=== PATIENT | female | born 1970 | race Caucasian/White ===

== ENCOUNTER → 2017-07-05 09:29 | Outpatient (CLI) | payer OTHER, SELFPAY ==
[2017-07-05 10:29] LABS: Hematocrit 39.8 % (37-47); Hemoglobin 13.5 g/dl (12.0-15.0); Mean Corp Hgb Conc 33.9 g/gl (32-36); Mean Corpuscular Hgb 31.6 pg (27.0-32.0); Mean Corpuscular Volume 93.2 fL (81-99); Mean Platelet Vol. 9.6 fl (6.2-12.0); Platelet Count 253 K/mm3 (150-450); RBC Distribution Width CV 12.3 % (11.6-14.6); RBC Distribution Width SD 41.2 fl (35.1-43.9); Red Blood Count 4.27 M/mm3 (4.2-5.4); White Blood Count 5.6 K/mm3 (4.4-11.0)
[2017-07-05 10:34] LABS: Scan Indicated on CBC? Y/N NO
[2017-07-08 14:09] LABS: Aspirgillus flavus Negative (Neg:<1:1); Aspirgillus fumigatus Negative (Neg:<1:1); Aspirgillus niger Negative (Neg:<1:1)
[2017-07-08 14:44] LABS: Immunoglobulin G 1086 mg/dL (700-1600)
[2017-07-09 03:06] LABS: Alternaria alternata <0.10 kU/L (Class 0); Bermuda Grass 0.15 kU/L (Class 0/I); Bluegrass, Kentucky <0.10 kU/L (Class 0); Cat Hair/Dander, Standard <0.10 kU/L (Class 0); D farinae Mite 0.24 kU/L (Class 0/I); D pteronyssinus 0.33 kU/L (Class I); Dog Epithelia <0.10 kU/L (Class 0); Elm, American White <0.10 kU/L (Class 0); Oak, White <0.10 kU/L (Class 0); Plantain, English <0.10 kU/L (Class 0); Ragweed, Short/Common <0.10 kU/L (Class 0)
[2017-07-09 07:54] LABS: Mouse Urine <0.10 kU/L (Class 0)
== END ==
PROVIDERS: Family Provider Family Medicine; PCP Family Medicine; Visit Provider Nurse Practitioner Acute Care
DX: R05 Cough (principal)
CPT/HCPCS: 36415; 82784; 85027; 86003; 86606

== ENCOUNTER → 2017-11-28 08:17 | Outpatient (CLI) | payer OTHER, SELFPAY ==
[2017-11-28 12:05] LABS: Absolute Lymphocyte Count 1.25 X10^3/ul (0.83-4.51); Absolute Neutrophil Count 2.8 X10^3/uL (2.0-7.7); Basophil# 0.02 X10^3/uL; Basophil% 0.4 % (0-1); Eosinophil# 0.06 X10^3/uL; Eosinophils% 1.3 % (0-5); Hematocrit 39.9 % (37-47); Hemoglobin 13.3 g/dl (12.0-15.0); Lymphocyte # 1.25 X10^3/ul (4.0); Lymphocyte % 27.2 % (19-41); Mean Corp Hgb Conc 33.3 g/gl (32-36); Mean Platelet Vol. 10.2 fl (6.2-12.0); Monocyte# 0.45 X10^3/uL; Monocyte% 9.8 % (0-10); Neutrophil # 2.82 X10^3/uL (2.7-7.7); Neutrophil % 61.3 % (47-70); Platelet Count 257 K/mm3 (150-450); RBC Distribution Width CV 12.3 % (11.6-14.6); RBC Distribution Width SD 41.1 fl (35.1-43.9); Red Blood Count 4.29 M/mm3 (4.2-5.4); White Blood Count 4.6 K/mm3 (4.4-11.0)
[2017-11-28 12:08] LABS: POSITIVE COUNT NO; POSITIVE DIFFERENTIAL NO; POSITIVE MORPHOLOGY NO
[2017-11-28 12:29] LABS: Hemoglobin A1c 8.1 % (4.2-6.3)
[2017-11-28 12:37] LABS: AST(SGOT) 11 U/L (15-37); Alanine Aminotransfer ALT/SGPT 15 U/L (13-56); Albumin, Serum 3.7 g/dL (3.2-5.0); Alkaline Phosphatase 51 U/L (45-117); Anion Gap 5 (5-15); BUN 14 mg/dL (7-18); BUN/Creat Ratio 16.3 RATIO (10-20); Calcium,Total 8.6 mg/dL (8.5-10.1); Chloride 103 mmol/L (98-107); Cholesterol 182 mg/dL (200); Creatinine, Serum 0.86 mg/dL (0.55-1.02); EST Glomerular Filtration Rate 75 mL/min (>60); Est Glom Filt Rate - Afr Amer 91 mL/min (>60); Globulin 3.7 g/dL (2.2-4.2); Glucose 184 mg/dL (74-106); High Density Lipoprotein 86 mg/dL; Microalbumin,Random Urine 6.6 mg/L (NO RANGE EST.); Microalbumin:Creatinine Ratio 4.9 mg/g CRE (<30 mg/g CRE); Potassium 4.2 mmol/L (3.5-5.1); Protein, Total 7.4 g/dL (6.4-8.2); Sodium Level 137 mmol/L (136-145); T4 Free Direct 1.04 ng/dL (0.76-1.46); Thyroid Stim Hormone (TSH) 1.69 uIU/mL (0.358-3.74); Triglycerides 89 mg/dL; Very Low Density Lipoprotein 18 mg/dL (5-40)
[2017-11-29 13:09] LABS: Hep B Surface Antibodies Non Reactive (.); Hepatitis A AB, Total Negative (Negative)
== END ==
PROVIDERS: Family Provider Family Medicine; PCP Family Medicine; Visit Provider Family Medicine
DX: Z20.9 Contact with and (suspected) exposure to unspecified communicable disease (principal); E10.9 Type 1 diabetes mellitus without complications
CPT/HCPCS: 36415; 80053; 80061; 82043; 82570; 83036; 84439; 84443; 85025; 86706; 86708

== ENCOUNTER → 2018-03-28 07:20 | Outpatient (CLI) | payer OTHER, SELFPAY ==
--- NOTE | 2018-03-28 07:22 | MRI_ITS ---
STUDY: MRI RIGHT ELBOW REASON FOR EXAM: Right elbow pain for 2 years, no specific injury. TECHNIQUE: Standardized fat and water weighted pulse sequences were obtained in all 3 orthogonal planes. COMPARISON: Radiographs 10/20/2016. FINDINGS: Normal radio-capitellum articulation. Normal radial collateral ligamentous complex. There is peritendinitis and an undersurface partial tear of the common extensor tendon (inversion recovery coronal images 8, 9). Normal ulnotrochlear articulation. Normal ulnar collateral ligamentous complex. Normal common flexor tendon. The cubital tunnel is normal, with a normal ulnar nerve. Normal biceps tendon and distal insertion. Normal lacertus fibrosis. Normal brachialis musculotendinous insertion. Normal triceps tendon and teno-osseous insertion. Normal olecranon process. The visualized distal humerus, proximal radius, and ulna are normal. The visualized muscles of the distal arm and proximal forearm are normal. The soft tissue structures are unremarkable. MRI/Upper Ext Joint Only(Routine) IMPRESSION: Lateral epicondylitis with peritendinitis and undersurface partial tear of the common extensor tendon. Electronically Signed: Akhil Read MD at 9:33 EST Tel , Service support ,
== END ==
PROVIDERS: Family Provider Family Medicine; PCP Family Medicine; Referring Provider Orthopaedic Surgery; Visit Provider Orthopaedic Surgery
DX: M77.11 Lateral epicondylitis, right elbow (principal); S56.511A Strain of other extensor muscle, fascia and tendon at forearm level, right arm, initial encounter; X58.XXXA Exposure to other specified factors, initial encounter
CPT/HCPCS: 73221

== ENCOUNTER → 2018-04-11 14:37 | Outpatient (CLI) | payer OTHER, SELFPAY ==
[2018-03-12 09:49] VITALS: BMI 22.4
--- NOTE | 2018-04-11 | EMB_PTH ---
PATIENT: ZAKIYA TRUJILLO LOC: [facility] U#:[id number] AGE/SX: 54/F ROOM: RE04/11/[address]: Dr. Jama Donato MD : 1970 BED: DIS: SPEC #: [id number] RECD: 04/11/18 15:27 STATUS: DAMIÁN BENIGNO #: [id number] JASBIR: 04/11/18 00:[address]: Jama Donato DEPT: SURGICAL PATHOLOGY RECD BY: Victor M Lazaro Tissues: Endometrium, NOS Procedures: Surgery Specimen Level IV HEADER OPERATION: Endometrial biopsy PRE-OP DIAGNOSIS: Abnormal uterine bleeding TISSUE SUBMITTED: Endometrial biopsy MICROSCOPIC DIAGNOSIS Endometrial biopsy: Proliferative endometrium. KLAUDIA:manisha 04/13/18 MICROSCOPIC DESCRIPTION Slides are reviewed. GROSS DESCRIPTION Received in fixative is one container labeled with the patient's name and designated EM biopsy. The specimen consists of multiple fragments of hemorrhagic soft tissue mixed with mucoid tissue that in aggregate measure 3 x 2.5 x 0.2 cm. The specimen is totally submitted in one cassette. / KLAUDIA:manisha 04/12/18 TC:4 CPT: 47370
[2018-04-20 11:29] LABS: HPV APTIMA, High Risk Negative (Negative); HPV Reflexed? NOT INDICATED
== END ==
PROVIDERS: Visit Provider Obstetrics & Gynecology
DX: N93.9 Abnormal uterine and vaginal bleeding, unspecified (principal); Z12.4 Encounter for screening for malignant neoplasm of cervix
CPT/HCPCS: 87624; 88175; 88305; G0145

== ENCOUNTER 2018-04-27 07:56 | Day surgery (SDC) | payer OTHER, SELFPAY ==
[2018-03-12 09:49] VITALS: BMI 22.4
[2018-04-27 08:25] LABS: Internal QC Validated? YES +Cl - CLEAR BKGD
[2018-04-27 08:26] LABS: Pregnancy, Urine Negative Negative
[2018-04-27 08:31] VITALS: BP 136/86; PULSE 87; RESP 16; TEMP 37.2; O2SAT 99; BMI 22.6
[2018-04-27 08:35] LABS: Anion Gap 8 (5-15); BUN 14 mg/dL (7-18); BUN/Creat Ratio 17.3 RATIO (10-20); Calcium,Total 8.7 mg/dL (8.5-10.1); Chloride 101 mmol/L (98-107); Creatinine, Serum 0.81 mg/dL (0.55-1.02); EST Glomerular Filtration Rate 80 mL/min (>60); Est Glom Filt Rate - Afr Amer 97 mL/min (>60); Glucose 227 mg/dL (74-106); Potassium 3.8 mmol/L (3.5-5.1); Sodium Level 135 mmol/L (136-145)
[2018-04-27 08:41] LABS: Hemoglobin A1c 8.9 % (4.2-6.3)
[2018-04-27 08:57] LABS: Bedside Glucose 233 mg/dL (70-110)
--- NOTE | 2018-04-27 09:30 | MISC_PTH ---
PATIENT: ZAKIYA TRUJILLO LOC: [facility] [place] U[place][id number] AGE/SX: 47/F ROOM: RE04/27/[address]: Dr. Stephanie Bar DO : 1970 BED: DIS: 04/27/2018 SPEC #: [id number] RECD: 04/27/18 12:46 STATUS: DAMIÁN BENIGNO #: [id number] JASBIR: 04/27/18 09:[address]: Stephanie Bar DEPT: SURGICAL PATHOLOGY RECD BY: Khalif Servin ENTERED: 04/27/18 13:27 SP TYPE: [facility] DR: Dr. Erin Acuna DO Tissues: Elbow, NOS Procedures: Surgery Specimen Level III HEADER OPERATION: Elbow lateral epicondyle ECRB (muscle) debridement/repair PRE-OP DIAGNOSIS: Right lateral epicondylitis TISSUE SUBMITTED: Right elbow ECRB MICROSCOPIC DIAGNOSIS Right elbow: Pieces of dense fibroconnective tissue with reactive changes and focal calcification. KLAUDIA:manisha 04/30/18 MICROSCOPIC DESCRIPTION Slides are reviewed. GROSS DESCRIPTION Received in fixative is one container labeled with the patient's name and designated right elbow. The specimen consists of multiple pieces of gaytan, indurated tissue that in aggregate measure 2 x 1.5 x 0.3 cm. The entire specimen is submitted in one cassette. / KLAUDIA:manisha 04/27/18 TC:5 CPT: 63638
--- NOTE | 2018-04-27 09:57 | PCM.DC.ORTHO ---
Discharge Diet: No Restrictions - leave dressing intact, follow up in 2 weeks, call with concerns, do not get incision wet Discharge Activity: May Not Drive May shower in (days): 1 Ice area for (Minutes): 20 - Every hour while awake. Weight Bearing Status: Weight bearing as tolerated Keep extremity elevated above heart level: Operative Extremity Call your doctor if your incision/area has: Continuous Slow Oozing, Sudden Increased Bleeding, Increased Pain/ Swelling, Increased Redness, Foul Smelling Discharge Call your doctor if you observe: Fever of 101 or Higher, Coldness, Increased Pain, Numbness or Tingling, Change in Color, Calf discomfort Allergies/Adverse Reactions: Allergies lisinopril Adverse Reaction (Intermediate, Verified 04/27/18 08:29) HYPOTENSION, SYMPTOMATIC fluticasone furoate [From Breo Ellipta] Adverse Reaction (Mild, Verified 04/20/18 09:08) Other - cough & loses voice vilanterol [From Breo Ellipta] Adverse Reaction (Mild, Verified 04/20/18 09:08) Other - cough & loses voice lovastatin Adverse Reaction (Unknown, Verified 04/27/18 08:29) Pain in joints Medications to take at Discharge Montelukast [Singulair] 10 mg PO DAILY 07/23/14 insulin lispro (U- 100) 100 unit/mL subcutaneous solution See Rx Instructions SC .COMPLEX 04/20/17 ezetimibe 10 mg tablet 10 mg PO QDAY 04/25/17 albuterol sulfate HFA 90 mcg/actuation aerosol inhaler 2 puff INHALATION Q4H #1 inh 07/05/17 fluticasone furoate 200 mcg/actuation blister powder for inhalation 1 inh INHALATION QDAY #30 ea 09/01/17 Fluticasone 0.05% [Flonase Nasal Leonardo] 2 spray INTRANASAL PRN PRN 04/20/18 Hydrocodone Bitart/Apap 5-325 [[place] 5MG-325MG] 1 - 2 tablet PO Q6H PRN PRN 5 Days #40 tablet 04/27/18 Ondansetron [Zofran] 8 mg PO Q8H PRN PRN #20 tablet 04/27/18 The following prescriptions were given: Hydrocodone Bitart/Apap 5-325 [[place] 5MG-325MG] 1 - 2 tablet PO Q6H PRN PRN 5 Days #40 tablet PRN Reason: Pain Ondansetron [Zofran] 8 mg PO Q8H PRN PRN #20 tablet PRN Reason: Nausea Primary Care Physician: Erin Acuna DO [Primary Care Provider] - Test Results: Test results from this visit will be discussed in further detail at your follow-up appointment, if applicable. Please Follow Up With: Stephanie Bar DO - [phone]
--- NOTE | 2018-04-27 09:58 | PCM.OPRPT ---
Problem List (1) Lateral epicondylitis of elbow Status: Acute Qualifiers: Laterality: right Qualified Code(s): M77.11 - Lateral epicondylitis, right elbow Report of Operation Date of Procedure: 04/27/18 Pre-Operative Diagnosis: right lateral epicondylitis Post-Operative Diagnosis: same Surgery/Procedure Performed:: right lateral epicondylectomy and debridement/ecrb debridement lead fabricator: Elver Huertas Type of Anesthesia:: General Anesthesiologist: Haile Donato Drains: tt- 47 mins Estimated Blood Loss (mL): none Fluids Replaced: 1000ml lr Description of Procedure: Preoperative note Patient is a 47-year-old female with continued pain in her right elbow. Patient failed conservative treatment MRI confirms high-grade tearing of her extensor tendon. Patient elected proceed with right lateral epicondylitis with possible repair repair is indicated. Wrist benefits alternatives were discussed with patient. Risks include but not limited to blood loss, blood clot clot, infection, neurovascular injury, failure procedure, loss of life and loss of limb. Patient is aware like proceed with right lateral epicondylitis extensor tendon debridement versus repair extensor tendon lateral epicondylectomy versus debridement. Operative note Patient seen and examined preoperative holding area. Right arm was marked. Patient brought to the operating room placed supine on the operating table. Sign, anesthesia, antibiotics were administered. The right arm was prepped and draped usual sterile fashion with tourniquet around her upper arm. We marked out our incision for lateral epicondyle surgery. Timeout was performed. Then elevated exsanguinated and tourniquet was placed raised her pressure of 250 torr. All bony prominences well-padded SCDs placed on her bilateral lower extremity. We then used a 15 blade cut the skin dissected down to the border of the ECU ECRL we then in line with the fascia fibers and using a deep 15 blade cut through this and then underneath and found the ECRB ECRB was degenerative in nature and also had a high-grade full-thickness tear of the ECRB off of the lateral epicondyle. We then debrided back all the loose pieces of the ECRB on either side of our incision. We did send this to pathology for further evaluation. We then debrided back the lateral epicondyle insertion we placed a 1.8 drill bit and placed a 2.4 mini suture tack and a three-point 0 suture tack injury and then repaired the tendon down to bone. We debrided any loose pieces at that time then oversewed the repair to the tendon on either side. We then irrigated with copious muscle sterile saline. Please note we also visualize the left radial humeral joint and noted there is no loose bodies or anything in the joint. Again we irrigated the incision with copious muscle sterile saline. The fascia was closed with 3-0 Vicryl skin skin subcuticular was closed with 3-0 Vicryl in a running 4-0 Monocryl sterile dressings and a splint was applied in 90 degrees. Tourniquet was deflated for total working time of 47 minutes. Patient tolerated procedure well no comp occasions transferred to recovery room in stable condition. Postoperative note Nonweightbearing right arm Pharmacy has prescriptions Call with increased pain numbness tingling or further issues arise Splint for 2 weeks This note was generated with [employer] dictation software. It may contain incorrect words, spelling, and punctuation that were not noted in checking the note before signing.
[2018-04-27] MEDS: Cefazolin 2 GM in 0.9% Normal Saline 100 ML IV (10:05)
[2018-04-27] MEDS: Mupirocin Ointment 22gm Tube 1 APPLIC (10:38)
[2018-04-27] MEDS: Bupivacaine 0.5% PF 10 ML VIAL (11:14)
[2018-04-27 11:33] VITALS: BP 110/80; BP 136/86; PULSE 96; RESP 16; TEMP 36.1; O2SAT 97
[2018-04-27 11:41] LABS: Bedside Glucose 160 mg/dL (70-110)
[2018-04-27 11:45] VITALS: BP 120/72; BP 136/86; PULSE 85; RESP 16; O2SAT 98
[2018-04-27 11:58] VITALS: BP 130/74; BP 136/86; PULSE 82; RESP 16; TEMP 36.1; O2SAT 100
[2018-04-27] MEDS: HYDROcodone Bitartrate/Apap 5/325 Tablet PO (12:19)
[2018-04-27 13:43] VITALS: BP 107/62; BP 136/86; PULSE 83; RESP 14; TEMP 37.1; O2SAT 97
== END 2018-04-27 13:47 | disposition home or self-care (01) ==
LOC: SDC 07:57 → AC 07:59
PROVIDERS: Anesthesiology; Family Provider Family Medicine; PCP Family Medicine; Referring Provider Orthopaedic Surgery; Visit Provider Orthopaedic Surgery
PROC: (CPT 24357; principal; 2018-04-27 09:15)
DX: M77.11 Lateral epicondylitis, right elbow (principal); J45.40 Moderate persistent asthma, uncomplicated; E11.9 Type 2 diabetes mellitus without complications; Z79.4 Long term (current) use of insulin; Z96.41 Presence of insulin pump (external) (internal); Z79.899 Other long term (current) drug therapy
CPT/HCPCS: 01712; 24359; 36415; 80048; 81025; 82962; 83036; 88304; 88305; C1713; J7120

== ENCOUNTER → 2018-12-25 08:44 | Outpatient (CLI) | payer OTHER, SELFPAY ==
[2018-08-01 08:06] VITALS: BMI 22.6
--- NOTE | 2018-12-25 08:45 | RAD_ITS ---
STUDY: X-RAY - RIGHT SHOULDER REASON FOR EXAM: Pain, no trauma. TECHNIQUE: 4 view(s) of the shoulder. COMPARISON: None. FINDINGS: Normal glenohumeral articulation. Normal acromioclavicular joint. Normal acromion. Normal humeral head and visualized proximal humerus. The soft tissue structures are unremarkable. Normal visualized pulmonary apex. RAD/Shoulder min 2 Views IMPRESSION: Normal x-ray examination of the right shoulder. Electronically Signed: Akhil Read MD at 10:28 EDT Tel , Service support ,
== END ==
PROVIDERS: Family Provider Family Medicine; PCP Family Medicine; Referring Provider Orthopaedic Surgery; Visit Provider Orthopaedic Surgery
DX: M25.511 Pain in right shoulder (principal)
CPT/HCPCS: 73030

== ENCOUNTER → 2019-01-18 07:54 | Outpatient (CLI) | payer OTHER, SELFPAY ==
[2018-12-25 09:13] VITALS: BMI 22.6
--- NOTE | 2019-01-18 07:56 | US_ITS ---
STUDY: ULTRASOUND BREAST - RIGHT REASON FOR EXAM: Female, 48 years old. Six-month follow-up examination. TECHNIQUE: Axial and longitudinal images of the RIGHT breast were performed with a high resolution ultrasound transducer. COMPARISON: Comparison is made with prior outside ultrasound examination dated 07/22/2018. FINDINGS: RIGHT Breast: There is a persistent 1.1 cm x 1.3 cm x 0.7 cm well-defined heterogeneous solid nodule at the 7:00 position of the breast at 3 cm from the nipple. This is essentially unchanged. A biopsy is recommended. US/Breast Limited Unilateral IMPRESSION: Stable appearance of the solid nodule as described. A biopsy is recommended. ASSESSMENT CATEGORY: BIRADS Category 4: Suspicious - Biopsy Should Be Considered. A letter regarding these results will be sent to the patient by the facility within 30 days. Electronically Signed: Mario Almodovar, at 8:40 EDT , Service support ,
== END ==
PROVIDERS: Family Provider Family Medicine; PCP Family Medicine; Referring Provider Nurse Practitioner Women's Health; Visit Provider Nurse Practitioner Women's Health
DX: N63.13 Unspecified lump in the right breast, lower outer quadrant (principal)
CPT/HCPCS: 76642

== ENCOUNTER → 2019-01-21 08:44 | Outpatient (CLI) | payer OTHER, SELFPAY ==
[2018-12-25 09:13] VITALS: BMI 22.6
[2019-01-21 12:27] LABS: Erythrocyte Sedimentation Rate 16 mm/hr (0-20)
[2019-01-21 12:42] LABS: CRP < 2.90 mg/L (0.0-3.0); Rheumatoid Factor < 10.0 IU/mL (<15)
[2019-01-23 12:22] LABS: CCP IgG Antibodies 9 units (0-19)
[2019-01-23 12:56] LABS: ANTINUCLEAR ANTIBODIES DIRECT Negative (Negative)
== END ==
PROVIDERS: Family Provider Family Medicine; PCP Family Medicine; Visit Provider Family Medicine
DX: M25.50 Pain in unspecified joint (principal)
CPT/HCPCS: 36415; 85652; 86038; 86140; 86200; 86225; 86235; 86431

== ENCOUNTER → 2019-01-22 09:39 | Outpatient (CLI) | payer OTHER, SELFPAY ==
[2019-01-22 08:41] VITALS: BMI 22.6
--- NOTE | 2019-01-22 08:50 | BRBX_PTH ---
PATIENT: ZAKIYA TRUJILLO LOC: [facility] U#:[id number] AGE/SX: 54/F ROOM: RE01/22/[address]: Dr. Tirso Joseph MD : 1970 BED: DIS: SPEC #: [id number] RECD: 01/22/19 09:22 STATUS: DAMIÁN REChe #: [id number] JASBIR: 01/22/19 08:[address]: Tirso Joseph DEPT: SURGICAL PATHOLOGY RECD BY: Victor M Lazaro ENTERED: 01/22/19 11:39 SP TYPE: BREAST BX OT DR: DO Luz Maria Cox, FAMILY LIFE COUNSELOR-C Tissues: Right breast, NOS Procedures: Surgery Specimen Level IV HEADER OPERATION: Ultrasound-guided right breast biopsy PRE-OP DIAGNOSIS: Abnormal ultrasound right breast R92.8 TISSUE SUBMITTED: Right breast biopsy ISCHEMIC TIME: <1 minute FIXATION TIME: 10.5 hours MICROSCOPIC DIAGNOSIS Right breast, ultrasound-guided core biopsy: Consistent with fibroadenoma. AM:manisha 01/23/19 MICROSCOPIC DESCRIPTION Slides are reviewed. GROSS DESCRIPTION Received in fixative is one container labeled with the patient's name and designated breast biopsy. The specimen consists of two elongated fragments of light gaytan soft tissue. Each fragment has an average length of 1 cm and a maximal diameter of 0.1 cm. The specimen is totally submitted in one cassette. / AM:manisha 01/22/19 TC:5 CPT: 98046
== END ==
PROVIDERS: Family Provider Family Medicine; PCP Family Medicine; Referring Provider Surgery; Visit Provider Surgery
DX: R92.8 Other abnormal and inconclusive findings on diagnostic imaging of breast (principal)
CPT/HCPCS: 88305

== ENCOUNTER → 2019-03-15 08:39 | Outpatient (CLI) | payer OTHER, SELFPAY ==
[2019-03-15 08:26] VITALS: BMI 22.6
--- NOTE | 2019-03-15 08:40 | RAD_ITS ---
STUDY: X-RAY - CERVICAL SPINE REASON FOR EXAM: Female, 48 years old. Arm pain. TECHNIQUE: 5 view(s) of the cervical spine were obtained on 6 images. COMPARISON: None FINDINGS: Normal anterior atlantoaxial articulation. Normal odontoid process. Normal cervical lordosis. Normal vertebral bodies and endplates. Minimal intervertebral disc space narrowing and C6-7 and C7-T1 without significant osteophyte formation. No significant bony neural foraminal encroachment. Diffuse mild uncovertebral and facet sclerosis. The soft tissue structures are unremarkable. RAD/Cerv Spine 4 or 5 Views IMPRESSION: Mild cervical spondylosis. Electronically Signed: Liam Gonzalez MD at 10:28 EST , Service support ,
== END ==
PROVIDERS: Family Provider Family Medicine; PCP Family Medicine; Referring Provider Orthopaedic Surgery; Visit Provider Orthopaedic Surgery
DX: M47.812 Spondylosis without myelopathy or radiculopathy, cervical region (principal); M79.601 Pain in right arm
CPT/HCPCS: 72050

== ENCOUNTER → 2019-03-21 12:04 | Outpatient (CLI) | payer OTHER, SELFPAY ==
[2019-03-15 08:26] VITALS: BMI 22.6
--- NOTE | 2019-03-21 12:06 | US_ITS ---
STUDY: THYROID ULTRASOUND REASON FOR EXAM: Female, 48 years old. Calcification on x-ray of the cervical region. TECHNIQUE: Ultrasound evaluation of the thyroid was performed with real-time and static chahal-scale imaging. COMPARISON: None. FINDINGS: RIGHT LOBE: The right lobe of the thyroid gland measures 3.9 x 1.6 x 1.4 cm. There is a homogeneous echotexture. Within the right thyroid lobe there are several mixed cystic/solid hypoechoic, lesion with peripheral color flow and irregular margins, largest measuring 0.8 x 0.5 cm seen within the upper pole. LEFT LOBE: The left lobe of the thyroid gland measures 3.6 x 1.3 x 1.4 cm. There is a homogeneous echotexture. Within the left thyroid lobe there are several small nodules are mixed cystic solid nodules with predominantly hyperechoic pattern and irregular margins, largest measuring 0.3 x 0.3 x 0.2 cm. There is no internal color flow. ISTHMUS: The isthmus measures 1.0 mm. The regional lymph nodes are normal. US/Thyroid IMPRESSION: Bilateral thyroid lobe nodules with morphology favoring benign process. No distinct calcified mass or lymphadenopathy seen. Note to be made that benign versus malignant process cannot be adequately determined without microscopic evaluation for documentation of stability. If indicated, follow-up ultrasound in 12 months recommended. Electronically Signed: Alisha Leon MD at 1:01 EST , Service support ,
== END ==
PROVIDERS: Family Provider Family Medicine; PCP Family Medicine; Referring Provider Family Medicine; Visit Provider Family Medicine
DX: E04.2 Nontoxic multinodular goiter (principal)
CPT/HCPCS: 76536

== ENCOUNTER → 2019-04-25 13:13 | Outpatient (CLI) | payer OTHER, SELFPAY ==
[2019-04-25 09:09] VITALS: BMI 22.6
[2019-04-28 17:43] LABS: HPV APTIMA, High Risk Negative (Negative)
== END ==
PROVIDERS: Family Provider Family Medicine; PCP Family Medicine; Referring Provider Nurse Practitioner Women's Health; Visit Provider Nurse Practitioner Women's Health
DX: Z12.4 Encounter for screening for malignant neoplasm of cervix (principal)
CPT/HCPCS: 87624; 88175; G0145

== ENCOUNTER → 2019-05-02 08:29 | Outpatient (CLI) | payer OTHER, SELFPAY ==
[2019-04-25 09:09] VITALS: BMI 22.6
[2019-04-26 11:14] VITALS: BMI 22.6
--- NOTE | 2019-05-02 08:29 | US_ITS ---
STUDY: ULTRASOUND TRANSVAGINAL CLINICAL: Female, 48 years old. Irregular menses TECHNIQUE: Transvaginal COMPARISON: None. FINDINGS: Normal uterine size measuring 7.4 x 5.5 x 3.7 cm in maximal craniocaudal dimension. It is retroverted. There are no myometrial masses. Normal endometrial thickness measuring 14 mm and appears hyperechoic. There are no endometrial masses, and there is no fluid in the endometrial cavity. Normal uterine cervix. The right ovary measures 4.5 x 2.3 x 3.2 cm. There is a 3.4 x 2.1 cm complex cystic lesion with some fluid debris level. Normal left ovary, measuring 2.5 x 1.2 x 1.6 cm. There are multiple follicles without a dominant cyst. There is no free fluid in the pelvis. US/Transvaginal Non- IMPRESSION: Complex right adnexal cystic lesion containing fluid debris level. Retroverted uterus. Electronically Signed: Ryan Hastings DO at 22:37 EST Tel [phone], Service support ,
--- NOTE | 2019-05-02 08:29 | US_ITS ---
STUDY: ULTRASOUND TRANSVAGINAL CLINICAL: Female, 48 years old. Irregular menses TECHNIQUE: Transvaginal COMPARISON: None. FINDINGS: Normal uterine size measuring 7.4 x 5.5 x 3.7 cm in maximal craniocaudal dimension. It is retroverted. There are no myometrial masses. Normal endometrial thickness measuring 14 mm and appears hyperechoic. There are no endometrial masses, and there is no fluid in the endometrial cavity. Normal uterine cervix. The right ovary measures 4.5 x 2.3 x 3.2 cm. There is a 3.4 x 2.1 cm complex cystic lesion with some fluid debris level. Normal left ovary, measuring 2.5 x 1.2 x 1.6 cm. There are multiple follicles without a dominant cyst. There is no free fluid in the pelvis. US/Pelvic (Non ) IMPRESSION: Complex right adnexal cystic lesion containing fluid debris level. Retroverted uterus. Electronically Signed: Ryan Hastings DO at 22:37 EST Tel [phone], Service support ,
== END ==
PROVIDERS: Family Provider Family Medicine; PCP Family Medicine; Referring Provider Nurse Practitioner Women's Health; Visit Provider Nurse Practitioner Women's Health
DX: N92.1 Excessive and frequent menstruation with irregular cycle (principal)
CPT/HCPCS: 76830; 76856; 93976

== ENCOUNTER → 2019-06-10 15:25 | Outpatient (CLI) | payer OTHER, SELFPAY ==
[2019-05-30 08:23] VITALS: BMI 22.6
--- NOTE | 2019-06-10 15:27 | MRI_ITS ---
STUDY: MRI RIGHT SHOULDER REASON FOR EXAM: Right shoulder pain radiating down arm, adhesive capsulitis. TECHNIQUE: Standardized fat and water weighted pulse sequences were obtained in all 3 orthogonal planes. COMPARISON: Radiographs 12/25/2018. FINDINGS: There is mild supraspinatus tendinosis (T2 coronal images 11-13) without discrete tendon tear. Normal infraspinatus tendon. Normal subscapularis tendon. Normal teres minor tendon. Normal supraspinatus muscle. Normal infraspinatus muscle. Normal subscapularis muscle. Normal teres minor muscle. Normal glenohumeral articulation. Normal humeral head and visualized proximal humerus. Normal biceps labral complex. Normal intracapsular long biceps tendon. Normal labrum. Normal capsulo- ligamentous complex. Normal acromioclavicular articulation. There is a Type II morphology (curved), with a neutral orientation. There is no subacromial-subdeltoid bursal fluid. There is thickening of the coracohumeral ligament and indistinct fat in the rotator cuff interval (T2 sagittal image 14). There is a small low-grade strain of the posterior lateral deltoid muscle (T2 coronal image 2). Normal trapezius muscle. MRI/Upper Ext Joint Only(Routine) IMPRESSION: Thickening of the coracohumeral ligament and indistinct fat in the rotator cuff interval, suggestive of adhesive capsulitis. Mild supraspinatus tendinosis without demonstrated rotator cuff tear. Small low-grade strain of the posterior lateral deltoid muscle. Electronically Signed: Akhil Read MD at 8:34 EST Tel , Service support ,
== END ==
PROVIDERS: PCP Family Medicine; Referring Provider Orthopaedic Surgery; Visit Provider Orthopaedic Surgery
DX: M75.01 Adhesive capsulitis of right shoulder (principal)
CPT/HCPCS: 73221

== ENCOUNTER 2019-07-03 05:57 | Day surgery (SDC) | payer OTHER, SELFPAY ==
[2019-06-13 14:48] VITALS: BMI 22.6
--- NOTE | 2019-06-14 10:45 | HP_ITS ---
I have re-examined the patient. There are no clinical changes since date of exam. Intake Vital Signs 06/13/19 BMI 22.6 Intake Visit Reasons: Right shoulder Chief Complaint: right arm pain Allergies lisinopril Adverse Reaction (Intermediate, Verified 04/25/19 08:54) HYPOTENSION, SYMPTOMATIC fluticasone furoate [From Breo Ellipta] Adverse Reaction (Mild, Verified 04/25/19 08:54) Other - cough & loses voice vilanterol [From Breo Ellipta] Adverse Reaction (Mild, Verified 04/25/19 08:54) Other - cough & loses voice lovastatin Adverse Reaction (Unknown, Verified 04/25/19 08:54) Pain in joints [facility] Medical History (Updated 04/25/19 @ 09:21 by EUGENE Soto) Asthma (Acute) abnormal ultrasound right breast (Acute) Adhesive capsulitis of shoulder (Chronic) Chronic cough (Chronic) Elbow joint pain (Chronic) Frequent headaches (Chronic) IDDM (insulin dependent diabetes mellitus) (Chronic) Insulin pump in place (Chronic) Microcalcifications of the breast (Chronic) Moderate persistent asthma, uncomplicated (Chronic) Neck pain (Chronic) Recurrent urinary tract infection (Chronic) Right elbow pain (Chronic) Right tennis elbow (Chronic) Seasonal allergies (Chronic) Shoulder impingement syndrome (Chronic) Shoulder pain (Chronic) Synovitis (Chronic) Surgical History (Updated 05/27/19 @ 16:17 by Yecenia Casiano) h/o right elbow surgery (Acute) Encounter for Essure implantation (Resolved ~10/07/10) H/O breast biopsy (Resolved) H/O laparoscopy (Resolved ~1997) H/O shoulder surgery (Resolved) Social History (Updated 06/14/19 @ 10:[address] 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 history of recent travel: No sexually active: Yes Smoking Status: Never smoker alcohol intake: current alcohol intake frequency: a few times a month Alcohol type: hard liquor substance use type: does not use diet: diabetic well-balanced diet: daily or most days caffeine: Yes (1) Type: carbonated beverages what type of physical activity do you participate in: none seatbelt use: always do you feel safe at home: Yes additional social history: Spouse: rajat HPI Right shoulder: Surgical H&P: Yes Details: Parts of this documentation were recorded by a scribe, this documentation accurately reflects the service provided and the decisions made by me, Dr. Stephanie Bar, 06/13/19 4051. ZAKIYA TRUJILLO is a 48 year old F here today for F/U on right shoulder. She had a right subacromial injection in 12/2018 and she had a GH injection 04/2019 which was not efefctive and she has completed PT. She had an MRI on monday and is here to review this MRI. Denies any changes in her pain. patient has had multiple injections and feels like the pain may be better but her rom is not changing. ROS Musc Reports as per HPI, Reports joint pain, Reports limited joint movement Skin/Breast Reports system reviewed and no additional complaints, except as docu Neuro Yes system reviewed and no additional complaints, except as docu Ortho Exam Right Shoulder Testing: Negative AROM-Forward Elevation 0-180 (150) Internal Rotation: Buttock No rales rhonchi wheezing, no abdominal pain, no audible bruits Assessment & Plan Problems 1. Adhesive capsulitis of right shoulder M75.01 Plan Personally reviewed the MRI and explained that there is no RTC tear but evidence of adhesive capsulitis. She has pain relief with injections and has had multiple, but no increased rom. She has had great relief with increased rom of the left post arthroscopy. Reviewed the post op day one PT session and will use a block or pain pump. Reviewed the pre-operative plans with the patient. Risks and benefits of the procedure were fully explained, including but not limited to infection, neurovascular injury, continued pain, arthritis, stiffness, need for further surgery, re-injury, DVT, PE, general risks of anesthesia, and loss of limb or life. The patient understands all the risks and does wish to proceed with written consent. Follow up post op or sooner if pain, swelling, numbness or associated symptoms, or concerns develop. All questions answered. Patient in agreement of plan. Coding Level of Care Code Off vis,est,level 4 Diagnoses Adhesive capsulitis of right shoulder M75.01 06/14/19 1045 <Electronically signed by Stephanie guevara DO> Date _ Stephanie Bar DO
[2019-07-03 06:28] VITALS: BP 112/59; PULSE 92; RESP 15; TEMP 37.2; O2SAT 98; BMI 23.8
[2019-07-03] MEDS: Lactated Ringers 1,000 ML 100 ML IV ×2 (06:39→09:08)
[2019-07-03 06:45] LABS: Internal QC Validated? YES +Cl - CLEAR BKGD; Pregnancy, Urine Negative Negative
--- NOTE | 2019-07-03 07:15 | DCINST_ITS ---
Discharge Diet: No Restrictions - May remove sling and do pendulums may move shoulder as tolerated follow-up follow-up in 2 weeks call with increased pain numbness tingling or further issues arise, may remove dressings and apply Band- Aids to incision sites after 5 days and get incision wet in shower at that time Discharge Activity: May Not Drive May shower in (days): 1 Ice area for (Minutes): 20 - Every hour while awake. Weight Bearing Status: Weight bearing as tolerated Keep extremity elevated above heart level: Operative Extremity Call your doctor if your incision/area has: Continuous Slow Oozing, Sudden Increased Bleeding, Increased Pain/ Swelling, Increased Redness, Foul Smelling Discharge Call your doctor if you observe: Fever of 101 or Higher, Coldness, Increased Pain, Numbness or Tingling, Change in Color, Calf discomfort Allergies/Adverse Reactions: Allergies lisinopril Adverse Reaction (Intermediate, Verified 07/03/19 06:19) HYPOTENSION, SYMPTOMATIC fluticasone furoate [From Breo Ellipta] Adverse Reaction (Mild, Verified 07/03/19 06:19) Other - cough & loses voice vilanterol [From Breo Ellipta] Adverse Reaction (Mild, Verified 07/03/19 06:19) Other - cough & loses voice lovastatin Adverse Reaction (Unknown, Verified 07/03/19 06:19) Pain in joints Medications to take at Discharge ezetimibe 10 mg tablet 10 mg PO QDAY 04/25/17 montelukast 10 mg tablet 10 mg PO DAILY #60 tab 10/19/18 fluticasone furoate 200 mcg/actuation blister powder for inhalation 1 inh INHALATION QDAY #30 ea 02/12/19 fluticasone propionate 50 mcg/actuation nasal spray,suspension 2 spray INTRANASAL PRN PRN #15.8 ml 06/18/19 Albuterol Sulfate [Ventolin Hfa] 2 puff INHALATION Q4H PRN 06/26/19 Insulin Lispro [Humalog] 100 unit SQ DAILY 06/26/19 Omeprazole [Prilosec] 20 mg PO DAILY 06/26/19 Oxycodone HCl/Acetaminophen [Percocet 5/325] 1 - 2 tab PO Q6H PRN PRN 5 Days #28 tab 07/03/19 The following prescriptions were given: Oxycodone HCl/Acetaminophen [Percocet 5/325] 1 - 2 tab PO Q6H PRN PRN 5 Days #28 tab PRN Reason: Pain Transmission Status: Received by [facility] Primary Care Physician: Erin Acuna DO [Primary Care Provider] - Test Results: Test results from this visit will be discussed in further detail at your follow- up appointment, if applicable. Please Follow Up With: Stephanie Bar DO - [phone]
--- NOTE | 2019-07-03 07:15 | PCM.OPRPT ---
Report of Operation Date of Procedure: 07/03/19 Pre-Operative Diagnosis: right frozen shoulder Post-Operative Diagnosis: right frozen shoulder, partial articular rotator cuff tear Surgery/Procedure Performed:: Right shoulder arthroscopy, rotator cuff debridement and labral debridement intra-articular, arthroscopic capsular release, subacromial decompression acromioplasty, manipulation under anesthesia carbon rod inserter: Elver Huertas Type of Anesthesia:: General Anesthesiologist: Haile Donato Estimated Blood Loss (mL): min Fluids Replaced: 1400cc lr Description of Procedure: Preop note Patient is a 48-year-old female well-known to me in clinic. Patient has had frozen shoulder of the right upper extremity for quite some time almost a year and a half. She has failed conservative treatment including injections and therapy she has done home therapy MRI does not show any tearing except for some adhesive capsulitis consistent with her picture clinically. Risk benefits and alternatives were discussed with patient. Risks including but not limited to blood loss, blood clot, infection, neurovascular, failure procedure, loss of life and loss of limb. Patient is aware like to proceed with right shoulder arthroscopy synovectomy release arthroscopic capsular release manipulation under anesthesia subacromial decompression acromioplasty repair as indicated. Operative note Patient seen and examined preoperative holding area. Right shoulder was marked. Patient received a preoperative regional interscalene block block. Patient brought to the operating room placed supine on the operating table. Signed, anesthesia, antibiotics were administered. The right arm was prepped and draped in usual sterile type usual sterile fashion after beachchair positioning was initiated. Please note the long-term through beachchair positioning we did recheck her blood pressure which is stable throughout. All bony promises well-padded SCDs placed on her light bilateral lower extremity. Right arm was prepped and draped in usual sterile fashion we then marked out our incision for landmarks timeout was performed. We then insufflated the glenohumeral from the posterior aspect. We had good return we then created a posterior portal. Began our diagnostic arthroscopy. She had some anterior and superior labral fraying she also has some rotator cuff anterior partial tearing. Created an anterior portal under direct visualization we then gently debrided back the labral fraying as well as the undersurface of the rotator cuff anterior leading edge it was about 20% of the anterior leading edge that was torn it was not a full-thickness and there was no instability. The rest of the rotator cuff was intact the subscap was intact there were no loose bodies in the inferior recess. We then used a combination of a shaver shaver and ablator wand we will release the rotator interval and then released the capsule gently about the 4 o'clock position anteriorly. We then switch portals and then further created a posterior capsular release with a ablator in the posterior portal going down to about the 4 o'clock position posteriorly as well. We then moved our scope into the subacromial space. Created a lateral portal under direct visualization. There was extensive bursitis throughout she did have a hooked type II acromion as well. We then gently resected back the bursa with a shaver and then the anterior lateral edge of the acromion combination of a shaver and a bur nuclear [place]. Coagulating bleeders that we did see. She had a huge posterior veil please note that was resected with a shaver. That point we then moved we then irrigated the subacromial space with copious muscle sterile saline moved moved to our manipulation under anesthesia. We then in scapular plane forward flexed we did feel audible feel and heard audible release of some remaining adhesions. We then measured her to have full range of motion in flexion we then moved her arm to 90 degrees she had full she had external rotation internal rotation with and cross body abduction and then at her side we did noted that her external rotation was about 35degrees. Patient's portals were closed with interrupted 4-0 nylon stitches. Patient tolerated the procedure well no complication transferred to recovery room in stable condition. Operative note Use arm as tolerated Remove sling do pendulums and raise arm above head. Physical therapy appt tomorrow Pharmacy has prescription for pain Call with increased pain numbness tingling further issues arise Dragon disclaimer This note was generated with [employer] dictation software. It may contain incorrect words, spelling, and punctuation that were not noted in checking the note before signing.
[2019-07-03] MEDS: Cefazolin 2 GM in 0.9% Normal Saline 100 ML IV (07:40)
[2019-07-03] MEDS: Epinephrine (1 mg/ml) 1 MG/ML VIAL (08:10)
[2019-07-03] MEDS: Mupirocin Ointment 22gm Tube 1 APPLIC (08:43)
[2019-07-03 09:01] VITALS: BP 112/59; BP 127/74; PULSE 89; RESP 16; TEMP 37.3; O2SAT 95
[2019-07-03 09:15] VITALS: BP 112/59; BP 122/69; PULSE 83; RESP 16; O2SAT 95
[2019-07-03 09:24] VITALS: BP 112/59; BP 133/70; PULSE 80; RESP 16; TEMP 36.8; O2SAT 95
[2019-07-03 10:18] VITALS: BP 112/59; BP 129/77; PULSE 76; RESP 16; TEMP 37.2; O2SAT 99
== END 2019-07-03 10:35 | disposition home or self-care (01) ==
LOC: SDC 05:58 → AC 06:00
PROVIDERS: Anesthesiology; PCP Family Medicine; Referring Provider Orthopaedic Surgery; Visit Provider Orthopaedic Surgery
PROC: (CPT 29826; principal; 2019-07-03 07:10)
DX: M75.01 Adhesive capsulitis of right shoulder (principal); M75.111 Incomplete rotator cuff tear or rupture of right shoulder, not specified as traumatic; J45.40 Moderate persistent asthma, uncomplicated; K21.9 Gastro-esophageal reflux disease without esophagitis; E11.9 Type 2 diabetes mellitus without complications; Z79.4 Long term (current) use of insulin; Z96.41 Presence of insulin pump (external) (internal)
CPT/HCPCS: 01630; 29822; 29826; 64415; 81025; J7120; J2405

== ENCOUNTER → 2019-07-23 08:37 | Outpatient (CLI) | payer OTHER, SELFPAY ==
[2019-04-26 11:14] VITALS: BMI 22.6
[2019-07-18 09:00] VITALS: BMI 23.8
--- NOTE | 2019-07-23 08:37 | BI_ITS ---
MAMMOGRAPHY - BILATERAL SCREENING REASON FOR EXAM: Female, 48 years old. Routine annual screening examination. PERTINENT HISTORY: Non-contributory. History of prior right ultrasound-guided breast biopsy. TECHNIQUE: Digital bilateral breast sandra (3D mammographic acquisition) in the CC and MLO projections. 2-D mediolateral oblique (MLO) and craniocaudad (CC) views of both breasts were obtained. CAD: Full Field Digital Mammography with Computer Added Detection was performed. COMPARISON: Comparison is made with prior study dated March 30, 2016. FINDINGS: Breast Composition: The breasts are heterogeneously dense, which may obscure small masses. There are no dominant masses or suspicious calcifications. A tissue clip marker is seen in any well-defined nodule measuring 1 cm x 0.8 cm in the inferior slightly lateral aspect of the right breast. No other significant abnormalities are identified. There has been no significant change since the prior study. BI/SCREEN MAMM (CAD) W/SANDRA BILAT IMPRESSION: Stable bilateral screening mammogram. Yearly follow-up mammogram recommended. (A) ASSESSMENT CATEGORY: BIRADS Category 2: Benign. A letter regarding these results will be sent to the patient by the facility within 30 days. Approximately 10% of breast cancers are not detected by mammography. A normal mammogram should not delay biopsy of a clinically suspicious abnormality. [id number] Electronically Signed: Mario Almodovar, at 11:00 EDT , Service support ,
--- NOTE | 2019-07-23 08:37 | US_ITS ---
STUDY: ULTRASOUND OF THE FEMALE PELVIS - COMPLETE REASON FOR EXAM: Female, 48 years old. F/U OV CYST LMP: July 11, 2019. TECHNIQUE: Transabdominal and Transvaginal TECHNICAL QUALITY: Adequate. COMPARISON: Comparison is made with prior ultrasound dated May 02, 2019. FINDINGS: The uterus is retroverted and is in a midline position. The uterus measures 9.9 cm x 5.5 cm x 4.1 cm. There is a Nabothian cyst of the cervix. The endometrium measures 7.0 mm in thickness, and is hyperechoic. There is no demonstrated endometrial mass. There is no demonstrated myometrial mass. I.U.D. - The patient does not have an I.U.D. The right ovary is visualized. The right ovary measures 3.3 cm x 3 cm x 1.8 cm. There is a 1.8 cm x 1.7 cm x 1.3 cm dominant follicle in the right ovary. There is no visualized right adnexal mass or complex lesion. There is normal arterial and normal venous vascularity. The left ovary is visualized. The left ovary measures 3.8 cm x 3.5 cm x 1.8 cm. There is a 2.6 cm x 2.8 signed by 1.5 cm cyst. There is no visualized left adnexal mass or complex lesion. There is normal arterial and normal venous vascularity. There is no fluid in the cul-de-sac. US/Transvaginal Non- IMPRESSION: Interval decrease in size of the right ovarian cyst. There now is evidence of a 2.6 cm x 2.8 cm by 1.5 cm left ovarian cyst. Electronically Signed: Mario Almodovar, at 15:40 EDT , Service support ,
--- NOTE | 2019-07-23 08:37 | US_ITS ---
STUDY: ULTRASOUND OF THE FEMALE PELVIS - COMPLETE REASON FOR EXAM: Female, 48 years old. F/U OV CYST LMP: July 11, 2019. TECHNIQUE: Transabdominal and Transvaginal TECHNICAL QUALITY: Adequate. COMPARISON: Comparison is made with prior ultrasound dated May 02, 2019. FINDINGS: The uterus is retroverted and is in a midline position. The uterus measures 9.9 cm x 5.5 cm x 4.1 cm. There is a Nabothian cyst of the cervix. The endometrium measures 7.0 mm in thickness, and is hyperechoic. There is no demonstrated endometrial mass. There is no demonstrated myometrial mass. I.U.D. - The patient does not have an I.U.D. The right ovary is visualized. The right ovary measures 3.3 cm x 3 cm x 1.8 cm. There is a 1.8 cm x 1.7 cm x 1.3 cm dominant follicle in the right ovary. There is no visualized right adnexal mass or complex lesion. There is normal arterial and normal venous vascularity. The left ovary is visualized. The left ovary measures 3.8 cm x 3.5 cm x 1.8 cm. There is a 2.6 cm x 2.8 signed by 1.5 cm cyst. There is no visualized left adnexal mass or complex lesion. There is normal arterial and normal venous vascularity. There is no fluid in the cul-de-sac. US/Pelvic (Non ) IMPRESSION: Interval decrease in size of the right ovarian cyst. There now is evidence of a 2.6 cm x 2.8 cm by 1.5 cm left ovarian cyst. Electronically Signed: Mario Almodovar, at 15:40 EDT , Service support ,
== END ==
PROVIDERS: Family Provider Family Medicine; PCP Family Medicine; Referring Provider Nurse Practitioner Women's Health; Visit Provider Nurse Practitioner Women's Health
DX: N83.201 Unspecified ovarian cyst, right side (principal); N83.202 Unspecified ovarian cyst, left side; Z12.31 Encounter for screening mammogram for malignant neoplasm of breast
CPT/HCPCS: 76830; 76856; 77063; 77067

== ENCOUNTER 2019-09-29 11:27 | Observation (INO) | payer OTHER, SELFPAY ==
[2019-09-20 08:52] VITALS: BMI 23.8
[2019-09-29] VITALS (14 sets, daily range): BP systolic 113–144; BP diastolic 58–93; PULSE 82–97; RESP 14–20; TEMP 36.4–37.2; O2SAT 97–100; BMI 22.5; BMI 22.6
--- NOTE | 2019-09-29 11:30 | NURSING ---
STROKE ALERT CALLED.
--- NOTE | 2019-09-29 11:30 | NURSING ---
NO OLD EKGS
--- NOTE | 2019-09-29 11:35 | RAD_ITS ---
STUDY: X-RAY CHEST REASON FOR EXAM: Female, 48 years old. NUMBNESS/TINGLING TO LEFT SIDE OF BODY -- SLURRED SPEECH EARLIER TODAY TECHNIQUE: Frontal view COMPARISON: July 04, 2016. FINDINGS: The lungs are clear and expanded. There is no demonstrated pleural abnormality. Normal size heart. Normal mediastinum and stephanie. Normal visualized pulmonary arteries. Normal visualized aortic arch and descending thoracic aorta. Normal visualized thoracic spine. Normal visualized ribs, clavicles, and shoulders. There is no demonstrated abnormality of the visualized soft tissue structures of the upper abdomen. RAD/Chest 1 View IMPRESSION: Normal x-ray examination of the chest. Electronically Signed: Ryan Hastings DO at 12:32 EDT Tel [phone], Service support ,
--- NOTE | 2019-09-29 11:35 | EKG12_ITS ---
Test Reason : NEURO Blood Pressure : / mmHG Vent. Rate : 086 BPM Atrial Rate : 086 BPM P-R Int : 132 ms QRS Dur : 080 ms QT Int : 362 ms P-R-T Axes : 072 061 053 degrees QTc Int : 433 ms Normal sinus rhythm Normal ECG Confirmed by ANNMARIE COLLAZO MD ([id number]), video editor RISHI CABELLO ([id number]) on 10/01/2019 3:17:57 PM Referred By: NAIDA Confirmed By:ANNMARIE COLLAZO MD
--- NOTE | 2019-09-29 11:35 | CT_ITS ---
We are attempting to reach an attending provider to discuss findings. An addendum with communication details will be sent when the communication is complete. STUDY: CT BRAIN WITHOUT CONTRAST REASON FOR EXAM: Female, 48 years old. STROKE PROTOCAL -- RIGHT SIDE WEAKNESS RADIATION DOSAGE (If Supplied By Facility): CTDIvol = ( 44.99 ) mGy, DLP = ( 796.11 ) mGycm TECHNIQUE: Transaxial CT imaging of the brain was performed without administration of intravenous contrast material. Individualized dose optimization techniques were used for this CT. COMPARISON: No relevant priors. FINDINGS: Normal soft tissue structures. Normal calvarium. Normal size ventricles and extra-axial spaces for the patient''s age. Normal white matter tracts of the cerebral hemispheres. Normal basal ganglia and thalami. Normal brainstem. Normal cerebellum. There is no intracranial hemorrhage. There are no findings of an acute ischemic infarction. Normal visualized paranasal sinuses. CT/Brain/Head without Contrast IMPRESSION: Normal unenhanced CT scan of the brain. Electronically Signed: Ryan Hastings DO at 11:47 EDT Tel [phone], Service support ,
--- NOTE | 2019-09-29 11:40 | ED.VIS.STROK ---
History of Present Illness Chief Complaint: Neuro S/Sx Informant: Patient Onset: Today Context: Sudden Onset Quality and Location: Left Facial Droop, Left Face Parasthesia, Left Arm Parasthesia, Left Arm Weakness, Slurred Speech Narrative: Patient is a 48-year-old female with history of type 1 diabetes mellitus and hyperlipidemia presenting from home for strokelike symptoms. Patient was having breakfast and plan with her grandchildren around 0930 this morning, 2 hours prior to arrival, when her noticed that she suddenly could not use her left arm, listed to the left side and had a facial droop. Her speech also seemed slurred. EMS was called however her vital signs were normal and is been decided drive herself. Patient's glucose was in the 200s per her continuous glucose monitor. Patient symptoms have since resolved except she feels her right side. No other complaint such as chest pain, shortness of breath, difficulty breathing, lightheadedness, head injury, falls, GI or symptoms. Patient states she otherwise feels well and felt well this morning. Past Medical History - Allergies and Home Meds Allergies/Adverse Reactions: Allergies lisinopril Adverse Reaction (Intermediate, Verified 09/29/19 11:40) HYPOTENSION, SYMPTOMATIC fluticasone furoate [From Breo Ellipta] Adverse Reaction (Mild, Verified 09/29/19 11:40) Other - cough & loses voice vilanterol [From Breo Ellipta] Adverse Reaction (Mild, Verified 09/29/19 11:40) Other - cough & loses voice lovastatin Adverse Reaction (Unknown, Verified 09/29/19 11:40) Pain in joints Primary Care Physician: Erin Acuna DO [Primary Care Provider] - Past Medical History: - - Type 1 diabetes mellitus, hyperlipidemia Surgical History: noncontributory Smoking Status: Never smoker Review of Systems General: Denies: Chills, Fever, Sweats Eyes: Denies: Visual changes - bilaterally, Diplopia ENT: Denies: Rhinorrhea, Sore throat Cardiovascular: Denies: Chest pain, Palpitations Respiratory: Denies: Dyspnea, Cough, Dyspnea on exertion Gastrointestinal: Denies: Abdominal pain, Nausea, Vomiting, Diarrhea, Melena, Hematochezia Genitourinary: Denies: Dysuria, Hematuria, Frequency Musculoskeletal: Denies: Back pain, Extremity Pain Skin: Denies: Rash, Wounds Neurological: Reports: Weakness, Parasthesia, - - slurred speach. Denies: Headache, Numbness STROKE Vital Signs/Narrative: Vital Signs Temp Pulse Resp BP Pulse Ox 09/29/19 11:33 98.2 F 94 18 144/76 H 98 09/29/19 11:28 98.2 F 97 20 H 131/93 H 98 Inital Vital Signs reviewed: Yes - NIHSS Initial 1a Level of Consciousness: 0 1b LOC Questions (Score 2 if aphasic/stupor): 0 1c LOC Commands (Only score 1st attempt): 0 2 Best Gaze (If aphasic, use reflexive mvmts.): 0 3 Visual: 0 4 Facial Palsy: 0 5 Motor Arm Right (UN = amputation/fusion): 0 5 Motor Arm Left: 0 6 Motor Leg Right: 0 6 Motor Leg Left: 0 7 Limb ataxia (Only + if out of proportion): 0 8 Sensory (Aphasia/stupor=0 or 1, coma=2): 0 9 Best Language: 0 10 Dysarthria (mute, coma=2, intubated=UN): 0 11 Extinction and Inattention (only scored if +): 0 Total Score: 0 General: Well nourished, Well developed Head: Normocephalic, Atraumatic Eyes: Perrl, EOMI ENT: Moist mucous membranes, No rhinorrhea Neck: Supple, Nontender Cardiovascular: Regular rate, Regular rhythm, No murmurs Respiratory: No distress, CTA bilaterally, Chest nontender Abdomen: Soft, Nontender, Nondistended, Normal bowel sounds Back: Nontender, Normal Inspection Extremities: Nontender, No edema Skin: Normal color, No rash Neurological: Alert, Oriented x3, Cranial nerves II-XII grossly intact, Normal Strength, Normal Sensation Psychological: Normal affect Diagnostic/Tx/Re-eval Clinical Impression(s) from Imaging Studies Brain CT 09/29/19 11:35 IMPRESSION: Normal unenhanced CT scan of the brain. Electronically Signed: Ryan Hastings DO at 11:47 EDT Tel [phone], Service support , ADDENDUM: 09/29/19 1225 IMPRESSION: Normal unenhanced CT scan of the brain. N.B. : Dr Huebr, AA, confirmed on 09/29/2019 12:18:12 (ET) that the referring physician received the results and does not require a verbal communication. Electronically Signed: Ryan Hastings DO at 11:47 EDT Tel [phone], Service support , Laboratory Data 09/29/19 09/29/19 09/29/19 11:25 11:25 11:25 WBC 7.3 RBC 4.32 Hgb 13.3 Hct 40.6 MCV 94.0 MCH 30.8 MCHC 32.8 RDW Std Deviation 41.2 RDW Coeff of Juancarlos 11.9 Plt Count 288 MPV 9.4 Immature Gran % (Auto) 0.300 Neut % (Auto) 65.6 Lymph % (Auto) 22.5 [place] % (Auto) 10.7 H Eos % (Auto) 0.5 Baso % (Auto) 0.4 Absolute Neuts (auto) 4.8 Absolute Lymphs (auto) 1.64 Nucleated RBC % 0 PT 12.0 INR 0.9 APTT 28.6 Sodium 139 Potassium 3.7 Chloride 104 Carbon Dioxide 30.0 Anion Gap 5 BUN 13 Creatinine 0.83 Estim Creat Clear Calc 71.58 Est GFR (MDRD) Af Amer 94 Est GFR (MDRD) Non-Af 78 BUN/Creatinine Ratio 15.7 Glucose 177 H Calcium 9.4 Troponin I < 0.015 Chest X-Ray - ED: 1 View, Read by ED Physician, Read by Radiologist, No Acute Disease - Rhythm Strip Rhythm Strip: Sinus Rhythm Rate: 86 Ectopy: None - EKG Initial EKG Interpretation: Sinus Rhythm, - - Sinus rhythm at a rate of 86 Normal intervals Normal axis Normal ST segments - Medical Decision Making Stroke Team Activated: Yes Reviewed Inclusion/Exclusion criteria: Yes Was Patient considered for Endovascular Intervention?: No IV Alteplase (t-PA) Administered: No Patient is evaluated for an episode of left-sided arm weakness, face weakness and slurred speech. Her symptoms had mostly resolved when she arrived. Now she is only complaining of some paresthesias in her left arm. Stroke team was activated. Patient's NIH is actually 0. CT of the brain does not show any acute intracranial process. Case is discussed briefly with tele-neurology from [facility] but as patient's symptoms have improved and her NIH is 0, she is not a TPA candidate. Patient will be admitted for further stroke evaluation she does have risk factors including type 1 diabetes mellitus and hyperlipidemia. She is given aspirin after swallow eval in the emergency room. Case is discussed with admitting physician, Dr. Harvey, except the patient. She does request that we order CTA head and neck when she still in the ER. Patient has been agreeable with this plan. Patient is stable while in the emergency room and stable for the general medical floor. ED Disposition - Plan for ED Patient: Disposition: Acute Care [facility] Diagnosis: TIA (transient ischemic attack), Diabetes mellitus Referrals: Erin Acuna DO [Primary Care Provider] -
[2019-09-29 11:44] LABS: Absolute Lymphocyte Count 1.64 X10^3/uL (0.83-4.51); Absolute Neutrophil Count 4.8 X10^3/uL (2.0-7.7); Basophil# 0.03 X10^3/uL; Basophil% 0.4 % (0-1); Eosinophil# 0.04 X10^3/uL; Eosinophils% 0.5 % (0-5); Hematocrit 40.6 % (37-47); Hemoglobin 13.3 g/dL (12.0-15.0); Lymphocyte # 1.64 X10^3/ul (4.0); Lymphocyte % 22.5 % (19-41); Mean Corp Hgb Conc 32.8 g/dL (32-36); Mean Corpuscular Hgb 30.8 pg (27.0-32.0); Mean Platelet Vol. 9.4 fl (6.2-12.0); Monocyte# 0.78 X10^3/uL; Monocyte% 10.7 % (0-10); NRBC Flagged by Analyzer 0 % (0-5); Neutrophil # 4.79 X10^3/uL (2.7-7.7); Neutrophil % 65.6 % (47-70); Platelet Count 288 K/mm3 (150-450); RBC Distribution Width CV 11.9 % (11.6-14.6); RBC Distribution Width SD 41.2 fl (35.1-43.9); Red Blood Count 4.32 M/mm3 (4.2-5.4); White Blood Count 7.3 K/mm3 (4.4-11.0)
[2019-09-29 11:52] LABS: International Normalized Ratio 0.9
[2019-09-29 11:53] LABS: Partial Thromboplast Time 28.6 Seconds (24.1-36.2)
[2019-09-29 12:02] LABS: Anion Gap 5 (5-15); BUN 13 mg/dL (7-18); BUN/Creat Ratio 15.7 RATIO (10-20); Calcium,Total 9.4 mg/dL (8.5-10.1); Chloride 104 mmol/L (98-107); Creatinine, Serum 0.83 mg/dL (0.55-1.02); EST Glomerular Filtration Rate 78 mL/min (>60); Est Glom Filt Rate - Afr Amer 94 mL/min (>60); Estimated Creatinine Clearance 71.58 ml/min; Glucose 177 mg/dL (74-106); Potassium 3.7 mmol/L (3.5-5.1); Sodium Level 139 mmol/L (136-145)
--- NOTE | 2019-09-29 12:20 | HP.PCM_ITS ---
History of Present Illness Date of Admission: 09/29/19 Chief Complaint: left upper arm weakness and numbness The patient is a 48 year old F with a past medical history as outlined which includes type 1 diabetes mellitus since she was 6 years old and hyperlipidemia. She was admitted through the ED on 09/29/2019 with a complaint of left upper extremity weakness and numbness and left-sided facial numbness. Symptoms started at around 9:30 AM on the day of admission. She states it lasted for just about a minute and quickly resolved. Her witnessed the numbness in the left-sided weakness and he states that it looked like she had had just went numb and floppy. She had never had such symptoms before so she decided to come into the ED. Symptoms have not recurred since morning. Review of symptoms otherwise negative and she denied any headache, chest pain, nausea vomiting, palpitations or dizziness. On admission in the ED, vitals were temperature of 98.9 Fahrenheit with blood pressure of 136/65 and pulse rate of 86 with respiratory to 14. She was saturating at 98% on room air. CBC was unremarkable and CMP was also unremarkable. Initial troponin was negative. Brain CT done showed a normal unenhanced CT of the brain and CTA of the head and neck was pending. Chest x-ray showed no acute cardiopulmonary process. She has been admitted to be managed for TIA. [] Past Medical History Past Medical History (Chronic Problems): Chronic Problems (Last Reviewed 04/25/19 @ 08:56 by Kiki Jeffers) Asthma (Chronic) Medical History: Medical History (Last Reviewed 04/25/19 @ 08:56 by Kiki Jeffers) Asthma J45.909 abnormal ultrasound right breast Adhesive capsulitis of shoulder M75.00 Chronic cough R05 Elbow joint pain M25.529 Frequent headaches R51 IDDM (insulin dependent diabetes mellitus) E11.9, Z79.[address] Z96.41 Microcalcifications of the breast R92.0 Moderate persistent asthma, uncomplicated J45.40 Neck pain M54.2 Recurrent urinary tract infection N39.0 Right elbow pain M25.521 Right tennis elbow M77.11 Seasonal allergies J30.2 Shoulder impingement syndrome M75.40 Shoulder pain M25.519 Synovitis M65.9 Allergies lisinopril Adverse Reaction (Intermediate, Verified 09/29/19 11:40) HYPOTENSION, SYMPTOMATIC fluticasone furoate [From Breo Ellipta] Adverse Reaction (Mild, Verified 09/29/19 11:40) Other - cough & loses voice vilanterol [From Breo Ellipta] Adverse Reaction (Mild, Verified 09/29/19 11:40) Other - cough & loses voice lovastatin Adverse Reaction (Unknown, Verified 09/29/19 11:40) Pain in joints Home Medications: Ambulatory Orders Medication Instructions Recorded ezetimibe 10 mg tablet 10 mg PO QDAY 04/25/17 montelukast 10 mg tablet 10 mg PO DAILY #60 tab 10/19/18 fluticasone furoate 200 1 inh INHALATION QDAY #30 ea 02/12/19 mcg/actuation blister powder for inhalation Albuterol Sulfate [Ventolin Hfa] 2 puff INHALATION Q4H PRN 06/26/19 Insulin Lispro [Humalog] 100 unit SQ DAILY 06/26/19 Omeprazole [Prilosec] 20 mg PO DAILY PRN 06/26/19 fluticasone propionate 50 2 spray INTRANASAL PRN PRN #15.8 ml 07/24/19 mcg/actuation nasal spray,suspension tramadol 50 mg tablet 50 mg PO Q8H PRN #60 tab 08/16/19 Surgical History: Surgical History (Last Updated 05/27/19 @ 16:17 by Yecenia Casiano) h/o right elbow surgery 04/27/18 Encounter for Essure implantation Onset Date: ~10/07/[address] Donato H/O breast biopsy Z98.890 04/2016 H/O laparoscopy Onset Date: ~1997 Z98.890 H/O shoulder surgery Z98.890 - 2014 Surgical History: noncontributory Psychiatric History: No pertinent psych hx [employer] History: No pertinent [employer] history Lives: With Family Smoking Status: Never smoker Alcohol: Occasional Drugs: None - *Family History Maternal Family History: Family History (Last Reviewed 04/25/19 @ 08:56 by Kiki Jeffers) Mother Asthma Colon cancer Osteoporosis Skin cancer Father Parkinsons Review of Systems Constitutional: Denies: Chills, Fever, Malaise, Weakness, Weight Change Eyes: Denies: Blurred vision HEENT: Denies: Head Aches, Sinus Congestion, Sinus Drainage Cardiovascular: Denies: Chest Pain, Palpitations Respiratory: Denies: Cough, Shortness of Breath, Shortness of breath at rest, Shortness of breath upon exertion, Sputum production Gastrointestinal: Denies: Abdominal Pain, Nausea, Vomiting Genitourinary: Denies: Dysuria Musculoskeletal: Denies: Joint Pain, Joint Tenderness Skin: Denies: Rash, Wounds Neurological: Denies: Focal weakness, Numbness, Tingling Psychiatric: Denies: Anxiety, Depression, Homicidal Ideations, Suicidal Ideations Hematologic/ Lymphatic: Denies: Easy Bruising, Easy Bleeding VTE Information - Inpt Only VTE Present on Admission: No VTE Pharm Prophylaxis ordered?: Yes Patient Problems: Active and Suspected Problems (Last Reviewed 04/25/19 @ 08:56 by Kiki Jeffers) TIA (transient ischemic attack) (Acute) Diabetes mellitus (Acute) - Physical Exam Vitals/I&O's: Vital Signs Temp Pulse Resp BP Pulse Ox 98.9 F 83 16 116/64 100 09/29/19 11:42 09/29/19 12:06 09/29/19 12:06 09/29/19 12:06 09/29/19 12:06 Oxygen Delivery Method Room Air Weight: 131 lb 2.801 oz Body Mass Index (BMI) 22.5 Finger Stick Blood Glucose 230 General: Alert, Oriented x3, Cooperative, No apparent distress HEENT: Atraumatic, PERRLA, EOMI, Normocephalic Oral: Ulcerations Present Neck: Supple, No JVD, Negative Carotid Bruits Lungs: Clear to auscultation, Normal air movement Cardiovascular: Regular rate, Regular Rhythm, Normal S1, Normal S2, No murmurs Abdomen: Bowel Sounds Present, Soft, Non Tender Extremities: No clubbing, No cyanosis, No edema, Capillary Refill Less than 3 Seconds Skin: No rashes, No breakdown Musculoskeletal: No Tenderness to Palpation of Joints or Extremities Lymphatic: No Cervical, Supraclavicular, or Inguinal Adenopathy Neurological: Cranial nerves II-XII grossly intact, Neuro grossly intact, Motor Exam 5/5 strength throughout Psych/Mental Status: Normal Affect, Appropriate, Alert and oriented to time, place, person, mood and affect Laboratory Results 09/29/19 11:25: WBC 7.3, RBC 4.32, Hgb 13.3, Hct 40.6, MCV 94.0, MCH 30.8, MCHC 32.8, RDW Std Deviation 41.2, RDW Coeff of Juancarlos 11.9, Plt Count 288, MPV 9.4, Immature Gran % (Auto) 0.300, Neut % (Auto) 65.6, Lymph % (Auto) 22.5, [place] % (Auto) 10.7 H, Eos % (Auto) 0.5, Baso % (Auto) 0.4, Absolute Neuts (auto) 4.8, Absolute Lymphs (auto) 1.64, Nucleated RBC % 0 09/29/19 11:25: PT 12.0, INR 0.9, APTT 28.6 09/29/19 11:25: Sodium 139, Potassium 3.7, Chloride 104, Carbon Dioxide 30.0, Anion Gap 5, BUN 13, Creatinine 0.83, Estim Creat Clear Calc 71.58, Est GFR (MDRD) Af Amer 94, Est GFR (MDRD) Non-Af 78, BUN/Creatinine Ratio 15.7, Glucose 177 H, Calcium 9.4, Troponin I < 0.[address] 09/29/19 11:35 IMPRESSION: Normal unenhanced CT scan of the brain. Electronically Signed: Ryan Hastings DO at 11:47 EDT Tel [phone], Service support , ADDENDUM: 09/29/19 1225 IMPRESSION: Normal unenhanced CT scan of the brain. N.B. : Dr Huber, AA, confirmed on 09/29/2019 12:18:12 (ET) that the referring physician received the results and does not require a verbal communication. Electronically Signed: Ryan Hastings DO at 11:47 EDT Tel [phone], Service support , Chest X-Ray 09/29/19 11:35 IMPRESSION: Normal x-ray examination of the chest. Electronically Signed: Ryan Hastings DO at 12:32 EDT Tel [phone], Service support , Assessment/Plan All Active Problems (Last Reviewed 04/25/19 @ 08:56 by Kiki Jeffers) TIA (transient ischemic attack) (Acute) Diabetes mellitus (Acute) Diabetes mellitus (Acute) HX: benign breast biopsy (Acute) Lateral epicondylitis of elbow (Acute) 48 y/o admitted with a complaint of LUE numbness and weakness as well as left facial weakness and numbness 1. TIA * symptoms resolved after just about one minute * CT of the brain was negative for any intracranial pathology * CTA of the head and neck * admit to PCU with telemetry * NIHSS * for MRI for the brain * 2D echo * check lipid panel and A1C * consult neurology * 2. Type 1 diabetes mellitus: on insulin pump. Insulin ispor 100units sq daily 3. Hyperlipidemia: on ezetimibe DVT prophylaxis: lovenox Code status: full code * Patient counseled extensively about different types of CODE STATUS including full code, DNR CCA and DNR CCA. Patient elects to be full code. Total efwm-nc-ipvs time 16 minutes. OBSV E&M: 61559 Initial observation care L2 Procedures: 86984 Advncd Care Plan 30 Min
--- NOTE | 2019-09-29 12:20 | CT_ITS ---
STUDY: CTA HEAD AND NECK WITH CONTRAST REASON FOR EXAM: Female, 48 years old. STROKE PROTOCAL -- RIGHT SIDE WEAKNESS RADIATION DOSAGE (If Supplied By Facility): CTDIvol = ( 19.04 ) mGy, DLP = ( 670.94 ) mGycm TECHNIQUE: CT angiography was performed with a multi-detector CT scanner. Data acquisition was obtained from the skull base through the vertex following intravenous administration of 100CC ISOVUE 370. MIP images were reconstructed from the axial data set. Post-processing of the angiographic images was performed, with multiplanar reformation and 3D reconstruction. Individualized dose optimization techniques were used for this CT. COMPARISON: No relevant priors. FINDINGS: Normal bilateral petrous carotid arteries. Mildly calcified right cavernous carotid artery with a normal supraclinoid bifurcation. Mildly calcified left cavernous carotid artery with a normal supraclinoid bifurcation. Normal right A1 segments of the anterior cerebral artery. Normal left A1 segments of the anterior cerebral artery. Normal intact anterior communicating artery (ACOM). Normal bilateral A2 segments of the anterior cerebral arteries. Normal right M1 and M2 segments of the middle cerebral arteries, with a normal M1 bifurcation. Normal left M1 and M2 segments of the middle cerebral arteries, with a normal M1 bifurcation. Hypoplastic right posterior communicating artery (PCOM). Nonvisualization of the left posterior communicating artery (PCOM). Normal bilateral vertebral arteries. Normal basilar artery with a normal basilar bifurcation. The visualized bilateral superior cerebellar (SCA) arteries are normal. Normal bilateral P1, P2 and visualized P3 segments of the posterior cerebral arteries. There is no demonstrated aneurysm of the [place]. There is no demonstrated abnormality of the visualized brain. AORTIC ARCH: Normal visualized aortic arch. Normal origins of the brachiocephalic, left common carotid, and left subclavian arteries. RIGHT CAROTID ARTERIES: Normal right common carotid artery (CCA). Normal right common carotid bulb. Normal origin of the right internal carotid (ICA) artery without a hemodynamically significant stenosis. Normal visualized cervical portion of the right internal carotid artery. Normal origin of the right external carotid artery (ECA). LEFT CAROTID ARTERIES: Normal left common carotid artery (CCA). Normal left common carotid bulb. Normal origin of the left internal carotid (ICA) artery without a hemodynamically significant stenosis. Normal visualized cervical portion of the left internal carotid artery. Normal origin of the left external carotid artery (ECA). VERTEBRAL ARTERIES: Normal bilateral vertebral arteries. CT/CTA Head AND Neck W/ Contrast IMPRESSION: Normal CTA Head and neck with contrast with no acute pathology. Electronically Signed: Ryan Hastings DO at 14:28 EDT Tel [phone], Service support ,
[2019-09-29] MEDS: Aspirin 325 MG Tablet PO (12:21)
[2019-09-29 15:38] LABS: Cholesterol 220 mg/dL (200); High Density Lipoprotein 104 mg/dL; Triglycerides 86 mg/dL; Very Low Density Lipoprotein 17 mg/dL (5-40)
[2019-09-29] MEDS: Montelukast 10 MG Tablet PO (21:35)
[2019-09-29] MEDS: Ezetimibe 10 MG Tablet PO (21:35)
[2019-09-30] VITALS (9 sets, daily range): BP systolic 113–124; BP diastolic 63–69; PULSE 79–98; RESP 16–18; TEMP 36.6–37.1; O2SAT 98–99; BMI 22.6
--- NOTE | 2019-09-30 05:55 | MRI_ITS ---
STUDY: MRI BRAIN WITHOUT CONTRAST REASON FOR EXAM: Female, 48 years old. tia -- sudden left sided weakness , slurred speech yesterday x 1 minute TECHNIQUE: Standardized multiplanar fat and water weighted pulse sequences were obtained. COMPARISON: 09/30/2019 CT of the head FINDINGS: Normal size of the ventricles and extra-axial spaces for the patient''s age. Normal white matter tracts of the supratentorial brain. There are multiple small foci of restricted diffusion involving the right frontal and parietal region (diffusion image #25 series 4) with drop of signal on ADC map, consistent with acute infarctions Normal bilateral basal ganglia. Normal thalami. There is no extra-axial fluid accumulation. Normal flow voids within the major intracranial circulation suggesting patency by spin echo criteria. Normal sella turcica, pituitary gland, infundibular stalk, optic chiasm and hypothalamus. Normal tectal plate and pineal gland. Normal midbrain, gunjan and medulla. Normal cerebellum. Normal basal cisterns. MRI/Brain without Contrast IMPRESSION: Acute small right frontoparietal infarcts. N.B. : The above information has been verbally conveyed by Maximus Lopez MD to Peng Verdin RN, on 09/30/2019 10:28:17 (ET). Electronically Signed: Maximus Lopez MD at 10:29 EDT Tel , Service support ,
[2019-09-30 06:05] LABS: Absolute Lymphocyte Count 1.85 X10^3/uL (0.83-4.51); Absolute Neutrophil Count 3.7 X10^3/uL (2.0-7.7); Basophil# 0.02 X10^3/uL; Basophil% 0.3 % (0-1); Eosinophil# 0.03 X10^3/uL; Eosinophils% 0.5 % (0-5); Hematocrit 38.9 % (37-47); Hemoglobin 12.7 g/dL (12.0-15.0); Lymphocyte # 1.85 X10^3/ul (4.0); Lymphocyte % 29.4 % (19-41); Mean Corp Hgb Conc 32.6 g/dL (32-36); Mean Corpuscular Hgb 30.3 pg (27.0-32.0); Mean Corpuscular Volume 92.8 fL (81-99); Mean Platelet Vol. 9.3 fl (6.2-12.0); Monocyte# 0.69 X10^3/uL; NRBC Flagged by Analyzer 0 % (0-5); Neutrophil % 58.6 % (47-70); Platelet Count 260 K/mm3 (150-450); RBC Distribution Width CV 12.2 % (11.6-14.6); RBC Distribution Width SD 41.4 fl (35.1-43.9); Red Blood Count 4.19 M/mm3 (4.2-5.4); White Blood Count 6.3 K/mm3 (4.4-11.0)
[2019-09-30 06:32] LABS: Anion Gap 6 (5-15); BUN 14 mg/dL (7-18); BUN/Creat Ratio 20.2 RATIO (10-20); Calcium,Total 8.7 mg/dL (8.5-10.1); Chloride 102 mmol/L (98-107); Creatinine, Serum 0.69 mg/dL (0.55-1.02); EST Glomerular Filtration Rate 96 mL/min (>60); Est Glom Filt Rate - Afr Amer 116 mL/min (>60); Glucose 167 mg/dL (74-106); Potassium 3.9 mmol/L (3.5-5.1); Sodium Level 136 mmol/L (136-145)
--- NOTE | 2019-09-30 08:00 | ECHOD_ITS ---
Reason For Study: TIA/CVA Procedure This was a 2D Doppler, Color Flow transthoracic echocardiogram. Exam performed portable in patient room. Left Ventricle Normal LV size. Left ventricular systolic function is normal. The estimated ejection fraction is 65 %. Normal diastology for age. No regional wall motion abnormalities noted. Right Ventricle Normal RV size. Normal systolic function. Atria Normal left atrium. Normal right atrium. Patent foramen ovale. Mitral Valve Normal mitral valve. Mild (1+) eccentric mitral valve insufficiency. Tricuspid Valve Normal tricuspid valve. Mild tricuspid valve insufficiency. Pulmonary artery systolic pressure is 17 mmHg. Aortic Valve Normal aortic valve. Trisinus/trileaflet aortic valve. Pulmonic Valve Normal pulmonic valve. Great Vessels Normal aortic root. The pulmonary artery is normal size. Normal inferior vena cava. Pericardium/Pleural No pericardial effusion. Medication Performed a rapid injection of agitated mix of 9 cc saline and 1cc air to assess for atrial septal defect. MMode/2D Measurements & Calculations LVIDd: 4.3 cm IVSd: 0.70 cm Ao root diam: 3.0 cm LVIDs: 3.0 cm LVPWd: 0.69 cm RVDd: 3.3 cm FS: 30.2 % LAV(MOD-bp): 27.8 ml LVAd ap4: 23.7 cm2 SV(MOD-sp4): 33.3 ml LAV(MOD-bp) Indexed: 17.0 ml/m2 EDV(MOD-sp4): 59.3 ml LAV(MOD-sp2): 20.6 ml EDV(sp4-el): 61.4 ml LAV(MOD-sp4): 29.0 ml LVAs ap4: 13.5 cm2 ESV(MOD-sp4): 26.0 ml ESV(sp4-el): 26.2 ml EF(MOD-sp4): 56.1 % EF(sp4-el): 57.4 % SV(sp4-el): 35.2 ml LA A4 area: 14.1 cm2 LA dimension(2D): 2.8 cm RA A4 area: 12.4 cm2 Time Measurements MV dec time: 0.24 sec Doppler Measurements & Calculations MV E max valentino: 92.3 cm/sec Lat Peak E' Valentino: 16.3 cm/sec Med Peak E' Valentino: 10.3 cm/sec MV A max valentino: 78.8 cm/sec E/E' lat: 5.7 E/E' med: 9.0 MV E/A: 1.2 Ao V2 max: 145.8 cm/sec LV V1 max: 101.6 cm/sec TR max valentino: 183.8 cm/sec Ao max P.5 mmHg LV V1 max P.1 mmHg TR max P.6 mmHg Interpretation Summary Normal LV size. Left ventricular systolic function is normal. The estimated ejection fraction is 65 %. Mild (1+) eccentric mitral valve insufficiency. Normal diastology for age. Pulmonary artery systolic pressure is 17 mmHg. Ordering Physician: Dejah Harvey Referring Physician: LALITHA MENJIVAR Performed By: Meri Estrada, [place], RVT
[2019-09-30] MEDS: Aspirin 81 MG TAB.CHEW PO (08:10)
[2019-09-30] MEDS: Enoxaparin 40 MG/0.4 ML Syringe SC (09:56)
--- NOTE | 2019-09-30 14:29 | DS.PCM_ITS ---
Discharge Date and Diagnosis - Problem List Patient Problems: Active and Suspected Problems (Last Reviewed 04/25/19 @ 08:56 by Kiki Jeffers) TIA (transient ischemic attack) (Acute) Diabetes mellitus (Acute) Date of Admission: 09/29/19 Date of Discharge: 09/30/19 - Primary Discharge Diagnosis Acute Problems: Active Problems (Last Reviewed 04/25/19 @ 08:56 by Kiki Jeffers) TIA (transient ischemic attack) (Acute) Diabetes mellitus (Acute) acute CVA - Secondary Discharge Diagnosis Chronic Problems: Chronic Problems (Last Reviewed 04/25/19 @ 08:56 by Kiki Jeffers) Asthma (Chronic) Hospital Course and Treatment Imaging Results: 09/30/19 05:55 MRI Brain [Brain without Contrast] [MRI] AM (NON MEDS) 09/30/19 08:00 Echo Complete [ECHO] Routine neurology- SOC teleneurology Operations: None Procedures: 2-D Echocardiogram Summary of Care Provided: The patient is a 48 year old F with a past medical history as outlined which includes type 1 diabetes mellitus since she was 6 years old and hyperlipidemia. She was admitted through the ED on 09/29/2019 with a complaint of left upper extremity weakness and numbness and left-sided facial numbness. Symptoms started at around 9:30 AM on the day of admission. She states it lasted for just about a minute and quickly resolved. Her witnessed the numbness in the left-sided weakness and he states that it looked like she had had just went numb and floppy. She had never had such symptoms before so she decided to come into the ED. Symptoms have not recurred since morning. Review of symptoms otherwise negative and she denied any headache, chest pain, nausea vomiting, palpitations or dizziness. On admission in the ED, vitals were temperature of 98.9 Fahrenheit with blood pressure of 136/65 and pulse rate of 86 with respiratory to 14. She was saturating at 98% on room air. CBC was unremarkable and CMP was also unremarkable. Initial troponin was negative. Brain CT done showed a normal unenhanced CT of the brain and CTA of the head and neck showed no acute pathology . Chest x-ray showed no acute cardiopulmonary process. She was admitted to be managed for TIA. She had MRI of the head which showed acute small right frontoparietal infarcts. Patient was evaluated by physical therapy and did well with them. She was on aspirin 81 mg daily. Neurology was consulted and per neurology recommendation, she was given a loading dose of Plavix 300mg as well. 2D echo done showed a patent foramen ovale and normal left ventricular size and function with EF of 65% and normal diastole for age. Neurology recommended patient be put on dual antiplatelet with aspirin and Plavix for 3 weeks and then to continue with a single agent. Neurology also recommended a 30-day Holter monitor and based on her young age, they also recommended a hypercoagulable panel. Per neurology, she was not in favor of the PFO been closed surgically and did not recommend that. Patient is to follow-up with her primary care doctor and to be referred to neurology on outpatient basis as appropriate. I did speak to patient's PCP Dr. Erin Acuna on phone prior to patient being discharged about the need for hypercoagulable panel and she will order this on outpatient basis. Patient seen and examined prior to discharge. She had no complaints. Review of symptoms otherwise negative. Labs and vitals reviewed. Home medication reviewed and reconciled. o/e: Vital Signs Temp Pulse Resp BP Pulse Ox 98.7 F 82 18 124/63 H 99 09/30/19 09:50 09/30/19 11:00 09/30/19 09:50 09/30/19 09:50 09/30/19 09:50 General: Alert, Oriented x3, Cooperative, No apparent distress HEENT: Atraumatic, PERRLA, EOMI, Normocephalic Oral: Ulcerations Present Neck: Supple, No JVD, Negative Carotid Bruits Lungs: Clear to auscultation, Normal air movement Cardiovascular: Regular rate, Regular Rhythm, Normal S1, Normal S2, No murmurs Abdomen: Bowel Sounds Present, Soft, Non Tender Extremities: No clubbing, No cyanosis, No edema, Capillary Refill Less than 3 Seconds Skin: No rashes, No breakdown Musculoskeletal: No Tenderness to Palpation of Joints or Extremities Lymphatic: No Cervical, Supraclavicular, or Inguinal Adenopathy Neurological: Cranial nerves II-XII grossly intact, Neuro grossly intact, Motor Exam 5/5 strength throughout Psych/Mental Status: Normal Affect, Appropriate, Alert and oriented to time, place, person, mood and affect Plan as above. Note, patient had lovastatin listed as an allergy. On further questioning she said he gave her some pain in her legs. Patient was counseled about the importance of taking statins especially with the stroke was counseled to take a statin sleep at night to try to preempt the pain in his lower extremities. She was therefore discharged on p.o. atorvastatin 40 mg nightly. Patient was put on a 48-hour Holter monitor for now and is to come back in 1 to 2 days time for 30-day event monitor to be placed and this is to be sent to Dr. Hernadez to be read. Patient Problems: Active and Suspected Problems (Last Reviewed 04/25/19 @ 08:56 by Kiki Jeffers) TIA (transient ischemic attack) (Acute) Diabetes mellitus (Acute) - Physical Exam Vitals/I&O's: Vital Signs Temp Pulse Resp BP Pulse Ox 98.7 F 82 18 124/63 H 99 09/30/19 09:50 09/30/19 11:00 09/30/19 09:50 09/30/19 09:50 09/30/19 09:50 Oxygen Delivery Method Room Air Weight: 131 lb 13.383 oz Body Mass Index (BMI) 22.6 Finger Stick Blood Glucose 230 Intake and Output for Last 24 Hours 09/28/19 09/29/19 09/30/19 23:59 23:59 23:59 Intake Total 960 / 960 720 / 720 Balance 960 / 960 720 / 720 Laboratory Results 09/29/19 11:25: Triglycerides 86, Cholesterol 220 H, LDL Cholesterol 99, VLDL Cholesterol 17, HDL Cholesterol 104 09/30/19 05:32: WBC 6.3, RBC 4.19 L, Hgb 12.7, Hct 38.9, MCV 92.8, MCH 30.3, MCHC 32.6, RDW Std Deviation 41.4, RDW Coeff of Juancarlos 12.2, Plt Count 260, MPV 9.3 , Immature Gran % (Auto) 0.200, Neut % (Auto) 58.6, Lymph % (Auto) 29.4, [place] % (Auto) 11.0 H, Eos % (Auto) 0.5, Baso % (Auto) 0.3, Absolute Neuts (auto) 3.7, Absolute Lymphs (auto) 1.85, Nucleated RBC % 0 09/30/19 05:32: Sodium 136, Potassium 3.9, Chloride 102, Carbon Dioxide 28.0, Anion Gap 6, BUN 14, Creatinine 0.69, Estim Creat Clear Calc 86.10, Est GFR (MDRD) Af Amer 116, Est GFR (MDRD) Non-Af 96, BUN/Creatinine Ratio 20.2 H, Glucose 167 H, Calcium 8.7 Current Medications Albuterol Sulfate (Ventolin Aerosols) 2.5 mg INHALATION Q4H PRN PRN PRN Reason: SOB &/OR WHEEZING Aspirin (Aspirin, Baby) 81 mg PO DAILY@0800 COUNTS INCLUDE 234 BEDS AT THE [facility] Last Admin: 09/30/19 08:10 Dose: 81 mg Documented by: Budesonide (Pulmicort Aerosol) 0.5 mg INHALATION Q12H.RT COUNTS INCLUDE 234 BEDS AT THE [facility] Last Admin: 09/30/19 07:05 Dose: Not Given Documented by: Dextrose (D50w Syringe) 0 gm IV X1 PRN; Protocol PRN Reason: Hypoglycemia Ezetimibe (Zetia) 10 mg PO DAILY@2100 COUNTS INCLUDE 234 BEDS AT THE [facility] Last Admin: 09/29/19 21:35 Dose: 10 mg Documented by: Enoxaparin Sodium (Lovenox) 40 mg SC DAILY COUNTS INCLUDE 234 BEDS AT THE [facility] Last Admin: 09/30/19 09:56 Dose: 40 mg Documented by: Fluticasone Propionate (Flonase Nasal Wyocena) 2 spray NASAL DAILY PRN PRN PRN Reason: Nasal Congestion Glucagon () 1 mg IM .X1 PRN PRN Reason: Hypoglycemia Hydralazine HCl (Apresoline Iv) 5 mg IV Q30M PRN PRN Reason: to maintain BP goals Insulin Aspart (Pump, Basal) 1 unit SC Q24 COUNTS INCLUDE 234 BEDS AT THE [facility] Last Admin: 09/30/19 09:57 Dose: Not Given Documented by: Insulin Human Lispro (Humalog Kwikpen (Bkc)) 0 unit SC ACHS COUNTS INCLUDE 234 BEDS AT THE [facility]; Protocol Last Admin: 09/30/19 12:06 Dose: Not Given Documented by: Labetalol HCl (Trandate) 10 - 20 mg IV Q10M PRN PRN PRN Reason: to maintain BP goals Montelukast Sodium (Singulair) 10 mg PO DAILY@2100 COUNTS INCLUDE 234 BEDS AT THE [facility] Last Admin: 09/29/19 21:35 Dose: 10 mg Documented by: Pantoprazole Sodium (Protonix) 20 mg PO DAILY PRN PRN PRN Reason: heartburn Sodium Chloride () 10 - 40 ml IV UD PRN PRN Reason: SALINE FLUSH Tramadol HCl (Ultram) 50 mg PO Q8H PRN PRN PRN Reason: pain 1-10 Discharge Diet: Low fat/ Low Cholesterol Discharge Activity: Return to Normal Activity Weight Bearing Status: Weight bearing as tolerated Call your doctor if you observe: Numbness or Tingling, - - focal weakness, mouth droop Home Medications: Medications to take at Discharge ezetimibe 10 mg tablet 10 mg PO QDAY 04/25/17 montelukast 10 mg tablet 10 mg PO DAILY #60 tab 10/19/18 fluticasone furoate 200 mcg/actuation blister powder for inhalation 1 inh INHALATION QDAY #30 ea 02/12/19 Albuterol Sulfate [Ventolin Hfa] 2 puff INHALATION Q4H PRN 06/26/19 Insulin Lispro [Humalog] 100 unit SQ DAILY 06/26/19 Omeprazole [Prilosec] 20 mg PO DAILY PRN 06/26/19 fluticasone propionate 50 mcg/actuation nasal spray,suspension 2 spray INTRANASAL PRN PRN #15.8 ml 07/24/19 tramadol 50 mg tablet 50 mg PO Q8H PRN #60 tab 08/16/19 Aspirin [Aspirin, Baby] 81 mg PO DAILY@0800 #30 tab.chew 09/30/19 Atorvastatin Calcium 40 mg PO QHS #30 tab 09/30/19 Clopidogrel Bisulfate [Plavix] 75 mg PO DAILY #21 tab 09/30/19 Following Prescrptions Were Given to Patient: Aspirin [Aspirin, Baby] 81 mg PO DAILY@0800 #30 tab.chew Transmission Status: Received by [facility] Atorvastatin Calcium 40 mg PO QHS #30 tab Transmission Status: Received by [facility] Clopidogrel Bisulfate [Plavix] 75 mg PO DAILY #21 tab Transmission Status: Received by [facility] Other Amb Orders: 30-Day Event Recorder [[facility]] Time Frame: 2 Days, Location: None Selected Cardiac Holter Monitor, Set-Up [[facility]] Location: None Selected Primary Care Physician: Erin Acuna DO [Primary Care Provider] - Patient Instructions: Thrombolytic Therapy (Stroke), Symptoms of Stroke, What Is Ischemic Stroke? Disposition: Home Minutes spent on discharge:: 45 Patient Condition:: Stable Medical Necessity - Tobacco Use Smoking Status: Never smoker Tobacco Use: Non-smoker Meaningful Use Info Meaningful Use Diagnoses (Choose all that apply): Ischemic CVA - CVA Therapy Assessed for PT,OT and/or ST?: Yes - Ischemic Stroke Antithrombotic order at d/c?: Yes Dx of Atrial fib/flutter?: No Anticoagulant at discharge?: No Reason anticoagulant not ordered: Procedure not Indicated Statins at discharge?: Yes Primary Dx Acute Ischemic CVA?: Yes IV tPA ordered during stay?: No Reason IV t-PA not ordered: Procedure not Indicated OBSV E&M: 16606 Observation care discharge
[2019-09-30] MEDS: Clopidogrel Bisulfate 300 MG Tablet PO (15:26)
--- NOTE | 2019-09-30 15:32 | DCINST_ITS ---
- Discharge Diagnoses Current Active Problems: Current Active and Chronic Problems (Last Reviewed 04/25/19 @ 08:56 by Kiki Jeffers) TIA (transient ischemic attack) (Acute) Diabetes mellitus (Acute) You will use the following diet at home:: Calorie/Carbohydrate Controlled (specify 1200, 1400, etc) Your food should be the consistency of: Regular Your liquids should be the consistency of: Regular/Thin Discharge Activity: Return to Normal Activity Weight Bearing Status: Weight bearing as tolerated Call your doctor if you observe: Numbness or Tingling, Dizziness, Increased palpitations (irregular heartbeat), - - focal weakness Instructions: What Is Ischemic Stroke?, Symptoms of Stroke, Thrombolytic Therapy (Stroke) Additional Instructions: to have 48 hour holter for now. To have 30 day event monitor fitted tomorrow or Monday; to take aspirin 81mg daily and plavix 75mg daily for 21 days; then to continue with only aspirin 81mg daily afterwards. To have hypercoagulable panel on outpatient basis- Dr Acuna will order on outpatient basis- to have factor V Leiden, Prothrombin mutation and antiphospholipid antibodies as well as antithrombin 2 antibodies checked. To be referred to neurologist on outpatient basis by Dr Acuna Allergies/Adverse Reactions: Allergies lisinopril Adverse Reaction (Intermediate, Verified 09/29/19 11:40) HYPOTENSION, SYMPTOMATIC fluticasone furoate [From Breo Ellipta] Adverse Reaction (Mild, Verified 09/29/19 11:40) Other - cough & loses voice vilanterol [From Breo Ellipta] Adverse Reaction (Mild, Verified 09/29/19 11:40) Other - cough & loses voice lovastatin Adverse Reaction (Unknown, Verified 09/29/19 11:40) Pain in joints Medications to take at Discharge ezetimibe 10 mg tablet 10 mg PO QDAY 04/25/17 montelukast 10 mg tablet 10 mg PO DAILY #60 tab 10/19/18 fluticasone furoate 200 mcg/actuation blister powder for inhalation 1 inh INHALATION QDAY #30 ea 02/12/19 Albuterol Sulfate [Ventolin Hfa] 2 puff INHALATION Q4H PRN 06/26/19 Insulin Lispro [Humalog] 100 unit SQ DAILY 06/26/19 Omeprazole [Prilosec] 20 mg PO DAILY PRN 06/26/19 fluticasone propionate 50 mcg/actuation nasal spray,suspension 2 spray INTRANASAL PRN PRN #15.8 ml 07/24/19 tramadol 50 mg tablet 50 mg PO Q8H PRN #60 tab 08/16/19 Aspirin [Aspirin, Baby] 81 mg PO DAILY@0800 #30 tab.chew 09/30/19 Atorvastatin Calcium 40 mg PO QHS #30 tab 09/30/19 Clopidogrel Bisulfate [Plavix] 75 mg PO DAILY #21 tab 09/30/19 The following prescriptions were given: Aspirin [Aspirin, Baby] 81 mg PO DAILY@0800 #30 tab.chew Transmission Status: Received by [facility] Atorvastatin Calcium 40 mg PO QHS #30 tab Transmission Status: Received by [facility] Clopidogrel Bisulfate [Plavix] 75 mg PO DAILY #21 tab Transmission Status: Received by [facility] Orders to be completed after discharge: Cardiac Holter Monitor, Set-Up [[facility]] Location: None Selected Primary Care Physician: Erin Acuna DO [Primary Care Provider] - Please follow up with your Primary Care Physician in: 1 week Test Results: Test results from this visit will be discussed in further detail at your follow- up appointment, if applicable. Proposed Discharge Date: 09/30/19
== END 2019-09-30 15:35 | disposition home or self-care (01) ==
LOC: ED 11:42 → PCU 12:31
PROVIDERS: Admitting Provider Student in an Organized Health Care Education/Training Program; Emergency Provider Emergency Medicine; PCP Family Medicine; Visit Provider Student in an Organized Health Care Education/Training Program
DX: G45.9 Transient cerebral ischemic attack, unspecified (principal); R47.81 Slurred speech; R29.810 Facial weakness; R20.2 Paresthesia of skin; R53.1 Weakness; E10.9 Type 1 diabetes mellitus without complications; E78.5 Hyperlipidemia, unspecified; Z79.899 Other long term (current) drug therapy; Z79.4 Long term (current) use of insulin; Z79.51 Long term (current) use of inhaled steroids; R29.700 NIHSS score 0; R20.0 Anesthesia of skin; J45.40 Moderate persistent asthma, uncomplicated; Z96.41 Presence of insulin pump (external) (internal)
CPT/HCPCS: 36415; 70450; 70496; 70498; 70551; 71045; 80048; 80061; 84484; 85025; 85610; 85730; 93005; 93306; 94762; 96372; 99218; 99285; Q9967; A4216; G0378

== ENCOUNTER → 2019-09-30 15:48 | Outpatient (CLI) | payer OTHER, SELFPAY ==
[2019-09-30 01:50] VITALS: BMI 22.6
== END ==
PROVIDERS: PCP Family Medicine; Visit Provider Student in an Organized Health Care Education/Training Program
DX: I63.9 Cerebral infarction, unspecified (principal)
CPT/HCPCS: 93225; 93226

== ENCOUNTER → 2019-10-01 15:16 | Outpatient (CLI) | payer OTHER, SELFPAY ==
[2019-09-30 01:50] VITALS: BMI 22.6
[2019-10-14 09:36] LABS: Protein C Antigen 111 % (60-150); Protein C, Functional 122 % (73-180)
[2019-10-14 13:13] LABS: Protein S, Free 52 % (57-157); Protein S, Funtional 64 % (63-140); Protein S, Total 77 % (60-150)
== END ==
PROVIDERS: PCP Family Medicine; Visit Provider Family Medicine
DX: Q21.1 Atrial septal defect (principal); Z86.73 Personal history of transient ischemic attack (TIA), and cerebral infarction without residual deficits
CPT/HCPCS: 36415; 81240; 81241; 81291; 85302; 85303; 85305; 85306

== ENCOUNTER → 2019-10-11 16:22 | Outpatient (CLI) | payer OTHER, SELFPAY ==
[2019-09-30 01:50] VITALS: BMI 22.6
[2019-10-13 21:13] LABS: SAR-COV-2 IGG ANTIBODY Negative (Negative); SAR-COV-2 IGM ANTIBODY Negative (Negative)
== END ==
PROVIDERS: PCP Family Medicine; Referring Provider Family Medicine; Visit Provider Family Medicine
DX: Z20.828 Contact with and (suspected) exposure to other viral communicable diseases (principal)
CPT/HCPCS: 36415; 86769; 87635; G2023; U0003

== ENCOUNTER 2019-10-28 06:58 | Day surgery (SDC) | payer OTHER, SELFPAY ==
[2019-10-16 15:00] VITALS: BMI 22.8
[2019-10-25 10:08] VITALS: BMI 22.8
[2019-10-28 07:21] LABS: Internal QC Validated? YES +Cl - CLEAR BKGD; Pregnancy, Urine Negative Negative
--- NOTE | 2019-10-28 08:45 | CL.IE_ITS ---
Patient: ZAKIYA TRUJILLO Study Date: 10/28/2019 Performing: Carter Hernadez MD : 1970 Age: 49 Gender: female PROCEDURES PERFORMED [id number] OF LOOP RECORDER INDICATIONS CVA PROCEDURE DETAILS The patient was brought to the Catheterization Lab in the postabsorptive nonsedated state. Infor med consent was obtained prior to the procedure. Local anesthetic was given subcutaneously to the le ft subclavian region with Lidocaine 2%. Incision was made to the left upper chest. ICM Loop Recorder was inserted. Steri-strips applied to Lt chest area. The patient tolerated the procedure well. Estimated Blood Loss: < 10 mls IMPLANTED / EX-PLANTED DEVICES IMPLANTED DEVICE(S): ICM Loop Recorder - Administrative Processor: [employer], Model # LNQ11 , Serial # [id number] DEVICE PARAMETERS CONCLUSIONS / RECOMMENDATIONS Device Conclusions: Successful implantation of a patient activated loop recorder. Device Recommendations: Follow up with Primary Care Physician PROCEDURE MEDICATIONS Versed 1 mg IV Oxygen: 2 L/min via nasal cannula Antibiotic given in appropriate timeframe. Ancef 1 Gm IV @ 10/28/2019 08:31:22 Signed By Carter Hernadez MD On 10/28/2019 08:44:42 Carter Hernadez MD
== END 2019-10-28 09:55 | disposition home or self-care (01) ==
LOC: CLSP 07:00
PROVIDERS: PCP Family Medicine; Referring Provider Internal Medicine Cardiovascular Disease; Visit Provider Internal Medicine Cardiovascular Disease
DX: I63.9 Cerebral infarction, unspecified (principal); Z79.899 Other long term (current) drug therapy; E11.9 Type 2 diabetes mellitus without complications; Z79.4 Long term (current) use of insulin; J45.30 Mild persistent asthma, uncomplicated
CPT/HCPCS: 33285; 81025; 99152; J7040

== ENCOUNTER → 2019-11-07 09:15 | Outpatient (CLI) | payer OTHER, SELFPAY ==
[2019-11-07 08:37] VITALS: BMI 22.8
[2019-11-07 09:59] LABS: Erythrocyte Sedimentation Rate 12 mm/hr (0-20)
[2019-11-07 10:44] LABS: CRP < 2.90 mg/L (0.0-3.0)
[2019-11-09 14:41] LABS: ANTINUCLEAR ANTIBODIES DIRECT Negative (Negative)
[2019-11-11 16:07] LABS: Complement C3 117 mg/dL (82-167); Dilute Prothrombin Time (dPT) 31.7 sec (0.0-55.0); Dilute Russell Viper Venom 32.5 sec (0.0-47.0); PTT-LA 36.5 sec (0.0-51.9); Thrombin Time 17.8 sec (0.0-23.0); dPT Confirm Ratio 0.84 Ratio (0.00-1.40)
[2019-11-12 01:54] LABS: Anti-Cardiolipin Ab, IgA, Qn < 9 APL U/mL (0-11); Anti-Cardiolipin Ab, IgG, Qn < 9 GPL U/mL (0-14); Anti-Cardiolipin Ab, IgM, Qn 12 MPL U/mL (0-12); Complement CH50 56 U/mL (>41); Interpretation Comment: (.)
== END ==
PROVIDERS: PCP Family Medicine; Referring Provider Psychiatry & Neurology Neurology; Visit Provider Psychiatry & Neurology Neurology
DX: Z86.73 Personal history of transient ischemic attack (TIA), and cerebral infarction without residual deficits (principal)
CPT/HCPCS: 36415; 85652; 86038; 86140; 86147; 86160; 86162; 86225; 86235

== ENCOUNTER → 2019-12-19 22:56 | Outpatient (CLI) | payer OTHER, SELFPAY ==
[2019-11-28 15:53] VITALS: BMI 22.8
== END ==
PROVIDERS: PCP Family Medicine; Referring Provider Psychiatry & Neurology Neurology; Visit Provider Psychiatry & Neurology Neurology
DX: R06.83 Snoring (principal)
CPT/HCPCS: 95810

== ENCOUNTER → 2020-04-07 10:52 | Outpatient (CLI) | payer OTHER, SELFPAY ==
[2020-02-26 08:18] VITALS: BMI 23.5
[2020-04-07 11:42] LABS: AST(SGOT) 32 U/L (15-37); Alanine Aminotransfer ALT/SGPT 34 U/L (13-56); Albumin, Serum 4.1 g/dL (3.2-5.0); Alkaline Phosphatase 68 U/L (45-117); Bilirubin, Direct 0.18 mg/dL (0.00-0.30); Cholesterol 254 mg/dL (200); Globulin 4.1 g/dL (2.2-4.2); High Density Lipoprotein 112 mg/dL; Protein, Total 8.2 g/dL (6.4-8.2); Triglycerides 63 mg/dL; Very Low Density Lipoprotein 13 mg/dL (5-40)
== END ==
PROVIDERS: PCP Family Medicine; Referring Provider Psychiatry & Neurology Neurology; Visit Provider Psychiatry & Neurology Neurology
DX: E78.00 Pure hypercholesterolemia, unspecified (principal); Z86.73 Personal history of transient ischemic attack (TIA), and cerebral infarction without residual deficits
CPT/HCPCS: 36415; 80061; 80076

== ENCOUNTER → 2020-04-27 09:55 | Outpatient (CLI) | payer OTHER, SELFPAY ==
[2020-04-27 09:29] VITALS: BMI 24.2
[2020-04-27 10:50] LABS: Follicle Stimulating Hormone 104.9 mIU/mL
== END ==
PROVIDERS: PCP Family Medicine; Referring Provider Nurse Practitioner Women's Health; Visit Provider Nurse Practitioner Women's Health
DX: N92.6 Irregular menstruation, unspecified (principal)
CPT/HCPCS: 36415; 83001

== ENCOUNTER → 2020-07-02 11:49 | Outpatient (CLI) | payer OTHER, SELFPAY ==
[2020-04-27 09:29] VITALS: BMI 24.2
--- NOTE | 2020-07-02 12:00 | MRI_ITS ---
STUDY: MRI BRAIN WITHOUT CONTRAST REASON FOR EXAM: Female, 49 years old. ,Dizziness, tinnitus, AMNESIA, H/O OF CEREBRAL INFARCTION TECHNIQUE: Standardized multiplanar fat and water weighted pulse sequences were obtained. COMPARISON: MRI brain without contrast 09/30/2019. FINDINGS: No diffusion restriction throughout the brain parenchyma. No focal signal abnormalities throughout the brain parenchyma in all of the pulse sequences. Normal size of the ventricles and extra-axial spaces for the patient''s age. Normal white matter tracts of the supratentorial brain. Normal bilateral basal ganglia. Normal thalami. There is no extra-axial fluid accumulation. Normal flow voids within the major intracranial circulation suggesting patency by spin echo criteria. Normal sella turcica, pituitary gland, infundibular stalk, optic chiasm and hypothalamus. Normal tectal plate and pineal gland. Normal midbrain, gunjan and medulla. Normal cerebellum. Normal basal cisterns. Normal bilateral temporal bones. Normal bilateral internal auditory canals. No demonstrated orbital abnormality, within the constraints of a routine brain study. Normal visualized paranasal sinuses. Normal calvarium and skull base. Normal visualized soft tissue structures. Normal visualized upper cervical spine. MRI/Brain without Contrast IMPRESSION: Normal unenhanced MRI of the brain and unchanged since 09/30/2019. Electronically Signed: Peng Barnhart MD at 15:36 EST , Service support ,
== END ==
PROVIDERS: PCP Family Medicine; Referring Provider Family Medicine; Visit Provider Family Medicine
DX: H93.13 Tinnitus, bilateral (principal); R41.3 Other amnesia; Z86.73 Personal history of transient ischemic attack (TIA), and cerebral infarction without residual deficits
CPT/HCPCS: 70551

== ENCOUNTER → 2020-07-14 08:33 | Outpatient (CLI) | payer OTHER, SELFPAY ==
[2020-04-27 09:29] VITALS: BMI 24.2
--- NOTE | 2020-07-14 08:39 | BI_ITS ---
MAMMOGRAPHY - BILATERAL SCREENING REASON FOR EXAM: Female, 49 years old. Routine annual screening examination. PERTINENT HISTORY: Non-contributory. History of prior right ultrasound-guided breast biopsy. TECHNIQUE: Digital bilateral breast sandra (3D mammographic acquisition) in the CC and MLO projections. 2-D mediolateral oblique (MLO) and craniocaudad (CC) views of both breasts were obtained. CAD: Full Field Digital Mammography with Computer Added Detection was performed. COMPARISON: Comparison is made with prior study dated 07/23/2019 and 03/30/2016. FINDINGS: Breast Composition: The breasts are heterogeneously dense, which may obscure small masses. There are no dominant masses or suspicious calcifications. A tissue clip marker is seen within a faint 1 cm nodular density in the inferior central portion of the right breast at approximately 6 o''clock position. A loop recording device is seen overlying the superior medial aspect of the left breast. No other significant abnormalities are identified. There has been no significant change since the prior study. BI/SCRN MAMM (CAD)W/SANDRA BILAT IMPRESSION: Stable bilateral screening mammogram. Yearly follow-up mammogram recommended. (A) ASSESSMENT CATEGORY: BIRADS Category 2: Benign. A letter regarding these results will be sent to the patient by the facility within 30 days. Approximately 10% of breast cancers are not detected by mammography. A normal mammogram should not delay biopsy of a clinically suspicious abnormality. [id number] Electronically Signed: Mario Almodovar MD at 8:59 EDT , Service support ,
--- NOTE | 2020-07-14 09:02 | US_ITS ---
HISTORY: Nodule. 70 images. Comparison study is a thyroid ultrasound from March 21, 2019. Findings: The thyroid isthmus is normal and homogeneous 2 cm. Color Doppler imaging of the thyroid isthmus the right lobe of the thyroid gland demonstrates similar flow. The right lobe of the thyroid gland measures 1.8 x 4.5 x 1.2 cm. Within the lateral aspect of the right lobe of the thyroid gland there is a lesion. It is cystic or almost completely cystic. Is hypoechoic. It is taller than wide. It has smooth margins. There are no associated comet tail artifacts. It measures 13 x 6 x 8 mm. Color Doppler imaging demonstrates flow within this lesion. This is moderately suspicious. Ti-Rads 4. Within the right lobe of the thyroid gland more medially there is a second lesion. It is almost completely cystic. There is very hypoechoic. There has smooth margins. It is taller than wide. It has no associated comet tail artifacts. It measures 2 x 5 x 3 mm. It does not have flow on color Doppler imaging. Ti-Rads score of 4. The left lobe of the thyroid gland is more homogeneous. The left lobe of the thyroid gland measures 38 x 11 x 15 mm. Within the left lobe of the thyroid gland there is a lesion within the inferior pole. It is cystic or almost completely cystic. It is very hypoechoic. It is wider than tall. It has smooth margins. There are no associated comet tail artifacts. It measures 3 x 2 x 3 mm. Ti-Rads score of 2. A 2 mm cyst is present anteriorly within the midportion left lobe of the thyroid gland. Comparison to the previous study from March 21, 2019 demonstrates the same 2 lesions within the right lobe of the thyroid gland. There is similar. It demonstrates a single lesion within the inferior pole of the left lobe of the thyroid gland. It is unchanged. This cyst is unchanged within the left lobe of the thyroid gland. US/Thyroid IMPRESSION: Bilateral thyroid lesions. The tumor within the right are moderately suspicious. However, as they are unchanged since March 21, 2019, there likely benign. This is not yet in 2 years of follow-up. Another year follow-up may be warranted. at 0628 Reported and signed by: Nigel Hernandez MD Electronically Signed: Nigel Hernandez MD at 6:27 EST Tel , Service support ,
== END ==
PROVIDERS: PCP Family Medicine; Referring Provider Nurse Practitioner Women's Health
DX: E04.1 Nontoxic single thyroid nodule (principal); Z12.31 Encounter for screening mammogram for malignant neoplasm of breast
CPT/HCPCS: 76536; 77063; 77067

== ENCOUNTER → 2020-10-09 08:08 | Outpatient (CLI) | payer OTHER, SELFPAY ==
[2020-08-26 08:40] VITALS: BMI 23.0
[2020-10-09 09:00] LABS: AST(SGOT) 12 U/L (15-37); Alanine Aminotransfer ALT/SGPT 17 U/L (13-56); Albumin, Serum 3.9 g/dL (3.2-5.0); Alkaline Phosphatase 74 U/L (45-117); Cholesterol 305 mg/dL (200); High Density Lipoprotein 94 mg/dL; Protein, Total 7.9 g/dL (6.4-8.2); Triglycerides 76 mg/dL; Very Low Density Lipoprotein 15 mg/dL (5-40)
== END ==
PROVIDERS: PCP Family Medicine; Referring Provider Psychiatry & Neurology Neurology; Visit Provider Psychiatry & Neurology Neurology
DX: E78.00 Pure hypercholesterolemia, unspecified (principal)
CPT/HCPCS: 36415; 80061; 80076

== ENCOUNTER → 2021-01-22 07:43 | Outpatient (CLI) | payer OTHER, SELFPAY ==
[2021-01-22 10:33] LABS: Cholesterol 228 mg/dL (200); High Density Lipoprotein 103 mg/dL; Triglycerides 76 mg/dL; Very Low Density Lipoprotein 15 mg/dL (5-40)
[2021-01-22 15:46] LABS: ALB/GLOB Ratio 0.9 RATIO (0.9-2.4); AST(SGOT) 15 U/L (15-37); Alanine Aminotransfer ALT/SGPT 22 U/L (13-56); Albumin, Serum 3.7 g/dL (3.2-5.0); Alkaline Phosphatase 65 U/L (45-117); Anion Gap 7 (5-15); BUN 15 mg/dL (7-18); BUN/Creat Ratio 18.1 RATIO (10-20); Calcium,Total 9.2 mg/dL (8.5-10.1); Chloride 103 mmol/L (98-107); Creatinine, Serum 0.83 mg/dL (0.55-1.02); EST Glomerular Filtration Rate 78 mL/min (>60); Est Glom Filt Rate - Afr Amer 94 mL/min (>60); Globulin 4.2 g/dL (2.2-4.2); Glucose 253 mg/dL (74-106); Potassium 3.8 mmol/L (3.5-5.1); Protein, Total 7.9 g/dL (6.4-8.2); Sodium Level 139 mmol/L (136-145)
== END ==
PROVIDERS: Nurse Practitioner Family; PCP Family Medicine; Referring Provider Family Medicine; Visit Provider Family Medicine
DX: Z01.84 Encounter for antibody response examination (principal); D84.9 Immunodeficiency, unspecified; E10.65 Type 1 diabetes mellitus with hyperglycemia; E78.00 Pure hypercholesterolemia, unspecified
CPT/HCPCS: 36415; 80053; 80061; 86769

== ENCOUNTER 2021-03-30 06:01 | Day surgery (SDC) | payer OTHER, SELFPAY ==
[2021-03-30 06:36] VITALS: BP 130/64; PULSE 88; RESP 16; TEMP 36.8; O2SAT 100; BMI 23.4
[2021-03-30] MEDS: Lactated Ringers 1,000 ML 15 ML IV (06:40)
--- NOTE | 2021-03-30 06:47 | PCM.HP.BLA ---
History and Physical Date of Admission: 03/30/21 Date of Service: 03/15/21 MR#:[id number]:[id number]: ZAKIYA TRUJILLORep #:[id number]: 1970 Provider: KRIS Fam/Sex: 50/F [facility] [place] Intake Intake Visit Reasons: Right thumb Chief Complaint: F/U CVA Allergies lisinopril Adverse Reaction (Intermediate, Verified 10/12/20 08:02) HYPOTENSION, SYMPTOMATIC fluticasone furoate [From Breo Ellipta] Adverse Reaction (Mild, Verified 10/12/20 08:02) Other - cough & loses voice vilanterol [From Breo Ellipta] Adverse Reaction (Mild, Verified 10/12/20 08:02) Other - cough & loses voice lovastatin Adverse Reaction (Unknown, Verified 10/12/20 08:02) Pain in joints [facility] Medical History Abnormal ultrasound of breast Adhesive capsulitis of shoulder Asthma Breast lump Cerebrovascular disease Chronic cough CVA (cerebral vascular accident) (09/29/19) Diabetes Diabetes Frequent headaches High cholesterol History of stroke HX: benign breast biopsy Hyperlipidemia IDDM (insulin dependent diabetes mellitus) Insomnia Insulin pump in place Insulin pump titration Lateral epicondylitis of elbow left shoulder Microcalcifications of the breast Moderate persistent asthma, uncomplicated Neck pain Presence of insulin pump Recurrent urinary tract infection right elbow Right elbow pain right shoulder Right tennis elbow Seasonal allergies Seasonal allergies Shoulder impingement syndrome Shoulder pain Synovitis UTI (urinary tract infection) Surgical History Encounter for Essure implantation (10/07/10) H/O breast biopsy H/O laparoscopy (1997) H/O shoulder surgery History of elbow surgery History of loop recorder (10/28/19) Family History Mother Asthma Colon cancer Osteoporosis Skin cancer Hypertension Father Parkinson disease Other Depression Diabetes Melanoma Social History household members: spouse housing: house number of children: 2 current occupational status: employed 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 [employer] history of recent travel: No sexually active: Yes Smoking Status: Never smoker alcohol intake: current alcohol intake frequency: a few times a month Alcohol type: hard liquor substance use type: does not use diet: diabetic well-balanced diet: daily or most days caffeine: Yes (1) Type: carbonated beverages frequency: 1-2 times per week seatbelt use: always do you feel safe at home: Yes additional social history: Spouse: rajat LANE Right thumb Details: Parts of this documentation were recorded by a scribe, this documentation accurately reflects the service provided and the decisions made by me, KRIS Cooper 03/15/21 0758. ZAKIYA TRUJILLO is a 50 year old F here today for F/U of R thumb pain. Injection given at last visit. States that she was completely pain free after injection until just a couple weeks ago. Pain has returned in this last 2 weeks, thumb is getting sore during the night and then in the morning once she gets up and moving around the pain subsides until bedtime again. States that popping and clicking have both returned. Denies any numbness and tingling. Pain does not radiate past the thumb into the arm at all. Hoping to discuss further treatment options today. Ortho Exam Right Wrist/Hand Skin/Wound: No Swelling, No Ecchymosis, Yes nail intact and Yes capillary refill normal A1 william trigger: Yes (thumb) Right Wrist: Yes ROM-Extension 0-60 and ROM-Flexion 0-80; No Snuffbox tenderness, CMC Grind or tender to palpate carpometacarpal joint Sensation: Radial: I, Ulnar: I and Median: I WRIST: No acute abnormalities on inspection of the right hand. No localized or generalized swelling. No ecchymosis/bruising, erythema, or other skin changes. Patient does have normal sensation throughout the extremity. She has normal distal radial pulse and capillary refill. Patient does have tenderness on palpation at the base of the thumb and the A1 william region. She has evident tender palpable nodule here as well. She does have an evident painful triggering with flexion of the DIP joint. Left Wrist/Hand Skin/Wound: No Swelling and No Ecchymosis Coding Level of Care Code Off vis,est,level 3 Diagnoses Trigger thumb, right thumb M65.311 Assessment and Plan Assessment and Plan (1) Trigger thumb, right thumb: Status: Acute Plan - KRIS Stearns: Patient presents the office today for right trigger thumb. Patient has had trigger thumb for a long time now. She did have an injection back in October which she states was very effective up until the past week or 2. She states that since her triggering has come back that it appears to be more painful and more difficult to unlock having to manually extend the thumb. As a result she states she is hesitant to use it because of the pain and tenderness. At this point we discussed treatment options which include another injection versus surgical intervention. Patient states that at this time she feels it is an okay time to proceed with surgical intervention. Risks and benefits of the procedure were discussed with patient including blood loss, blood clot, infection, neurovascular injury, failure of procedure/return of trigger, loss of limb or loss of life from anesthesia. Patient is aware of these risks and consent was signed in office today. Patient given antimicrobial prescription to be used nightly for 3 nights prior to her surgery and then the morning of the surgery. We discussed postop sensitivity of the incision site as well as again stressed the possibility of some numbness on the lateral aspect of the thumb postoperatively. Patient will be contacted by surgery department for preanesthesia testing. She does have insulin-dependent diabetes as well as AN implantable loop recorder. She can notify us in the meantime with any other questions or concerns. This note was generated with [employer] dictation software. It may contain incorrect words, spelling, and punctuation that were not noted in checking the note before signing. 03/15/21 0941<Electronically signed by Elver PONCE>Date Elver PONCE Cosigner Signature:Date (if applicable) CC: ~ I have re-examined the patient. There are no clinical changes since date of exam
[2021-03-30] MEDS: Cefazolin 2 GM in 0.9% Normal Saline 100 ML IV (07:22)
[2021-03-30] MEDS: Lidocaine 1% /Epi 1:100 (20ml) 20 ML Vial (07:48)
[2021-03-30 07:56] VITALS: BP 117/57; BP 130/64; PULSE 92; RESP 16; TEMP 36.1; O2SAT 98
--- NOTE | 2021-03-30 07:57 | PCM.OPRPT ---
Report of Operation Date of Procedure: 03/30/21 Description of Surgical Findings:: Preoperative diagnosis; right thumb digit trigger finger Postoperative diagnosis; same Procedure: Right first digit A1 william release Anesthesia: General Tourniquet time; 10 minutes 250 mm Hg Complications: None Indication for procedure; This is a 50-year-old female with symptoms consistent with trigger thumb. Risks benefits and alternatives were reviewed including risks of bleeding infection nerve tendon tissue damage need for further surgery and continued pain and symptoms, hypersensitivity to scar/incision and recurrence. Procedure; The patient was met in the preoperative holding area the operative extremity was identified by both patient and physician and was marked the patient was met by anesthesia and brought back to the operating room and transferred to the operating table in the supine position. Aanesthesia was started. A well-padded tourniquet was placed on the operative upper extremity. The patient was prepped and draped in the usual sterile fashion. A timeout was called to ensure the proper patient procedure and extremity were being contemplated. Esmarch was used tourniquet was inflated. 15 blade scalpel was used to make a horizontal incision directly over the flexion crease distal to A1 william was carried down through the skin dissection scissors were used to ensure no injury to any crossing branches of the radial digital nerve there was a branch identified and rationale retractors were used to protect the digital nerves and visualize the A1 william under direct visualization a deep blade scalpel was used to release the A1 william. The wound was thoroughly irrigated and closed with 4-0 nylon vertical mattress edges. 0.25 percent Marcaine plain was injected into the incisional area dressing was applied in the form of Xeroform 4 x 4 web roll and an Jamil wrap. Patient tolerated the procedure well was brought back to the PACU in stable condition.
--- NOTE | 2021-03-30 07:59 | EX.PCM.DISCH ---
Discharge Instructions Dressing / Incision Additional Dressing/Incision Instructions:: Ice and elevate operative extremity next 72 hours. Keep dressing on clean and dry for 48 hours then may remove and allow warm soapy water to rinse over incision but do not submerge until sutures are out. Then apply bandaid over incision and change daily. encourage finger range of motion. Not lift more than 1/2 pound. Minimize narcotic use only as needed and directed, may use OTC NSAID and Tylenol to supplement/substitute for pain control. Follow Up Care Please Follow Up With: Mio Krishnan DO When: 2 weeks Test Results: Test results from this visit will be discussed in further detail at your follow-up appointment, if applicable. Discharge Plan Admission Primary Reason for Your Visit: Right trigger thumb Attending Provider: Mio Krishnan Primary Care Provider: Erin Acuna Discharge Orders/Prescriptions Prescriptions: New oxycodone 5 mg tablet 5 mg PO Q4H PRN (Reason: pain) 2 Days Qty: 7 RF: 0 No Action (DME) Omnipod Dash 5 Pack Pod Cartridge See Rx Instructions .ROUTE .MEDSUPPLY Qty: 30 RF: 3 omeprazole 20 MG capsule 20 mg PO DAILY PRN (Reason: stomach) RF: 0 albuterol sulfate 18 GM HFA aerosol inhaler 2 puff inhalation Q4H PRN (Reason: Sob &/Or Wheezing) RF: 0 aspirin 81 MG tablet,chewable 81 mg PO DAILY@0800 Qty: 30 RF: 1 Humalog U-100 Insulin 100 unit/mL Cartridge 0 unit SUBCUT TID RF: 0 montelukast 10 mg tablet 10 mg PO DAILY Qty: 60 RF: 6 fluticasone propionate 50 mcg/actuation spray,suspension 2 spray intranasal PRN PRN (Reason: Nasal Congestion) Qty: 15.8 RF: 3 trazodone 50 mg tablet 50 mg PO QHS PRN (Reason: insomnia) Qty: 90 RF: 1 Arnuity Ellipta 200 mcg/actuation blister with device 1 inh INHALATION QDAY Qty: 3 RF: 3 atorvastatin 40 mg tablet 40 mg PO QHS Qty: 90 RF: 0 Referrals / Follow Up: Erin Acuna DO [Primary Care Provider] - Disposition Disposition (needs filled in before D/C Order can be placed): Home, Self Care
[2021-03-30 08:00] VITALS: BP 115/59; BP 130/64; PULSE 95; RESP 16; O2SAT 98
[2021-03-30 08:06] LABS: Bedside Glucose 152 mg/dL (70-110)
[2021-03-30 08:06] LABS: Bedside Glucose 179 mg/dL (70-110)
[2021-03-30 08:15] VITALS: BP 119/59; BP 130/64; PULSE 87; RESP 16; O2SAT 100
[2021-03-30 08:19] VITALS: BP 121/63; BP 130/64; PULSE 86; RESP 16; TEMP 36.3; O2SAT 100
[2021-03-30 09:01] VITALS: BP 121/63; BP 130/64; PULSE 89; RESP 16; TEMP 36.3; O2SAT 100
== END 2021-03-30 09:04 | disposition home or self-care (01) ==
LOC: SDC 06:03 → AC 06:19
PROVIDERS: PCP Family Medicine; Visit Provider Orthopaedic Surgery
PROC: (CPT 26055; principal; 2021-03-30 07:20)
DX: M65.311 Trigger thumb, right thumb (principal); E78.5 Hyperlipidemia, unspecified; E78.00 Pure hypercholesterolemia, unspecified; E11.9 Type 2 diabetes mellitus without complications; J45.40 Moderate persistent asthma, uncomplicated; Z79.4 Long term (current) use of insulin; Z46.81 Encounter for fitting and adjustment of insulin pump; Z79.82 Long term (current) use of aspirin; Z79.02 Long term (current) use of antithrombotics/antiplatelets; Z79.899 Other long term (current) drug therapy; Z86.73 Personal history of transient ischemic attack (TIA), and cerebral infarction without residual deficits
CPT/HCPCS: 01810; 26055; 82962; J7120; J2405

== ENCOUNTER → 2021-04-28 12:10 | Outpatient (CLI) | payer OTHER, SELFPAY ==
[2021-04-28 15:14] LABS: Cholesterol 201 mg/dL (200); High Density Lipoprotein 93 mg/dL; Triglycerides 55 mg/dL; Very Low Density Lipoprotein 11 mg/dL (5-40)
[2021-04-28 17:36] LABS: Microalbumin,Random Urine 8.9 mg/L (NO RANGE EST.); Microalbumin:Creatinine Ratio 15.2 mg/g CRE (<30 mg/g CRE)
== END ==
PROVIDERS: Nurse Practitioner Family; PCP Family Medicine; Referring Provider Nurse Practitioner Family; Visit Provider Nurse Practitioner Family
DX: E78.00 Pure hypercholesterolemia, unspecified (principal); E10.65 Type 1 diabetes mellitus with hyperglycemia; Z86.73 Personal history of transient ischemic attack (TIA), and cerebral infarction without residual deficits
CPT/HCPCS: 36415; 80061; 82043; 82570

== ENCOUNTER 2021-07-28 08:11 | Outpatient (CLI) | payer OTHER, SELFPAY ==
--- NOTE | 2021-07-28 08:12 | BI_ITS ---
MAMMOGRAPHY - BILATERAL SCREENING REASON FOR EXAM: Female, 50 years old. Routine annual screening examination. PERTINENT HISTORY: Non-contributory. TECHNIQUE: Digital bilateral breast sandra (3D mammographic acquisition) in the CC and MLO projections. 2-D mediolateral oblique (MLO) and craniocaudad (CC) views of both breasts were obtained. CAD: Full Field Digital Mammography with Computer Added Detection was performed. COMPARISON: Comparison is made with prior study dated 07/14/2020 and 07/23/2019. FINDINGS: Breast Composition: The breasts are heterogeneously dense, which may obscure small masses. There are no dominant masses or suspicious calcifications. A tissue clip marker is once again seen within a faint 8.8 mm nodular density in the inferior slightly lateral aspect of the right breast. The nodule has decreased slightly in size as compared to prior study. A loop recorder device is once again seen along the deep central medial portion of the left breast. No other significant abnormalities are identified. There has been no significant change since the prior study. BI/SCRN MAMM (CAD)W/SANDRA BILAT IMPRESSION: Stable bilateral screening mammogram. Yearly follow-up mammogram recommended. (A) ASSESSMENT CATEGORY: BIRADS Category 2: Benign. A letter regarding these results will be sent to the patient by the facility within 30 days. Approximately 10% of breast cancers are not detected by mammography. A normal mammogram should not delay biopsy of a clinically suspicious abnormality. [id number] Electronically Signed: Mario Almodovar MD at 9:00 EDT ,
== END 2021-07-28 23:59 | disposition home or self-care (01) ==
PROVIDERS: PCP Family Medicine; Visit Provider Nurse Practitioner Women's Health
DX: Z12.31 Encounter for screening mammogram for malignant neoplasm of breast (principal)
CPT/HCPCS: 77063; 77067

== ENCOUNTER → 2021-12-30 | Outpatient (CLI) | payer OTHER, SELFPAY ==
[2021-12-30 11:06] LABS: Microalbumin,Random Urine 17.9 mg/L (NO RANGE EST.); Microalbumin:Creatinine Ratio 66.5 mg/g CRE (<30 mg/g CRE)
[2021-12-30 11:13] LABS: Vitamin D,25 Hydroxy 24.4 ng/mL
[2021-12-30 11:21] LABS: AST(SGOT) 17 U/L (15-37); Alanine Aminotransfer ALT/SGPT 22 U/L (13-56); Albumin, Serum 3.6 g/dL (3.2-5.0); Alkaline Phosphatase 59 U/L (45-117); Anion Gap 6 (5-15); BUN 13 mg/dL (7-18); Chloride 105 mmol/L (98-107); Cholesterol 189 mg/dL (200); Creatinine, Serum 0.76 mg/dL (0.55-1.02); EST Glomerular Filtration Rate 85 mL/min (>60); Est Glom Filt Rate - Afr Amer 103 mL/min (>60); Globulin 3.6 g/dL (2.2-4.2); Glucose 128 mg/dL (74-106); High Density Lipoprotein 90 mg/dL; Potassium 4.1 mmol/L (3.5-5.1); Protein, Total 7.2 g/dL (6.4-8.2); Sodium Level 143 mmol/L (136-145); Thyroid Stim Hormone (TSH) 0.95 uIU/mL (0.358-3.74); Triglycerides 72 mg/dL; Very Low Density Lipoprotein 14 mg/dL (5-40)
== END | disposition home or self-care (01) ==
LOC: LAB 09:45
PROVIDERS: PCP Family Medicine; Referring Provider Internal Medicine Endocrinology, Diabetes & Metabolism; Visit Provider Internal Medicine Endocrinology, Diabetes & Metabolism
DX: E11.9 Type 2 diabetes mellitus without complications (principal); E78.5 Hyperlipidemia, unspecified; E55.9 Vitamin D deficiency, unspecified
CPT/HCPCS: 36415; 80053; 80061; 82043; 82306; 82570; 84443

== ENCOUNTER → 2022-01-04 | Outpatient (CLI) | payer OTHER, SELFPAY ==
--- NOTE | 2022-01-04 13:47 | RAD_ITS ---
EXAM: XR RIGHT FOOT COMPLETE, 3 OR MORE VIEWS CLINICAL INDICATION: PAIN TECHNIQUE: Frontal, lateral and oblique views of the right foot. This report was created using [employer] report generation technology. COMPARISON: None. FINDINGS: BONES/JOINTS: Unremarkable. No acute fracture. No subluxation. Normal alignment. Preservation of the joint space. No sclerotic or destructive changes observed. SOFT TISSUES: Unremarkable. No soft tissue swelling or gas. No radiopaque foreign body. RAD/Foot min 3 Views IMPRESSION: Negative right foot x-rays. Electronically Signed: Yoel Calabrese MD at 16:50 EDT ,
== END | disposition home or self-care (01) ==
LOC: MTRAD 13:46
PROVIDERS: PCP Family Medicine; Referring Provider Family Medicine; Visit Provider Family Medicine
DX: M79.673 Pain in unspecified foot (principal)
CPT/HCPCS: 73630

== ENCOUNTER → 2022-03-10 | Outpatient (CLI) | payer OTHER, SELFPAY ==
--- NOTE | 2022-03-11 10:26 | PFT ---
INTRODUCTION: The patient is a 51-year-old female that presents for pulmonary function studies secondary to a diagnosis of asthma. Respiratory therapy reported good patient effort. Bronchodilators were used during testing. INTERPRETATION: Forced expiration spirometry demonstrates no evidence of a large airways obstructive ventilatory defect. There was no significant response to aerosolized bronchodilators. Spirograms are of good quality and plateau normally. Body plethysmography was performed and demonstrated a decreased TLC to 3.81 L, 77% of predicted, indicative of a mild restrictive ventilatory impairment. Diffusing capacity by single breath CO was within normal limits. IMPRESSION: Isolated mild restrictive ventilatory impairment with preserved diffusing capacity.
== END | disposition home or self-care (01) ==
LOC: PSN 08:09
PROVIDERS: PCP Family Medicine; Referring Provider Nurse Practitioner Acute Care; Visit Provider Nurse Practitioner Acute Care
DX: J45.40 Moderate persistent asthma, uncomplicated (principal)
CPT/HCPCS: 94060; 94726; 94729

== ENCOUNTER → 2022-04-13 | Outpatient (CLI) | payer OTHER, SELFPAY ==
[2022-04-16 05:07] LABS: Alternaria alternata <0.10 kU/L (Class 0); Aspergillus fumigatus <0.10 kU/L (Class 0); Bahia Grass <0.10 kU/L (Class 0); Bermuda Grass <0.10 kU/L (Class 0); Bluegrass, Kentucky <0.10 kU/L (Class 0); Cat Hair/Dander, Standard <0.10 kU/L (Class 0); Cedar, Mountain <0.10 kU/L (Class 0); Cladosporium herbarum <0.10 kU/L (Class 0); Cockroach, American 0.14 kU/L (Class 0/I); D farinae Mite 0.29 kU/L (Class 0/I); Dog Epithelia <0.10 kU/L (Class 0); Elm, American White <0.10 kU/L (Class 0); Hazelnut Tree <0.10 kU/L (Class 0); Hickory, White <0.10 kU/L (Class 0); Johnson Grass <0.10 kU/L (Class 0); Maple/Box Elder <0.10 kU/L (Class 0); Mucor racemosus <0.10 kU/L (Class 0); Mugwort <0.10 kU/L (Class 0); Mulberry, White <0.10 kU/L (Class 0); Oak, White <0.10 kU/L (Class 0); Penicillium chrysogen <0.10 kU/L (Class 0); Pigweed, Rough <0.10 kU/L (Class 0); Plantain, English <0.10 kU/L (Class 0); Ragweed, Short/Common <0.10 kU/L (Class 0); Sheep Sorrel(Dock) <0.10 kU/L (Class 0); Stemphylium herbarum <0.10 kU/L (Class 0); Sweet Gum <0.10 kU/L (Class 0); Sycamore, American <0.10 kU/L (Class 0)
[2022-04-16 08:09] LABS: Nettle <0.10 kU/L (Class 0)
== END | disposition home or self-care (01) ==
LOC: PAVLAB 11:10
PROVIDERS: PCP Family Medicine; Referring Provider Internal Medicine Critical Care Medicine; Visit Provider Internal Medicine Critical Care Medicine
DX: J45.40 Moderate persistent asthma, uncomplicated (principal)
CPT/HCPCS: 36415; 86003

== ENCOUNTER → 2022-05-03 | Outpatient (CLI) | payer OTHER, SELFPAY ==
[2022-05-11 19:27] LABS: HPV APTIMA, High Risk Negative (Negative)
== END | disposition home or self-care (01) ==
LOC: LABSPEC 12:54
PROVIDERS: PCP Family Medicine; Visit Provider Nurse Practitioner Women's Health
DX: Z01.419 Encounter for gynecological examination (general) (routine) without abnormal findings (principal)
CPT/HCPCS: 87624; 88175; G0145

== ENCOUNTER → 2022-05-05 | Outpatient (CLI) | payer OTHER, SELFPAY ==
[2022-05-05 11:11] LABS: Vitamin D,25 Hydroxy 37.5 ng/mL
[2022-05-05 11:16] LABS: Follicle Stimulating Hormone 127.3 mIU/mL; Luteinizing Hormone 67.4 mIU/mL
== END | disposition home or self-care (01) ==
LOC: LAB 09:09
PROVIDERS: PCP Family Medicine; Visit Provider Internal Medicine Endocrinology, Diabetes & Metabolism
DX: N91.2 Amenorrhea, unspecified (principal); E55.9 Vitamin D deficiency, unspecified
CPT/HCPCS: 36415; 82306; 83001; 83002

== ENCOUNTER → 2022-05-19 | Outpatient (CLI) | payer OTHER, SELFPAY ==
--- NOTE | 2022-05-19 08:36 | BD_ITS ---
STUDY: DUAL ENERGY X-RAY ABSORPTIOMETRY / DXA REASON FOR EXAM: Female, 51 years old. Menopausal, fractured foot. TECHNIQUE: Bone Mineral Density (BMD) measurements of lumbar spine and bilateral hips were obtained. COMPARISON: None. FINDINGS: Lumbar Spine (L1-L4): g/cm2 (0.738) / T-score (-2.8) / Z-score (-2.0) Findings are suggestive of osteoporosis with a high fracture risk. Left Femur Total: g/cm2 (0.760) / T-score (-1.5) / Z-score (-1.0) Left Femoral Neck: g/cm2 (0.600) / T-score (-2.2) / Z-score (-1.4) Right Femur Total: g/cm2 (0.793) / T-score (-1.2) / Z-score (-0.7) Right Femoral Neck: g/cm2 (0.608) / T-score (-2.2) / Z-score (-1.3) BD/Dexa Bone Density Study IMPRESSION: The patient is considered osteoporotic as outlined below according to World Rogelio Organization (WHO) criteria with a high fracture risk. Reference Information: The T-score is the number of standard deviations above or below the standard which is normal for young adults at their peak bone mineral density. The World Health Organization (WHO) interprets the T-scores as follows: Above -1 Normal bone density Between -1 and -2.5 Osteopenia Equal to / or below -2.5 Osteoporosis As a practical clinical guideline, osteopenia may be graded as follows: Mild -1 through -1.5 Moderate -1.6 through -2.0 Severe -2.1 through -2.4 The Z-score is the number of standard deviations above or below age-matched controls. A Z-score of less than -1.5 would be considered abnormal. References: 1. NIH Osteoporosis and Related Bone Diseases www osteo.org 2. International Society for Clinical Densitometry www iscd.org 3. National Osteoporosis Foundation www nof.org Electronically Signed: Mario Almodovar MD at 14:22 EST ,
== END | disposition home or self-care (01) ==
PROVIDERS: PCP Family Medicine; Visit Provider Internal Medicine Endocrinology, Diabetes & Metabolism
DX: Z13.820 Encounter for screening for osteoporosis (principal); Z78.0 Asymptomatic menopausal state
CPT/HCPCS: 77080

== ENCOUNTER 2022-05-24 15:30 | Emergency (ER) | payer OTHER, SELFPAY ==
[2022-05-24 15:31] VITALS: BP 125/71; PULSE 98; RESP 15; TEMP 37; O2SAT 100; BMI 24.7
--- NOTE | 2022-05-24 15:40 | RAD_ITS ---
EXAM: XR STERNUM, 2 OR MORE VIEWS CLINICAL INDICATION: Blunt trauma, pain over the manubrium/xiphoid proc TECHNIQUE: Lateral and oblique views of the sternum. This report was created using [employer] report generation technology. COMPARISON: 09/29/2019 FINDINGS: BONES/JOINTS: No acute fracture. No subluxation. No sclerotic or destructive changes observed. SOFT TISSUES: Unremarkable. No soft tissue swelling or gas. No radiopaque foreign body. TUBES, LINES AND DEVICES: Loop recorder noted. RAD/Sternum min 2 Views IMPRESSION: No acute findings in the sternum. Electronically Signed: Yoel Calabrese MD at 16:21 EST ,
--- NOTE | 2022-05-24 15:45 | EX.ED.GENINJ ---
HPI History of Present Illness Chief Complaint: Chest Other Detail of Chief Complaint: Blunt chest trauma Informant: patient Onset/Context/Timing Onset: Hours Mechanism/Context: Blunt Injury (Freezer chest fell off ramp striking patient in the chest) Quality of Pain: Dull and Aching Location: Sternum inferior left breast Current Severity: Mild Maximum Severity: Moderate Worsened by: Breathing, movement Relieved by: Remaining still Associated Symptoms Associated Symptoms: Negative for Parasthesias, Weakness, Loss of function, Inability to ambulate, Loss of consciousness or Amnesia Length of loss of consciousness: Not applicable Narrative Narrative: Patient is a 51-year-old woman with history of type 1 diabetes with insulin pump, CVA, hyperlipidemia, diabetic retinopathy and osteoporosis. Patient had recent bone density study which revealed abnormality. She is scheduled for treatment. Patient presents because of pain after blunt trauma. She denies shortness of breath. She denies head trauma. She denies visual, ocular auditory symptoms. She denies neck pain. She denies paresthesia, anesthesia medics. She denies abdominal pain. She is unaware of any bruising. She denies back pain. Tetanus Immunization: 5-10 years Prior similar symptoms: No Recent Illness/Hospitalization: No [facility] Medical History (Updated 05/24/22 @ 16:[address] Hari Sandoval MD) Abnormal ultrasound of breast Adhesive capsulitis of shoulder Alcohol use Amenorrhea Asthma Asthma Breast lump Cardiology follow-up encounter Cerebrovascular disease Chronic cough CVA (cerebral vascular accident) (09/29/19) Diabetes Diabetes mellitus type 1 Diabetic retinopathy associated with type 1 diabetes mellitus Dietary restriction Frequent headaches Gastric reflux High cholesterol High cholesterol History of echocardiogram History of Holter monitoring History of stroke HX: benign breast biopsy Hyperlipidemia Insomnia Insulin dependent diabetes mellitus Insulin pump in place Insulin pump titration Lateral epicondylitis of elbow left shoulder Microcalcifications of the breast Migraine headache Moderate persistent asthma, uncomplicated Neck pain Non-smoker Post-menopausal Presence of insulin pump Recurrent urinary tract infection right elbow Right elbow pain right shoulder Right tennis elbow Seasonal allergies Seasonal allergies Shoulder impingement syndrome Shoulder pain Stroke/cerebrovascular accident Synovitis UTI (urinary tract infection) Vitamin D deficiency Wears contact lenses Home Medications montelukast 10 mg tablet 10 mg PO DAILY #60 tabs 10/19/18 [Rx Last Taken 09/28/19 21:00] omeprazole 20 mg capsule,delayed release 20 mg PO DAILY PRN stomach 06/26/19 [History Last Taken Unknown] fluticasone propionate 50 mcg/actuation nasal spray,suspension 2 spray intranasal PRN PRN Nasal Congestion #15.8 mL 07/24/19 [Rx Last Taken Unknown] aspirin 81 mg chewable tablet 81 mg PO DAILY@0800 ##30 09/30/19 [Rx Last Taken Unknown] trazodone 50 mg tablet 50 mg PO QHS PRN insomnia #90 tabs 12/01/20 [Rx Last Taken Unknown] albuterol sulfate 90 mcg/actuation aerosol inhaler 2 puff inhalation Q4H PRN Sob &/Or Wheezing #8.5 grams 09/20/21 [Rx Last Taken Unknown] cetirizine 10 mg capsule 10 mg PO HS #30 caps 09/20/21 [Rx Last Taken Unknown] insulin pump cartridge,automated dose,BT with controller subcutaneous (Omnipod 5 G6 Intro Kit (Gen 5) subcutaneous cartridge with controller) #1 ea 09/29/21 [Rx Last Taken Unknown] fluticasone furoate 200 mcg/actuation blister powder for inhalation (Arnuity Ellipta) 1 inh inhalation QDAY #3 ea 04/13/22 [Rx Last Taken Unknown] Humalog U-100 Insulin 100 unit/mL subcutaneous solution (insulin lispro) 60 unit (0.6 mL) subcut DAILY #60 mL 05/05/22 [Rx Last Taken Unknown] atorvastatin 40 mg tablet 40 mg PO QHS #90 tabs 05/05/22 [Rx Last Taken Unknown] dapagliflozin 10 mg tablet (Farxiga) 10 mg PO DAILY #90 tabs 05/05/22 [Rx Last Taken Unknown] insulin pump cart,automated,BT (Omnipod 5 G6 Pods (Gen 5) subcutaneous cartridge) #30 ea 05/11/22 [Rx Last Taken Unknown] zoledronic acid 5 mg/100 mL in mannitol 5 %-water intravenous piggybck 1 ea .Route ONCE #100 mL 05/22/22 [Rx Last Taken Unknown] Allergy/AdvReac Type Severity Reaction Status Date / Time lisinopril AdvReac Intermediate HYPOTENSION, Verified 05/24/22 15:35 SYMPTOMATIC fluticasone furoate AdvReac Mild Other - Verified 05/24/22 15:35 [From Breo Ellipta] cough & loses voice vilanterol AdvReac Mild Other - Verified 05/24/22 15:35 [From Enrique Flowers] cough & loses voice lovastatin AdvReac Unknown Pain in Verified 05/24/22 15:35 joints Family History Mother Asthma Colon cancer Osteoporosis Skin cancer Hypertension History of colectomy Father Parkinson disease Other Depression Diabetes Melanoma Surgical History Encounter for Essure implantation (10/07/10) H/O breast biopsy H/O laparoscopy (1997) H/O shoulder surgery History of elbow surgery History of hand surgery History of loop recorder (10/28/19) S/P trigger finger release Social History household members: spouse housing: house number of children: 2 current occupational status: employed 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 history of recent travel: No sexually active: Yes Smoking Status: Never smoker alcohol intake: current alcohol intake frequency: a few times a month Alcohol type: hard liquor substance use type: does not use diet: diabetic well-balanced diet: daily or most days caffeine: Yes (1) Type: carbonated beverages frequency: 1-2 times per week seatbelt use: always do you feel safe at home: Yes additional social history: Spouse: rajat MAS ED Constitutional Constitutional ED: Denies chills, fever(s), subjective, sweats or weight loss Eyes Eyes: Denies blurry vision or change in vision ENT ENT ED: Denies ear pain, rhinorrhea or sore throat Cardiovascular Cardiovascular: Reports chest pain; Denies palpitations, paroxysmal nocturnal dyspnea or racing heartbeat Respiratory/Chest Respiratory/Chest: Denies cough, dyspnea, dyspnea on exertion, paroxysmal nocturnal dyspnea or sputum Gastrointestinal Gastrointestinal: Denies abdominal pain, constipation, nausea or vomiting Musculoskeletal Musculoskeletal: Denies arthralgias, back pain, myalgias or neck pain Integumentary Denies Abrasions or rash Neurologic Neurologic: Denies paresthesias or weakness Psychiatric Psychiatric: Denies anxiety or depression Hematologic/Lymphatic Hematologic/Lymphatic: Denies easy bleeding or easy bruising EXAM Physical Exam Const Vital Signs: 05/24/22 15:31 05/24/22 15:52 Temperature 98.6 F Temperature Source Temporal Pulse Rate 98 Respiratory Rate 15 Respiratory Effort Normal Non-Labored Respiratory Depth Normal Respiratory Pattern Normal Blood Pressure 125/71 H Blood Pressure Mean 89 Pulse Ox 100 Oxygen Delivery Method Room Air Room Air Positive well nourished and well developed General Appearance ED: well developed and NAD HEENT HEENT Narrative: Head is normocephalic. There is no septal deviation with Leydi. Ears normal. No evidence of dental trauma. No evidence of trauma to the jaw. atraumatic Eyes PERRL and EOMs intact bilaterally General Eye ED: Yes other Other Details: There was no subconjunctival hemorrhage noted. Neck full ROM Neck Narrative: There is full active range of motion with no pain the patient anteriorly or posteriorly. Trachea is midline. There is no crepitus. There is no inspiratory expiratory stridor. Resp normal respiratory effort and clear to auscultation bilaterally Resp Narrative: There is pain no patient in the area of the xiphoid. There is no crepitus noted. There is no subcutaneous air appreciated. Effort and Inspection: pain with movement Cardio regular rhythm, S1 normal heart sound, S2 normal heart sound and no murmurs Cardio Narrative: There is no Deja's crunch. GI normal to inspection, nondistended, normoactive bowel sounds, non-tender, non-distended and no masses GI Narrative: There is no hepatosplenomegaly. There is no pain to palpation over the left or right costal margin. There is no bruising noted. Auscultation: normoactive bowel sounds Palpation: soft Back/Spine normal to inspection and no thoracic nor lumbar tenderness General Back: Negative for CVA tenderness Extremity normal to inspection and full ROM Neuro oriented x3, CN's II-XII intact bilaterally and moves all extremities Sensorium / Orientation: alert Psych mental status grossly normal and thought process normal Skin no rashes or lesions noted, no wounds, skin turgor normal and no jaundice MDM MDM MDM Narrative Medical decision making narrative: With history of osteoporosis and confirmed using outside data. Will obtain x-ray of the sternum to evaluate for fracture. Differential diagnosis is contusion versus fracture. Since there is no pain the patient over the ribs, left costal margin or right costal margin and there are symmetric breath sounds with no hyperresonance to percussion doubt pneumothorax, fractured ribs or traumatic injury to the liver or spleen. For this reason CT of the abdomen was not obtained. Radiography Diagnostic Testin views of the sternum were obtained and independently reviewed interpreted by me at 05/13/2003 as negative for fracture. There is a loop recorder noted. The mediastinum is not widened. There is no evidence of effusion. There is no evidence of pneumothorax. Cardiac silhouette and size are unremarkable. There are no acute abnormalities noted. Discharge Plan Triage Chief Complaint: Chest Other ED Provider: Hari Sandoval Dx/Rx/DC Orders Clinical Impression: Contusion of sternum, Type 1 diabetes mellitus, Osteoporosis, History of CVA in adulthood Instructions: ED Chest Wall Contusion Prescriptions: No Action cetirizine 10 mg capsule 10 mg PO HS Qty: 30 3RF albuterol sulfate 90 mcg/actuation HFA aerosol inhaler 2 puff inhalation Q4H PRN (Reason: Sob &/Or Wheezing) Qty: 8.5 6RF Rx Instructions: administer with spacer atorvastatin 40 mg tablet 40 mg PO QHS Qty: 90 3RF Farxiga 10 mg tablet 10 mg PO DAILY Qty: 90 1RF insulin lispro [Humalog U-100 Insulin] 100 unit/mL solution 60 unit subcut DAILY Qty: 60 3RF Arnuity Ellipta 200 mcg/actuation blister with device 1 inh INHALATION QDAY Qty: 3 3RF Rx Instructions: administer at approximately the same time(s) each day omeprazole 20 MG capsule 20 mg PO DAILY PRN (Reason: stomach) aspirin 81 MG tablet,chewable 81 mg PO DAILY@0800 Qty: 30 1RF montelukast 10 mg tablet 10 mg PO DAILY Qty: 60 6RF fluticasone propionate 50 mcg/actuation spray,suspension 2 spray intranasal PRN PRN (Reason: Nasal Congestion) Qty: 15.8 3RF Rx Instructions: administer into each nostril trazodone 50 mg tablet 50 mg PO QHS PRN (Reason: insomnia) Qty: 90 1RF (DME) Omnipod 5 G6 Intro Kit (Gen 5) Cartridge See Rx Instructions .ROUTE .MEDSUPPLY Qty: 1 0RF Rx Instructions: As directed (DME) Omnipod 5 G6 Pods (Gen 5) Cartridge See Rx Instructions .ROUTE .MEDSUPPLY Qty: 30 3RF Rx Instructions: 1 pod q 3 days zoledronic [id number] 5 mg/100 mL piggyback 1 ea .Route ONCE Qty: 100 0RF Rx Instructions: infuse over 20 minutes Primary Care Provider: Erin Acuna Referrals: Erin Aucna DO [Primary Care Provider] - As Needed Activity Restrictions/Additional Instructions: 1 to apply ice 6-10 times a day 2. Take Tylenol for pain. Would not recommend ibuprofen or Aleve. Disposition Disposition: Home, Self Care
== END 2022-05-24 16:16 | disposition home or self-care (01) ==
LOC: ED 16:14
PROVIDERS: Emergency Provider Emergency Medicine; PCP Family Medicine; Visit Provider Emergency Medicine
DX: S20.219A Contusion of unspecified front wall of thorax, initial encounter (principal); E10.319 Type 1 diabetes mellitus with unspecified diabetic retinopathy without macular edema; Z79.4 Long term (current) use of insulin; W20.8XXA Other cause of strike by thrown, projected or falling object, initial encounter; Z96.41 Presence of insulin pump (external) (internal); E78.00 Pure hypercholesterolemia, unspecified; M81.0 Age-related osteoporosis without current pathological fracture; Z79.82 Long term (current) use of aspirin; Z79.899 Other long term (current) drug therapy; Z86.73 Personal history of transient ischemic attack (TIA), and cerebral infarction without residual deficits
CPT/HCPCS: 71120; 99282

== ENCOUNTER → 2022-06-09 | Outpatient (CLI) | payer OTHER, SELFPAY ==
[2022-06-09 08:54] VITALS: BP 127/71; PULSE 84; RESP 16; TEMP 36.1
[2022-06-09] MEDS: 0.9% NaCl Peripheral Flush Adult/Peds IV (09:02)
[2022-06-09] MEDS: Zoledronic Acid 5 MG 100 ML 300 MG IV (09:09)
[2022-06-09 09:31] VITALS: BP 122/66; PULSE 83; RESP 16
== END | disposition home or self-care (01) ==
LOC: MEDOUTP 08:49
PROVIDERS: PCP Family Medicine; Referring Provider Internal Medicine Endocrinology, Diabetes & Metabolism; Visit Provider Internal Medicine Endocrinology, Diabetes & Metabolism
DX: M81.0 Age-related osteoporosis without current pathological fracture (principal)
CPT/HCPCS: 96365; A4216; J3489

== ENCOUNTER → 2022-07-29 | Outpatient (CLI) | payer OTHER, SELFPAY ==
--- NOTE | 2022-07-29 08:17 | BI_ITS ---
MAMMOGRAPHY - BILATERAL SCREENING REASON FOR EXAM: Female, 51 years old. Routine annual screening examination. PERTINENT HISTORY: Non-contributory. Prior right ultrasound-guided breast biopsy. TECHNIQUE: Digital bilateral breast sandra (3D mammographic acquisition) in the CC and MLO projections. 2-D mediolateral oblique (MLO) and craniocaudad (CC) views of both breasts were obtained. CAD: Full Field Digital Mammography with Computer Added Detection was performed. COMPARISON: Comparison is made with prior study July 28, 2021 and July 14, 2020. FINDINGS: Breast Composition: The breasts are heterogeneously dense, which may obscure small masses. There are no dominant masses or suspicious calcifications. A tissue clip marker is once again seen within a 7 mm nodular density in the inferior slightly lateral aspect of the right breast. A loop recorder device is once again seen in the deep central medial aspect of the left breast. No other significant abnormalities are identified. There has been no significant change since the prior study. BI/SCRN MAMM (CAD)W/SANDRA BILAT IMPRESSION: Stable bilateral screening mammogram. Yearly follow-up mammogram recommended. (A) ASSESSMENT CATEGORY: BIRADS Category 2: Benign. A letter regarding these results will be sent to the patient by the facility within 30 days. Approximately 10% of breast cancers are not detected by mammography. A normal mammogram should not delay biopsy of a clinically suspicious abnormality. [id number] Electronically Signed: Mario Almodovar MD at 9:41 EDT ,
== END | disposition home or self-care (01) ==
LOC: OPBI 08:16
PROVIDERS: PCP Family Medicine; Referring Provider Obstetrics & Gynecology; Visit Provider Obstetrics & Gynecology
DX: Z12.31 Encounter for screening mammogram for malignant neoplasm of breast (principal)
CPT/HCPCS: 77063; 77067

== ENCOUNTER → 2022-11-01 | Outpatient (CLI) | payer OTHER, SELFPAY ==
[2022-11-01 13:42] LABS: Vitamin D,25 Hydroxy 36.9 ng/mL
[2022-11-01 14:13] LABS: AST(SGOT) 19 U/L (15-37); Alanine Aminotransfer ALT/SGPT 20 U/L (13-56); Albumin, Serum 3.7 g/dL (3.2-5.0); Alkaline Phosphatase 54 U/L (45-117); Anion Gap 5 (5-15); BUN 18 mg/dL (7-18); BUN/Creat Ratio 20.9 RATIO (10-20); Calcium,Total 9.2 mg/dL (8.5-10.1); Chloride 108 mmol/L (98-107); Cholesterol 194 mg/dL (200); Creatinine, Serum 0.86 mg/dL (0.55-1.02); EST Glomerular Filtration Rate 73 mL/min (>60); Est Glom Filt Rate - Afr Amer 89 mL/min (>60); Globulin 3.8 g/dL (2.2-4.2); Glucose 103 mg/dL (74-106); High Density Lipoprotein 86 mg/dL; Potassium 4.5 mmol/L (3.5-5.1); Protein, Total 7.5 g/dL (6.4-8.2); Sodium Level 141 mmol/L (136-145); Triglycerides 73 mg/dL; Very Low Density Lipoprotein 15 mg/dL (5-40)
[2022-11-01 15:11] LABS: Microalbumin,Random Urine 8.1 mg/L (NO RANGE EST.); Microalbumin:Creatinine Ratio 9.7 mg/g CRE (<30 mg/g CRE)
[2022-11-03 04:07] LABS: Thyroid Peroxidase AB 10 IU/mL (0-34)
== END | disposition home or self-care (01) ==
LOC: BIMLAB 09:08
PROVIDERS: PCP Family Medicine; Referring Provider Internal Medicine Endocrinology, Diabetes & Metabolism; Visit Provider Internal Medicine Endocrinology, Diabetes & Metabolism
DX: E10.319 Type 1 diabetes mellitus with unspecified diabetic retinopathy without macular edema (principal); E78.5 Hyperlipidemia, unspecified; M81.0 Age-related osteoporosis without current pathological fracture; E55.9 Vitamin D deficiency, unspecified
CPT/HCPCS: 36415; 80053; 80061; 82043; 82306; 82570; 84443; 86376

== ENCOUNTER 2022-12-20 05:40 | Day surgery (SDC) | payer OTHER, SELFPAY ==
[2022-12-20] MEDS: Lactated Ringers 1,000 ML 15 ML IV (06:33)
[2022-12-20 06:38] VITALS: BP 122/59; PULSE 83; RESP 12; TEMP 36.8; O2SAT 99; BMI 25.0
[2022-12-20 07:07] LABS: Bedside Glucose 168 mg/dL (74-106)
--- NOTE | 2022-12-20 07:26 | HP.PCM_ITS ---
History and Physical Date of Admission: 12/20/22 [facility] [address] [place] [address] OFFICE VISIT Date of Service: 11/16/22 MR#: [id number] Acct: [id number] Name: ZAKIYA TRUJILLO Rep #: [id number] : 1970 Provider: Dr. Mio Krishnan DO Age/Sex: 52/F Location: [email or web address] Status: Signed Intake Vital Signs 11/02/2307:13 Height 5 ft 4 in Weight: 147 lb 8 oz BMI 25.3 BP 148/78 H Blood Pressure Location Rt brachial Position Sitting Respiration 16 Pulse 84 Pulse Source Monitor Temp 98.2 F Temp Source Temporal Pulse Oximetry (%) 98 Oxygen Delivery Method room air Intake Visit Reasons: RIGHT HAND Chief Complaint: right hand Accompanied by: Self Is patient in pain?: No Allergies lisinopril Adverse Reaction (Intermediate, Verified 11/01/22 08:20) HYPOTENSION, SYMPTOMATICfluticasone furoate [From Breo Ellipta] Adverse Reaction (Mild, Verified 11/01/22 08:20) Other - cough & loses voicevilanterol [From Breo Ellipta] Adverse Reaction (Mild, Verified 11/01/22 08:20) Other - cough & loses voicelovastatin Adverse Reaction (Unknown, Verified 11/01/22 08:20) Pain in jointsdust mites Allergy (Intermediate, Uncoded 11/01/22 08:20) Hives Medications omeprazole 20 mg capsule,delayed release 20 mg PO DAILY PRN stomach 06/26/19 [History Confirmed 11/16/22] fluticasone propionate 50 mcg/actuation nasal spray,suspension 2 spray intranasal PRN PRN Nasal Congestion #15.8 mL 07/24/19 [Rx Confirmed 11/16/22] aspirin 81 mg chewable tablet 81 mg PO DAILY@0800 ##30 09/30/19 [Rx Confirmed 11/16/22] trazodone 50 mg tablet 50 mg PO QHS PRN insomnia #90 tabs 12/01/20 [Rx Confirmed 11/16/22] albuterol sulfate 90 mcg/actuation aerosol inhaler 2 puff inhalation Q4H PRN Sob &/Or Wheezing #8.5 grams 09/20/21 [Rx Confirmed 11/16/22] cetirizine 10 mg capsule 10 mg PO HS #30 caps 09/20/21 [Rx Confirmed 11/16/22] Humalog U-100 Insulin 100 unit/mL subcutaneous solution (insulin lispro) 60 unit (0.6 mL) subcut DAILY #60 mL 05/05/22 [Rx Confirmed 11/16/22] atorvastatin 40 mg tablet 40 mg PO QHS #90 tabs 05/05/22 [Rx Confirmed 11/16/22] insulin pump cart,automated,BT (Omnipod 5 G6 Pods (Gen 5) subcutaneous cartridge) #30 ea 05/11/22 [Rx Confirmed 11/16/22] zoledronic acid 5 mg/100 mL in mannitol 5 %-water intravenous piggybck 1 ea .Route ONCE #100 mL 05/22/22 [Rx Confirmed 11/16/22] montelukast 10 mg tablet 10 mg PO DAILY #60 tabs 10/31/22 [Rx Confirmed 11/16/22] dapagliflozin propanediol 10 mg tablet (Farxiga) 10 mg PO DAILY #90 tabs 11/01/22 [Rx Confirmed 11/16/22] PFSH Medical History Abnormal ultrasound of breast Adhesive capsulitis of shoulder Alcohol use Amenorrhea Asthma Asthma Breast lump Cardiology follow-up encounter Cerebrovascular disease Chronic cough CVA (cerebral vascular accident) (09/29/19) Diabetes Diabetes mellitus type 1 Diabetic retinopathy associated with type 1 diabetes mellitus Dietary restriction Frequent headaches Gastric reflux High cholesterol High cholesterol History of echocardiogram History of Holter monitoring History of stroke HX: benign breast biopsy Hyperlipidemia Insomnia Insulin dependent diabetes mellitus Insulin pump in place Insulin pump titration Lateral epicondylitis of elbow left shoulder Microcalcifications of the breast Migraine headache Moderate persistent asthma, uncomplicated Neck pain Non-smoker Post-menopausal Presence of insulin pump Recurrent urinary tract infection right elbow Right elbow pain right shoulder Right tennis elbow Seasonal allergies Seasonal allergies Shoulder impingement syndrome Shoulder pain Stroke/cerebrovascular accident Synovitis UTI (urinary tract infection) Vitamin D deficiency Wears contact lenses Surgical History Encounter for Essure implantation (10/07/10) H/O breast biopsy H/O laparoscopy (1997) H/O shoulder surgery History of elbow surgery History of hand surgery History of loop recorder (10/28/19) S/P trigger finger release Family History Mother Asthma Colon cancer Osteoporosis Skin cancer Hypertension History of colectomyFather Parkinson diseaseOther Depression Diabetes Melanoma Social History household members: spouse housing: house number of children: 2 current occupational status: employed 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 history of recent travel: No sexually active: Yes Smoking Status: Never smoker alcohol intake: current alcohol intake frequency: a few times a month Alcohol type: hard liquor substance use type: does not use diet: diabetic well-balanced diet: daily or most days caffeine: Yes (1) Type: carbonated beverages frequency: 1-2 times per week seatbelt use: always do you feel safe at home: Yes additional social history: Spouse: rajat LANE RIGHT HAND Details: Parts of this documentation were recorded by a scribe, this documentation accurately reflects the service provided and the decisions made by me, Dr. Mio Krishnan, DO 11/16/22 0803. ZAKIYA TRUJILLO is a 52 year old F here today for BL hand numbness and tingling. She is here to f/u after having EMG. SHe states that she continues to have numbness and tingling into the 1st through 4th digits. Denies any numbness in the 5th digit. Symptoms similar but to a lesser degree in the left hand Ortho Exam General General: Yes no acute distress Neurologic: Yes alert and Yes oriented x3 Psychologic: Yes reasonable and appropriate Right Wrist/Hand Skin/Wound: Yes CDI, No Swelling, No Ecchymosis, Yes nail intact and Yes capillary refill normal Right Wrist: Yes ROM-Extension 0-60, ROM-Flexion 0-80, ROM-Pronation 0-80, ROM- Supination 0-90, Durken's Test and Phalen's; No Tinel's (elbow and wrist), Thenar Atrophy or Hypothenar Atrophy WRIST: 5/5 abduction decreased cervical extension, no pain with cervical ROM. negative spurlings. Left Wrist/Hand Skin/Wound: No Swelling, No Ecchymosis, Yes nail intact and Yes capillary refill normal Left Wrist: Yes ROM-Extension 0-60, Yes ROM-Flexion 0-80, Yes Durken's Test and Yes Phalen's; No Tinel's, No Thenar Atrophy and No Hypothenar Atrophy WRIST: scar dorsum of thumb, no sign of infection, 5/5 abduction Supplemental Info 11/14/2022 EMG bilateral upper extremity: Right median mononeuropathy consistent with moderate carpal tunnel. Left median mononeuropathy consistent with mild carpal tunnel Coding Level of Care Code Off vis,est,level 3 Diagnoses Bilateral carpal tunnel syndrome G56.03 Assessment and Plan Assessment and Plan (1) Bilateral carpal tunnel syndrome: Status: Acute Plan Educated that the EMG shows Moderate carpal tunnel syndrome of the right and mild carpal tunnel of the left side. Treatment options are do nothing or continue with night bracing or carpal tunnel injection or carpal tunnel release of the right side. Reviewed the pre-operative plans with the patient. Risks and benefits of the procedure were fully explained, including but not limited to incisional hypersensitivity, pillar pain, infection, neurovascular injury, continued pain, arthritis, stiffness, need for further surgery, re-injury, DVT, PE, general risks of anesthesia, and loss of limb or life. The patient unders tands all the risks and does wish to proceed with written consent for right carpal tunnel release and left carpal tunnel injection during surgery. She was dispensed a left wrist brace that she will wear at night. Educated that the goal of surgery is to prevent any worsening and may not take away the numbness and tingling. Discussed restrictions post op. Follow up 2 weeks post op or sooner if pain, swelling, numbness or associated symptoms, or concerns develop. All questions answered. Patient in agreement of plan. 11/16/22 1125 <Electronically signed by Mio Krishnan DO> Date Mio Khanignclementine Signature: Date (if applicable) CC: ~ I have examined the patient the following changes are noted: Patient began h aving left thumb triggering similar to her right thumb in the past also tenderness and hypertrophy to the A1 william she has not had any injections previously in this left thumb and wishes for me to add this to the procedure today while she is under anesthesia, I modified the consent and we will go ahead and proceed with this as well.
[2022-12-20] MEDS: Cefazolin 2 GM in 0.9% Normal Saline 100 ML IV (07:35)
[2022-12-20] MEDS: MethylPREDNISolone Acetate 40 MG/ML Vial IM (08:02)
[2022-12-20] MEDS: Lidocaine 1% /Epi 1:100 (20ml) 20 ML Vial (08:02)
--- NOTE | 2022-12-20 08:05 | OP.PCM_ITS ---
Operative Report Date of Procedure: 12/20/22 Preoperative diagnosis; right carpal tunnel syndrome, left carpal tunnel syndrome, left thumb trigger finger Postoperative diagnosis; same Procedure: Right open carpal tunnel release 2. Left carpal tunnel injection, 3 left thumb A1 william injection Injection: (0.5 cc bupivacaine quarter percent plain and 0.5 cc 40 mg/cc Depo- Medrol) x2 Anesthesia: Local with MAC Tourniquet time; 13 minutes 250 mm Hg Complications: None Indication for procedure; This is a 52-year-old female with long-standing symptoms consistent with carpal tunnel syndrome the patient did have electrodiagnostic evidence of this and has failed conservative treatment. Risks benefits and alternatives were reviewed including risks of bleeding infection nerve artery tissue damage need for further surgery and continued pain and symptoms, hypersensitivity to scar and Pillar pain. Procedure; The patient was met in the preoperative holding area the operative extremity was identified by both patient and physician and was marked the patient was met by anesthesia and brought back to the operating room and transf erred to the operating table in the supine position. Anesthesia was started. A well-padded tourniquet was placed on the operative upper extremity. The patient was prepped and draped in the usual sterile fashion. A timeout was called to ensure the proper patient procedure and extremity were being contemplated. 0.5 percent lidocaine with epinephrine was injected into the incisional area. An Esmarch was used to exsanguinate the extremity. The tourniquet was inflated to 250 mmHg. A midline incision was made with a 15 blade scalpel between the thenar and hypothenar eminence. This was carried down through the skin and subcutaneous tissue. Micheal retractors were then used, a deep blade scalpel was used to make a deep incision in the palmar aponeurosis. The micheal retractors were then placed deep to this and the transverse carpal ligament was identified a perforation was made with a scalpel and a Littler scissors were used to complete the release of the transverse carpal ligament distally under direct visualization with the tips facing ulnarly until the perivascular fat was reached. Then turning our attention proximally using a tension slide technique the proximal extent of the transverse carpal ligament was released . There was noted to be significant hypertrophy of the transverse carpal ligament without other findings. The wound was thoroughly irrigated and was closed with 4-0 nylon vertical mattress stitches. Dressing was applied in the form of xeroform 4 x 4, web roll and an kristen wrap. Tourniquet was let down there is no intraoperative complications patient tolerated the procedure well and was transferred to the PACU. All counts were correct. Left carpal tunnel was injected under sterile technique with alcohol and left thumb A1 william was also injected.
--- NOTE | 2022-12-20 08:10 | DCINST_ITS ---
Discharge Instructions Diet Discharge Diet: No restrictions Dressing / Incision Call your doctor if you observe: Shortness of breath and Chest pain Additional Dressing/Incision Instructions:: Ice and elevate operative extremity next 72 hours. Keep dressing on clean and dry for 48 hours then may remove and allow warm soapy water to rinse over incision but do not submerge until sutures are out. Then apply bandaid over incision and change daily. encourage finger range of motion. Not lift more than 1/2 pound. Minimize narcotic use only as needed and directed, may use OTC NSAID and Tylenol to supplement/substitute for pain control. Follow Up Care Please Follow Up With: Mio Krishnan DO When: 2 weeks Test Results: Test results from this visit will be discussed in further detail at your follow- up appointment, if applicable. Discharge Plan Admission Primary Reason for Your Visit: Right open carpal tunnel release Attending Provider: Mio Krishnan Primary Care Provider: Erin Acuna Discharge Orders/Prescriptions Prescriptions: New oxycodone 5 mg tablet 5 mg PO Q4H PRN (Reason: pain) 3 Days Qty: 10 0RF No Action albuterol sulfate 90 mcg/actuation HFA aerosol inhaler 2 puff inhalation Q4H PRN (Reason: Sob &/Or Wheezing) Qty: 8.5 6RF Rx Instructions: administer with spacer atorvastatin 40 mg tablet 40 mg PO QHS Qty: 90 3RF insulin lispro [Humalog U-100 Insulin] 100 unit/mL solution 60 unit subcut DAILY Qty: 60 3RF Farxiga 10 mg tablet 10 mg PO DAILY Qty: 90 1RF omeprazole 20 MG capsule 20 mg PO DAILY PRN (Reason: stomach) aspirin 81 MG tablet,chewable 81 mg PO DAILY@0800 Qty: 30 1RF fluticasone propionate 50 mcg/actuation spray,suspension 2 spray intranasal PRN PRN (Reason: Nasal Congestion) Qty: 15.8 3RF Rx Instructions: administer into each nostril trazodone 50 mg tablet 50 mg PO QHS PRN (Reason: insomnia) Qty: 90 1RF (DME) Omnipod 5 G6 Pods (Gen 5) Cartridge See Rx Instructions .ROUTE .MEDSUPPLY Qty: 30 3RF Rx Instructions: 1 pod q 3 days zoledronic fred-rwikpyyk-ehlcv 5 mg/100 mL piggyback 1 ea .Route ONCE Qty: 100 0RF Rx Instructions: infuse over 20 minutes montelukast 10 mg tablet 10 mg PO DAILY Qty: 60 11RF Referrals / Follow Up: Erin Acuna DO [Primary Care Provider] - Disposition Disposition (needs filled in before D/C Order can be placed): Home, Self Care
[2022-12-20 08:12] VITALS: BP 122/59; BP 123/60; PULSE 98; RESP 16; TEMP 37; O2SAT 97
[2022-12-20 08:15] VITALS: BP 117/62; BP 122/59; PULSE 97; RESP 16; O2SAT 97
[2022-12-20 08:20] VITALS: BP 122/59; BP 123/67; PULSE 98; RESP 16; O2SAT 97
[2022-12-20 08:25] VITALS: BP 122/59; BP 142/65; PULSE 95; RESP 16; O2SAT 96
[2022-12-20 08:28] VITALS: BP 117/69; BP 122/59; PULSE 95; RESP 16; TEMP 37.3; O2SAT 100
== END 2022-12-20 09:34 | disposition home or self-care (01) ==
LOC: SDC 05:41 → AC 05:42
PROVIDERS: PCP Family Medicine; Referring Provider Orthopaedic Surgery; Visit Provider Orthopaedic Surgery
PROC: (CPT 64721; principal; 2022-12-20 07:15)
DX: G56.03 Carpal tunnel syndrome, bilateral upper limbs (principal); E10.319 Type 1 diabetes mellitus with unspecified diabetic retinopathy without macular edema; Z79.4 Long term (current) use of insulin; M65.312 Trigger thumb, left thumb; E78.00 Pure hypercholesterolemia, unspecified; Z79.82 Long term (current) use of aspirin; Z96.41 Presence of insulin pump (external) (internal); Z79.899 Other long term (current) drug therapy; Z86.73 Personal history of transient ischemic attack (TIA), and cerebral infarction without residual deficits
CPT/HCPCS: 64721; 20526; 20553; 01810; 82962; J7120; J2405

== ENCOUNTER 2023-02-14 06:55 | Day surgery (SDC) | payer OTHER, SELFPAY ==
--- NOTE | 2023-01-25 21:41 | PCM.HP.BLA ---
History and Physical Date of Admission: 02/02/23 Pleasant 52-year-old lady with no previous cardiac history who was admitted to the hospital in September 2019 with a left facial droop left facial paresthesias and left arm weakness and slurred speech.? An MRI and a CT scan were noted to be normal and an MRI demonstrated a small right acute frontoparietal infarct.? She had an echocardiogram done which demonstrated preserved ejection fraction of 65% normal atrial sizes and a small PFO.? She evidently has had a work-up for hypercoagulable state as an outpatient but nothing has yielded.? A 24-hour Holter monitor demonstrated average heart rate of 93 bpm with no evidence of atrial fibrillation and her 30-day monitor thus far does not demonstrate any significant abnormalities.? She was noted to be COVID negative. She proceeded with loop recorder placement. She denies chest, arm, jaw, or neck discomfort. She denies palpitations. She denies bilateral lower extremity edema. She denies claudication. She denies shortness of breath with activity, shortness of breath at rest, orthopnea, or PND. She denies chronic cough. She denies significant, sudden weight gain. She denies lightheadedness, dizziness, near-syncope, or syncope. She denies blood in urine, blood in stool, or epistaxis. He denies fever with chills. She denies myalgia. She denies fatigue. Her exercise level has remained stable. 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 Accompanied by: Self Is patient in pain?: No Allergies lisinopril Adverse Reaction (Intermediate, Verified 09/26/22 15:49) HYPOTENSION, SYMPTOMATIC fluticasone furoate [From Breo Ellipta] Adverse Reaction (Mild, Verified 09/26/22 15:49) Other - cough & loses voice vilanterol [From Breo Ellipta] Adverse Reaction (Mild, Verified 09/26/22 15:49) Other - cough & loses voice lovastatin Adverse Reaction (Unknown, Verified 09/26/22 15:49) Pain in joints Medications See EMR Ejection fraction %: 65 to 70 PFSH Medical History Abnormal ultrasound of breast Adhesive capsulitis of shoulder Alcohol use Amenorrhea Asthma Asthma Breast lump Cardiology follow-up encounter Cerebrovascular disease Chronic cough CVA (cerebral vascular accident) (09/29/19) Diabetes Diabetes mellitus type 1 Diabetic retinopathy associated with type 1 diabetes mellitus Dietary restriction Frequent headaches Gastric reflux High cholesterol High cholesterol History of echocardiogram History of Holter monitoring History of stroke HX: benign breast biopsy Hyperlipidemia Insomnia Insulin dependent diabetes mellitus Insulin pump in place Insulin pump titration Lateral epicondylitis of elbow left shoulder Microcalcifications of the breast Migraine headache Moderate persistent asthma, uncomplicated Neck pain Non-smoker Post-menopausal Presence of insulin pump Recurrent urinary tract infection right elbow Right elbow pain right shoulder Right tennis elbow Seasonal allergies Seasonal allergies Shoulder impingement syndrome Shoulder pain Stroke/cerebrovascular accident Synovitis UTI (urinary tract infection) Vitamin D deficiency Wears contact lenses Surgical History Encounter for Essure implantation (10/07/10) H/O breast biopsy H/O laparoscopy (1997) H/O shoulder surgery History of elbow surgery History of hand surgery History of loop recorder (10/28/19) S/P trigger finger release Family History Mother Asthma Colon cancer Osteoporosis Skin cancer Hypertension History of colectomyFather Parkinson diseaseOther Depression Diabetes Melanoma Social History household members: spouse housing: house number of children: 2 current occupational status: employed 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 [employer] history of recent travel: No sexually active: Yes Smoking Status: Never smoker alcohol intake: current alcohol intake frequency: a few times a month Alcohol type: hard liquor substance use type: does not use diet: diabetic well-balanced diet: daily or most days caffeine: Yes (1) Type: carbonated beverages frequency: 1-2 times per week seatbelt use: always do you feel safe at home: Yes additional social history: Spouse: rajat Delaney Const: Negative for fatigue, weakness, headache(s), frequent falls, difficulty sleeping or excessive sweating Eyes Eyes: Negative for loss of peripheral vision, transient loss of vision, blurry vision, double vision or tunnel vision ENT ENT: Negative for headache(s), dizziness, Nosebleed/epistaxis or balance problems Cardio Chest Pain: No Palpitations: No Edema: None Muscle aches with walking: None Resp Respiratory: Positive for SOB with activity; Negative for SOB at rest, SOB orthopnea\SOB lying down, Cough or paroxysmal nocturnal dyspnea GI GI: Negative nausea, vomiting, heartburn or black,tarry stools : Negative for hematuria Musc Musc: Negative for muscle aches/ myalgia, muscle weakness, joint pain or balance problems Skin Skin: Negative non-healing lesions, rash or unusual bruising Neuro Neuro: Positive for lightheadedness (low BP); Negative for dizziness, near syncope, syncope, frequent falls, headache(s), weakness, blurry vision, double vision or lack of coordination Willie Hematologic/Lymphatic: Negative for easy bleeding or easy bruising Endo Endo: Negative for fatigue, excessive sweating or increased thirst/drinking Psych Psych: Negative for anxiety or depression Allergy Allergy/Immunology: Negative for hives and Negative for rash Cardiology Exam Const Appearance: cooperative, healthy appearing, comfortable and no acute distress Nutritional Appearance: well nourished and overweight Orientation: alert, awake and oriented x3 Head Head: normal to inspection Ears: hearing grossly normal bilaterally Nose: external nose normal Face and Sinus: face symmetric Mouth: moist mucous membranes Eyes General: appearance normal, both eyes and all related structures Eyelids: eyelids normal EOM: EOM intact bilaterally Neck Neck: normal visual inspection and no JVD Carotids: normal carotid upstroke Chest Chest inspection: normal inspection of the chest, symmetric chest movement and normal respiratory effort; Negative cough Auscultation: Bilateral: Clear to Auscultation Cardio Rate: regular rate Rhythm: regular rhythm Heart sounds: S1 normal and S2 normal; Negative rub, gallop or murmur GI GI: normal to inspection Neuro General: patient alert, patient awake, patient oriented x3 and CN's II-XI intact bilaterally Skin Skin: no rashes or lesions noted Extremities Pulses: Normal: Right Posterior Tibial Pulse, Left Posterior Tibial Pulse, Right Radial Pulse and Left Radial Pulse Lower Extremity Edema: None: Bilateral Psych Psychological: normal affect Supplemental Info Supplemental Information Echocardiogram from 09/30/2019: Interpretation Summary Normal LV size. Left ventricular systolic function is normal. The estimated ejection fraction is 65 %. Mild (1+) eccentric mitral valve insufficiency. Normal diastology for age. Pulmonary artery systolic pressure is 17 mmHg. Assessment and Plan Assessment and Plan (1) History of loop recorder: Status: Chronic Plan: Her most recent loop recorder report from 05/11/2022 shows no AT/AF episodes and battery life as ok. He device has reached NELLA and will be removed. (2) CVA (cerebral vascular accident): Status: Chronic Qualifiers: CVA mechanism: unspecified Qualified Code(s): I63.9 - Cerebral infarction, unspecified Comment: Scattered punctuate stroke of right parietal region 09/29/2019 Plan: The etiology of her CVA remains unclear. She underwent an echocardiogram in September 2019 that showed ejection fraction of 65% and patent marquez ovale. She was encouraged to continue with current medication such as aspirin and atorvastatin. She encouraged to continued to follow with Compressed Air Pile Driver Operator regarding diabetes control. Overall, her loop recorder has not shown atrial fibrillation. Plan Details Additional Comments: Thank you for allowing us to participate in the patients plan of care, if you have any questions please do not hesitate to call. This note was generated using a voice recognition system and there may be incorrect words, spelling or punctuation that were not noted when reviewing the office note prior to saving. Portions of this documentation were copied and pasted from previous office visit notes to provide a cohesive continuity of the history. The note has been reviewed, edited, and updated, as necessary.
[2023-02-14 07:09] VITALS: BMI 24.7
--- NOTE | 2023-02-14 08:12 | CL.IE_ITS ---
Patient: ZAKIYA TRUJILLO Study Date: 02/14/2023 Performing: Carter Hernadez MD : 1970 Age: 52 Gender: female PROCEDURES PERFORMED [id number])REMOVAL OF LOOP RECORDER INDICATIONS Stroke PROCEDURE DETAILS The patient was brought to the Catheterization Lab in the postabsorptive nonsedated state. Informed consent was obtained prior to the procedure. Local anesthetic was given subcutaneously to the left upper chest area with Lidocaine 2%. Incision was made to the left upper chest. ICM Loop Recorder was removed. Steri-strips applied to Left chest area. The patient tolerated the procedure well. Estimated Blood Loss: 5 ml's IMPLANTED / EX-PLANTED DEVICES DEVICE PARAMETERS CONCLUSIONS / RECOMMENDATIONS Device Conclusions: Successful removal of a patient activated loop recorder. Device Recommendations: Follow up with Primary Care Physician PROCEDURE MEDICATIONS Versed 1 mg IV Fentanyl 50 mcg IV Oxygen: 2 L/min via nasal cannula Antibiotic given in appropriate timeframe. Ancef 2 Gm IV @ 02/14/2023 07:50:53 Signed By Carter Hernadez MD On 02/14/2023 08:11:46 Carter Hernadez MD
== END 2023-02-14 09:10 | disposition home or self-care (01) ==
LOC: CLSP 06:56
PROVIDERS: PCP Family Medicine; Referring Provider Internal Medicine Cardiovascular Disease; Visit Provider Internal Medicine Cardiovascular Disease
DX: Z86.73 Personal history of transient ischemic attack (TIA), and cerebral infarction without residual deficits (principal); E10.9 Type 1 diabetes mellitus without complications; Z79.4 Long term (current) use of insulin; E78.00 Pure hypercholesterolemia, unspecified; Z96.41 Presence of insulin pump (external) (internal); K21.9 Gastro-esophageal reflux disease without esophagitis; J45.909 Unspecified asthma, uncomplicated; Z79.82 Long term (current) use of aspirin; Z79.899 Other long term (current) drug therapy
CPT/HCPCS: 33286; 99152; J7040

== ENCOUNTER → 2023-05-04 | Outpatient (CLI) | payer OTHER, SELFPAY ==
--- OUTSIDE RECORDS SUMMARY | 2023-05-04 09:18 | XMS RPT_ITS | CCD ---
Author Name Unknown Address [address] [place] [address] Organization [facility] Care Team Providers Care Project Asst Name Role Phone Maury Yue Litzy Unavailable Unavailable MISSAEL CONTRERAS Unavailable Unavailable Erin Acuna Unavailable Malou Antoine Primary Care Provider Erin Acuna Primary Care Provider Erin Acuna Primary Care Provider ANNABELLA OLIVEROS Attending Unavailable ERIN ACUNA Primary Care Unavailable Allergies Allergy Classification Reported Allergen(s) Allergy Type Date of Onset Reaction(s) Facility (2 sources) lisinopril Drug Allergy 2 Cough [facility] Work Phone: (11 sources) lovastatin; Translations: [LOVASTATIN] Drug Allergy 0 Muscle pain [facility] Work Phone: (1 source) Cat; Translations: [CATS] Propensity to adverse reactions (disorder) [address] [facility] Repository (1 source) Dog; Translations: [DOGS] Propensity to adverse reactions (disorder) [address] [facility] Repository (9 sources) pravastatin; Translations: [PRAVASTATIN SODIUM] Drug Allergy 9 Other (See Comments) [facility] Repository (1 source) OTHER; Translations: [OTHER] Propensity to adverse reactions (disorder) [address] [facility] Repository (8 sources) cats claw preparation; Translations: [CAT'S CLAW (UNCARIA TOMENTOSA)] Drug Allergy 6 [facility] (8 sources) DOG DANDER; Translations: [DOG DANDER] Propensity to adverse reactions to drug 6 [facility] (1 source) NO KNOWN DRUG ALLERGIES Propensity to adverse reactions to drug 5 [facility] Medications Current Medications Medication Drug Class(es) Dates Sig (Normalized) Sig (Original) aspirin 81 mg delayed release oral tablet (3 sources) Platelet Aggregation Inhibitor, Nonsteroidal Anti-inflammatory Drug take 1 tablet by mouth once daily aspirin 81 MG EC tablet Take 81 mg by mouth daily . 0 Active atorvastatin 40 mg oral tablet (3 sources) HMG-CoA Reductase Inhibitor Start: 10-01-2019 take 1 tablet by mouth once daily atorvastatin (LIPITOR) 40 MG tablet Take 40 mg by mouth daily . 0 10/01/2019 Active Blood Sugar Diagnostic Strips (2 sources) Start: 08-10-2012 blood sugar diagnostic (CONTOUR) strips use as directed 8 times per day 08/10/2012 Active Completed/Discontinued Medications Medication Drug Class(es) Dates Sig (Normalized) Sig (Original) acetaminophen 500 mg / diphenhydrAMINE hydrochloride 25 mg oral tablet (2 sources) Histamine-1 Receptor Antagonist Start: 07-27-2015 End: 07-18-2016 TYLENOL PM EXTRA STRENGTH 500-25 MG TABS 1 tablet once at night DIPHENHYDRAMINE-APA P (SLEEP) [id number] Yue Mendiola BECLOMETHASONE DIPROPIONATE (3 sources) Corticosteroid Start: 04-04-2017 QVAR 80 MCG/ACT AERS 2 puffs twice daily BECLOMETHASONE DIPROPIONATE [id number] Isela Fang DISTRICT SUPERVISOR Problems Active Problems Problem Classification Problem Date Documented Date Episodic/Chronic Asthma (1 source) Moderate persistent asthma; Translations: [Moderate persistent asthma, uncomplicated] Onset: 10-24-2016 10-24-2016 Chronic Diabetes mellitus with complications (1 source) Hyperglycemia due to type 1 diabetes mellitus; Translations: [Type 1 diabetes mellitus with hyperglycemia (HCC)] Chronic Diabetes mellitus without complication (18 sources) Type 1 diabetes mellitus without complication; Translations: [Type 1 diabetes mellitus] Onset: 09-05-2010 04-09-2015 Chronic Disorders of lipid metabolism (11 sources) Hypercholesterolemia ; Translations: [Hypercholesterolemi a] Onset: 09-05-2015 09-05-2015 Chronic Unclassified (1 source) Unknown / UNK(Unknown) Onset: 04-18-2017 Unclassified (9 sources) Patient encounter status; Translations: [Insulin pump fitting or adjustment] Onset: 05-05-2017 05-05-2017 Past or Other Problems Problem Classification Problem Date Documented Da te Episodic/Chronic Other connective tissue disease (4 sources) Lateral epicondylitis; Translations: [Synovitis] Onset: 02-23-2012 10-20-2016 Episodic Other lower respiratory disease (1 source) Chronic cough; Translations: [Cough] Onset: 07-19-2016 07-19-2016 Episodic Other non-traumatic joint disorders (3 sources) Pain in elbow; Translations: [Elbow joint pain] Onset: 02-23-2012 10-20-2016 Episodic Spondylosis; intervertebral disc disorders; other back problems (1 source) Neck pain; Translations: [Cervicalgia] Onset: 02-23-2012 02-23-2012 Episodic Urinary tract infections (1 source) Recurrent urinary tract infection; Translations: [Urinary tract infection, site not specified] Onset: 07-27-2015 08-13-2015 Episodic Results Test Name Value Interpretation Reference Range Facil ity Vital Signs Date Time Vital Sign Value Performing Clinician Facility 12-09-2019 08:05-0400 BMI (Body Mass Index) 23.24 kg/m2 [facility] 12-09-2019 08:05-0400 Body weight 60.42 kg [facility] 12-09-2019 08:05-0400 BP Diastolic 75 mm[Hg] [facility] 12-09-2019 08:05-0400 BP Systolic 122 mm[Hg] [facility] 12-09-2019 08:05-0400 Pulse (Heart Rate) 87 /min [facility] 10-09-2019 13:57-0400 BMI (Body Mass Index) 23.01 kg/m2 [facility] 13:57-0400 Body weight 59.83 kg [facility] 10-09-2019 13:57-0400 BP Diastolic 70 mm[Hg] [facility] 10-09-2019 13:57-0400 BP Systolic 111 mm[Hg] [facility] 10-09-2019 13:57-0400 Height 161.2 cm [facility] 10-09-2019 13:57-0400 Pulse (Heart Rate) 90 /min [facility] 06-03-2019 08:49-0500 BMI (Body Mass Index) 23.2 kg/m2 [facility] 06-03-2019 08:49-0500 Body weight 60.33 kg Caden [facility] 06-03-2019 08:49-0500 BP Diastolic 79 mm[Hg] [facility] 06-03-2019 08:49-0500 BP Systolic 143 mm[Hg] [facility] 06-03-2019 08:49-0500 Pulse (Heart Rate) 85 /min [facility] 12-04-2018 08:10-0400 BMI (Body Mass Index) 22.28 kg/m2 [facility] 12-04-2018 08:10-0400 Body weight 57.92 kg [facility] 12-04-2018 08:10-0400 BP Diastolic 79 mm[Hg] [facility] 12-04-2018 08:10-0400 BP Systolic 132 mm[Hg] [facility] 12-04-2018 08:10-0400 Height 161.2 cm [facility] 12-04-2018 08:10-0400 Pulse (Heart Rate) 79 /min [facility] 06-06-2018 08:55-0500 BMI (Body Mass Index) 23.12 kg/m2 Annabella Oliveros [facility] 06-06-2018 08:55-0500 Body weight 60.15 kg Annabella Oliveros [facility] 06-06-2018 08:55-0500 BP Diastolic 80 mm[Hg] Annabella Oliveros [facility] 06-06-2018 08:55-0500 BP Systolic 124 mm[Hg] Annabella Oliveros [facility] 06-06-2018 08:55-0500 Height 161.3 cm Annabella Oliveros [facility] 06-06-2018 08:55-0500 Pulse (Heart Rate) 79 /min Annabella Oliveros [facility] 12-04-2017 14:39-0400 BMI (Body Mass Index) 23.54 kg/m2 Annabella Oliveros [facility] 12-04-2017 14:39-0400 BP Diastolic 62 mm[Hg] Annabella Oliveros [facility] 12-04-2017 14:39-0400 BP Systolic 110 mm[Hg] Annabella Oliveros [facility] 12-04-2017 14:39-0400 Height 161.3 cm Annabella Oliveros [facility] 12-04-2017 14:39-0400 Pulse (Heart Rate) 68 /min Annabella Oliveros [facility] 12-04-2017 14:39-0400 Weight 61.24 kg Annabella Oliveros [facility] 10-24-2016 08:12-0400 BMI (Body Mass Index) 22.83 kg/m2 [employer] [facility] Work Phone: 10-24-2016 08:12-0400 Body Temperature 98.2 [degF] Yuecesia Mendiola [facility] Work Phone: 10-24-2016 08:12-0400 BP Diastolic 72 mm[Hg] [employer] Mendiola [facility] Work Phone: 10-24-2016 08:12-0400 BP Systolic 121 mm[Hg] Yue Maury [facility] Work Phone: 10-24-2016 08:12-0400 Height 162.56 cm [employer] [facility] Work Phone: 10-24-2016 08:12-0400 Pulse (Heart Rate) 84 /min [facility]ue [employer] [facility] Work Phone: 10-24-2016 08:12-0400 Respiratory Rate 18 /min Yue [employer] [facility] Work Phone: 10-24-2016 08:12-0400 Weight 60.33 kg [employer] [facility] Work Phone: 07-27-2015 12:48-0400 BSA (Body Surface Area) 1.63 m2 [employer] [facility] Work Phone: Encounters Encounter Date Encounter Type Care Provider Facility Start: 06-18-2021 ambulatory ANNABELLA OLIVEROS [facility] Ambulatory Start: 07-14-2020 End: 07-14-2020 Orders Only Bre Joshua Janes Work Phone: [facility] Start: 12-09-2019 End: 12-09-2019 Office outpatient visit 25 minutes Caden Edmond Work Phone: [facility] Endocrinology Procedures Date Procedure Procedure Detail Performing Clinician Start: 12-09-2019 3 comp foot exam completed Bre Marrero Start: 10-09-2019 3 comp foot exam completed Caden Edmond Start: 06-03-2019 3 comp foot exam completed Mio Rowley Start: 12-04-2018 3 comp foot exam completed Mio Rowley Start: 12-04-2017 3 comp foot exam completed Annabella Oliveros Start: 04-18-2017 Mammography Bre cuevas Start: 07-19-2016 End: 10-25-2016 Follow Up Appt 3 months Dong Antunez Work Phone: Start: 07-19-2016 End: 10-25-2016 Pulmonary Function Test - complete Dong Antunez Work Phone: Start: 07-08-2014 End: 07-09-2014 Documentation of current medications Stephanie Bar Work Phone: Start: 07-08-2014 End: 07-11-2014 Smoking cessation education Stephanie smith Work Phone: Plan of Treatment Date Care Activity Detail Author Start: 12-08-2020 Diabetic foot examination Foot Exam [facility] Start: 10-08-2020 Diabetic foot examination Foot Exam [facility] Start: 10-08-2020 HbA1c (Bld) [Mass fraction] A1C [facility] Start: 06-07-2020 HbA1c (Bld) [Mass fraction] A1C [facility] Start: 06-03-2020 Diabetic foot examination Foot Exam [facility] Start: 04-13-2020 End: 04-13-2020 Office Visit 04/13/2020 Office Visit Endocrinology Caden Edmond, DISTRICT SUPERVISOR [address] [address] [phone] [facility] Start: 04-07-2020 End: 12-09-2020 Comprehensive metabolic 2000 panel Comprehensive Metabolic Panel Lab Routine Type 1 diabetes mellitus without complication (HCC) Expected: 04/07/2020, Expires: 12/09/2020 [facility] Payers Date Payer Category Payer Unknown [id number] [address] [employer] [facility] [employer] xxxxxxxxxxxx 2016-Present xxxxxxxxxxxx [id number] [employer] [employer] O [facility] [employer] [id number] 2016-Present [id number] 1970 Unknown [id number] 1970 Unknown [id number] 1970 Unknown [id number] 1970 Unknown [id number] 1970 Unknown [id number] Social History Date Type Detail Facility Start: 12-04-2017 End: 06-06-2018 Tobacco smoking status [facility] Never smoker [facility] Sex Assigned At Not on file [facility] Start: 06-03-2019 End: 04-13-2020 Alcohol intake Current drinker of alcohol (finding) [facility] Exposure to SARS-CoV -2 (event) Not sure [facility] Start: 04-13-2020 Tobacco use and exposure Never used [facility] Medical Equipment Procedure Code Equipment Code Equipment Origin al Text Equipment Identifier Dates by Miscellaneous route. 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 Advance Directives and Living Will Assessments Diagnosis Type 1 diabetes mellitus wit hout complication (HCC) - Primary Type I (juvenile type) diabetes mellitus without mention of complication, not stated as uncontrolled Hypercholesterolemia Pure hypercholesterolemia Insulin pump fitting or adju stment Fitting and adjustment of insulin pump Diagnosis Type 1 diabetes mellitus without complication (HCC)- Primary Type I (juvenile type) diabetes mellitus without mention of complication, not stated as uncontrolled Diagnosis Type 1 diabetes mellitus without complication (HCC) Type I (juvenile type) diabetes mellitus without mention of complication, not stated as uncontrolled Hypercholesterolemia Pure hypercholesterolemia Diagnosis Type 1 diabetes mellitus with hyperglycemia (HCC) Diagnosis Type 1 diabetes mellitus without complication (HCC)- Primary Type I (juvenile type) diabetes mellitus without mention of complication, not stated as uncontrolled Hypercholesterolemia Pure hypercholesterolemia Insulin pump fitting or adjustment Fitting and adjustment of insulin pump History of Present Illness * Mio Rowley PA-C - 12/04/2018 8:16 AM EDT Patient ID: Ivy Castellon is a 48 y.o. female Subjective: Ivy Castellon presents for follow-up of Type 1 diabetes. Diagnosed age 6 years; in 1976. Patient is currently taking: Humalog insulin via OmniPod insulin pump. Has used a pump for 10 years Patient returns in follow-up, last seen in 05/2018 at which time her hemoglobin A1c was 8.4% and several changes to her basal rates were made. Since that appointment patient states her blood sugar control has slightly improved. She denies any changes in her overall health and brings no concerns or complaints to her visit today. Current Hemoglobin A1C= 8.0% on 11/28/2018, improved from 8.4% on 06/04/18 Weight trend: Decreased 5 pounds since last appointment, has been more active Current diet: diabetic ,carb counting Current exercise: active Current monitoring regimen: home blood tests - 4-6 times daily Home blood sugar records: Reviewed with Dex com sensor in detail Any episodes of hypoglycemia? yes - BG dropping after correction boluses Is patient on DENISSE inhibitor or angiotensin II receptor eugene? no unable tolerate denisse due to low BP Review of Systems: Review of Systems Constitutional: Negative for appetite change, chills, fatigue and fever. HENT: Negative for trouble swallowing. Eyes: Negative for visual disturbance. Respiratory: Negative for cough, chest tightness, shortness of breath and wheezing. Cardiovascular: Negative for chest pain, palpitations and leg swelling. Gastrointestinal: Negative for abdominal pain, constipation, diarrhea, nausea and vomiting. Endocrine: Negative for cold intolerance, heat intolerance, polydipsia, polyphagia and polyuria. Genitourinary: Negative for dysuria and frequency. Musculoskeletal: Negative for arthralgias, gait problem and myalgias. Skin: Negative. Neurological: Negative for tremors, weakness, numbness and headaches. Psychiatric/Behavioral: Negative for dysphoric mood and sleep disturbance. The following portions of the patient's history were reviewed and updated as appropriate: allergies, current medications, past family history, past medical history, past social history, past surgicalhistory and problem list. Objective: Physical Exam: BP 132/79 Pulse 79 Ht 5' 3.48 Wt 57.9 kg (127 lb 11 oz) BMI 22.28 kg/m Wt Readings from Last 3 Encounters: 12/04/18 57.9 kg (127 lb 11 oz) 06/06/18 60.1 kg (132 lb 9.6 oz) 12/04/17 61.2 kg (135 lb) Physical Exam General: alert, appears stated age and cooperative Eyes: conjunctivae/corneas clear. PERRL, EOM's intact. Neck: no adenopathy, supple, symmetrical, trachea midline and thyroid not enlarged, symmetric, no tenderness/mass/nodules Thyroid: no palpable nodule Lung: clear to auscultation bilaterally Heart: regular rate and rhythm, S1, S2 normal, no murmur, click, rub or gallop Extremities: extremities normal, atraumatic, no cyanosis or edema; right elbow in brace Skin: warm and dry, no hyperpigmentation, vitiligo, or suspicious lesions Right Foot: normal DP and PT pulses Left Foot: normal DP and PT pulses. Monofilament exam Normal , bilateral lower extremities. Pulses: Dorsalis pulses 2+ and symmetric Neuro: normal without focal findings, mental status, speech normal, alert and oriented x3 and ALMAZ Lab Review Date: 11/28/2018 Hemoglobin A1c 8.0% Creatinine 0.8, estimated GFR >60, K4.0 AST 9, ALT 13 T cholesterol 182, TG 62, HDL 67, LDL 103 TSH 1.69, free T4--1.06 CBC: H/H 13.1/38.8, WBC 3.5, platelets 256,000 Microalbumin/creatinine ratio 7 06/04/18 HgbA1c 8.4% Creat 0.8, Na 138, K 3.8, eGFR > 60 AST 14, ALT 9 11/28/17 Hgb 8.1% Creat 0.86, K 4.2, eGFR 75 AST 11, ALT 15 TChol 182, TG 89, HDL 86, LDL 78 TSH 1.69, FT4--1.04 WBC 4.6, Hgb 13.3, Hct 39.9, Plt 257k Microalb/creat ratio 4.9 05/02/17 Hemoglobin A1c 7.9% 12/29/16 Hgb A1c: 7.4% Creat: 0.8 AST: 9; ALT: 15 K: 4.2 Tchol: 190; Tri ; HDL: 89 ; LDL: 93 08/30/16 Hgb A1C 8.8% Cr 0.7, eGFR >60, K 4.0 AST 14, ALT 10 TSH 1.19, FT4 0.75 Urine MicrAlb/Cr ratio 29 WBC 4.9, Hgb 13.2, Hct 39.8, plat 231 04/13/16 Hgb A1c: 8.3% 12/14/15 Hgb A1c: 7.8% Creat: 0.80 AST: 15; ALT: 10 Tchol: 187; Tri ; HDL: 84 ; LDL: 91 Assessment: Dx: SNOMED CT(R) 1. Type 1 diabetes mellitus without complication (HCC) TYPE 1 DIABETES MELLITUS WITHOUT COMPLICATION Comprehensive Metabolic Panel Hemoglobin A1c Lipid Panel Type 1 diabetes, under good control Ivy Castellon presents for follow-up of Type 1 diabetes mellitus. Patient is currently managedwith: OmniPod insulin pump. Pump download and Dex com sensor download were reviewed. She still is having issues with hyperglycemia through the night. She is also complaining of dropping low when administering a correction bolus. She feels her insulin/carb ratios are appropriate. Retinopathy: Negative Exam within last 12 months: no Date: 03/24. 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 Currently taking: zetia; had muscle aches with statin. LFT's WNL . PLAN:Continue Zetia 10 mg daily. 11/28/17 AST 11, ALT 15; TChol 182, TG 89, HDL 86, LDL 78 11/28/2018: T cholesterol 182, TG 62, HDL 67, LDL 103 Hypertension: Negative . Currently taking: no medication BP: 132/79 Cardiac: Negative Denies Chest pain. No cardiac issues in the past. Seeing play writer for asthma Vascular: Negative edema Feet: Negative sores or lesions at this time. Last foot exam: 06/06/18 Thyroid: Negative 11/28/2018: TSH 1.69, free T4--1.06, stable, no medications Other: Takes nonsteroidal inhaler daily for asthma Right elbow surgery repair: Right elbow surgery 04/27/18; currently in splint with limited ROM. Able to continue pump without interruption. Current pump settings: BASAL RATES 0.350 Units/hour at 0000 0.800 units/hour at 0700 0.650 Units/hour at 1200 0.350 Units/hour at 2100 Insulin to Carb Ratio: 30 at 0000 30 at 1700 30 at 2000 Sensitivity: 130 at 0000 Plan: 1. 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 Her sensitivity was also increased (less insulin with correction bolus) to address hypoglycemia with corrections. Check blood sugar 4-6 times daily. Patient has been checking blood glucoses 4-6 times daily for the past 90 days. Patient needs to continue checking blood glucoses 4-6 times daily. Blood glucose readings are used to adjust insulin doses for meals, monitor dietary compliance and carb content of meals, and adjust for high or low blood glucoses by patient on a daily basis. Blood glucose readings are reviewed at office visits for adjustment in medication regimen and assistance with dietary management, and other self- management issues including exercise, etc. Prognosis: Good. Duration of need for diabetes testing equipment: Permanent #150 strips/month prescribed. 2. Education: Reviewed ABCs of diabetes management (respective goals in parentheses): A1C (7.0-8.0), blood pressure (<130/80), and cholesterol (LDL <100). 3. Compliance at present is estimated to be good. Efforts to improve compliance will be directed atregular blood sugar monitorin-6 times daily. Increase exercise. Send blood glucose readings to office from pump and Dex com sensor for review every 2-4 weeks if needed. 4. Follow up: 6 months Orders Placed This Encounter Procedures Comprehensive Metabolic Panel Hemoglobin A1c Lipid Panel Electronically signed by: Mio Rowley PA-C, [facility] 12/04/18 8:42 AM documented in this encounter* Caden Edmond, [facility] - 06/03/2019 8:44 AM EST Patient ID: Ivy Castellon is a 48 y.o. female Subjective: Ivy Castellon presents for follow-up of Type 1 diabetes. Diagnosed age 6 years; in 1976. Patient is currently taking: Humalog insulin via OmniPod insulin pump. Has used a pump for 10 years Patient returns in follow-up, since last appointment patient states her blood sugar control has slightly improved. She denies any changes in her overall health and brings no concerns or complaints toher visit today. Current Hemoglobin A1C= 7.3% 05/31/19, improved from 8.0% on 11/28/2018, improved from 8.4% on 06/04/18 Weight trend: Decreased 5 pounds since last appointment, has been more active Current diet: diabetic ,carb counting Current exercise: active Current monitoring regimen: home blood tests - 4-6 times daily Home blood sugar records: Reviewed with Dex com sensor in detail Any episodes of hypoglycemia? yes - BG dropping after correction boluses Is patient on DENISSE inhibitor or angiotensin II receptor eugene? no unable tolerate denisse due to low BP Review of Systems: Review of Systems Constitutional: Negative for appetite change, chills, fatigue and fever. HENT: Negative for trouble swallowing. Eyes: Negative for visual disturbance. Respiratory: Negative for cough, chest tightness, shortness of breath and wheezing. Cardiovascular: Negative for chest pain, palpitations and leg swelling. Gastrointestinal: Negative for abdominal pain, constipation, diarrhea, nausea and vomiting. Endocrine: Negative for cold intolerance, heat intolerance, polydipsia, polyphagia and polyuria. Genitourinary: Negative for dysuria and frequency. Musculoskeletal: Negative for arthralgias, gait problem and myalgias. Skin: Negative. Neurological: Negative for tremors, weakness, numbness and headaches. Psychiatric/Behavioral: Negative for dysphoric mood and sleep disturbance. The following portions of the patient's history were reviewed and updated as appropriate: allergies, current medications, past family history, past medical history, past social history, past surgicalhistory and problem list. Objective: Physical Exam: There were no vitals taken for this visit. Wt Readings from Last 3 Encounters: 12/04/18 57.9 kg (127 lb 11 oz) 06/06/18 60.1 kg (132 lb 9.6 oz) 12/04/17 61.2 kg (135 lb) Physical Exam General: alert, appears stated age and cooperative Eyes: conjunctivae/corneas clear. PERRL, EOM's intact. Neck: no adenopathy, supple, symmetrical, trachea midline and thyroid not enlarged, symmetric, no tenderness/mass/nodules Thyroid: no palpable nodule Lung: clear to auscultation bilaterally Heart: regular rate and rhythm, S1, S2 normal, no murmur, click, rub or gallop Extremities: extremities normal, atraumatic, no cyanosis or edema; right elbow in brace Skin: warm and dry, no hyperpigmentation, vitiligo, or suspicious lesions Right Foot: normal DP and PT pulses Left Foot: normal DP and PT pulses. Monofilament exam Normal , bilateral lower extremities. Pulses: Dorsalis pulses 2+ and symmetric Neuro: normal without focal findings, mental status, speech normal, alert and oriented x3 and ALMAZ Lab Review Date: 05/31/19 *labs reviewed 06/03/19 Hgb A1c: 7.3% Creat: 0.76; eGFR: >60 AST: 12; ALT: 8 K: 4.0 Tchol: 226; Tri ; HDL: 99 ; LDL: 116 11/28/2018 Hemoglobin A1c 8.0% Creatinine 0.8, estimated GFR >60, K4.0 AST 9, ALT 13 T cholesterol 182, TG 62, HDL 67, LDL 103 TSH 1.69, free T4--1.06 CBC: H/H 13.1/38.8, WBC 3.5, platelets 256,000 Microalbumin/creatinine ratio 7 06/04/18 HgbA1c 8.4% Creat 0.8, Na 138, K 3.8, eGFR > 60 AST 14, ALT 9 11/28/17 Hgb 8.1% Creat 0.86, K 4.2, eGFR 75 AST 11, ALT 15 TChol 182, TG 89, HDL 86, LDL 78 TSH 1.69, FT4--1.04 WBC 4.6, Hgb 13.3, Hct 39.9, Plt 257k Microalb/creat ratio 4.9 05/02/17 Hemoglobin A1c 7.9% 12/29/16 Hgb A1c: 7.4% Creat: 0.8 AST: 9; ALT: 15 K: 4.2 Tchol: 190; Tri ; HDL: 89 ; LDL: 93 08/30/16 Hgb A1C 8.8% Cr 0.7, eGFR >60, K 4.0 AST 14, ALT 10 TSH 1.19, FT4 0.75 Urine MicrAlb/Cr ratio 29 WBC 4.9, Hgb 13.2, Hct 39.8, plat 231 04/13/16 Hgb A1c: 8.3% 12/14/15 Hgb A1c: 7.8% Creat: 0.80 AST: 15; ALT: 10 Tchol: 187; Tri ; HDL: 84 ; LDL: 91 Assessment: Dx: 1. Type 1 diabetes mellitus without complication (HCC) 2. Hypercholesterolemia Type 1 diabetes, under good control Ivy A Cande presents for follow-up of Type 1 diabetes mellitus. Patient is currently managedwith: OmniPod insulin pump. Pump download and Dex com sensor download were reviewed. She still is having issues with hyperglycemia through the night. Hgb A1c improved to 7.3%. Retinopathy: Negative Exam within last 12 months: no Date: 03/24. 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 Currently taking: zetia; had muscle aches with statin. LFT's WNL . PLAN:Continue Zetia 10 mg daily. 05/27/19: Tchol: 226; Tri ; HDL: 99 ; LDL: 116 11/28/17 AST 11, ALT 15; TChol 182, TG 89, HDL 86, LDL 78 11/28/2018: T cholesterol 182, TG 62, HDL 67, LDL 103 Hypertension: Negative . Currently taking: no medication BP: (!) 143/79 Cardiac: Negative Denies Chest pain. No cardiac issues in the past. Seeing play writer for asthma Vascular: Negative edema Feet: Negative sores or lesions at this time. Last foot exam: 06/06/18 Thyroid: Negative 11/28/2018: TSH 1.69, free T4--1.06, stable, no medications Other: Takes nonsteroidal inhaler daily for asthma Right elbow surgery repair: Right elbow surgery 04/27/18; currently in splint with limited ROM. Able to continue pump without interruption. Current pump settings: BASAL RATES 0.450 Units/hour at 0000 0.800 units/hour at 0700 0.850 Units/hour at 1200 0.500 Units/hour at 2100 Insulin to Carb Ratio: 30 at 0000 30 at 1700 30 at 2000 Sensitivity: 130 at 0000 Plan: 1. Adjust pump settings as follows: Current pump settings: Adjustments in Bold BASAL RATES 0.500 Units/hour at 0000 0.800 units/hour at 0700 0.650 Units/hour at 1200 0.550 Units/hour at 2100 Insulin to Carb Ratio: 30 at 0000 30 at 1700 30 at 2000 Sensitivity: 130 at 0000 Check blood sugar 4-6 times daily. Patient has been checking blood glucoses 4-6 times daily for the past 90 days. Patient needs to continue checking blood glucoses 4-6 times daily. Blood glucose readings are used to adjust insulin doses for meals, monitor dietary compliance and carb content of meals, and adjust for high or low blood glucoses by patient on a daily basis. Blood glucose readings are reviewed at office visits for adjustment in medication regimen and assistance with dietary management, and other self- management issues including exercise, etc. Prognosis: Good. Duration of need for diabetes testing equipment: Permanent #150 strips/month prescribed. 2. Education: Reviewed ABCs of diabetes management (respective goals in parentheses): A1C (7.0-8.0), blood pressure (<130/80), and cholesterol (LDL <100). 3. Compliance at present is estimated to be good. Efforts to improve compliance will be directed atregular blood sugar monitorin-6 times daily. Increase exercise. Send blood glucose readings to office from pump and Dex com sensor for review every 2-4 weeks if needed. 4. Follow up: 6 months Orders Placed This Encounter Procedures Comprehensive Metabolic Panel Hemoglobin A1c Lipid Panel TSH T4, Free Microalbumin/Creatinine Ratio, UR Random CBC and Differential Electronically Signed by: Caden Edmond CNP 06/03/19 8:52 AM documented in this encounter* Mio Rowley PA-C - 10/11/2019 2:13 PM EDT Patient ID: Ivy Castellon is a 49 y.o. female Subjective: Ivy Castellon presents for follow-up of Type 1 diabetes. Diagnosed age 6 years; in 1976. Patient presents today for add-on follow-up appointment regarding abnormal hyperglycemia. Patient was diagnosed with a stroke on 09/29/2019 after she experienced symptoms of left arm and left facial numbness and weakness. She was admitted to [facility]. Patient states her CT scan was negative for acute process, but MRI following showed micro-ischemia to her right frontal and parietal lobe. On this admission she was found to have an atrial septal defect. It was determined at that time the risk of closing the ASD outweighed the benefit. She was started on Plavix and Lipitor was added to her lipid-lowering regimen. She has not shown any residual sensorineural effects of her stroke. She does states since discharge from the hospital she has been having uncharacteristically high blood sugars at all times of the day. Review of Systems: Review of Systems Constitutional: Negative for appetite change, chills, fatigue and fever. HENT: Negative for trouble swallowing. Eyes: Negative for visual disturbance. Respiratory: Negative for cough, chest tightness, shortness of breath and wheezing. Cardiovascular: Negative for chest pain, palpitations and leg swelling. Gastrointestinal: Negative for abdominal pain, constipation, diarrhea, nausea and vomiting. Endocrine: Negative for cold intolerance, heat intolerance, polydipsia, polyphagia and polyuria. Genitourinary: Negative for dysuria and frequency. Musculoskeletal: Negative for arthralgias, gait problem and myalgias. Skin: Negative. Neurological: Negative for tremors, weakness, numbness and headaches. Hematological: Bruises/bleeds easily (On plavix). Psychiatric/Behavioral: Negative for dysphoric mood and sleep disturbance. The following portions of the patient's history were reviewed and updated as appropriate: allergies, current medications, past family history, past medical history, past social history, past surgicalhistory and problem list. Objective: Physical Exam: BP 111/70 Pulse 90 Ht 5' 3.48 Wt 59.8 kg (131 lb 14.4 oz) BMI 23.01 kg/m Wt Readings from Last 3 Encounters: 10/09/19 59.8 kg (131 lb 14.4 oz) 06/03/19 60.3 kg (133 lb) 12/04/18 57.9 kg (127 lb 11 oz) Physical Exam General: alert, appears stated age and cooperative Eyes: conjunctivae/corneas clear. PERRL, EOM's intact. Neck: no adenopathy, supple, symmetrical, trachea midline and thyroid not enlarged, symmetric, no tenderness/mass/nodules Thyroid: no palpable nodule Lung: clear to auscultation bilaterally Heart: regular rate and rhythm, S1, S2 normal, no murmur, click, rub or gallop Extremities: extremities normal, atraumatic, no cyanosis or edema; right elbow in brace Skin: warm and dry, no hyperpigmentation, vitiligo, or suspicious lesions Right Foot: normal DP and PT pulses Left Foot: normal DP and PT pulses. Monofilament exam Normal , bilateral lower extremities. Pulses: Dorsalis pulses 2+ and symmetric Neuro: normal without focal findings, mental status, speech normal, alert and oriented x3 and ALMAZ Lab Review No new labs to review Date: 05/31/19 *labs reviewed 10/11/19 Hgb A1c: 7.3% Creat: 0.76; eGFR: >60 AST: 12; ALT: 8 K: 4.0 Tchol: 226; Tri ; HDL: 99 ; LDL: 116 11/28/2018 Hemoglobin A1c 8.0% Creatinine 0.8, estimated GFR >60, K4.0 AST 9, ALT 13 T cholesterol 182, TG 62, HDL 67, LDL 103 TSH 1.69, free T4--1.06 CBC: H/H 13.1/38.8, WBC 3.5, platelets 256,000 Microalbumin/creatinine ratio 7 06/04/18 HgbA1c 8.4% Creat 0.8, Na 138, K 3.8, eGFR > 60 AST 14, ALT 9 11/28/17 Hgb 8.1% Creat 0.86, K 4.2, eGFR 75 AST 11, ALT 15 TChol 182, TG 89, HDL 86, LDL 78 TSH 1.69, FT4--1.04 WBC 4.6, Hgb 13.3, Hct 39.9, Plt 257k Microalb/creat ratio 4.9 05/02/17 Hemoglobin A1c 7.9% 12/29/16 Hgb A1c: 7.4% Creat: 0.8 AST: 9; ALT: 15 K: 4.2 Tchol: 190; Tri ; HDL: 89 ; LDL: 93 08/30/16 Hgb A1C 8.8% Cr 0.7, eGFR >60, K 4.0 AST 14, ALT 10 TSH 1.19, FT4 0.75 Urine MicrAlb/Cr ratio 29 WBC 4.9, Hgb 13.2, Hct 39.8, plat 231 04/13/16 Hgb A1c: 8.3% 12/14/15 Hgb A1c: 7.8% Creat: 0.80 AST: 15; ALT: 10 Tchol: 187; Tri ; HDL: 84 ; LDL: 91 Assessment: Dx: No diagnosis found. Type 1 diabetes, under good control Ivy Castellon presents for follow-up of Type 1 diabetes mellitus. Patient is currently managedwith: OmniPod insulin pump. Pump download and Dex com sensor download were reviewed. She has been having consistent hyperglycemia since discharge from the hospital status post CVA. Retinopathy: Negative Exam within last 12 months: no Date: 03/24. 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 Currently taking: zetia; had muscle aches with statin but Lipitor was added after her admission for CVA. LFT's WNL . PLAN: Continue Zetia 10 mg daily and Lipitor. 05/27/19: Tchol: 226; Tri ; HDL: 99 ; LDL: 116 11/28/17 AST 11, ALT 15; TChol 182, TG 89, HDL 86, LDL 78 11/28/2018: T cholesterol 182, TG 62, HDL 67, LDL 103 Hypertension: Negative . Currently taking: no medication BP: 111/70 Cardiac: Negative Denies Chest pain. No cardiac issues in the past. Seeing play writer for asthma Vascular: Positive CVA on 09/29/2019. Microischemia noted in R frontal and parietal lobes. Patient found to have ASD, not surgically closed. On plavix. Feet: Negative sores or lesions at this time. Last foot exam: 06/06/18 Thyroid: Negative 11/28/2018: TSH 1.69, free T4--1.06, stable, no medications Other: Takes nonsteroidal inhaler daily for asthma Right elbow surgery repair: Right elbow surgery 04/27/18; currently in splint with limited ROM. Able to continue pump without interruption. Current pump settings: BASAL RATES 0.500 Units/hour at 0000 0.800 units/hour at 0700 0.500 Units/hour at 2100 Insulin to Carb Ratio: 30 at 0000 30 at 1700 30 at 2000 Sensitivity: 130 at 0000 Plan: 1. Adjust pump settings as follows: Current pump settings: Adjustments in Bold BASAL RATES 0000 0.500 0200 0.600 0700 0.850 1900 0.550 Insulin to Carb Ratio: 30 at 0000 30 at 1700 30 at 2000 Sensitivity: 130 at 0000 Basal rates were increased as above as it is apparent on her pump download that her fasting blood sugars are notably elevated. Her current insulin/carb ratio appears to be appropriate at this time. She does have a follow-up in 2 months, and we will be downloading her Dexcom sensor intermittently toreview effects of these pump changes. Check blood sugar 4-6 times daily. Patient has been checking blood glucoses 4-6 times daily for the past 90 days. Patient needs to continue checking blood glucoses 4-6 times daily. Blood glucose readings are used to adjust insulin doses for meals, monitor dietary compliance and carb content of meals, and adjust for high or low blood glucoses by patient on a daily basis. Blood glucose readings are reviewed at office visits for adjustment in medication regimen and assistance with dietary management, and other self- management issues including exercise, etc. Prognosis: Good. Duration of need for diabetes testing equipment: Permanent #150 strips/month prescribed. 2. Education: Reviewed ABCs of diabetes management (respective goals in parentheses): A1C (7.0-8.0), blood pressure (<130/80), and cholesterol (LDL <100). 3. Compliance at present is estimated to be good. Efforts to improve compliance will be directed atregular blood sugar monitorin-6 times daily. Increase exercise. Send blood glucose readings to office from pump and Dex com sensor for review every 2-4 weeks if needed. 4. Follow up: 2 months No orders of the defined types were placed in this encounter. Electronically signed by: Mio Rowley PA-C, [facility] 10/11/19 2:21 PM documented in this encounter* Caden Edmond, [facility] - 12/09/2019 8:11 AM EDT Patient ID: Ivy Castellon is a 49 y.o. female Subjective: Ivy Castellon presents for follow-up of Type 1 diabetes. Diagnosed age 6 years; in 1976. Patient presents today for add-on follow-up appointment regarding abnormal hyperglycemia. Patient was diagnosed with a stroke on 09/29/2019 after she experienced symptoms of left arm and left facial numbness and weakness. She was admitted to [facility]. Patient states her CT scan was negative for acute process, but MRI following showed micro-ischemia to her right frontal and parietal lobe. On this admission she was found to have an atrial septal defect. It was determined at that time the risk of closing the ASD outweighed the benefit. She was started on Plavix and Lipitor was added to her lipid-lowering regimen. Stopped plavix recently. She has not shown any residual sensorineural effects of her stroke. She does states since discharge from the hospital she has been having uncharacteristically high blood sugars at all times of the day. Review of Systems: Review of Systems Constitutional: Negative for appetite change, chills, fatigue and fever. HENT: Negative for trouble swallowing. Eyes: Negative for visual disturbance. Respiratory: Negative for cough, chest tightness, shortness of breath and wheezing. Cardiovascular: Negative for chest pain, palpitations and leg swelling. Gastrointestinal: Negative for abdominal pain, constipation, diarrhea, nausea and vomiting. Endocrine: Negative for cold intolerance, heat intolerance, polydipsia, polyphagia and polyuria. Genitourinary: Negative for dysuria and frequency. Musculoskeletal: Negative for arthralgias, gait problem and myalgias. Skin: Negative. Neurological: Negative for tremors, weakness, numbness and headaches. Hematological: Does not bruise/bleed easily (improved when stopped plavix ). Psychiatric/Behavioral: Negative for dysphoric mood and sleep disturbance. The following portions of the patient's history were reviewed and updated as appropriate: allergies, current medications, past family history, past medical history, past social history, past surgicalhistory and problem list. Objective: Physical Exam: BP 122/75 Pulse 87 Wt 60.4 kg (133 lb 3.2 oz) BMI 23.24 kg/m Wt Readings from Last 3 Encounters: 12/09/19 60.4 kg (133 lb 3.2 oz) 10/09/19 59.8 kg (131 lb 14.4 oz) 06/03/19 60.3 kg (133 lb) Physical Exam General: alert, appears stated age and cooperative Eyes: conjunctivae/corneas clear. PERRL, EOM's intact. Neck: no adenopathy, supple, symmetrical, trachea midline and thyroid not enlarged, symmetric, no tenderness/mass/nodules Thyroid: no palpable nodule Lung: clear to auscultation bilaterally Heart: regular rate and rhythm, S1, S2 normal, no murmur, click, rub or gallop Extremities: extremities normal, atraumatic, no cyanosis or edema; right elbow in brace Skin: warm and dry, no hyperpigmentation, vitiligo, or suspicious lesions Right Foot: normal DP and PT pulses Left Foot: normal DP and PT pulses. Monofilament exam Normal , bilateral lower extremities. Pulses: Dorsalis pulses 2+ and symmetric Neuro: normal without focal findings, mental status, speech normal, alert and oriented x3 and ALMAZ Lab Review Date: 12/06/19 *labs reviewed 12/09/19 Hgb A1c: 7.7% Creat: 0.73; eGFR: >60 AST: 14; ALT: 11 K: 4.2 CBC: WBC:4.00; Hgb: 13.3; Hct: 40.1; Plt: 235 Tchol: 195; Tri ; HDL: 83 ; LDL: 103 TSH: 1.56 ; FreeT4: 0.92 Microalbumin/creatinine Ratio: 5.3 05/31/19 Hgb A1c: 7.3% Creat: 0.76; eGFR: >60 AST: 12; ALT: 8 K: 4.0 Tchol: 226; Tri ; HDL: 99 ; LDL: 116 11/28/2018 Hemoglobin A1c 8.0% Creatinine 0.8, estimated GFR >60, K4.0 AST 9, ALT 13 T cholesterol 182, TG 62, HDL 67, LDL 103 TSH 1.69, free T4--1.06 CBC: H/H 13.1/38.8, WBC 3.5, platelets 256,000 Microalbumin/creatinine ratio 7 06/04/18 HgbA1c 8.4% Creat 0.8, Na 138, K 3.8, eGFR > 60 AST 14, ALT 9 11/28/17 Hgb 8.1% Creat 0.86, K 4.2, eGFR 75 AST 11, ALT 15 TChol 182, TG 89, HDL 86, LDL 78 TSH 1.69, FT4--1.04 WBC 4.6, Hgb 13.3, Hct 39.9, Plt 257k Microalb/creat ratio 4.9 05/02/17 Hemoglobin A1c 7.9% 12/29/16 Hgb A1c: 7.4% Creat: 0.8 AST: 9; ALT: 15 K: 4.2 Tchol: 190; Tri ; HDL: 89 ; LDL: 93 08/30/16 Hgb A1C 8.8% Cr 0.7, eGFR >60, K 4.0 AST 14, ALT 10 TSH 1.19, FT4 0.75 Urine MicrAlb/Cr ratio 29 WBC 4.9, Hgb 13.2, Hct 39.8, plat 231 04/13/16 Hgb A1c: 8.3% 12/14/15 Hgb A1c: 7.8% Creat: 0.80 AST: 15; ALT: 10 Tchol: 187; Tri ; HDL: 84 ; LDL: 91 Assessment: Dx: 1. Type 1 diabetes mellitus without complication (HCC) 2. Hypercholesterolemia Type 1 diabetes, under good control Ivy Castellon presents for follow-up of Type 1 diabetes mellitus. Patient is currently managedwith: OmniPod insulin pump. Pump download and Dex com sensor download were reviewed. Retinopathy: Negative Exam within last 12 months: no Date: 03/24. 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 Currently taking: zetia; had muscle aches with statin but Lipitor was added after her admission for CVA. LFT's WNL . PLAN: Continue Zetia 10 mg daily and Lipitor. 11/26/19: Tchol: 195; Tri ; HDL: 83 ; LDL: 103 05/27/19: Tchol: 226; Tri ; HDL: 99 ; LDL: 116 11/28/17 AST 11, ALT 15; TChol 182, TG 89, HDL 86, LDL 78 11/28/2018: T cholesterol 182, TG 62, HDL 67, LDL 103 Hypertension: Negative . Currently taking: no medication BP: 122/75 Cardiac: Positive Denies Chest pain. Diagnosed with ASD. Following with cardiology in [place] Dr. Hernadez. Has had 3 day and 30 day playground monitor. Was on plavix, currently off. Has a loop monitor in place for next 3 years. Seeing play writer for asthma Vascular: Positive CVA on 09/29/2019. Microischemia noted in R frontal and parietal lobes. Patient found to have ASD, not surgically closed. On plavix. Has been seeing a neurologist in [place], Dr. Gaines. Feet: Negative sores or lesions at this time. Last foot exam: 06/06/18 Thyroid: Negative 11/28/2018: TSH 1.69, free T4--1.06, stable, no medications Other: Takes nonsteroidal inhaler daily for asthma Right elbow surgery repair: Right elbow surgery 04/27/18. Current pump settings: BASAL RATES 0.500 Units/hour at 0000 0.600 Units/hour at 0200 0.850 units/hour at 0700 0.750 units/hour at 1900 0.500 Units/hour at 2100 Insulin to Carb Ratio: 30 at 0000 30 at 1700 30 at 2000 Sensitivity: 130 at 0000 Plan: 1. Adjust pump settings as follows: Current pump settings: Adjustments in Bold BASAL RATES 0.500 Units/hour at 0000 0.550 Units/hour at 0200 0.850 units/hour at 0700 0.800 units/hour at 1400 0.750 units/hour at 1900 0.500 Units/hour at 2100 Insulin to Carb Ratio: 30 at 0000 30 at 1700 30 at 2000 Sensitivity: 130 at 0000 Basal rates were decreased as above as it is apparent on her pump download that her fasting blood sugars are notably low. Her current insulin/carb ratio appears to be appropriate at this time. Check blood sugar 4-6 times daily. Patient has been checking blood glucoses 4-6 times daily for the past 90 days. Patient needs to continue checking blood glucoses 4-6 times daily. Blood glucose readings are used to adjust insulin doses for meals, monitor dietary compliance and carb content of meals, and adjust for high or low blood glucoses by patient on a daily basis. Blood glucose readings are reviewed at office visits for adjustment in medication regimen and assistance with dietary management, and other self- management issues including exercise, etc. Prognosis: Good. Duration of need for diabetes testing equipment: Permanent #150 strips/month prescribed. 2. Education: Reviewed ABCs of diabetes management (respective goals in parentheses): A1C (7.0-8.0), blood pressure (<130/80), and cholesterol (LDL <100). 3. Compliance at present is estimated to be good. Efforts to improve compliance will be directed atregular blood sugar monitorin-6 times daily. Increase exercise. Send blood glucose readings to office from pump and Dex com sensor for review every 2-4 weeks if needed. 4. Follow up: 2 months Orders Placed This Encounter Procedures Comprehensive Metabolic Panel Lipid Panel Hemoglobin A1c T4, Free TSH Electronically Signed by: Caden Edmond CNP 12/09/19 8:15 AM documented in this encounter* Annabella Oliveros MD - 06/06/2018 9:34 AM EST Patient ID: Ivy Castellon is a 47 y.o. female Subjective: Ivy Castellon presents for follow-up of Type 1 diabetes. Diagnosed age 6 years; in 1976. Patient is currently taking: Humalog insulin via OmniPod insulin pump. Has used a pump for 9-10 years Current Hemoglobin A1C= 8.4% on 06/04/18 Weight trend: stable Current diet: diabetic ,carb counting Current exercise: active, however recent right elbow surgery, so limited activity currently Current monitoring regimen: home blood tests - 4-6 times daily Home blood sugar records: Reviewed with Dex com sensor in detail Any episodes of hypoglycemia? yes - BG dropping during afternoon Is patient on DENISSE inhibitor or angiotensin II receptor eugene? no unable tolerate denisse due to low BP Review of Systems: Review of Systems Constitutional: Negative for appetite change, chills, fatigue and fever. HENT: Negative for trouble swallowing. Eyes: Negative for visual disturbance. Respiratory: Negative for cough, chest tightness, shortness of breath and wheezing. Cardiovascular: Negative for chest pain, palpitations and leg swelling. Gastrointestinal: Negative for abdominal pain, constipation, diarrhea, nausea and vomiting. Endocrine: Negative for cold intolerance, heat intolerance, polydipsia, polyphagia and polyuria. Genitourinary: Negative for dysuria and frequency. Musculoskeletal: Negative for arthralgias, gait problem and myalgias. Neurological: Negative for tremors, weakness, numbness and headaches. The following portions of the patient's history were reviewed and updated as appropriate: allergies, current medications, past family history, past medical history, past social history, past surgicalhistory and problem list. Objective: Physical Exam: BP 124/80 Pulse 79 Ht 5' 3.5 Wt 60.1 kg (132 lb 9.6 oz) BMI 23.12 kg/m Wt Readings from Last 3 Encounters: 06/06/18 60.1 kg (132 lb 9.6 oz) 12/04/17 61.2 kg (135 lb) 05/05/17 61.7 kg (136 lb) Physical Exam General: alert, appears stated age and cooperative Eyes: conjunctivae/corneas clear. PERRL, EOM's intact. Neck: no adenopathy, supple, symmetrical, trachea midline and thyroid not enlarged, symmetric, no tenderness/mass/nodules Thyroid: no palpable nodule Lung: clear to auscultation bilaterally Heart: regular rate and rhythm, S1, S2 normal, no murmur, click, rub or gallop Extremities: extremities normal, atraumatic, no cyanosis or edema; right elbow in brace Skin: warm and dry, no hyperpigmentation, vitiligo, or suspicious lesions Right Foot: normal DP and PT pulses Left Foot: normal DP and PT pulses. Monofilament exam Normal , bilateral lower extremities. Pulses: Dorsalis pulses 2+ and symmetric Neuro: normal without focal findings, mental status, speech normal, alert and oriented x3 and ALMAZ Lab Review Date:06/04/18 HgbA1c 8.4% Creat 0.8, Na 138, K 3.8, eGFR > 60 AST 14, ALT 9 11/28/17 Hgb 8.1% Creat 0.86, K 4.2, eGFR 75 AST 11, ALT 15 TChol 182, TG 89, HDL 86, LDL 78 TSH 1.69, FT4--1.04 WBC 4.6, Hgb 13.3, Hct 39.9, Plt 257k Microalb/creat ratio 4.9 05/02/17 Hemoglobin A1c 7.9% 12/29/16 Hgb A1c: 7.4% Creat: 0.8 AST: 9; ALT: 15 K: 4.2 Tchol: 190; Tri ; HDL: 89 ; LDL: 93 08/30/16 Hgb A1C 8.8% Cr 0.7, eGFR >60, K 4.0 AST 14, ALT 10 TSH 1.19, FT4 0.75 Urine MicrAlb/Cr ratio 29 WBC 4.9, Hgb 13.2, Hct 39.8, plat 231 04/13/16 Hgb A1c: 8.3% 12/14/15 Hgb A1c: 7.8% Creat: 0.80 AST: 15; ALT: 10 Tchol: 187; Tri ; HDL: 84 ; LDL: 91 Assessment: Dx: SNOMED CT(R) 1. Type 1 diabetes mellitus without complication (HCC) TYPE 1 DIABETES MELLITUS WITHOUT COMPLICATION CBC and Differential Comprehensive Metabolic Panel T4, Free TSH Hemoglobin A1c External Lab Microalbumin/Creatinine 2. Hypercholesterolemia HYPERCHOLESTEROLEMIA Lipid Panel 3. Insulin pump fitting or adjustment PATIENT ENCOUNTER STATUS Type 1 diabetes, under good control Ivy Castellon presents for follow-up of Type 1 diabetes mellitus. Patient is currently managedwith: OmniPod insulin pump. Pump download and Dex com sensor download were reviewed. She appears idania having hypoglycemia which may be related to basal rates being a bit too high, especially during the afternoon. Also is having some high BG at night. Basal rates will be adjusted as noted below. She will be following up in 6 months. Retinopathy: Negative Exam within last 12 months: no Date: 03/24. 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 Currently taking: zetia; had muscle aches with statin. LFT's WNL . PLAN:Continue Zetia 10 mg daily. 11/28/17 AST 11, ALT 15; TChol 182, TG 89, HDL 86, LDL 78 Hypertension: Negative . Currently taking: no medication BP: 124/80 Cardiac: Negative Denies Chest pain. No cardiac issues in the past. Seeing play writer for asthma Vascular: Negative edema Feet: Negative sores or lesions at this time. Last foot exam: 06/06/18 Thyroid: Negative 11/28/17 TSH 1.69, FT4--1.04 , stable, no medications Other: Being worked up for asthma currently with Dr Antunez in [place]. Right elbow surgery repair: Right elbow surgery 04/27/18; currently in splint with limited ROM. Able to continue pump without interruption. Current pump settings: BASAL RATES 0.300 Units/hour at 0000 0.750 units/hour at 0700 0.600 Units/hour at 1200 0.700 Units/hour at 1700 0.350 Units/hour at 2100 Insulin to Carb Ratio: 30 at 0000 30 at 1700 30 at 2000 Sensitivity: 130 at 0000 Plan: 1. Adjust pump settings as follows: Current pump settings: Adjustments in Bold BASAL RATES 0.350 Units/hour at 0000 0.800 units/hour at 0700 0.500 Units/hour at 1200 0.650 Units/hour at 1700 0.350 Units/hour at 2100 Insulin to Carb Ratio: 30 at 0000 30 at 1700 30 at 2000 Sensitivity: 130 at 0000 Check blood sugar 4-6 times daily. Patient has been checking blood glucoses 4-6 times daily for the past 90 days. Patient needs to continue checking blood glucoses 4-6 times daily. Blood glucose readings are used to adjust insulin doses for meals, monitor dietary compliance and carb content of meals, and adjust for high or low blood glucoses by patient on a daily basis. Blood glucose readings are reviewed at office visits for adjustment in medication regimen and assistance with dietary management, and other self- management issues including exercise, etc. Prognosis: Good. Duration of need for diabetes testing equipment: Permanent #150 strips/month prescribed. 2. Education: Reviewed ABCs of diabetes management (respective goals in parentheses): A1C (7.0-8.0), blood pressure (<130/80), and cholesterol (LDL <100). 3. Compliance at present is estimated to be good. Efforts to improve compliance will be directed atregular blood sugar monitorin-6 times daily. Increase exercise. Send blood glucose readings to office from pump and Dex com sensor for review every 2-4 weeks if needed. 4. Follow up: 6 months Orders Placed This Encounter Procedures CBC and Differential Comprehensive Metabolic Panel Lipid Panel T4, Free TSH Hemoglobin A1c External Lab Microalbumin/Creatinine C Domo QUINONES in this encounter Additional Source Comments INFORMATION SOURCE (unrecogn ized section and content) DATE CREATED AUTHOR AUTHOR'S ORGANIZ ATION 07/15/2018 [facility] DATE CREATED AUTHOR AUTHOR'S ORGANIZ ATION 11/28/2018 [facility] DATE CREATED AUTHOR AUTHOR'S ORGANIZ ATION 04/11/2020 [facility] DATE CREATED AUTHOR AUTHOR'S ORGANIZ ATION 07/19/2021 [facility] Reason for Visit (unrecogniz ed section and content) FOR RECORDS PERTAINING TO PATIENTS WHO ARE OR HAVE BEEN ENROLLED IN A CHEMICAL DEPENDENCY/SUBSTANCEABUSE PROGRAM, SOME INFORMATION MAY BE OMITTED. This clinical summary was aggregated from multiple sources. Caution should be exercised in using it in the provision of clinical care. This summary normalizes information from multiple sources, and as a consequence, information in this document may materially change the coding, format and clinical context of patient data. In addition, data may be omitted in some cases. CLINICAL DECISIONS SHOULD BE BASED ON THE PRIMARY CLINICAL RECORDS. [facility] [email or web address] [facility]. provides no warranty or guarantee of the accuracy or completeness of information in this document.
[2023-05-04 09:47] LABS: AST(SGOT) 12 U/L (15-37); Alanine Aminotransfer ALT/SGPT 18 U/L (13-56); Albumin, Serum 3.9 g/dL (3.2-5.0); Alkaline Phosphatase 61 U/L (45-117); Anion Gap 5 (5-15); BUN 18 mg/dL (7-18); BUN/Creat Ratio 21.1 RATIO (10-20); Calcium,Total 9.2 mg/dL (8.5-10.1); Chloride 105 mmol/L (98-107); Cholesterol 204 mg/dL (200); Creatinine, Serum 0.85 mg/dL (0.55-1.02); EST Glomerular Filtration Rate 74 mL/min (>60); Est Glom Filt Rate - Afr Amer 90 mL/min (>60); Globulin 3.8 g/dL (2.2-4.2); Glucose 133 mg/dL (74-106); High Density Lipoprotein 94 mg/dL; Potassium 4.1 mmol/L (3.5-5.1); Protein, Total 7.7 g/dL (6.4-8.2); Sodium Level 140 mmol/L (136-145); Thyroid Stim Hormone (TSH) 1.78 uIU/mL (0.358-3.74); Triglycerides 68 mg/dL; Very Low Density Lipoprotein 14 mg/dL (5-40)
== END | disposition home or self-care (01) ==
LOC: PAVLAB 09:11
PROVIDERS: PCP Family Medicine; Referring Provider Internal Medicine Endocrinology, Diabetes & Metabolism; Visit Provider Internal Medicine Endocrinology, Diabetes & Metabolism
DX: E55.9 Vitamin D deficiency, unspecified (principal); E10.9 Type 1 diabetes mellitus without complications; M81.0 Age-related osteoporosis without current pathological fracture; E78.5 Hyperlipidemia, unspecified
CPT/HCPCS: 36415; 80053; 80061; 82306; 84443

== ENCOUNTER 2023-06-09 09:25 | Outpatient (CLI) | payer OTHER, SELFPAY ==
[2023-06-09] MEDS: Zoledronic Acid 5 MG 100 ML 300 MG IV (09:39)
[2023-06-09] MEDS: 0.9% NaCl Peripheral Flush Adult/Peds IV (09:43)
[2023-06-09 09:44] VITALS: BP 132/72; PULSE 96; RESP 16; TEMP 36.4; O2SAT 100; BMI 25.4
[2023-06-09 10:06] VITALS: BP 126/69; PULSE 85; RESP 16; TEMP 36.4; O2SAT 100
--- OUTSIDE RECORDS SUMMARY | 2023-06-09 12:14 | XMS RPT_ITS | CCD ---
Author Name Unknown Address [email or web address] [place] [address] Organization [facility] Care Team Providers Care Marble Coper Name Role Phone Maury Yue Litzy Unavailable Unavailable MISSAEL CONTRERAS Unavailable Unavailable Erin Aucna Unavailable Malou Antoine Primary Care Provider [phone] Erin Acuna Primary Care Provider [phone] Erin Acuna Primary Care Provider ANNABELLA OLIVEROS Attending Unavailable ERIN ACUNA Primary Care Unavailable Allergies Allergy Classification Reported Allergen(s) Allergy Type Date of Onset Reaction(s) Facility (2 sources) lisinopril Drug Allergy 2 Cough [facility] Work Phone: (11 sources) lovastatin; Translations: [LOVASTATIN] Drug Allergy 0 Muscle pain [facility] Work Phone: (1 source) Cat; Translations: [CATS] Propensity to adverse reactions (disorder) 8 [facility] Rep[facility] (1 source) Dog; Translations: [DOGS] Propensity to adverse reactions (disorder) 8 [facility] (9 sources) pravastatin; Translations: [PRAVASTATIN SODIUM] Drug Allergy 9 Other (See Comments) [facility] (1 source) OTHER; Translations: [OTHER] Propensity to adverse reactions (disorder) 8 [facility] (8 sources) cats claw preparation; Translations: [CAT'S CLAW (UNCARIA TOMENTOSA)] Drug Allergy 6 [facility] (8 sources) DOG DANDER; Translations: [DOG DANDER] Propensity to adverse reactions to drug 6 [facility] (1 source) NO KNOWN DRUG ALLERGIES Propensity to adverse reactions to drug 5 [facility] Medications Current Medications Medication Drug Class(es) Dates [...] tablet once at night DIPHENHYDRAMINE-APA P (SLEEP) [id number] Yue Mendiola BECLOMETHASONE DIPROPIONATE (3 sources) Corticosteroid Start: 04-04-2017 QVAR 80 MCG/ACT AERS 2 puffs twice daily BECLOMETHASONE DIPROPIONATE [id number] Isela Fang [employer] Problems Active Problems Problem Classification Problem Date [...] 08:05-0400 BMI (Body Mass Index) 23.24 kg/m2 [facility] 12-09-2019 08:05-0400 Body weight 60.42 kg [facility] 12-09-2019 08:05-0400 BP Diastolic 75 mm[Hg] [facility] 12-09-2019 08:05-0400 BP Systolic 122 mm[Hg] [facility] 12-09-2019 08:05-0400 Pulse (Heart Rate) 87 /min [facility] 10-09-2019 13:57-0400 BMI (Body Mass Index) 23.01 kg/m2 [facility] 13:57-0400 Body weight 59.83 kg [facility] 10-09-2019 13:57-0400 BP Diastolic 70 mm[Hg] [facility] 10-09-2019 13:57-0400 BP Systolic 111 mm[Hg] [facility] 10-09-2019 13:57-0400 Height 161.2 cm [facility] 10-09-2019 13:57-0400 Pulse (Heart Rate) 90 /min [facility] 06-03-2019 08:49-0500 BMI (Body Mass Index) 23.2 kg/m2 Caden [facility] 06-03-2019 08:49-0500 Body weight 60.33 kg Caden [facility] 06-03-2019 08:49-0500 BP Diastolic 79 mm[Hg] Caden [facility] 06-03-2019 08:49-0500 BP Systolic 143 mm[Hg] [facility] 06-03-2019 08:49-0500 Pulse (Heart Rate) 85 /min [facility] 12-04-2018 08:10-0400 BMI (Body Mass Index) 22.28 kg/m2 [facility] 12-04-2018 08:10-0400 Body weight 57.92 kg [facility] 12-04-2018 08:10-0400 BP Diastolic 79 mm[Hg] [facility] 12-04-2018 08:10-0400 BP Systolic 132 mm[Hg] [facility] 12-04-2018 08:10-0400 Height 161.2 cm [facility] 12-04-2018 08:10-0400 Pulse (Heart Rate) 79 /min [facility] 06-06-2018 08:55-0500 BMI (Body Mass Index) 23.12 kg/m2 Annabella Oliveros [facility] 06-06-2018 08:55-0500 Body weight 60.15 kg Annabella Oliveros [facility] 06-06-2018 08:55-0500 BP Diastolic 80 mm[Hg] Annabella Oliveros [facility] 06-06-2018 08:55-0500 BP Systolic 124 mm[Hg] Annabella Oliveros [facility] 06-06-2018 08:55-0500 Height 161.3 cm Annabella Oliveros [facility] 06-06-2018 08:55-0500 Pulse (Heart Rate) 79 /min Annabella Oliveros [facility] 12-04-2017 14:39-0400 BMI (Body Mass Index) 23.54 kg/m2 Annabella Oliveros [facility] 12-04-2017 14:39-0400 BP Diastolic 62 mm[Hg] Annabella Oliveros [facility] 12-04-2017 14:39-0400 BP Systolic 110 mm[Hg] Annabella Oliveros [facility] 12-04-2017 14:39-0400 Height 161.3 cm Annabella Oliveros [facility] 12-04-2017 14:39-0400 Pulse (Heart Rate) 68 /min Annabella Oliveros [facility] 12-04-2017 14:39-0400 Weight 61.24 kg Annabella Oliveros [facility] 10-24-2016 08:12-0400 BMI (Body Mass Index) 22.83 kg/m2 [employer] [facility] Work Phone: 10-24-2016 08:12-0400 Body Temperature 98.2 [degF] Yuecesia Mendiola [facility] Work Phone: 10-24-2016 08:12-0400 BP Diastolic 72 mm[Hg] Yuecesia Mendiola [facility] [place] Work Phone: 10-24-2016 08:12-0400 BP Systolic 121 mm[Hg] Yue Maury [facility] Work Phone: 10-24-2016 08:12-0400 Height 162.56 cm [employer] [facility] Work Phone: 10-24-2016 08:12-0400 Pulse (Heart Rate) 84 /min Yue ApnaPaisa [facility] [place] Work Phone: 10-24-2016 08:12-0400 Respiratory Rate 18 /min Yue ApnaPaisa [facility] [place] Work Phone: 10-24-2016 08:12-0400 Weight 60.33 kg [employer] [facility] Work Phone: 07-27-2015 12:48-0400 BSA (Body Surface Area) 1.63 m2 [employer] [facility] Work Phone: Encounters Encounter Date Encounter Type Care Provider Facility Start: 06-18-2021 ambulatory ANNABELLA OLIVEROS [facility] Start: 07-14-2020 End: 07-14-2020 Orders Only Bre Joshua Janes Work Phone: [facility] Start: 12-09-2019 End: 12-09-2019 Office outpatient visit 25 minutes Caden Edmond Work Phone: [facility] Endocrinology Procedures Date Procedure Procedure Detail [...] Start: 12-08-2020 Diabetic foot examination Foot Exam [facility] Start: 10-08-2020 Diabetic foot examination Foot Exam [facility] Start: 10-08-2020 HbA1c (Bld) [Mass fraction] A1C [facility] Start: 06-07-2020 HbA1c (Bld) [Mass fraction] A1C [facility] Start: 06-03-2020 Diabetic foot examination Foot Exam [facility] Start: 04-13-2020 End: 04-13-2020 Office Visit 04/13/2020 Office Visit Endocrinology Caden Edmond, TAR HEATER [address] [address] [phone] [facility] Start: 04-07-2020 End: 12-09-2020 Comprehensive metabolic 2000 panel Comprehensive Metabolic Panel Lab Routine Type 1 diabetes mellitus without complication (HCC) Expected: 04/07/2020, Expires: 12/09/2020 [facility] Payers Date Payer Category Payer Unknown [id number] [address] [employer] [facility] [employer] xxxxxxxxxxxx 2016-Present xxxxxxxxxxxx [id number] [employer] H[employer] O [facility] [employer] [id number] 2016-Present [id number] 1970 Unknown [id number] 1970 Unknown [id number] 1970 Unknown [id number] 1970 Unknown [id number] 1970 Unknown [id number] Social History Date Type Detail Facility Start: 12-04-2017 End: 06-06-2018 Tobacco smoking status [facility] Never smoker [facility] Sex Assigned At Not on file [facility] Start: 06-03-2019 End: 04-13-2020 Alcohol intake Current drinker of alcohol (finding) [facility] Exposure to SARS-CoV -2 (event) Not sure [facility] Start: 04-13-2020 Tobacco use and exposure Never used [facility] Medical Equipment Procedure Code Equipment Code Equipment Origin al Text Equipment Identifier Dates by Miscellaneous route. 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 Her sensitivity was also increased (less [...] Panel Electronically signed by: Mio Rowley PA-C, [facility] 12/04/18 8:42 AM documented in this encounter* Caden Edmond, [facility] - 06/03/2019 8:44 AM EST Patient [...] last 12 months: no Date: 03/24. 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 She was admitted to [facility]. Patient states her CT scan was negative [...] last 12 months: no Date: 03/24. 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 [...] encounter. Electronically signed by: Mio Rowley PA-C, [facility] 10/11/19 2:21 PM documented in this encounter* Caden Edmond, [facility] - 12/09/2019 8:11 AM EDT Patient [...] numbness and weakness. She was admitted to [facility]. Patient states her CT scan was negative [...] last 12 months: no Date: 03/24. 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 Following with cardiology in [place] Dr. Hernadez. Has had 3 day and 30 day personnel monitor. Was on plavix, currently off. Has a loop monitor in place for next 3 years. 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 Microischemia noted in R frontal and parietal lobes. Patient found to have ASD, not surgically closed. On plavix. Has been seeing a neurologist in [place], Dr. Gaines. Feet: Negative sores or lesions [...] last 12 months: no Date: 03/24. 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 Last foot exam: 06/06/18 Thyroid: Negative 11/28/17 TSH 1.69, FT4--1.04 , stable, no medications Other: Being worked up for asthma currently with Dr Antunez in [place]. Right elbow surgery repair: Right elbow surgery [...] DATE CREATED AUTHOR AUTHOR'S ORGANIZ ATION 07/15/2018 [facility] DATE CREATED AUTHOR AUTHOR'S ORGANIZ ATION 11/28/2018 [facility] DATE CREATED AUTHOR AUTHOR'S ORGANIZ ATION 04/11/2020 [facility] DATE CREATED AUTHOR AUTHOR'S ORGANIZ ATION 07/19/2021 [facility] Reason for Visit (unrecogniz ed section and [...] BE BASED ON THE PRIMARY CLINICAL RECORDS. [facility] [employer] [facility]. provides no warranty or guarantee of the accuracy or completeness of information in this document.
== END 2023-06-09 09:26 | disposition home or self-care (01) ==
PROVIDERS: PCP Family Medicine; Referring Provider Internal Medicine Endocrinology, Diabetes & Metabolism; Visit Provider Internal Medicine Endocrinology, Diabetes & Metabolism
DX: M81.0 Age-related osteoporosis without current pathological fracture (principal)
CPT/HCPCS: 96365; A4216; J3489

== ENCOUNTER → 2023-08-02 | Outpatient (CLI) | payer OTHER, SELFPAY ==
--- NOTE | 2023-08-02 07:52 | BI_ITS ---
MAMMOGRAPHY - BILATERAL SCREENING REASON FOR EXAM: Female, 52 years old. Routine annual screening examination. PERTINENT HISTORY: Non-contributory. TECHNIQUE: Digital bilateral breast sandra (3D mammographic acquisition) in the CC and MLO projections. 2-D mediolateral oblique (MLO) and craniocaudad (CC) views of both breasts were obtained. CAD: Full Field Digital Mammography with Computer Added Detection was performed. COMPARISON: Comparison is made with prior study dated July 29, 2022 and July 28, 2021. FINDINGS: Breast Composition: The breasts are heterogeneously dense, which may obscure small masses. There are no dominant masses or suspicious calcifications. A tissue clip marker is once again seen within a 7 mm nodular density in the inferior slightly lateral aspect of the right breast. The previously seen loop recording device overlying the left breast is not visualized at this time. No other significant abnormalities are identified. There has been no significant change since the prior study. BI/SCRN MAMM (CAD)W/SANDRA BILAT IMPRESSION: Stable bilateral screening mammogram. Yearly follow-up mammogram recommended. (A) ASSESSMENT CATEGORY: BIRADS Category 2: Benign. A letter regarding these results will be sent to the patient by the facility within 30 days. Approximately 10% of breast cancers are not detected by mammography. A normal mammogram should not delay biopsy of a clinically suspicious abnormality. [id number] Electronically Signed: Mario Almodovar MD at 9:34 EDT ,
== END | disposition home or self-care (01) ==
LOC: OPBI 07:52
PROVIDERS: PCP Family Medicine; Referring Provider Nurse Practitioner Women's Health; Visit Provider Nurse Practitioner Women's Health
DX: Z12.31 Encounter for screening mammogram for malignant neoplasm of breast (principal)
CPT/HCPCS: 77063; 77067

== ENCOUNTER → 2023-09-18 | Outpatient (CLI) | payer OTHER, SELFPAY ==
[2023-09-18 18:41] LABS: Free T3 2.4 pg/mL (2.18-3.98); T4 Free Direct 1.11 ng/dL (0.76-1.46); Thyroid Stim Hormone (TSH) 1.55 uIU/mL (0.358-3.74)
[2023-09-20 17:07] LABS: Thyroglobulin Antibody < 1.0 IU/mL (0.0-0.9); Thyroid Peroxidase AB 12 IU/mL (0-34)
== END | disposition home or self-care (01) ==
LOC: BFHLAB 16:35
PROVIDERS: PCP Family Medicine; Referring Provider Family Medicine; Visit Provider Family Medicine
DX: E03.9 Hypothyroidism, unspecified (principal)
CPT/HCPCS: 36415; 84439; 84443; 84481; 86376; 86800

== ENCOUNTER 2023-12-12 12:47 | Day surgery (SDC) | payer OTHER, SELFPAY ==
[2023-12-12] VITALS (8 sets, daily range): BP systolic 121–130; BP diastolic 50–67; PULSE 80–99; RESP 14–16; TEMP 36.1–36.7; O2SAT 95–99; BMI 23.3
[2023-12-12] MEDS: Lactated Ringers 1,000 ML 15 ML IV (13:32)
--- NOTE | 2023-12-12 14:00 | PCM.PRE.AN2 ---
ASA Classification* ASA Classification ASA Classification: 2 Assessment & Plan Anesthesia* Anesthesia Assessment Anesthesia Assessment: Discussed sedation and/or anesthesia options, risks, benefits, and alternatives with patient/parents/legal guardian/POA. Questions invited. The patient/parents/legal guardian/POA seems to understand and agrees to proceed with anesthesia plan. Reviewed the physical assessment, medical history, allergy history and patient home medications list prior to surgery/procedure/anesthetic and documented any changes. Performed airway and anesthesia risk assessments. Anesthesia Type Anesthesia Type: MAC History Source History Obtained from:: Patient and Chart Anesthesia Focused Assessment* Temperature: 98.0 F Pulse Rate: 85 Blood Pressure: 121/50 Respiratory Rate: 16 Pulse Ox: 99 Oxygen Delivery Method: Room Air Airway Assessment Mouth opens: >3 cm Mallampati Score: III Teeth Condition: Upper (Left upper bridge is intact and tight.) Neck Range of motion (ROM): Limited ROM (Patient has decreased extension of the neck. Patient states her neck is very stiff.) Pertinent Findings EKG Pertinent Findings:: September 29, 2019. normal sinus rhythm ECHO Pertinent Findings:: September 29, 2021. ejection fraction 65%. Pulmonary artery pressure is 17 mmHg. Consults Pertinent Findings:: September 26, 2022. Cardiac checkup. history of stroke. Recommended a loop recorder that showed no atrial fibrillation. Focused Labs Anesthesia Preop lab: CBC WBC 6.3 K/mm3 (4.4-11.0) 09/30/19 05:32 RBC 4.19 M/mm3 (4.2-5.4) L 09/30/19 05:32 Hgb 12.7 g/dL (12.0-15.0) 09/30/19 05:32 Hct 38.9 % (37-47) 09/30/19 05:32 Plt Count 260 K/mm3 (150-450) 09/30/19 05:32 CHEMISTRY Potassium 4.1 mmol/L (3.5-5.1) 05/04/23 09:15 Sodium 140 mmol/L (136-145) 05/04/23 09:15 BUN 18 mg/dL (7-18) 05/04/23 09:15 Creatinine 0.85 mg/dL (0.55-1.02) 05/04/23 09:15 Glucose 133 mg/dL (74-106) H 05/04/23 09:15 POC Glucose 168 mg/dL (74-106) H 12/20/22 06:36 TSH 1.55 uIU/mL (0.358-3.74) 09/18/23 16:36 COAG PT 12.0 SECONDS (11.7-14.9) 09/29/19 11:25 Urine Test Negative Negative 10/28/19 07:05 Pre-Assessment Diagnosis/Proposed Procedure Planned Operative Procedure(s): (L) Left Open Carpal Tunnel Release, left A1 william trigger thumb injection Anesthesia History Anesthesia History - medical claims specialist: Anesthesia History - medical claims specialist Hx Hospitalization No 11/29/23 12:29 Any Problems With Anesthesia No 11/29/23 12:29 Cholinesterase deficiency No 11/29/23 12:29 You/Your Family Experience No 11/29/23 12:29 fever (hyperthermia) with Relationship Recent Exposure to Contagious No 12/12/23 13:28 Disease Does patient have nerve No 11/29/23 12:29 stimulator Patient instructed to have device shut off --Does patient have Pacemaker No 12/12/23 13:28 or ICD? When Was Last Pacemaker Check QUESTION #4 FULL TEXT: You/Your Family Experience fever (hyperthermia) with Anesthesia Last Oral Intake Last Oral intake: Last Oral Intake NPO since 21:30 12/12/23 13:28 Meds taken in AM with sips of No 12/12/23 13:28 water? Meds patient instructed to take am of surgery PONV PONV - medical claims specialist: PONV - medical claims specialist Female Yes 11/29/23 12:29 HX of Motion Sickness Yes 11/29/23 12:29 HX of N/V After Surgery No 11/29/23 12:29 Non-Smoker Yes 11/29/23 12:29 Duration of Surgery greater No 11/29/23 12:29 than 60 minutes Number of Risk Factors 3 11/29/23 12:29 PONV Score Moderate Risk 11/29/23 12:29 Height & Weight Height & Weight: Anesthesia: Height & Weight Height 5 ft 4 in 12/12/23 13:28 Weight: 61.6 kg 12/12/23 13:28 Body Mass Index (BMI) 23.3 12/12/23 13:28 Respiratory Assessment Respiratory Assessment - medical claims specialist: Respiratory Tract Infection Hx - medical claims specialist Hx Respiratory Tract Infection No 11/29/23 12:29 STOP Sleep Apnea STOP Sleep Apnea - medical claims specialist: STOP Sleep Apnea - medical claims specialist Hx Hypertension No 11/29/23 12:29 Hx Sleep Apnea No 11/29/23 12:29 CPAP No 11/29/23 12:29 BIPAP No 11/29/23 12:29 Do you snore loudly (louder No 11/29/23 12:29 than talking or can be heard Do you often feel tired/ No 11/29/23 12:29 fatigued/ sleepy during daytime? Has anyone observed you stop No 11/29/23 12:29 breathing during sleep? STOP Results Negative 11/29/23 12:29 QUESTION #5 FULL TEXT : Do you snore loudly (louder than talking or can be heard through closed doors)? Tobacco Use History Tobacco Use History - medical claims specialist: Tobacco Use History - medical claims specialist Tobacco Use Smoking Status Never smoker 11/29/23 12:29 Hx Tobacco Use No 11/29/23 12:29 Years Smoking Packs Smoked per Day Smoking Cessation Date was within the last 15 years Hx Smoking Cessation Date Hx Smoking Cessation Counseling Hematologic Medial History Hematologic Hx - medical claims specialist: Hematologic Medical Hx - parachute folder Hx of Blood Transfusion No 11/29/23 12:29 Hx of Transfusion in last 3 No 11/29/23 12:29 Months Date of Last Transfusion (if within last 3 months) Ever experience any problems No 11/29/23 12:29 with transfusion(s)? Specify any problems Hx of Preganancy in last 3 N/A 11/29/23 12:29 Months Nurse Filling Out Transfusion NBUCHER 11/29/23 12:29 & Questions: Date: 11/29/23 11/29/23 12:29 Time: 12:30 11/29/23 12:29 Patient unable to answer at this time (ie. confused, unrespo /Reproduction History /Reproductive History - medical claims specialist: /Reproductive Hx- medical claims specialist Hx Now Gestational Age (in weeks): EDC: Hx Hx Para Hx Section SAB No 11/29/23 12:29 Active Medications Active Medications: Current Medications Generic Name Dose Route Start Last Admin Trade Name Freq PRN Reason Stop Dose Admin Lactated Ringer's 1,000 mls @ 15 mls/hr 12/12/23 13:15 12/12/23 13:32 IV 15 mls/hr .Q48H CE Administration PFSH Medical History Heartburn Shortness of breath on exertion Vitamin D deficiency Diabetes mellitus type 1 Diabetic retinopathy associated with type 1 diabetes mellitus Post-menopausal Wears contact lenses Alcohol use Insulin dependent diabetes mellitus High cholesterol Migraine headache Stroke/cerebrovascular accident Dietary restriction Gastric reflux Non-smoker Asthma History of Holter monitoring History of echocardiogram Cardiology follow-up encounter Insomnia Cerebrovascular disease Insulin pump titration Presence of insulin pump History of stroke right shoulder right elbow left shoulder High cholesterol Diabetes Breast lump UTI (urinary tract infection) Asthma Seasonal allergies Hyperlipidemia CVA (cerebral vascular accident) (09/29/19) Abnormal ultrasound of breast HX: benign breast biopsy Lateral epicondylitis of elbow Insulin pump in place Microcalcifications of the breast Frequent headaches Seasonal allergies Shoulder impingement syndrome Shoulder pain Neck pain Adhesive capsulitis of shoulder Recurrent urinary tract infection Chronic cough Right elbow pain Right tennis elbow Synovitis Moderate persistent asthma, uncomplicated Home Medications ?Medication ?Instructions ?Recorded ?Last Taken ?Type omeprazole 20 mg capsule,delayed 20 mg PO DAILY PRN stomach 06/26/19 Unknown History release aspirin 81 mg chewable tablet 81 mg PO DAILY@0800 ##30 09/30/19 Unknown Rx montelukast 10 mg tablet 10 mg PO DAILY #60 tabs 10/31/22 Unknown Rx insulin pump cart,automated,BT #30 ea 05/04/23 Unknown Rx (Omnipod 5 G6 Pods (Gen 5) subcutaneous cartridge) rosuvastatin 20 mg tablet 20 mg PO DAILY #90 tabs 11/02/23 Unknown Rx insulin lispro 100 unit/mL 60 unit continuous subcutaneous 11/29/23 Unknown History subcutaneous solution (Humalog infusion DAILY U-100 Insulin) zoledronic acid 5 mg/100 mL in 1 ea .Route .QYEAR 11/29/23 Unknown History mannitol 5 %-water intravenous piggybck Allergy/AdvReac Type Severity Reaction Status Date / Time Environmental Allergies: Allergy Intermediate Hives Verified 12/12/23 13:27 Uncoded lisinopril AdvReac Intermediate HYPOTENSION, Verified 12/12/23 13:27 SYMPTOMATIC fluticasone furoate (From AdvReac Mild Other - Verified 12/12/23 13:27 Breo Ellipta) cough & loses voice vilanterol (From Breo AdvReac Mild Other - Verified 12/12/23 13:27 Ellipta) cough & loses voice lovastatin AdvReac Unknown Pain in Verified 12/12/23 13:27 joints Family History Mother Asthma Colon cancer Osteoporosis Skin cancer Hypertension History of colectomy Father Parkinson disease Other Depression Diabetes Melanoma Surgical History History of carpal tunnel release History of hand surgery S/P trigger finger release History of loop recorder (10/28/19) History of elbow surgery Encounter for Essure implantation (10/07/10) H/O laparoscopy (1997) H/O breast biopsy H/O shoulder surgery Social History household members: spouse housing: house number of children: 2 current occupational status: employed 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
[2023-12-12] MEDS: Cefazolin 2 GM in 0.9% Normal Saline (100mL Bag) 100 ML IV (14:52)
--- NOTE | 2023-12-12 14:52 | PCM.HP.BLA ---
History and Physical Date of Admission: 12/12/23 [facility] [address] [place] [address] OFFICE VISIT Date of Service: 11/01/23 MR#: [id number] Acct: [id number] Name: ZAKIYA TRUJILLO Rep #: [id number] : 1970 Provider: Dr. Mio Krishnan, DO Age/Sex: 53/F Location: [facility] [place] Status: Signed Intake Vital Signs 06/09/2408:44 10/11/2412:13 Height 5 ft 4 in 5 ft 4 in Intake Visit Reasons: LEFT WRIST Accompanied by: Self Is patient in pain?: Yes Allergies Environmental Allergies: Uncoded Allergy (Intermediate, Verified 11/01/23 08:22) Hiveslisinopril Adverse Reaction (Intermediate, Verified 11/01/23 08:22) HYPOTENSION, SYMPTOMATICfluticasone furoate (From Breo Ellipta) Adverse Reaction (Mild, Verified 11/01/23 08:22) Other - cough & loses voicevilanterol (From Breo Ellipta) Adverse Reaction (Mild, Verified 11/01/23 08:22) Other - cough & loses voicelovastatin Adverse Reaction (Unknown, Verified 11/01/23 08:22) Pain in joints Medications ?Medication ?Instructions ?Recorded ?Confirmed ?Type omeprazole 20 mg capsule,delayed 20 mg PO DAILY PRN stomach 06/26/19 11/01/23 History release fluticasone propionate 50 2 spray intranasal PRN PRN Nasal 07/24/19 11/01/23 Rx mcg/actuation nasal Congestion #15.8 mL spray,suspension aspirin 81 mg chewable tablet 81 mg PO DAILY@0800 ##30 09/30/19 11/01/23 Rx albuterol sulfate 90 mcg/actuation 2 puff inhalation Q4H PRN Sob &/Or 09/20/21 11/01/23 Rx aerosol inhaler Wheezing #8.5 grams Humalog U-100 Insulin 100 unit/mL 60 unit (0.6 mL) subcut DAILY #60 05/05/22 11/01/23 Rx subcutaneous solution (insulin mL lispro) montelukast 10 mg tablet 10 mg PO DAILY #60 tabs 10/31/22 11/01/23 Rx atorvastatin 40 mg tablet 40 mg PO QHS #90 tabs 05/04/23 11/01/23 Rx insulin pump cart,automated,BT #30 ea 05/04/23 11/01/23 Rx (Omnipod 5 G6 Pods (Gen 5) subcutaneous cartridge) zoledronic acid 5 mg/100 mL in 1 ea .Route ONCE #100 mL 05/04/23 11/01/23 Rx mannitol 5 %-water intravenous piggybck [facility] Medical History Abnormal ultrasound of breast Adhesive capsulitis of shoulder Alcohol use Asthma Asthma Breast lump Cardiology follow-up encounter Cerebrovascular disease Chronic cough CVA (cerebral vascular accident) (09/29/19) Diabetes Diabetes mellitus type 1 Diabetic retinopathy associated with type 1 diabetes mellitus Dietary restriction Frequent headaches Gastric reflux Heartburn High cholesterol High cholesterol History of echocardiogram History of Holter monitoring History of stroke HX: benign breast biopsy Hyperlipidemia Insomnia Insulin dependent diabetes mellitus Insulin pump in place Insulin pump titration Lateral epicondylitis of elbow left shoulder Microcalcifications of the breast Migraine headache Moderate persistent asthma, uncomplicated Neck pain Non-smoker Post-menopausal Presence of insulin pump Recurrent urinary tract infection right elbow Right elbow pain right shoulder Right tennis elbow Seasonal allergies Seasonal allergies Shortness of breath on exertion Shoulder impingement syndrome Shoulder pain Stroke/cerebrovascular accident Synovitis UTI (urinary tract infection) Vitamin D deficiency Wears contact lenses Surgical History Encounter for Essure implantation (10/07/10) H/O breast biopsy H/O laparoscopy (1997) H/O shoulder surgery History of carpal tunnel release History of elbow surgery History of hand surgery History of loop recorder (10/28/19) S/P trigger finger release Family History Mother Asthma Colon cancer Osteoporosis Skin cancer Hypertension History of colectomyFather Parkinson diseaseOther Depression Diabetes Melanoma Social History household members: spouse housing: house number of children: 2 current occupational status: employed 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 Mio Krishnan, DO 11/01/23 0743. Part of today?s visit was documented by Dianna Mitchell, acting as scribe. ZAKIYA TRUJILLO is a 53 year old F here today for left wrist. Patient notes that she has had symptoms for many years but her symptoms are worsening. She has numbness into her middle and ring finger, sometimes her other fingers. She notes that if she moves wrong she has a shocking feeling into her hand. Patient notes that she had an injection on 12/20/22 while having surgery on her right carpal tunnel release, she thinks the injection was slightly helpful. Patient states that she has wrist braces which is helpful. Her numbness is worse in the morning. She had an EMG on 11/14/22. She states that she has tenderness into her thumb a1 william area similiar to when she had a trigger thumb on the other side although she denies any locking. She states that she always has neck pain and sees a massage therapist, but she has no radiating pain upper arm radiating symptoms upper arm is only from the wrist to the fingers. Ortho Exam General General: Yes no acute distress Neurologic: Yes alert and Yes oriented x3 Psychologic: Yes reasonable and appropriate Right Wrist/Hand Skin/Wound: No Swelling and No Ecchymosis Left Wrist/Hand Skin/Wound: Yes CDI, No Swelling, No Ecchymosis, Yes nail intact, Yes capillary refill normal and No erythema Left Wrist: Yes Durken's Test and Yes Phalen's; No Tinel's (at wrist and elbow) WRIST: ttp A1 william, no triggering. negative direct compression and hyperflexion of the elbow negative Tinel's of the elbow stiffness with cervical extension with no symptoms. negative spurlings. Head: Normocephalic Atraumatic Chest: symmetrical rise, non-labored breathing, no audible wheeze Abdomen: no guarding, non-rigid Supplemental Info 12/20/2022 right carpal tunnel release, left carpal tunnel injection, left thumb A1 william injection: Dr. Krishnan 11/14/2022 EMG bilateral upper extremity: Right median mononeuropathy consistent with moderate carpal tunnel. Left median mononeuropathy consistent with mild carpal tunnel 03/30/2021 right thumb A1 william release: Dr. Krishnan Coding Level of Care Code Off vis,est,level 4 Diagnoses Carpal tunnel syndrome, left G56.02 Trigger thumb, left thumb M65.312 Assessment and Plan Assessment and Plan (1) Carpal tunnel syndrome, left: Status: Acute (2) Trigger thumb, left thumb: Status: Acute Plan Spoke with the patient about being tender over her A1 william with hypertrophy in the area I suspect a early trigger finger although she has not yet triggering. Due to no triggering, recommended an injection. Spoke with the patient about proceeding a carpal tunnel release on her left wrist. Reviewed the pre-operative plans with the patient. Risks and benefits of the procedure were fully explained, including but not limited to incisional hypersensitivity and pillar pain infection, neurovascular injury, continued pain, stiffness, need for further surgery, recurrence, general risks of anesthesia,. The patient understands all the risks and does wish to proceed with written consent. She will need to stop her baby aspirin 7 days prior to surgery. At the same time we will inject the thumb A1 william. Follow up in 2 week post op or sooner if pain, swelling, numbness or associated symptoms, or concerns develop. All questions answered. Patient in agreement of plan. Upon further discussion with the patient she does wish to proceed with release of the A1 william of the thumb at the same time of her carpal tunnel surgery we did add this to her consent form. 11/01/23 1034 <Electronically signed by Mio Krishnan DO> Date Mio Krishnan DO
[2023-12-12] MEDS: Bupiv/Epi 0.25% 30 ML Vial (15:25)
--- NOTE | 2023-12-12 15:26 | OP.PCM_ITS ---
Operative Report Date of Procedure: 12/12/23 Preoperative diagnosis; 1 [left] carpal tunnel syndrome 2. left trigger thumb Postoperative diagnosis; same Procedure: 1.[left] open carpal tunnel release 2. Left thumb A1 william release Anesthesia: Local with MAC Tourniquet time; [19] minutes 250 mm Hg Complications: None Indication for procedure; This is a 53-year-old [female] with long-standing symptoms consistent with carpal tunnel syndrome the patient did have electrodiagnostic evidence of this and has failed conservative treatment. Risks benefits and alternatives were reviewed including risks of bleeding infection nerve artery tissue damage need for further surgery and continued pain and symptoms, hypersensitivity to scar and Pillar pain. procedure 1: Procedure; The patient was met in the preoperative holding area the operative extremity was identified by both patient and physician and was marked the patient was met by anesthesia and brought back to the operating room and transferred to the operating table in the supine position. Aanesthesia was started. A well-padded tourniquet was placed on the operative upper extremity. The patient was prepped and draped in the usual sterile fashion. A timeout was called to ensure the proper patient procedure and extremity were being contemplated. 0.5 percent [ Lidocaine] with epinephrine was injected into the carpal tunnel incisional area only Esmarch was used tourniquet was inflated. 15 blade scalpel was used to make a horizontal incision directly over the flexion crease distal to A1 william was carried down through the skin dissection scissors were used to ensure no injury to any crossing branches of the radial digital nerve there was a branch identified and rationale retractors were used to protect the digital nerves and visualize the A1 william under direct visualization a deep blade scalpel was used to release the A1 william. The wound was thoroughly irrigated and closed with 4-0 nylon vertical mattress edges. 0.25 percent Marcaine plain was injected into the incisional area Procedure2 ; A midline incision was made with a 15 blade scalpel between the thenar and hypothenar eminence. This was carried down through the skin and subcutaneous tissue. Micheal retractors were then used, a deep blade scalpel was used to make a deep incision in the palmar aponeurosis. The micheal retractors were then placed deep to this and the transverse carpal ligament was identified a perforation was made with a scalpel and a Littler scissors were used to co mplete the release of the transverse carpal ligament distally under direct visualization with the tips facing ulnarly until the perivascular fat was reached. Then turning our attention proximally using a tension slide technique the proximal extent of the transverse carpal ligament was released . There was noted to be [hourglass configuration to the median nerve and hypertrophy of the transverse carpal ligament without other findings]. The wound was thoroughly irrigated and was closed with 4-0 nylon vertical mattress stitches. Dressing was applied in the form of xeroform 4 x 4, web roll and an kristen wrap. Tourniquet was let down there is no intraoperative complications patient tolerated the procedure well and was transferred to the PACU. All counts were correct.
[2023-12-12 15:59] LABS: Bedside Glucose 93 mg/dL (74-106)
--- NOTE | 2023-12-12 15:59 | DCINST_ITS ---
Discharge Instructions Diet Discharge Diet: No restrictions Dressing / Incision Call your doctor if you observe: Shortness of breath and Chest pain Additional Dressing/Incision Instructions:: Ice and elevate operative extremity next 72 hours. Keep dressing on clean and dry for 48 hours then may remove and allow warm soapy water to rinse over incision but do not submerge until sutures are out. Then apply bandaid over incision and change daily. encourage finger range of motion. Not lift more than 1/2 pound. Minimize narcotic use only as needed and directed, may use OTC NSAID and Tylenol to supplement/substitute for pain control. Follow Up Care When: 2 weeks Test Results: Test results from this visit will be discussed in further detail at your follow- up appointment, if applicable. Discharge Plan Admission Primary Reason for Your Visit: Right carpal tunnel release right trigger thumb release Attending Provider: Mio Krishnan Primary Care Provider: Erin Acuna Instructions Print Language: Frisian Discharge Orders/Prescriptions Prescriptions: New oxycodone 5 mg tablet 5 - 10 mg PO Q6H PRN (Reason: pain) 7 Days Qty: 10 0RF No Action (DME) Omnipod 5 G6 Pods (Gen 5) Cartridge See Rx Instructions .ROUTE .MEDSUPPLY Qty: 30 3RF Rx Instructions: 1 pod q 3 days rosuvastatin 20 mg tablet 20 mg PO DAILY Qty: 90 3RF omeprazole 20 MG capsule 20 mg PO DAILY PRN (Reason: stomach) aspirin 81 MG tablet,chewable 81 mg PO DAILY@0800 Qty: 30 1RF insulin lispro [Humalog U-100 Insulin] 100 unit/mL solution 60 unit continuous subcutaneous infusion DAILY zoledronic uicj-[id number]-jqnms 5 mg/100 mL piggyback 1 ea .Route .QYEAR Rx Instructions: 1 ea QYEAR; infuse over 20 minutes montelukast 10 mg tablet 10 mg PO DAILY Qty: 60 11RF Referrals / Follow Up: Erin Acuna DO [Primary Care Provider] - Disposition Disposition (needs filled in before D/C Order can be placed): Home, Self Care
--- NOTE | 2023-12-12 16:28 | PCM.POST.ANE ---
Anesthesia: Postop Eval I Current Vital Signs Temperature: 97 F Pulse Rate: 80 Blood Pressure: 130/60 Respiratory Rate: 14 Pulse Ox: 95 Oxygen Delivery Method: Room Air Assessment Airway patent: Yes Spontaneous unlabored respirations: Yes Mental status: Awake and Calm nausea: No Vomiting: No Anesthesia Complication: No Fluid Hydration Crystalloid volume administer (ml): 500 Total IV fluid infused: 500 Progress Note Anesthesia document: Postop Eval 1 completed: Yes
--- NOTE | 2023-12-12 17:04 | POSTOPAN2_ITS ---
Anesthesia Postop Eval I Sum Postop Eval Completion status Anesthesia document: Postop Eval 1 completed: Yes Anesthesia Postop Eval I Summary Anesthesia Postop Eval I Summary: Anesthesia Postop Eval I: Assessment Summary Airway patent Yes 12/12/23 16:29 UNEMPLOYMENT INSURANCE DIRECTOR.[email or web address] Spontaneous unlabored Yes 12/12/23 16:29 UNEMPLOYMENT INSURANCE DIRECTOR.[email or web address] respirations Mental status Awake,Calm 12/12/23 16:29 UNEMPLOYMENT INSURANCE DIRECTOR.[email or web address] nausea No 12/12/23 16:29 UNEMPLOYMENT INSURANCE DIRECTOR.[email or web address] Vomiting No 12/12/23 16:29 UNEMPLOYMENT INSURANCE DIRECTOR.[email or web address] Anesthesia Postop Eval I: Fluid Summary Crystalloid volume administer 500 12/12/23 16:29 UNEMPLOYMENT INSURANCE DIRECTOR.[email or web address] (ml) Colloids volume administered ( ml) Blood Product volume administered (ml) Total IV fluid infused 500 12/12/23 16:29 UNEMPLOYMENT INSURANCE DIRECTOR.[email or web address] Anesthesia Postop Eval I: Summary Notes Anesthesia Complication No 12/12/23 16:29 UNEMPLOYMENT INSURANCE DIRECTOR.[email or web address] Anesthesia Complication Comment: Post-operative progress note Anesthesia: Postop Eval II Evaluation Mental status: Awake and Calm Pain Level: 1 nausea: No Vomiting: No Complications Anesthesia Complication: No
--- NOTE | 2023-12-12 17:04 | PCM.POSTANE2 ---
Anesthesia Postop Eval I Sum Postop Eval Completion status Anesthesia document: Postop Eval 1 completed: Yes Anesthesia Postop Eval I Summary Anesthesia Postop Eval I Summary: Anesthesia Postop Eval I: Assessment Summary Airway patent Yes 12/12/23 16:29 NUCLEAR EQUIPMENT SALES ENGINEER.[email or web address] Spontaneous unlabored Yes 12/12/23 16:29 NUCLEAR EQUIPMENT SALES ENGINEER.[email or web address] respirations Mental status Awake,Calm 12/12/23 16:29 NUCLEAR EQUIPMENT SALES ENGINEER.[email or web address] nausea No 12/12/23 16:29 NUCLEAR EQUIPMENT SALES ENGINEER.[email or web address] Vomiting No 12/12/23 16:29 NUCLEAR EQUIPMENT SALES ENGINEER.[email or web address] Anesthesia Postop Eval I: Fluid Summary Crystalloid volume administer 500 12/12/23 16:29 NUCLEAR EQUIPMENT SALES ENGINEER.[email or web address] (ml) Colloids volume administered ( ml) Blood Product volume administered (ml) Total IV fluid infused 500 12/12/23 16:29 NUCLEAR EQUIPMENT SALES ENGINEER.[email or web address] Anesthesia Postop Eval I: Summary Notes Anesthesia Complication No 12/12/23 16:29 NUCLEAR EQUIPMENT SALES ENGINEER.[email or web address] Anesthesia Complication Comment: Post-operative progress note Anesthesia: Postop Eval II Evaluation Mental status: Awake and Calm Pain Level: 1 nausea: No Vomiting: No Complications Anesthesia Complication: No
== END 2023-12-12 16:30 | disposition home or self-care (01) ==
LOC: SDC 12:48 → AC 12:50
PROVIDERS: PCP Family Medicine; Referring Provider Orthopaedic Surgery; Visit Provider Orthopaedic Surgery
PROC: (CPT 64721; principal; 2023-12-12 14:30)
DX: G56.02 Carpal tunnel syndrome, left upper limb (principal); E10.9 Type 1 diabetes mellitus without complications; Z79.4 Long term (current) use of insulin; Z96.41 Presence of insulin pump (external) (internal); M65.312 Trigger thumb, left thumb; J45.909 Unspecified asthma, uncomplicated; Z79.82 Long term (current) use of aspirin; Z79.899 Other long term (current) drug therapy; Z86.73 Personal history of transient ischemic attack (TIA), and cerebral infarction without residual deficits
CPT/HCPCS: 64721; 26055; 01810; 82962; J7120; J2405

== ENCOUNTER 2024-04-10 08:00 | Outpatient (RCR) | payer OTHER, SELFPAY | END 2024-04-10 17:29 | disposition home or self-care (01) | LOC: PT 08:00 | PROVIDERS: PCP Family Medicine; Referring Provider Orthopaedic Surgery; Visit Provider Orthopaedic Surgery | DX: M94.261 Chondromalacia, right knee (principal) | CPT/HCPCS: 97110; 97140; 97161; 97530 ==

== ENCOUNTER → 2024-04-22 | Outpatient (CLI) | payer OTHER, SELFPAY ==
[2024-04-22 10:25] LABS: ALB/GLOB Ratio 0.9 RATIO (0.9-2.4); AST(SGOT) 17 U/L (15-37); Alanine Aminotransfer ALT/SGPT 13 U/L (13-56); Albumin, Serum 3.6 g/dL (3.2-5.0); Alkaline Phosphatase 68 U/L (45-117); Anion Gap 4 (5-15); BUN 20 mg/dL (7-18); BUN/Creat Ratio 24.8 RATIO (10-20); Calcium,Total 9.4 mg/dL (8.5-10.1); Chloride 106 mmol/L (98-107); Cholesterol 244 mg/dL (200); Creatinine, Serum 0.81 mg/dL (0.55-1.02); EST Glomerular Filtration Rate 79 mL/min (>60); Est Glom Filt Rate - Afr Amer 95 mL/min (>60); Globulin 4.1 g/dL (2.2-4.2); Glucose 163 mg/dL (74-106); High Density Lipoprotein 98 mg/dL; Potassium 4.5 mmol/L (3.5-5.1); Protein, Total 7.7 g/dL (6.4-8.2); Sodium Level 139 mmol/L (136-145); Triglycerides 64 mg/dL; Very Low Density Lipoprotein 13 mg/dL (5-40)
[2024-04-22 15:46] LABS: Vitamin D,25 Hydroxy 20.7 ng/mL
== END | disposition home or self-care (01) ==
LOC: LAB 08:24
PROVIDERS: PCP Family Medicine; Referring Provider Internal Medicine Endocrinology, Diabetes & Metabolism; Visit Provider Internal Medicine Endocrinology, Diabetes & Metabolism
DX: E10.29 Type 1 diabetes mellitus with other diabetic kidney complication (principal); E10.3293 Type 1 diabetes mellitus with mild nonproliferative diabetic retinopathy without macular edema, bilateral; R80.9 Proteinuria, unspecified; E78.00 Pure hypercholesterolemia, unspecified; E55.9 Vitamin D deficiency, unspecified; Z96.41 Presence of insulin pump (external) (internal); Z86.73 Personal history of transient ischemic attack (TIA), and cerebral infarction without residual deficits
CPT/HCPCS: 36415; 80053; 80061; 82306; 84443

== ENCOUNTER 2024-06-14 08:54 | Outpatient (CLI) | payer OTHER, SELFPAY ==
[2024-06-14 09:02] VITALS: BP 128/53; PULSE 81; RESP 16; TEMP 35.6; O2SAT 98
[2024-06-14] MEDS: 0.9% NaCl Peripheral Flush Adult/Peds IV ×2 (09:04→09:24)
[2024-06-14] MEDS: Zoledronic Acid 5 MG 100 ML 300 MG IV (09:24)
[2024-06-14] MEDS: 0.9% Normal Saline (100mL Bag) 100 ML 15 ML IV (09:30)
[2024-06-14 10:00] VITALS: BP 120/62; PULSE 82; RESP 16
== END 2024-06-14 23:59 | disposition home or self-care (01) ==
LOC: MEDOUTP 08:55
PROVIDERS: PCP Family Medicine; Referring Provider Internal Medicine Endocrinology, Diabetes & Metabolism; Visit Provider Internal Medicine Endocrinology, Diabetes & Metabolism
DX: M81.0 Age-related osteoporosis without current pathological fracture (principal)
CPT/HCPCS: 96365; A4216; J3489

== ENCOUNTER → 2024-07-15 | Outpatient (CLI) | payer OTHER, SELFPAY ==
--- NOTE | 2024-07-15 13:15 | MRI_ITS ---
PROCEDURE: MRI right knee without IV contrast REASON FOR EXAM: CHRONIC KNEE PAIN TECHNIQUE: Multisequence multiplanar MR images of the right knee were obtained without the administration of intravenous contrast. COMPARISON: None. FINDINGS Medial and lateral menisci are intact. Anterior and posterior cruciate ligaments are intact. Medial collateral ligament is intact. Mild insertional semimembranosus tendinopathy. Pes tendons are intact. Lateral collateral ligamentous complex is intact. Extensor mechanism is intact. No focal chondral defects in the lateral or patellofemoral compartments. Near full-thickness chondral defect along the mid aspect of the medial tibial plateau measuring 4 x 6 mm. No sizable joint effusion. No significant synovitis. Trace fluid in the semimembranosus bursa. Small ganglia along the popliteus myotendinous junction and adjacent to the popliteal artery. MRI/Lower Ext Joint Only (Routine) IMPRESSION: 1. Intact menisci and cruciates. 2. Focal chondral defect along the medial tibial plateau. Cartilage is otherwi se intact. 3. Mild insertional semimembranosus tendinopathy. Minimal fluid in the semimem branosus bursa. Reading Location: [facility]
== END | disposition home or self-care (01) ==
PROVIDERS: PCP Family Medicine; Referring Provider Orthopaedic Surgery; Visit Provider Orthopaedic Surgery
DX: M22.41 Chondromalacia patellae, right knee (principal); M25.561 Pain in right knee
CPT/HCPCS: 73721

== ENCOUNTER → 2024-08-14 | Outpatient (CLI) | payer OTHER, SELFPAY ==
--- NOTE | 2024-08-14 08:30 | BI_ITS ---
EXAM: SCRN MAMM (CAD)W/SANDRA BILAT 08/14/2024 CLINICAL HISTORY: F, Age 53 y/o , SCREENING FOR BREAST CANCER TECHNIQUE: Bilateral screening digital breast tomosynthesis with 2D and 3D images. Computer aided detection. COMPARISON: Prior exam(s) dated 08/02/2023, 07/29/2022. FINDINGS: TISSUE DENSITY: The breast tissue is heterogenously dense, which may obscure small masses. The mammogram demonstrates that the patient has dense breasts. Supplemental screening with whole breast ultrasound or MRI may be considered for further evaluation. Bilateral Breast Mammographic Findings: No significant masses, calcifications or other abnormalities are identified. BI/SCRN MAMM (CAD)W/SANDRA BILAT IMPRESSION: Right Breast: BIRADS 1 NEGATIVE. Left Breast: BIRADS 1 NEGATIVE. OVERALL FINAL ASSESSMENT: BIRADS 1 NEGATIVE. RECOMMENDATION: Routine annual follow-up in 1 Year A letter with findings and recommendations will be mailed to the patient. Reading Location: [id number]
== END | disposition home or self-care (01) ==
PROVIDERS: PCP Family Medicine; Referring Provider Nurse Practitioner Women's Health; Visit Provider Nurse Practitioner Women's Health
DX: Z12.31 Encounter for screening mammogram for malignant neoplasm of breast (principal)
CPT/HCPCS: 77063; 77067

== ENCOUNTER 2025-03-06 10:47 | Day surgery (SDC) | payer OTHER, SELFPAY ==
--- NOTE | 2025-02-21 08:03 | EKG12_ITS ---
Test Reason : PREOP
[2025-02-21 09:02] LABS: Hematocrit 39.1 % (37-47); Hemoglobin 12.9 g/dL (12.0-15.0); Immature Granulocytes Count 0.010 X10^3/uL (0.0-0.0); Mean Corp Hgb Conc 33.0 g/dL (32-36); Mean Corpuscular Volume 92.4 fL (81-99); Mean Platelet Vol. 9.6 fl (6.2-12.0); NRBC Flagged by Analyzer 0 % (0-5); Platelet Count 246 K/mm3 (150-450); RBC Distribution Width CV 12.6 % (11.6-14.6); RBC Distribution Width SD 42.5 fl (35.1-43.9); Red Blood Count 4.23 M/mm3 (4.2-5.4); White Blood Count 3.8 K/mm3 (4.4-11.0)
[2025-02-21 09:47] LABS: Anion Gap 8 (5-15); BUN 22 mg/dL (4-19); BUN/Creat Ratio 27.8 RATIO (10-20); Calcium,Total 9.5 mg/dL (7.6-11.0); Carbon Dioxide 27.5 mmol/L (21.0-32.0); Chloride 104 mmol/L (98-108); Glucose 142 mg/dL (70-99); Potassium 4.7 mmol/L (3.3-5.1)
--- NOTE | 2025-02-25 16:24 | PAT.ANESEVAL ---
Pre-Assessment Diagnosis/Proposed Procedure Planned Operative Procedure(s): (R) RIGHT KNEE ARTHROSCOPIC CHONDROPLASTY, POSSIBLE MEDIAL MENISCAL ROOT REPAIR Anesthesia History Anesthesia History - admitting clerk: Anesthesia History - admitting clerk Hx Hospitalization No 02/25/25 13:18 Any Problems With Anesthesia No 02/25/25 13:18 Cholinesterase deficiency No 02/25/25 13:18 You/Your Family Experience No 02/25/25 13:18 fever (hyperthermia) with Relationship Recent Exposure to Contagious No 12/12/23 13:28 Disease Does patient have nerve No 02/25/25 13:18 stimulator Patient instructed to have device shut off --Does patient have Pacemaker or ICD? When Was Last Pacemaker Check QUESTION #4 FULL TEXT: You/Your Family Experience fever (hyperthermia) with Anesthesia Last Oral Intake Last Oral intake: Last Oral Intake NPO since Meds taken in AM with sips of water? Meds patient instructed to take am of surgery PONV PONV - admitting clerk: PONV - admitting clerk Female Yes 02/25/25 13:18 HX of Motion Sickness Yes 02/25/25 13:18 HX of N/V After Surgery Yes 02/25/25 13:18 Non-Smoker Yes 02/25/25 13:18 Duration of Surgery greater Yes 02/25/25 13:18 than 60 minutes Number of Risk Factors 5 02/25/25 13:18 PONV Score Severe Risk 02/25/25 13:18 Height & Weight Height & Weight: Anesthesia: Height & Weight Height 5 ft 4 in 10/25/24 07:55 Respiratory Assessment Respiratory Assessment - admitting clerk: Respiratory Tract Infection Hx - admitting clerk Hx Respiratory Tract Infection No 02/25/25 13:18 STOP Sleep Apnea STOP Sleep Apnea - admitting clerk: STOP Sleep Apnea - admitting clerk Hx Hypertension No 02/25/25 13:18 Hx Sleep Apnea No: SLEEP STUDY 03/202502/25/25 13:18 CPAP No 12/12/23 15:35 BIPAP No 11/29/23 12:29 Do you snore loudly (louder Yes 02/25/25 13:18 than talking or can be heard Do you often feel tired/ No 02/25/25 13:18 fatigued/ sleepy during daytime? Has anyone observed you stop No 02/25/25 13:18 breathing during sleep? STOP Results Negative 02/25/25 13:18 QUESTION #5 FULL TEXT : Do you snore loudly (louder than talking or can be heard through closed doors)? Tobacco Use History Tobacco Use History - admitting clerk: Tobacco Use History - admitting clerk Tobacco Use Smoking Status Never smoker 02/25/25 13:18 Hx Tobacco Use No 02/25/25 13:18 Years Smoking Packs Smoked per Day Smoking Cessation Date was within the last 15 years Hx Smoking Cessation Date Hx Smoking Cessation Counseling Hematologic Medial History Hematologic Hx - admitting clerk: Hematologic Medical Hx - cell feed department supervisor Hx of Blood Transfusion No 02/25/25 13:18 Hx of Transfusion in last 3 No 02/25/25 13:18 Months Date of Last Transfusion (if within last 3 months) Ever experience any problems No 02/25/25 13:18 with transfusion(s)? Specify any problems Hx of Preganancy in last 3 N/A 02/25/25 13:18 Months Nurse Filling Out Transfusion NBUCHER 02/25/25 13:18 & Questions: Date: 02/25/25 02/25/25 13:18 Time: 13:19 02/25/25 13:18 Patient unable to answer at this time (ie. confused, unrespo /Reproduction History /Reproductive History - admitting clerk: /Reproductive Hx- admitting clerk Hx Now No 02/25/25 13:18 Gestational Age (in weeks): EDC: Hx Hx Para Hx Section SAB No 02/25/25 13:18 PFSH Medical History Heartburn Shortness of breath on exertion Vitamin D deficiency Diabetes mellitus type 1 Diabetic retinopathy associated with type 1 diabetes mellitus Post-menopausal Wears contact lenses Alcohol use Insulin dependent diabetes mellitus High cholesterol Migraine headache Stroke/cerebrovascular accident Dietary restriction Gastric reflux Non-smoker Asthma History of Holter monitoring History of echocardiogram Cardiology follow-up encounter Insomnia Cerebrovascular disease Insulin pump titration Presence of insulin pump History of stroke right shoulder right elbow left shoulder High cholesterol Diabetes Breast lump UTI (urinary tract infection) Asthma Seasonal allergies Hyperlipidemia CVA (cerebral vascular accident) (09/29/19) Abnormal ultrasound of breast HX: benign breast biopsy Lateral epicondylitis of elbow Insulin pump in place Microcalcifications of the breast Frequent headaches Seasonal allergies Shoulder impingement syndrome Shoulder pain Neck pain Adhesive capsulitis of shoulder Recurrent urinary tract infection Chronic cough Right elbow pain Right tennis elbow Synovitis Moderate persistent asthma, uncomplicated Home Medications ?Medication ?Instructions ?Recorded ?Last Taken ?Type omeprazole 20 mg capsule,delayed 20 mg PO DAILY PRN stomach 06/26/19 Unknown History release aspirin 81 mg chewable tablet 81 mg PO DAILY@0800 ##30 09/30/19 Unknown Rx montelukast 10 mg tablet 10 mg PO DAILY #60 tabs 10/31/22 Unknown Rx insulin pump cart,automated,BT #30 ea 04/26/24 Unknown Rx zoledronic acid 5 mg/100 mL in 1 ea .Route .QYEAR #100 mL 04/26/24 Unknown Rx mannitol 5 %-water intravenous piggybck rosuvastatin 40 mg tablet 40 mg PO QDAY #90 tabs 10/18/24 Unknown Rx insulin lispro 100 unit/mL 1 sliding scale dose subcut DAILY 02/25/25 Unknown History subcutaneous solution (Humalog U-100 Insulin) Allergy/AdvReac Type Severity Reaction Status Date / Time Environmental Allergies: Allergy Intermediate Hives Verified 02/25/25 13:15 Uncoded lisinopril AdvReac Intermediate HYPOTENSION, Verified 02/25/25 13:15 SYMPTOMATIC fluticasone furoate (From AdvReac Mild Other - Verified 02/25/25 13:15 Breo Ellipta) cough & loses voice vilanterol (From Breo AdvReac Mild Other - Verified 02/25/25 13:15 Ellipta) cough & loses voice lovastatin AdvReac Unknown Pain in Verified 02/25/25 13:15 joints Family History Mother Asthma Colon cancer Osteoporosis Skin cancer Hypertension History of colectomy Father Parkinson disease Other Depression Diabetes Melanoma Surgical History History of carpal tunnel release History of hand surgery S/P trigger finger release History of loop recorder (10/28/19) History of elbow surgery Encounter for Essure implantation (10/07/10) H/O laparoscopy (1997) H/O breast biopsy H/O shoulder surgery Social History household members: spouse housing: house number of children: 2 current occupational status: employed 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 Normal sinus rhythm. Right bundle branch block. Echo (EF%) pertinent findings: 09/30/2019. EF of 65%. PASP is 17 mmHg. No aortic stenosis noted. Patent foramen ovale. Consult pertinent findings: 09/26/2022. Vignesh KNIGHT. 1. History of loop recorder-last report from May 11, 2022 shows no AT/AF episodes. 2. CVA-scattered punctate stroke of the right parietal region 09/29/2019. Etiology of stroke remains unclear. Echo from 2019 shows EF of 65% and a patent foramen ovale. Patient is to continue aspirin and atorvastatin. Continue following with instrument panel assembler for diabetic control. Recommendation Anesthesia Recommendation Anesthesia recommendation: OPTIMIZED for anesthesia (Patient has a patent foramen ovale. Eliminate all bubbles from IV tubing.)
[2025-03-06] VITALS (9 sets, daily range): BP systolic 112–137; BP diastolic 57–67; PULSE 92–98; RESP 16–17; TEMP 36.2–37; O2SAT 96–99; BMI 25.7
[2025-03-06] MEDS: Lactated Ringers 1,000 ML 15 ML IV (11:00)
[2025-03-06] MEDS: Epinephrine (1 mg/ml) 1 MG/ML VIAL (11:31)
--- NOTE | 2025-03-06 12:11 | PCM.PRE.AN2 ---
ASA Classification* ASA Classification ASA Classification: 3 Assessment & Plan Anesthesia* Anesthesia Assessment Anesthesia Assessment: Discussed sedation and/or anesthesia options, risks, benefits, and alternatives with patient/parents/legal guardian/POA. Questions invited. The patient/parents/legal guardian/POA seems to understand and agrees to proceed with anesthesia plan. Reviewed the physical assessment, medical history, allergy history and patient home medications list prior to surgery/procedure/anesthetic and documented any changes. Performed airway and anesthesia risk assessments. Anesthesia Type Anesthesia Type: General and Block (Patient is consented for adductor canal block.) History Source History Obtained from:: Patient and Chart Anesthesia Focused Assessment* Temperature: 98.6 F Pulse Rate: 95 Blood Pressure: 137/67 Respiratory Rate: 17 Pulse Ox: 98 Oxygen Delivery Method: Room Air Airway Assessment Mouth opens: >3 cm Mallampati Score: III Teeth Condition: Partial (Patient has a left upper bridge. It is permanent.) Neck Range of motion (ROM): Limited ROM (Somewhat Decreased) Labs Anesthesia Preop lab: CBC WBC, (4.4-11.0) 3.8 K/mm3 L 02/21/25, 08:10 RBC, (4.2-5.4) 4.23 M/mm3 02/21/25, 08:10 Hgb, (12.0-15.0) 12.9 g/dL 02/21/25, 08:10 Hct, (37-47) 39.1 % 02/21/25, 08:10 Plt Count, (150-450) 246 K/mm3 02/21/25, 08:10 CHEMISTRY Potassium, (3.3-5.1) 4.7 mmol/L 02/21/25, 08:10 Sodium, (133-145) 140 mmol/L 02/21/25, 08:10 BUN, (4-19) 22 mg/dL H 02/21/25, 08:10 Creatinine, (0.70-1.20) 0.78 mg/dL 02/21/25, 08:10 Glucose, (70-99) 142 mg/dL H 02/21/25, 08:10 POC Glucose, (74-106) 93 mg/dL 12/12/23, 15:41 TSH, (0.358-3.740) 2.230 uIU/mL 04/22/24, 08:27 COAG PT, (11.7-14.9) 12.0 SECONDS 09/29/19, 11:25 Urine Test Negative Negative 10/28/19, 07:05 Pre-Assessment Diagnosis/Proposed Procedure Planned Operative Procedure(s): (R) RIGHT KNEE ARTHROSCOPIC CHONDROPLASTY, POSSIBLE MEDIAL MENISCAL ROOT REPAIR Anesthesia History Anesthesia History - energy manager: Anesthesia History - energy manager Hx Hospitalization No 02/25/25 13:18 Any Problems With Anesthesia No 02/25/25 13:18 Cholinesterase deficiency No 02/25/25 13:18 You/Your Family Experience No 02/25/25 13:18 fever (hyperthermia) with Relationship Recent Exposure to Contagious No 03/06/25 11:24 Disease Does patient have nerve No 02/25/25 13:18 stimulator Patient instructed to have device shut off --Does patient have Pacemaker No 03/06/25 11:24 or ICD? When Was Last Pacemaker Check QUESTION #4 FULL TEXT: You/Your Family Experience fever (hyperthermia) with Anesthesia Last Oral Intake Last Oral intake: Last Oral Intake NPO since 00:00 03/06/25 11:24 Meds taken in AM with sips of No 03/06/25 11:24 water? Meds patient instructed to take am of surgery PONV PONV - energy manager: PONV - energy manager Female Yes 02/25/25 13:18 HX of Motion Sickness Yes 02/25/25 13:18 HX of N/V After Surgery Yes 02/25/25 13:18 Non-Smoker Yes 02/25/25 13:18 Duration of Surgery greater Yes 02/25/25 13:18 than 60 minutes Number of Risk Factors 5 02/25/25 13:18 PONV Score Severe Risk 02/25/25 13:18 Height & Weight Height & Weight: Anesthesia: Height & Weight Height 5 ft 4 in 03/06/25 11:24 Weight: 68 kg 03/06/25 11:24 Body Mass Index (BMI) 25.7 03/06/25 11:24 Respiratory Assessment Respiratory Assessment - energy manager: Respiratory Tract Infection Hx - energy manager Hx Respiratory Tract Infection No 02/25/25 13:18 STOP Sleep Apnea STOP Sleep Apnea - energy manager: STOP Sleep Apnea - energy manager Hx Hypertension No 02/25/25 13:18 Hx Sleep Apnea No: SLEEP STUDY 03/202502/25/25 13:18 CPAP No 12/12/23 15:35 BIPAP No 11/29/23 12:29 Do you snore loudly (louder Yes 02/25/25 13:18 than talking or can be heard Do you often feel tired/ No 02/25/25 13:18 fatigued/ sleepy during daytime? Has anyone observed you stop No 02/25/25 13:18 breathing during sleep? STOP Results Negative 02/25/25 13:18 QUESTION #5 FULL TEXT : Do you snore loudly (louder than talking or can be heard through closed doors)? Tobacco Use History Tobacco Use History - energy manager: Tobacco Use History - energy manager Tobacco Use Smoking Status Never smoker 02/25/25 13:18 Hx Tobacco Use No 02/25/25 13:18 Years Smoking Packs Smoked per Day Smoking Cessation Date was within the last 15 years Hx Smoking Cessation Date Hx Smoking Cessation Counseling Hematologic Medial History Hematologic Hx - energy manager: Hematologic Medical Hx - motor mechanic Hx of Blood Transfusion No 02/25/25 13:18 Hx of Transfusion in last 3 No 02/25/25 13:18 Months Date of Last Transfusion (if within last 3 months) Ever experience any problems No 02/25/25 13:18 with transfusion(s)? Specify any problems Hx of Preganancy in last 3 N/A 02/25/25 13:18 Months Nurse Filling Out Transfusion NBUCHER 02/25/25 13:18 & Questions: Date: 02/25/25 02/25/25 13:18 Time: 13:19 02/25/25 13:18 Patient unable to answer at this time (ie. confused, unrespo /Reproduction History /Reproductive History - energy manager: /Reproductive Hx- energy manager Hx Now No 02/25/25 13:18 Gestational Age (in weeks): EDC: Hx Hx Para Hx Section SAB No 02/25/25 13:18 Active Medications Active Medications: Current Medications Generic Name Dose Route Start Last Admin Trade Name Freq PRN Reason Stop Dose Admin Lactated Ringer's 1,000 mls @ 15 mls/hr 03/06/25 11:00 03/06/25 11:00 IV 15 mls/hr .Q48H CE Administration PFSH Medical History Heartburn Shortness of breath on exertion Vitamin D deficiency Diabetes mellitus type 1 Diabetic retinopathy associated with type 1 diabetes mellitus Post-menopausal Wears contact lenses Alcohol use Insulin dependent diabetes mellitus High cholesterol Migraine headache Stroke/cerebrovascular accident Dietary restriction Gastric reflux Non-smoker Asthma History of Holter monitoring History of echocardiogram Cardiology follow-up encounter Insomnia Cerebrovascular disease Insulin pump titration Presence of insulin pump History of stroke right shoulder right elbow left shoulder High cholesterol Diabetes Breast lump UTI (urinary tract infection) Asthma Seasonal allergies Hyperlipidemia CVA (cerebral vascular accident) (09/29/19) Abnormal ultrasound of breast HX: benign breast biopsy Lateral epicondylitis of elbow Insulin pump in place Microcalcifications of the breast Frequent headaches Seasonal allergies Shoulder impingement syndrome Shoulder pain Neck pain Adhesive capsulitis of shoulder Recurrent urinary tract infection Chronic cough Right elbow pain Right tennis elbow Synovitis Moderate persistent asthma, uncomplicated Home Medications ?Medication ?Instructions ?Recorded ?Last Taken ?Type omeprazole 20 mg capsule,delayed 20 mg PO DAILY PRN stomach 06/26/19 03/05/25 History release aspirin 81 mg chewable tablet 81 mg PO DAILY@0800 ##30 09/30/19 02/27/25 Rx montelukast 10 mg tablet 10 mg PO DAILY #60 tabs 10/31/22 03/05/25 Rx insulin pump cart,automated,BT #30 ea 04/26/24 Unknown Rx zoledronic acid 5 mg/100 mL in 1 ea .Route .QYEAR #100 mL 04/26/24 Unknown Rx mannitol 5 %-water intravenous piggybck rosuvastatin 40 mg tablet 40 mg PO QDAY #90 tabs 10/18/24 03/05/25 Rx insulin lispro 100 unit/mL 60 unit (0.6 mL) continuous 03/03/25 03/06/25 Rx subcutaneous solution (Humalog subcutaneous infusion .continuous U-100 Insulin) #54 mL Allergy/AdvReac Type Severity Reaction Status Date / Time Environmental Allergies: Allergy Intermediate Hives Verified 03/06/25 11:23 Uncoded lisinopril AdvReac Intermediate HYPOTENSION, Verified 03/06/25 11:23 SYMPTOMATIC fluticasone furoate (From AdvReac Mild Other - Verified 03/06/25 11:23 Breo Ellipta) cough & loses voice vilanterol (From Breo AdvReac Mild Other - Verified 03/06/25 11:23 Ellipta) cough & loses voice lovastatin AdvReac Unknown Pain in Verified 03/06/25 11:23 joints Family History Mother Asthma Colon cancer Osteoporosis Skin cancer Hypertension History of colectomy Father Parkinson disease Other Depression Diabetes Melanoma Surgical History History of carpal tunnel release History of hand surgery S/P trigger finger release History of loop recorder (10/28/19) History of elbow surgery Encounter for Essure implantation (10/07/10) H/O laparoscopy (1997) H/O breast biopsy H/O shoulder surgery Social History household members: spouse housing: house number of children: 2 current occupational status: employed 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 Physical Exam Resp clear to auscultation bilaterally
[2025-03-06] MEDS: Midazolam 2 MG/2 ML Syringe IV (12:35)
[2025-03-06] MEDS: Lidocaine 1% (5 ml sdv) 5 ML Vial 3 ML IV (12:35)
[2025-03-06] MEDS: Lactated Ringers 1,000 ML 1000 ML IV (12:48)
[2025-03-06] MEDS: Cefazolin 1 GM/5 ML Vial IV (12:49)
[2025-03-06] MEDS: fentaNYL 100 MCG/2 ML Ampul 150 MCG IV (13:26)
--- NOTE | 2025-03-06 13:52 | POSTOP.ANE_ITS ---
Anesthesia: Postop Eval I
--- NOTE | 2025-03-06 13:52 | PCM.POST.ANE ---
Anesthesia: Postop Eval I Current Vital Signs Temperature: 97.4 F Pulse Rate: 98 Blood Pressure: 123/59 Respiratory Rate: 16 Pulse Ox: 97 Oxygen Delivery Method: Room Air Assessment Airway patent: Yes Spontaneous unlabored respirations: Yes Mental status: Awake and Calm nausea: No Vomiting: No Anesthesia Complication: No Fluid Hydration Crystalloid volume administer (ml): 1,000 Total IV fluid infused: 1,000 Progress Note Anesthesia document: Postop Eval 1 completed: Yes
--- NOTE | 2025-03-06 15:39 | OP.PCM_ITS ---
Operative Report (Standard)
--- NOTE | 2025-03-06 15:39 | PCM.OPRPT ---
Operative Report (Standard) Operative Information Date of Procedure: 03/06/25 Pre-Operative Diagnosis: 1. Right knee chondromalacia Post-Operative Diagnosis: 1. Right knee chondromalacia 2. Right knee posterior horn medial meniscus tear Surgery/Procedure Performed: Right knee arthroscopic partial medial meniscectomy and chondroplasty personal service workers: No Type of Anesthesia: General RN Documented Start/Stop Times: Operation Date: 03/06/25 12:30 Case Time Into Pre-Op 03/06/25 10:55 Anesthesia Start 03/06/25 12:48 Into Room 03/06/25 12:48 Procedure Start 03/06/25 13:24 Procedure End 03/06/25 13:43 Anesthesia End 03/06/25 13:48 Into Recovery 03/06/25 13:48 Out of Room 03/06/25 13:48 Out of Recovery 03/06/25 14:11 Into Phase II Recovery 03/06/25 14:12 Procedure Start Time: 13:24 Procedure Stop Time: 13:43 Select all DRAINS/GRAFTS/IMPLANTS that apply: None Estimated Blood Loss: 5 cc Specimen collected: No Description of surgery: Patient identified preoperative holding area by name, correct number, and date of . The operative extremity was marked. All questions were answered to the patient satisfaction. At time of his procedure, patient brought the operative suite positioned supine on standard operating table. All bony prominences well-padded. General anesthesia was administered and LMA was placed. A well-padded pneumatic tourniquet was applied to the operative upper thigh. Circumferential arthroscopic leg dunaway was placed around the patient's operative thigh. We prepped and draped the right lower extremity in normal, sterile orthopedic fashion. We performed timeout with all parties in attendance in agreement with the side, site, operation be performed. 2 g Ancef was administered by anesthesia staff prior to tourniquet ablation. I then exsanguinated right lower extremity with Esmarch bandage. Tourniquet was inflated to 250 mmHg for approximately 15 minutes. Esmarch was removed. Standard anterolateral portal was then established 90 degrees of flexion. Blunt tipped trocar was used to enter the knee joint. Knee was filled with normal saline with epinephrine. Arthroscope was then introduced. Diagnostic arthroscopy of the patellofemoral joint demonstrated minimal grade I chondromalacia at the trochlea. Hypertrophic fat pad was noted. Medial lateral gutter was unremarkable. Valgus stress was applied the knee to anterior the medial compartment with the knee in extension. Anterior medial portal was established under direct visualization. Medial compartment was then examined. Overall cartilage looked reasonably well-maintained with borderline grade I chondromalacia diffusely. There was a chondral flap noted at the lateral margin of the medial femoral condyle chondral surface which was unstable and I could reflect it with a probe approximately 3 to 4 mm. This was resected to a stable chondral rim with a shaver. The meniscal root was closely examined and appeared to be intact without even attritional changes. There was a horizontal tear in the posterior horn measuring approximately 5 mm in medial to lateral diameter and continued back to the red-white zone. Combination of baskets and shaver were used to debride the tears and perform a partial medial meniscectomy to a stable chondral rim. Intercondylar notch was pristine with normal ACL and PCL. Lateral compartment was then entered. Varus stress was applied. Lateral compartment was examined and was pristine. The knee was thoroughly lavaged after debridement of the fat pad with the arthroscopic shaver. Portal sites were closed in interrupted [id number] fashion with 3-0 nylon suture. Bulky sterile compression system was applied. Tourniquet was deflated. Patient was safely awakened the operative suite and extubated. She was transferred to his gurney and subsequently to PACU in stable condition. Postoperative plan: Weightbearing, range of motion as tolerated operative knee Follow-up in 2 weeks for suture removal Physical therapy to start at 2 weeks Multimodal pain management with opioid, NSAID and Tylenol Aspirin 81 mg for DVT prophylaxis x 2 weeks Ice and elevation. Surgical Findings: Full-thickness chondral flap lateral portion medial femoral condyle. Horizontal tearing posterior horn medial meniscus. Complications Complications: No Admit VTE Documentation VTE Present on Admission: No VTE Mechan Device Prophylaxis: SCD's and Knee High MONTSE Hose VTE Pharm Prophylaxis ordered?: Yes
--- NOTE | 2025-03-06 20:03 | POSTOPAN2_ITS ---
Anesthesia Postop Eval I Sum
--- NOTE | 2025-03-06 20:03 | PCM.POSTANE2 ---
Anesthesia Postop Eval I Sum Postop Eval Completion status Anesthesia document: Postop Eval 1 completed: Yes Anesthesia Postop Eval I Summary Anesthesia Postop Eval I Summary: Anesthesia Postop Eval I: Assessment Summary Airway patent Yes 03/06/25 20:03 Spontaneous unlabored Yes 03/06/25 20:03 respirations Mental status Awake,Calm 03/06/25 20:03 nausea No 03/06/25 20:03 Vomiting No 03/06/25 20:03 Anesthesia Postop Eval I: Fluid Summary Crystalloid volume administer 1,000 03/06/25 20:03 (ml) Colloids volume administered ( ml) Blood Product volume administered (ml) Total IV fluid infused 1,000 03/06/25 20:03 Anesthesia Postop Eval I: Summary Notes Anesthesia Complication No 03/06/25 20:03 Anesthesia Complication Comment: Post-operative progress note Anesthesia: Postop Eval II Evaluation Mental status: Awake and Calm Pain Level: 1 nausea: No Vomiting: No Complications Anesthesia Complication: No
== END 2025-03-06 16:00 | disposition home or self-care (01) ==
LOC: SDC 10:47 → AC 10:49
PROVIDERS: PCP Family Medicine; Referring Provider Student in an Organized Health Care Education/Training Program; Visit Provider Student in an Organized Health Care Education/Training Program
PROC: (CPT 29870; principal; 2025-03-06 12:10)
DX: S83.241A Other tear of medial meniscus, current injury, right knee, initial encounter (principal); E11.9 Type 2 diabetes mellitus without complications; M94.261 Chondromalacia, right knee; X58.XXXA Exposure to other specified factors, initial encounter; Y93.89 Activity, other specified; Z86.73 Personal history of transient ischemic attack (TIA), and cerebral infarction without residual deficits; E78.00 Pure hypercholesterolemia, unspecified; J45.909 Unspecified asthma, uncomplicated; R03.0 Elevated blood-pressure reading, without diagnosis of hypertension; E66.3 Overweight; Z68.25 Body mass index [BMI] 25.0-25.9, adult; Z79.899 Other long term (current) drug therapy
CPT/HCPCS: 29880; 64447; 01400; 36415; 80048; 82962; 83036; 85025; 93005; J2405

== ENCOUNTER → 2025-03-20 | Outpatient (CLI) | payer OTHER, SELFPAY ==
--- OUTSIDE RECORDS SUMMARY | 2025-03-20 20:05 | XMS RPT_ITS | CCD ---
Author Organization [facility] Care Team Providers Care Eeg Technologist Name Role Phone Yue Mendiola Unavailable Unavailable BENMISSAEL Unavailable Unavailable Erin Acuna Unavailable Malou Antoine Primary Care Provider Erin Acuna Primary Care Provider Erin Acuna Primary Care Provider [phone] OLGA LI Attending Unavailable ERIN ACUNA Primary Care Unavailable Dr. Erin Acuna Primary Care Provider Dr. Carter Hernadez Attending Provider [phone] Carter Hernadez Referring Provider Dr. Erin Acuna Referring Provider Ortiz HOT PRESS OPERATOR, HOT PRESS OPERATOR-C Sabina Attending Provider Dr. Mio Krishnan Attending Provider [phone] Dr. Joe Gamboa Attending Provider Miladis HOT PRESS OPERATOR, HOT PRESS OPERATOR-C Luz Maria Attending Provider Elly Evans Attending Provider Unavailable Dr. Erin Acuna Primary Care Provider Dr. Erin Acuna Referring Provider Leoncio HOT PRESS OPERATOR, HOT PRESS OPERATOR-C Isela Attending Provider Elly Evans Attending Provider Unavailable Dr. Joe Gamboa Attending Provider Dr. Erin Acuna Primary Care Provider [phone] Dr. Erin Acuna Referring Provider [phone] Dr. Joe Gamboa Attending Provider Elly Evans Attending Provider Unavailable Leoncio HOT PRESS OPERATOR, HOT PRESS OPERATOR-C Isela Referring Provider [phone] Leoncio HOT PRESS OPERATOR, HOT PRESS OPERATOR-C Isela Other Provider Dr. Matthew Adams Attending Provider Dr. Erin Acuna Primary Care Provider [phone] Erin Acuna Referring Provider [phone] Dr. Carter Hernadez Attending Provider Karma Gamboa Attending Provider Unavailable Dr. Dong Antunez Attending Provider [phone] Miladis HOT PRESS OPERATOR, HOT PRESS OPERATOR-Krzysztof Loera Attending Provider Dr. Joe Gamboa Attending Provider Elly Evans Attending Provider Unavailable Dr. Erin Acuna Primary Care Provider [phone] Erin Acuna Referring Provider [phone] Dr. Erin Acuna Primary Care Provider Kalpana, Dr. Khan Referring Provider [phone] Dr. Dong Antunez Attending Provider Miladis HOT PRESS OPERATOR, HOT PRESS OPERATOR-Krzysztof Loera Attending Provider Dr. Joe Gamboa Attending Provider Dr. Carter Hernadez Attending Provider Dr. Erin Acuna Primary Care Provider Dr. Erin Acuna Referring Provider [phone] Dr. Carter Hernadez Attending Provider Elly Evans Attending Provider Unavailable Vignesh HOT PRESS OPERATOR, HOT PRESS OPERATOR-C Missael Haskins Attending Provider Leoncio HOT PRESS OPERATOR, HOT PRESS OPERATOR-C Isela Attending Provider Dr. Joe Gamboa Attending Provider [phone] Mio Krishnan Attending Provider Dr. Mio Krishnan Referring Provider [phone] Dr. Mio Krishnan Other Provider 1([facility])[phone] Erin Acuna Primary Care Provider 1([facility])[phone] Dr. Carter Hernadez Attending Provider 1([facility])[phone] Carter Hernadez Other Provider Dr. Erin Acuna Referring Provider 1([facility])[phone] Mio Krishnan Attending Provider 1([facility]) [phone] Dr. Joe Gamboa Attending Provider 1([facility])[phone] Miladis HOT PRESS OPERATOR, HOT PRESS OPERATOR-C Luz Maria Attending Provider 1([facility] )[phone] Dr. Erin Acuna Primary Care Provider 1([facility])[phone] Satya, Dr. Machado Attending Provider 1([facility])-[phone] Kalpana, Dr. Khan Primary Care Provider 1([facility])[phone] Dr. Erin Acuna Referring Provider 1([facility])[phone] Mio Krishnan Attending Provider 1([facility]) -[phone] Satya, Dr. Machado Attending Provider 1([facility])-[phone] Joe Gamboa Attending Provider 1([facility])[phone] Miladis HOT PRESS OPERATOR, HOT PRESS OPERATOR-C Luz Maria Attending Provider 1([facility] )[phone] Kalpana ELIZONDO, Dr. Khan Primary Care Provider 1([facility])[phone] Mio Krishnan DO Attending Provider Dr. Mio Krishnan DO Referring Provider Dr. Joe Gamboa MD Attending Provider 1([facility])[phone] Joe Gamboa MD Referring Provider 1([facility])[phone] Erin Acuna DO Referring Provider 1([facility])[phone] Miladis HOT PRESS OPERATOR-CLuz Maria Attending Provider 1([facility])[phone] Dr. Erin Acuna DO Primary Care Provider 1([facility])[phone] Dr. Mio Krishnan DO Attending Provider Dr. Mio Krishnan DO Referring Provider Miladis HOT PRESS OPERATOR-C, Luz Maria Referring Provider [phone] Erin Acuna DO Primary Care Provider [phone] Dr. Erin Acuna DO Referring Provider Miladis HOT PRESS OPERATOR-C, Luz Maria Attending Provider Dr. Joe Gamboa MD Attending Provider Malys, Erin Primary Care Unavailable Cooper, Joe Referring Unavailable Cooper, Joe Attending Unavailable Malys, Erin Primary Care Unavailable Spittle, Miguel Referring Unavailable Spittle, Miguel Attending Unavailable Malys, Erin Primary Care Unavailable Kieran, Mimi Referring Unavailable Kieran, Mimi Attending Unavailable Malys, Erin Primary Care Unavailable Malys, Erin Referring Unavailable Borruso, Mio Attending Unavailable Malys, Erin Primary Care Unavailable Malys, Erin Referring Unavailable Borruso, Mio Attending Unavailable Miladis, Luz Maria Referring Unavailable RobothamYelitza Attending Unavailable Malys, Erin Primary Care Unavailable Malys, Erin Primary Care Unavailable Cooper, Joe Attending Unavailable Malys, Erin Referring Unavailable Malys, Erin Referring Unavailable Cooper, Joe Attending Unavailable Malys, Erin Primary Care Unavailable Malys, Erin Primary Care Unavailable Malys, Erin Referring Unavailable Borruso, Mio Attending Unavailable Malys, Erin Referring Unavailable Miladis, Luz Maria Attending Unavailable Malys, Erin Primary Care Unavailable Malys, Erin Primary Care Unavailable Malys, Erin Referring Unavailable Borruso, Mio Attending Unavailable Malys, Erin Primary Care Unavailable Malys, Erin Referring Unavailable Borruso, Mio Attending Unavailable Malys, Erin Primary Care Unavailable Ventura, Luz Maria Referring Unavailable Ventura, Luz Maria Attending Unavailable Malys, Erin Primary Care Unavailable Borruso, Mio Attending Unavailable Borruso, Mio Referring Unavailable Malys, Erin Primary Care Unavailable Borruso, Mio Referring Unavailable Borruso, Mio Attending Unavailable Cooper, Joe Referring Unavailable Cooper, Joe Attending Unavailable Malys, Erin Primary Care Unavailable Allergies Allergy Classification Reported Allergen(s) Allergy Type Date of Onset Reaction(s) Facility (19 sources) lisinopril; Translations: [lisinopril] Drug Allergy 2 Cough, HYPOTENSION, SYMPTOMATIC [facility] Work Phone: (20 sources) lovastatin; Translations: [LOVASTATIN] Drug Allergy 0 Muscle pain, Pain in joints [facility] Work Phone: (1 source) Cat; Translations: [CATS] Propensity to adverse reactions (disorder) 8 [facility] (1 source) Dog; Translations: [DOGS] Propensity to adverse reactions (disorder) 8 [facility] (9 sources) pravastatin; Translations: [PRAVASTATIN SODIUM] Drug Allergy 9 Other (See Comments) [facility] (1 source) OTHER; Translations: [OTHER] Propensity to adverse reactions (disorder) 8 [facility] (8 sources) cats claw preparation; Translations: [CAT'S CLAW (UNCARIA TOMENTOSA)] Drug Allergy 6 [facility] (8 sources) DOG DANDER; Translations: [DOG DANDER] Propensity to adverse reactions to drug 6 [facility] (1 source) NO KNOWN DRUG ALLERGIES Propensity to adverse reactions to drug 5 [facility] (17 sources) fluticasone; Translations: [fluticasone furoate] Drug Allergy 1 Other - cough & loses voice [facility] (16 sources) vilanterol Drug Allergy 1 Other - cough & loses voice [facility] (8 sources) Environmental Allergies: Uncoded; Translations: [Environmental Allergies: Uncoded] Allergy to substance 3 Hives [facility] Comment on above: dust mites specifica lly (1 source) vilanterol Drug Allergy 5 [facility] Medications Current Medications Medication Drug Class(es) Dates Sig (Normalized) Sig (Original) aspirin 81 mg chewable tablet (19 sources) Platelet Aggregation Inhibitor, Nonsteroidal Anti-inflammatory Drug Start: 09-30-2019 take 1 tablet by mouth once daily Aspirin 81 MG tablet,chewable Active 81 mg PO DAILY@0800 30 September 30, 2019 12:00am take 1 tablet by mouth once megan y aspirin 81 MG EC tablet Take 81 mg by mouth daily . 0 Active Blood Sugar Diagnostic Strip s (2 sources) Start: 08-10-2012 blood sugar di agnostic (CONTOUR) strips use as directed 8 times per day 08/10/2012 Active blood sugar diag nostic (FREESTYLE TEST) strips by Miscellaneous route. Active cetirizine hydrochloride 10 mg oral capsule (8 sources) Histamine-1 Receptor Antagonist Start: 09-20-2021 take 10 mg by mouth at bedtime Cetirizine Active 10 MG PO BEDTIME September 20, 2021 12:00am insulin lispro 100 unt/ml injectable solution (20 sources) Insulin Analogue Start: 11-29-2023 End: 02-07-2024 inject 60 [IU] by subcutaneous injection once daily Insulin Lispro (Humalog U-100 Insulin) 100 unit/mL solution Active 60 U continuous subcutaneous infusion DAILY February 07, 2024 12:43pm Start: 04-28-2021 End: 11-29-2023 Insulin Lispro (Humalog U-10 0 Insulin) 100 unit/mL solution Discontinued 60 U SC DAILY May 05, 2022 9:59am November 29, 2023 12:29pm Start: 03-23-2021 End: 04-28-2021 Insulin Lispro (Humalog U-10 0 Insulin) 100 unit/mL Cartridge Discontinued 0 U SC THREE TIMES A DAY March 23, 2021 1:00am April 28, 2021 1:00pm PROGRAMMED BASAL RATE Start: 03-23-2021 End: 04-28-2021 Insulin Lispro (Humalog U-10 0 Insulin) 100 unit/mL Cartridge Discontinued 0 UNIT SC THREE TIMES A DAY March 23, 2021 1:00am April 28, 2021 1:00pm PROGRAMMED BASAL RATE Start: 10-01-2019 insulin lispro (HumaLOG U-100 Insulin) 100 unit/mL injection USE DIRECTED FOR INSULIN PUMP (APPROXIMATELY 100 UNITS PER DAY) . 90 mL 1 10/01/2019 Active Start: 06-26-2019 End: 10-11-2020 inject 100 [IU] by subcutaneous injection once daily Insulin Lispro 100 UNIT/ML cartridge Discontinued 100 U SQ DAILY June 26, 2019 1:00am October 11, 2020 7:53pm continuous pump Start: 10-19-2018 insulin lispro (HumaLOG U-100 Insulin) 100 unit/mL injection Use as directed for insulin pump (approx 100 units/day) . 90 mL 3 10/19/2018 Active Start: 11-14-2016 HUMALOG 100 un it/mL injection USE DIRECTED VIA INSULIN PUMP, APPROXIMATELY 100 UNITS DAILY 90 mL 2 11/14/2016 Active Start: 11-14-2016 HUMALOG 100 un it/mL injection USE DIRECTED VIA INSULIN PUMP, APPROXIMATELY 100 UNITS DAILY 90 mL 2 11/14/2016 Active Start: 06-23-2016 HUMALOG 100 UN IT/ML SOLN INSULIN LISPRO [id number] Yue Mcghee Maury Insulin Pump Cart,Automated,Bt cartridge (3 sources) Start: 04-26-2024 Insulin Pump Cart,Automated,Bt cartridge Active 0 .ROUTE .MEDSUPPLY April 26, 2024 9:13am 1 pod q 3 days omeprazole 20 mg delayed release oral capsule (16 sources) Proton Pump Inhibitor Start: 06-26-2019 take 1 capsule by mouth once daily as needed Omeprazole 20 MG capsule Active 20 mg PO DAILY as needed for stomach June 26, 2019 1:00am rosuvastatin calcium 40 mg oral tablet (7 sources) HMG-CoA Reductase Inhibitor Start: 04-26-2024 End: 10-18-2024 take 1 tablet by mouth once daily Rosuvastatin 40 mg tablet Active 40 mg PO daily October 18, 2024 11:09am Start: 11-02-2023 End: 04-26-2024 take 1 tablet by mouth once daily Rosuvastatin 20 mg tablet Discontinued 20 mg PO DAILY November 02, 2023 12:00am April 26, 2024 9:06am 100 ml zoledronic acid 0.05 mg/ml injection (20 sources) Bisphosphonate Start: 11-29-2023 End: 04-26-2024 Zoledronic Auiz-Xrifgsoj-Caeey 5 mg/100 mL piggyback Active 1 NMA .Route .QYEAR April 26, 2024 9:13am 1 ea QYEAR; infuse over 20 minutes Start: 05-22-2022 End: 11-29-2023 Zoledronic Whna-Pfiqpovx-Fal er 5 mg/100 mL piggyback Discontinued 1 NMA .Route ONCE May 04, 2023 9:52am November 29, 2023 12:29pm infuse over 20 minutes Completed/Discontinued Medications Medication Drug Class(es) Dates Sig (Normalized) Sig (Original) acetaminophen 500 mg / diphenhydrAMINE hydrochloride 25 mg oral tablet (2 sources) Histamine-1 Receptor Antagonist Start: 07-27-2015 End: 07-18-2016 TYLENOL PM EXTRA STRENGTH 500-25 MG TABS 1 tablet once at night DIPHENHYDRAMINE-AP AP (SLEEP) [id number] Yue Mendiola acetaminophen 325 mg / HYDROcodone bitartrate 5 mg oral tablet (20 sources) Opioid Agonist Start: 04-27-2018 End: 05-02-2018 Hydrocodone-Acetam inophen 1 TABLET tablet Discontinued 1 - 2 {tbl} PO EVERY 6 HOURS NEEDED as needed for Pain 40 April 27, 2018 1:00am May 01, 2018 1:00am May 02, 2018 1:07am 1-2 tabs every 6 hours as needed for pain, stop all other tylenol and narcs Start: 04-27-2018 End: 05-02-2018 take 1 tablet by mouth every six hours as needed for pain Hydrocodone-Acetaminophen Discontinued 1 - 2 TABLET PO EVERY 6 HOURS NEEDED 40 April 27, 2018 1:00am May 02, 2018 1:07am 1-2 tabs every 6 hours as needed for pain, stop all other tylenol and narcs Start: 09-03-2014 End: 04-20-2017 Hydrocodone-Acetaminophen 1 TABLET tablet Discontinued 1 - 2 {tbl} PO EVERY 6 HOURS NEEDED as needed for Pain 60 September 03, 2014 12:00am April 20, 2017 2:13pm Start: 09-03-2014 End: 04-20-2017 take 1 tablet by mouth every six hours as needed Hydrocodone-Acetaminophen Discontinued 1 - 2 TABLET PO EVERY 6 HOURS NEEDED 60 September 03, 2014 12:00am April 20, 2017 2:13pm acetaminophen 325 mg / oxyCODONE hydrochloride 5 mg oral tablet (16 sources) Opioid Agonist Start: 07-03-2019 End: 07-08-2019 Oxycodone-Acetaminophen 1 TABLET tablet Discontinued 1 - 2 {tbl} PO EVERY 6 HOURS NEEDED as needed for Pain 02 10July 03, 2019 July 07, 2019 1:00am July 08, 2019 1:09am Start: 07-03-2019 End: 07-08-2019 take 1 tablet by mouth every six hours as needed Oxycodone-Acetaminophen Discontinued 1 - 2 TABLET PO EVERY 6 HOURS NEEDED 28 5 July 03, 2019 July 08, 2019 1:09am [id number] 200 actuat albuterol 0.09 mg/actuat metered dose inhaler (20 sources) beta2-Adrenergic Agonist Start: 09-20-2021 End: 11-02-2023 Albuterol Sulfate 90 mcg/actuation HFA aerosol inhaler Discontinued 2 NMA INHALATION Q4H as needed for Sob &/Or Wheezing 8.September 20, 2021 8:57am November 02, 2023 8:04am administer with spacer Start: 06-26-2019 End: 09-20-2021 Albuterol Sulfate 18 GM HFA aerosol inhaler Discontinued 2 NMA INHALATION Q4H as needed for Sob &/Or Wheezing June 26, 2019 10:17am September 20, 2021 8:57am administer with spacer Start: 06-26-2019 End: 09-20-2021 take 1 puff(s) by inhalation every four hours Albuterol Sulfate Active 2 PUFF INHALATION Q4H 8.September 20, 2021 8:57am administer with spacer Start: 07-05-2017 End: 06-26-2019 Albuterol Sulfate (Proair Hf a) 90 mcg/actuation HFA aerosol inhaler Discontinued 2 NMA INHALATION Q4H 1 July 05, 2017 1:00am June 26, 2019 10:17am administer with spacer Start: 07-05-2017 End: 06-26-2019 take 1 puff(s) by inhalation every four hours Albuterol Sulfate (Proair Hfa) 90 mcg/actuation HFA aerosol inhaler Discontinued 2 PUFF INHALATION Q4H 1 July 05, 2017 1:00am June 26, 2019 10:17am administer with spacer atorvastatin 40 mg oral tablet (20 sources) HMG-CoA Reductase Inhibitor Start: 09-30-2019 End: 11-02-2023 take 1 tablet by mouth at bedtime Atorvastatin 40 mg tablet Discontinued 40 mg PO AT BEDTIME March 29, 2021 2:39pm April 12, 2021 9:55am Beclomethasone Dipropionate (19 sources) Corticosteroid Start: 04-19-2017 End: 04-25-2017 take 1 puff(s) by inhalation every twelve hours Beclomethasone Dipropionate (Qvar) 80 mcg/actuation aerosol Discontinued 2 PUFF INHALATION Q12H 3 April 19, 2017 4:32pm April 25, 2017 9:37am Start: 04-19-2017 End: 04-25-2017 Beclomethasone Dipropionate (Qvar) 80 mcg/actuation aerosol Discontinued 2 NMA INHALATION Q12H 3 April 19, 2017 1:00am April 25, 2017 9:37am Start: 04-19-2017 End: 04-25-2017 take 1 puff(s) by inhalation every twelve hours Beclomethasone Dipropionate (Qvar) 80 mcg/actuation aerosol Discontinued 2 PUFF INHALATION Q12H April 19, 2017 12:00am April 25, 2017 8:37am Start: 04-19-2017 End: 04-25-2017 take 1 puff(s) by inhalation every twelve hours Beclomethasone Dipropionate (Qvar) 80 mcg/actuation aerosol Discontinued 2 PUFF INHALATION Q12H April 19, 2017 1:00am April 25, 2017 9:37am Start: 04-04-2017 QVAR 80 MCG/AC T AERS 2 puffs twice daily BECLOMETHASONE DIPROPIONATE [id number] Isela Fang CNP Start: 06-01-2016 End: 10-24-2016 take 2 puff(s) by inhalation twice daily QVAR 40 MCG/ACT AERS Two puffs inh twice daily BECLOMETHASONE DIPROPIONATE [id number] Yue Mendiola ciprofloxacin 500 mg oral tablet (2 sources) Quinolone Antimicrobial Start: 07-27-2015 End: 07-18-2016 take 1 tablet by mouth twice daily CIPROFLOXACIN HCL 500 MG TABS 1 po Twice daily x 3 days CIPROFLOXACIN HCL [id number] Yue Mendiola clopidogrel 75 mg oral tablet (20 sources) P2Y12 Platelet Inhibitor Start: 09-30-2019 End: 12-09-2019 take 1 tablet by mouth once daily Clopidogrel 75 mg tablet Discontinued 75 mg PO DAILY October 16, 2019 4:37pm November 28, 2019 6:30pm cyclobenzaprine hydrochloride 5 mg oral tablet (2 sources) Muscle Relaxant Start: 04-12-2016 End: 06-06-2018 cyclobenzaprine (FLEXERIL) 5 MG tablet as needed. 0 04/12/2016 06/06/2018 Discontinued dapagliflozin 10 mg oral tablet (20 sources) Sodium-Glucose Cotransporter 2 Inhibitor Start: 12-30-2021 End: 11-01-2023 take 1 tablet by mouth once daily Dapagliflozin Propanediol (Farxiga) 10 mg tablet Discontinued 10 mg PO DAILY 90 November 01, 2022 8:42am November 01, 2023 8:35am Norethindrone-E.Estra diol-Iron (16 sources) Estrogen Start: 04-20-2017 End: 04-25-2017 take 1 tablet by mouth once daily Norethindrone-E.Estr adiol-Iron (Blisovi Fe 1.5/30 (28)) 1.5 mg-30 mcg (21)/75 mg (7) tablet Discontinued 1 TABLET PO daily April 20, 2017 2:11pm April 25, 2017 9:22am Start: 04-20-2017 End: 04-25-2017 take 1 tablet by mouth once daily Norethindrone-E.Estradiol-Iron (Blisovi Fe 1.5/30 (28)) 1.5 mg-30 mcg (21)/75 mg (7) tablet Discontinued 1 {tbl} PO daily April 20, 2017 1:00am April 25, 2017 9:22am Start: 04-20-2017 End: 04-25-2017 take 1 tablet by mouth once daily Norethindrone-E.Estradiol-Iron (Blisovi Fe 1.5/30 (28)) 1.5 mg-30 mcg (21)/75 mg (7) tablet Discontinued 1 TABLET PO daily April 20, 2017 12:00am April 25, 2017 8:22am Start: 04-20-2017 End: 04-25-2017 take 1 tablet by mouth once daily Norethindrone-E.Estradiol-Iron (Blisovi Fe 1.5/30 (28)) 1.5 mg-30 mcg (21)/75 mg (7) tablet Discontinued 1 TABLET PO daily April 20, 2017 1:00am April 25, 2017 9:22am NORETHIN KRISTEN-ETH ESTRAD-FE (1 source) Progestin, Estrogen Start: 06-23-2016 BLISOVI FE 1.5/30 1.5-30 MG-MCG TABS One tab once daily NORETHIN KRISTEN-ETH ESTRAD-FE [id number] Yue Mendiola ezetimibe 10 mg oral tablet (20 sources) Dietary Cholesterol Absorption Inhibitor Start: 04-13-2017 End: 10-16-2019 take 1 tablet by mouth once daily Ezetimibe (Zetia) 10 mg tablet Discontinued 10 mg PO daily April 25, 2017 1:00am October 16, 2019 4:28pm Fluticasone Furoate (20 sources) Corticosteroid Start: 04-13-2022 End: 09-26-2022 take 200 ug by inhalation once daily Fluticasone Furoate (Arnuity Ellipta) 200 mcg/actuation blister with device Discontinued 1 NMA INHALATION daily April 13, 2022 11:55am September 26, 2022 3:51pm administer at approximately the same time(s) each day Start: 04-13-2022 End: 09-26-2022 take 200 ug by inhalation once daily Fluticasone Furoate (Arnuity Ellipta) 200 mcg/actuation blister with device Discontinued 1 INH INHALATION daily April 13, 2022 10:55am September 26, 2022 2:51pm administer at approximately the same time(s) each day Start: 04-13-2022 End: 09-26-2022 take 200 ug by inhalation once daily Fluticasone Furoate (Arnuity Ellipta) 200 mcg/actuation blister with device Discontinued 1 INH INHALATION daily April 13, 2022 11:55am September 26, 2022 3:51pm administer at approximately the same time(s) each day Start: 04-13-2022 take 200 ug by inhal ation once daily Fluticasone Furoate (Arnuity Ellipta) 200 mcg/actuation blister with device Active 1 INH INHALATION daily April 13, 2022 11:55am administer at approximately the same time(s) each day Start: 04-13-2022 take 200 ug by inhal ation once daily Fluticasone Furoate (Arnuity Ellipta) 200 mcg/actuation blister with device Active 1 INH INHALATION daily April 13, 2022 10:55am administer at approximately the same time(s) each day Start: 02-25-2021 End: 04-13-2022 take 200 ug by inhalation once daily Fluticasone Furoate (Arnuity Ellipta) 200 mcg/actuation blister with device Discontinued 1 NMA INHALATION daily February 25, 2021 11:05am April 13, 2022 11:56am administer at approximately the same time(s) each day Start: 02-25-2021 End: 04-13-2022 take 200 ug by inhalation once daily Fluticasone Furoate (Arnuity Ellipta) 200 mcg/actuation blister with device Discontinued 1 INH INHALATION daily February 25, 2021 11:05am April 13, 2022 11:56am administer at approximately the same time(s) each day Start: 02-25-2021 End: 04-13-2022 take 200 ug by inhalation once daily Fluticasone Furoate (Arnuity Ellipta) 200 mcg/actuation blister with device Discontinued 1 INH INHALATION daily February 25, 2021 10:05am April 13, 2022 10:56am administer at approximately the same time(s) each day Start: 02-25-2021 take 200 ug by inhal ation once daily Fluticasone Furoate (Arnuity Ellipta) 200 mcg/actuation blister with device Active 1 INH INHALATION daily February 25, 2021 10:05am administer at approximately the same time(s) each day Start: 02-25-2021 take 200 ug by inhal ation once daily Fluticasone Furoate (Arnuity Ellipta) 200 mcg/actuation blister with device Active 1 INH INHALATION daily February 25, 2021 11:05am administer at approximately the same time(s) each day Start: 03-11-2020 End: 02-25-2021 take 200 ug by inhalation once daily Fluticasone Furoate (Arnuity Ellipta) 200 mcg/actuation blister with device Discontinued 1 NMA INHALATION daily March 11, 2020 11:58am February 25, 2021 11:05am administer at approximately the same time(s) each day Start: 03-11-2020 End: 02-25-2021 take 200 ug by inhalation once daily Fluticasone Furoate (Arnuity Ellipta) 200 mcg/actuation blister with device Discontinued 1 INH INHALATION daily March 11, 2020 10:58am February 25, 2021 10:05am administer at approximately the same time(s) each day Start: 03-11-2020 End: 02-25-2021 take 200 ug by inhalation once daily Fluticasone Furoate (Arnuity Ellipta) 200 mcg/actuation blister with device Discontinued 1 INH INHALATION daily March 11, 2020 11:58am February 25, 2021 11:05am administer at approximately the same time(s) each day Start: 02-26-2020 End: 03-11-2020 take 200 ug by inhalation once daily Fluticasone Furoate (Arnuity Ellipta) 200 mcg/actuation blister with device Discontinued 1 NMA INHALATION daily February 26, 2020 8:51am March 11, 2020 11:58am administer at approximately the same time(s) each day Start: 02-26-2020 End: 03-11-2020 take 200 ug by inhalation once daily Fluticasone Furoate (Arnuity Ellipta) 200 mcg/actuation blister with device Discontinued 1 INH INHALATION daily February 26, 2020 7:51am March 11, 2020 10:58am administer at approximately the same time(s) each day Start: 02-26-2020 End: 03-11-2020 take 200 ug by inhalation once daily Fluticasone Furoate (Arnuity Ellipta) 200 mcg/actuation blister with device Discontinued 1 INH INHALATION daily February 26, 2020 8:51am March 11, 2020 11:58am administer at approximately the same time(s) each day Start: 10-05-2019 fluticasone pr opionate (FLONASE) 50 mcg/actuation nasal spray Instill 2 sprays into each nostril as needed . 0 10/05/2019 Active Start: 02-12-2019 End: 02-26-2020 take 200 ug by inhalation once daily Fluticasone Furoate (Arnuity Ellipta) 200 mcg/actuation blister with device Discontinued 1 NMA INHALATION daily February 12, 2019 8:33am February 26, 2020 8:51am administer at approximately the same time(s) each day Start: 02-12-2019 End: 02-26-2020 take 200 ug by inhalation once daily Fluticasone Furoate (Arnuity Ellipta) 200 mcg/actuation blister with device Discontinued 1 INH INHALATION daily February 12, 2019 7:33am February 26, 2020 7:51am administer at approximately the same time(s) each day Start: 02-12-2019 End: 02-26-2020 take 200 ug by inhalation once daily Fluticasone Furoate (Arnuity Ellipta) 200 mcg/actuation blister with device Discontinued 1 INH INHALATION daily February 12, 2019 8:33am February 26, 2020 8:51am administer at approximately the same time(s) each day Start: 09-10-2018 End: 02-12-2019 take 200 ug by inhalation once daily Fluticasone Furoate (Arnuity Ellipta) 200 mcg/actuation blister with device Discontinued 1 NMA INHALATION daily September 10, 2018 10:47am February 12, 2019 8:35am administer at approximately the same time(s) each day Start: 09-10-2018 End: 02-12-2019 take 200 ug by inhalation once daily Fluticasone Furoate (Arnuity Ellipta) 200 mcg/actuation blister with device Discontinued 1 INH INHALATION daily September 10, 2018 9:47am February 12, 2019 7:35am administer at approximately the same time(s) each day Start: 09-10-2018 End: 02-12-2019 take 200 ug by inhalation once daily Fluticasone Furoate (Arnuity Ellipta) 200 mcg/actuation blister with device Discontinued 1 INH INHALATION daily September 10, 2018 10:47am February 12, 2019 8:35am administer at approximately the same time(s) each day Start: 04-20-2018 End: 07-24-2019 Fluticasone Propionate Disco ntinued 2 SPRAY INTRANASAL NEEDED 15.8 July 24, 2019 10:07am July 24, 2019 10:38am administer into each nostril Start: 09-01-2017 End: 09-10-2018 take 200 ug by inhalation once daily Fluticasone Furoate (Arnuity Ellipta) 200 mcg/actuation blister with device Discontinued 1 NMA INHALATION daily September 01, 2017 2:03pm September 10, 2018 10:48am administer at approximately the same time(s) each day Start: 09-01-2017 End: 09-10-2018 take 200 ug by inhalation once daily Fluticasone Furoate (Arnuity Ellipta) 200 mcg/actuation blister with device Discontinued 1 INH INHALATION daily September 01, 2017 1:03pm September 10, 2018 9:48am administer at approximately the same time(s) each day Start: 09-01-2017 End: 09-10-2018 take 200 ug by inhalation once daily Fluticasone Furoate (Arnuity Ellipta) 200 mcg/actuation blister with device Discontinued 1 INH INHALATION daily September 01, 2017 2:03pm September 10, 2018 10:48am administer at approximately the same time(s) each day Start: 07-05-2017 End: 09-01-2017 take 200 ug by inhalation once daily Fluticasone Furoate (Arnuity Ellipta) 200 mcg/actuation blister with device Discontinued 1 INH INHALATION daily July 05, 2017 10:05am September 01, 2017 2:03pm administer at approximately the same time(s) each day Start: 07-05-2017 End: 09-01-2017 take 200 ug by inhalation once daily Fluticasone Furoate (Arnuity Ellipta) 200 mcg/actuation blister with device Discontinued 1 NMA INHALATION daily July 05, 2017 1:00am September 01, 2017 2:03pm administer at approximately the same time(s) each day Start: 07-05-2017 End: 09-01-2017 take 200 ug by inhalation once daily Fluticasone Furoate (Arnuity Ellipta) 200 mcg/actuation blister with device Discontinued 1 INH INHALATION daily July 05, 2017 12:00am September 01, 2017 1:03pm administer at approximately the same time(s) each day Start: 07-05-2017 End: 09-01-2017 take 200 ug by inhalation once daily Fluticasone Furoate (Arnuity Ellipta) 200 mcg/actuation blister with device Discontinued 1 INH INHALATION daily July 05, 2017 1:00am September 01, 2017 2:03pm administer at approximately the same time(s) each day Start: 06-06-2017 End: 11-02-2023 Fluticasone Propionate 50 mcg/actuation spray,suspension Discontinued 2 NMA INTRANASAL NEEDED as needed for Nasal Congestion 15.8 July 24, 2019 10:37am Kalie 27th, 2024 8:04am administer into each nostril Start: 06-06-2017 End: 04-20-2018 take 1 spray(s) nasal route once daily Fluticasone Propionate (Allergy Relief (Fluticasone)) 50 mcg/actuation spray,suspension Discontinued 2 SPRAY INTRANASAL daily 15.8 April 11, 2018 10:54am April 20, 2018 10:10am administer into each nostril Start: 04-20-2017 End: 04-25-2017 take 200 ug by inhalation once daily Fluticasone Furoate (Arnuity Ellipta) 200 mcg/actuation blister with device Discontinued 1 INH INHALATION daily April 20, 2017 2:13pm April 25, 2017 9:22am Start: 04-20-2017 End: 04-25-2017 take 200 ug by inhalation once daily Fluticasone Furoate (Arnuity Ellipta) 200 mcg/actuation blister with device Discontinued 1 NMA INHALATION daily April 20, 2017 1:00am April 25, 2017 9:22am Start: 04-20-2017 End: 04-25-2017 take 200 ug by inhalation once daily Fluticasone Furoate (Arnuity Ellipta) 200 mcg/actuation blister with device Discontinued 1 INH INHALATION daily April 20, 2017 12:00am April 25, 2017 8:22am Start: 04-20-2017 End: 04-25-2017 take 200 ug by inhalation once daily Fluticasone Furoate (Arnuity Ellipta) 200 mcg/actuation blister with device Discontinued 1 INH INHALATION daily April 20, 2017 1:00am April 25, 2017 9:22am Start: 10-24-2016 take 1 puff(s) by in halation once daily ARNUITY ELLIPTA 200 MCG/ACT AEPB One puff INH daily FLUTICASONE FUROATE [id number] Dong Antunez Fluticasone Furoate-Vilanterol (20 sources) Corticosteroid, beta2-Adrenergic Agonist Start: 05-15-2017 End: 08-15-2017 Fluticasone Furoate-Vilanterol (Breo Ellipta) 200-25 mcg/dose blister with device Discontinued 1 NMA INHALATION Q24H 3 May 15, 2017 9:33am August 15, 2017 7:21am after inhalation, rinse mouth with water and spit out; do not swallow Start: 05-15-2017 End: 08-15-2017 Fluticasone Furoate-Vilanter ol (Breo Ellipta) 200-25 mcg/dose blister with device Discontinued 1 INH INHALATION Q24H 3 May 15, 2017 8:33am August 15, 2017 6:21am after inhalation, rinse mouth with water and spit out; do not swallow Start: 05-15-2017 End: 08-15-2017 Fluticasone Furoate-Vilanter ol (Breo Ellipta) 200-25 mcg/dose blister with device Discontinued 1 INH INHALATION Q24H 3 May 15, 2017 9:33am August 15, 2017 7:21am after inhalation, rinse mouth with water and spit out; do not swallow Start: 05-03-2017 End: 05-15-2017 Fluticasone Furoate-Vilanter ol (Breo Ellipta) 200-25 mcg/dose blister with device Discontinued 1 NMA INHALATION Q24H 3 May 03, 2017 3:10pm May 15, 2017 9:33am after inhalation, rinse mouth with water and spit out; do not swallow Start: 05-03-2017 End: 05-15-2017 Fluticasone Furoate-Vilanter ol (Breo Ellipta) 200-25 mcg/dose blister with device Discontinued 1 INH INHALATION Q24H 3 May 03, 2017 2:10pm May 15, 2017 8:33am after inhalation, rinse mouth with water and spit out; do not swallow Start: 05-03-2017 End: 05-15-2017 Fluticasone Furoate-Vilanter ol (Breo Ellipta) 200-25 mcg/dose blister with device Discontinued 1 INH INHALATION Q24H 3 May 03, 2017 3:10pm May 15, 2017 9:33am after inhalation, rinse mouth with water and spit out; do not swallow Start: 04-25-2017 End: 05-03-2017 Fluticasone Furoate-Vilanter ol (Breo Ellipta) 200-25 mcg/dose blister with device Discontinued 1 INH INHALATION Q24H 60 April 25, 2017 9:34am May 03, 2017 3:11pm after inhalation, rinse mouth with water and spit out; do not swallow Start: 04-25-2017 End: 05-03-2017 Fluticasone Furoate-Vilanter ol (Breo Ellipta) 200-25 mcg/dose blister with device Discontinued 1 NMA INHALATION Q24H 60 April 25, 2017 1:00am May 03, 2017 3:11pm after inhalation, rinse mouth with water and spit out; do not swallow Start: 04-25-2017 End: 05-03-2017 Fluticasone Furoate-Vilanter ol (Breo Ellipta) 200-25 mcg/dose blister with device Discontinued 1 INH INHALATION Q24H 60 April 25, 2017 12:00am May 03, 2017 2:11pm after inhalation, rinse mouth with water and spit out; do not swallow Start: 04-25-2017 End: 05-03-2017 Fluticasone Furoate-Vilanter ol (Breo Ellipta) 200-25 mcg/dose blister with device Discontinued 1 INH INHALATION Q24H 60 April 25, 2017 1:00am May 03, 2017 3:11pm after inhalation, rinse mouth with water and spit out; do not swallow 120 actuat formoterol fumarate 0.005 mg/actuat / mometasone furoate 0.2 mg/actuat metered dose inhaler (17 sources) Corticosteroid, beta2-Adrenergic Agonist Start: 04-20-2017 End: 04-25-2017 Mometasone-Formoterol (Dulera) 200-5 mcg/actuation HFA aerosol inhaler Discontinued 2 NMA INHALATION TWICE A DAY April 20, 2017 1:00am April 25, 2017 9:22am Start: 04-20-2017 End: 04-25-2017 take 1 puff(s) by inhalation twice daily Mometasone-Formoterol (Dulera) 200-5 mcg/actuation HFA aerosol inhaler Discontinued 2 PUFF INHALATION TWICE A DAY April 20, 2017 1:00am April 25, 2017 9:22am Start: 10-24-2016 take 2 puff(s) by in halation once daily DULERA 200-5 MCG/ACT AERO INH 2 puffs once daily. MOMETASONE FURO-FORMOTEROL FUM [id number] [employer] [employer] [place] [employer] Insulin Pump Cart,Auto,Bt-Cn tr (Omnipod 5 G6 Intro Kit (Gen 5)) cartridge (20 sources) Start: 09-29-2021 End: 11-01-2022 Insulin Pump Cart,Auto,Bt-Cn tr (Omnipod 5 G6 Intro Kit (Gen 5)) cartridge Discontinued 0 .ROUTE .MEDSUPPLY September 29, 2021 12:59pm November 01, 2022 7:42am As directed Start: 09-29-2021 End: 11-01-2022 Insulin Pump Cart,Auto,Bt-Cn tr (Omnipod 5 G6 Intro Kit (Gen 5)) cartridge Discontinued 0 .ROUTE .MEDSUPPLY September 29, 2021 1:59pm November 01, 2022 8:42am As directed Start: 09-29-2021 Insulin Pump C art,Auto,Bt-Cntr (Omnipod 5 G6 Intro Kit (Gen 5)) cartridge Active 0 .ROUTE .MEDSUPPLY September 29, 2021 12:59pm As directed Start: 09-29-2021 Insulin Pump C art,Auto,Bt-Cntr (Omnipod 5 G6 Intro Kit (Gen 5)) cartridge Active 0 .ROUTE .MEDSUPPLY September 29, 2021 1:59pm As directed Start: 09-20-2021 End: 09-29-2021 Insulin Pump Cart,Auto,Bt-Cn tr (Omnipod 5 G6 Intro Kit (Gen 5)) cartridge Discontinued 0 .ROUTE .MEDSUPPLY September 20, 2021 10:37am September 29, 2021 1:00pm As directed Start: 09-20-2021 End: 09-29-2021 Insulin Pump Cart,Auto,Bt-Cn tr (Omnipod 5 G6 Intro Kit (Gen 5)) cartridge Discontinued 0 .ROUTE .MEDSUPPLY September 20, 2021 11:37am September 29, 2021 2:00pm As directed Start: 09-17-2021 End: 09-20-2021 Insulin Pump Cart,Auto,Bt-Cn tr (Omnipod 5 G6 Intro Kit (Gen 5)) cartridge Discontinued 0 .ROUTE .MEDSUPPLY September 16, 2021 11:00pm September 20, 2021 10:37am As directed Start: 09-17-2021 End: 09-20-2021 Insulin Pump Cart,Auto,Bt-Cn tr (Omnipod 5 G6 Intro Kit (Gen 5)) cartridge Discontinued 0 .ROUTE .MEDSUPPLY September 17, 2021 12:00am September 20, 2021 11:37am As directed Insulin Pump Cart,Automated, Bt (Omnipod 5 G6 Pods (Gen 5)) cartridge (20 sources) Start: 05-04-2023 End: 04-26-2024 Insulin Pump Cart,Automated, Bt (Omnipod 5 G6 Pods (Gen 5)) cartridge Discontinued 0 .ROUTE .MEDSUPPLY May 04, 2023 9:56am April 26, 2024 9:13am 1 pod q 3 days Start: 05-04-2023 Insulin Pump C art,Automated,Bt (Omnipod 5 G6 Pods (Gen 5)) cartridge Active 0 .ROUTE .MEDSUPPLY May 04, 2023 9:56am 1 pod q 3 days Start: 05-04-2023 Insulin Pump C art,Automated,Bt (Omnipod 5 G6 Pods (Gen 5)) cartridge Active 0 .ROUTE .MEDSUPPLY May 04, 2023 8:56am 1 pod q 3 days Start: 02-14-2023 End: 05-04-2023 Insulin Pump Cart,Automated, Bt (Omnipod 5 G6 Pods (Gen 5)) cartridge Discontinued 0 .ROUTE .MEDSUPPLY February 14, 2023 10:28am May 04, 2023 9:56am 1 pod q 3 days Start: 02-14-2023 End: 05-04-2023 Insulin Pump Cart,Automated, Bt (Omnipod 5 G6 Pods (Gen 5)) cartridge Discontinued 0 .ROUTE .MEDSUPPLY February 14, 2023 9:28am May 04, 2023 8:56am 1 pod q 3 days Start: 05-11-2022 End: 02-14-2023 Insulin Pump Cart,Automated, Bt (Omnipod 5 G6 Pods (Gen 5)) cartridge Discontinued 0 .ROUTE .MEDSUPPLY May 11, 2022 12:59pm February 14, 2023 10:28am 1 pod q 3 days Start: 05-11-2022 End: 02-14-2023 Insulin Pump Cart,Automated, Bt (Omnipod 5 G6 Pods (Gen 5)) cartridge Discontinued 0 .ROUTE .MEDSUPPLY May 11, 2022 11:59am February 14, 2023 9:28am 1 pod q 3 days Start: 05-11-2022 Insulin Pump C art,Automated,Bt (Omnipod 5 G6 Pods (Gen 5)) cartridge Active 0 .ROUTE .MEDSUPPLY May 11, 2022 12:59pm 1 pod q 3 days Start: 05-11-2022 Insulin Pump C art,Automated,Bt (Omnipod 5 G6 Pods (Gen 5)) cartridge Active 0 .ROUTE .MEDSUPPLY May 11, 2022 11:59am 1 pod q 3 days Start: 12-30-2021 End: 05-11-2022 Insulin Pump Cart,Automated, Bt (Omnipod 5 G6 Pods (Gen 5)) cartridge Discontinued 0 .ROUTE .MEDSUPPLY December 30, 2021 9:32am May 11, 2022 12:59pm 1 pod q 3 days Start: 12-30-2021 End: 05-11-2022 Insulin Pump Cart,Automated, Bt (Omnipod 5 G6 Pods (Gen 5)) cartridge Discontinued 0 .ROUTE .MEDSUPPLY December 30, 2021 8:32am May 11, 2022 11:59am 1 pod q 3 days Start: 12-30-2021 Insulin Pump C art,Automated,Bt (Omnipod 5 G6 Pods (Gen 5)) cartridge Active 0 .ROUTE .MEDSUPPLY December 30, 2021 8:32am 1 pod q 3 days Start: 12-30-2021 Insulin Pump C art,Automated,Bt (Omnipod 5 G6 Pods (Gen 5)) cartridge Active 0 .ROUTE .MEDSUPPLY December 30, 2021 9:32am 1 pod q 3 days Start: 10-14-2021 End: 12-30-2021 Insulin Pump Cart,Automated, Bt (Omnipod 5 G6 Pods (Gen 5)) cartridge Discontinued 0 .ROUTE .MEDSUPPLY October 13, 2021 11:00pm December 30, 2021 8:32am 1 pod q 3 days Start: 10-14-2021 End: 12-30-2021 Insulin Pump Cart,Automated, Bt (Omnipod 5 G6 Pods (Gen 5)) cartridge Discontinued 0 .ROUTE .MEDSUPPLY October 14, 2021 12:00am December 30, 2021 9:32am 1 pod q 3 days Start: 09-23-2021 End: 09-29-2021 Insulin Pump Cart,Automated, Bt (Omnipod 5 G6 Pods (Gen 5)) cartridge Discontinued 0 .ROUTE .MEDSUPPLY September 23, 2021 8:28am September 29, 2021 1:00pm 1 pod q 3 days Start: 09-23-2021 End: 09-29-2021 Insulin Pump Cart,Automated, Bt (Omnipod 5 G6 Pods (Gen 5)) cartridge Discontinued 0 .ROUTE .MEDSUPPLY September 23, 2021 9:28am September 29, 2021 2:00pm 1 pod q 3 days Start: 09-23-2021 End: 09-23-2021 Insulin Pump Cart,Automated, Bt (Omnipod 5 G6 Pods (Gen 5)) cartridge Discontinued 0 .ROUTE .MEDSUPPLY September 22, 2021 11:00pm September 23, 2021 8:28am As directed Start: 09-23-2021 End: 09-23-2021 Insulin Pump Cart,Automated, Bt (Omnipod 5 G6 Pods (Gen 5)) cartridge Discontinued 0 .ROUTE .MEDSUPPLY September 23, 2021 12:00am September 23, 2021 9:28am As directed Insulin Pump Cartridge (Omnipod Dash 5 Pack Pod) cartridge (20 sources) Start: 04-28-2021 End: 07-28-2021 Insulin Pump Cartridge (Omni pod Dash 5 Pack Pod) cartridge Discontinued 0 .ROUTE .MEDSUPPLY April 28, 2021 12:00pm July 28, 2021 3:11pm change every 72 hours Start: 04-28-2021 End: 07-28-2021 Insulin Pump Cartridge (Omni pod Dash 5 Pack Pod) cartridge Discontinued 0 .ROUTE .MEDSUPPLY April 28, 2021 1:00pm July 28, 2021 4:11pm change every 72 hours Start: 08-25-2020 End: 04-28-2021 Insulin Pump Cartridge (Omni pod Dash 5 Pack Pod) cartridge Discontinued 0 .ROUTE .MEDSUPPLY August 25, 2020 11:54am April 28, 2021 1:00pm change every 72 hours Start: 08-25-2020 End: 04-28-2021 Insulin Pump Cartridge (Omni pod Dash 5 Pack Pod) cartridge Discontinued 0 .ROUTE .MEDSUPPLY August 24, 2020 11:00pm April 28, 2021 12:00pm change every 72 hours Start: 08-25-2020 End: 04-28-2021 Insulin Pump Cartridge (Omni pod Dash 5 Pack Pod) cartridge Discontinued 0 .ROUTE .MEDSUPPLY August 25, 2020 12:00am April 28, 2021 1:00pm change every 72 hours Insulin Pump Cartridge (Omnipod Dash Insulin Pod) cartridge (16 sources) Start: 07-28-2021 End: 09-17-2021 Insulin Pump Cartridge (Omni pod Dash Insulin Pod) cartridge Discontinued 0 .ROUTE .MEDSUPPLY July 28, 2021 3:11pm September 17, 2021 4:02pm change every 72 hours Start: 07-28-2021 End: 09-17-2021 Insulin Pump Cartridge (Omni pod Dash Insulin Pod) cartridge Discontinued 0 .ROUTE .MEDSUPPLY July 28, 2021 4:11pm September 17, 2021 5:02pm change every 72 hours Start: 07-28-2021 Insulin Pump C artridge (Omnipod Dash Insulin Pod) cartridge Active 0 .ROUTE .MEDSUPPLY July 28, 2021 4:11pm change every 72 hours insulin, aspart, human 100 unt/ml injectable solution (18 sources) Insulin Analogue Start: 07-27-2015 End: 07-18-2016 NOVOLOG 100 UNIT/ML EMELY INSULIN ASPART [id number] Erin Acuna DO Start: 07-16-2014 End: 04-20-2017 Insulin Aspart U-100 100 UNI T/ML solution Discontinued 25 U CONT INF DAILY July 16, 2014 12:00am April 20, 2017 2:13pm loratadine 10 mg oral tablet (16 sources) Start: 06-06-2017 End: 03-01-2018 take 1 tablet by mouth once daily Loratadine 10 mg tablet Discontinued 10 mg PO daily June 06, 2017 1:00am March 01, 2018 8:19am medroxyPROGESTERone acetate 10 mg oral tablet (16 sources) Progestin Start: 05-06-2019 End: 05-16-2019 take 1 tablet by mouth once daily Medroxyprogesterone 10 mg tablet Discontinued 10 mg PO daily 10 May 06, 2019 1:00am May 15, 2019 1:00am May 16, 2019 1:08am meloxicam 15 mg oral tablet (7 sources) Nonsteroidal Anti-inflammator y Drug Start: 04-21-2023 End: 06-09-2023 take 1 tablet by mouth once daily Meloxicam 15 mg tablet Discontinued 15 mg PO DAILY April 21, 2023 1:00am June 09, 2023 10:34am Do not take in conjunction with other NSAIDs. Tylenol is okay. Start: 05-31-2012 End: 06-30-2012 MOBIC 7.5 MG TABS take twice daily with food MELOXICAM [id number] Stephanie Bar methylPREDNISolone acetate 40 mg/ml injectable suspension (2 sources) Corticosteroid Start: 10-19-2020 End: 10-19-2020 Depo-Medrol (methylprednisolone acetate) 40 mg/mL suspension for injection Discontinued 20 MG INTRAARTIC ONCE 0.5 October 19, 2020 10:50am October 19, 2020 11:50am Start: 04-12-2012 End: 04-18-2012 MEDROL 4 MG TBPK take as dir ected METHYLPREDNISOLONE [id number] Stephanie Bar montelukast 10 mg oral tablet (20 sources) Leukotriene Receptor Antagonist Start: 02-22-2012 End: 10-31-2022 take 1 tablet by mouth once daily Montelukast 10 mg tablet Discontinued 10 mg PO DAILY 60 October 19, 2018 3:26pm October 31, 2022 9:18am ondansetron 8 mg oral tablet (20 sources) Serotonin-3 Receptor Antagonist Start: 07-03-2019 End: 08-16-2019 take 1 tablet by mouth every eight hours as needed for nausea Ondansetron Hcl 8 MG tablet Discontinued 8 mg PO EVERY 8 HOURS NEEDED as needed for Nausea July 03, 2019 1:00am August 16, 2019 8:29am Start: 04-27-2018 End: 04-25-2019 take 1 tablet by mouth every eight hours as needed for nausea Ondansetron Hcl 8 MG tablet Discontinued 8 mg PO EVERY 8 HOURS NEEDED as needed for Nausea April 27, 2018 1:00am April 25, 2019 9:55am Start: 09-03-2014 End: 04-20-2017 take 1 tablet by mouth every eight hours as needed for nausea Ondansetron Hcl 8 MG tablet Discontinued 8 mg PO EVERY 8 HOURS NEEDED as needed for Nausea September 03, 2014 12:00am April 20, 2017 2:13pm oxyCODONE hydrochloride 5 mg oral tablet (20 sources) Opioid Agonist Start: 12-12-2023 End: 03-11-2024 take 5-10 mg by mouth every six hours as needed for pain Oxycodone 5 mg tablet Discontinued 5 - 10 mg PO EVERY 6 HOURS as needed for pain 10 December 12, 2023 March 11, 2024 9:27am Start: 12-20-2022 End: 04-21-2023 take 1 tablet by mouth every four hours as needed for pain Oxycodone 5 mg tablet Discontinued 5 mg PO Q4H as needed for pain 10 December 20, 2022 April 21, 2023 10:24am Start: 03-30-2021 End: 04-28-2021 take 1 tablet by mouth every four hours as needed for pain Oxycodone 5 mg tablet Discontinued 5 mg PO Q4H as needed for pain 7 2 March 30, 2021 April 28, 2021 4:08pm pravastatin sodium 20 mg oral tablet (3 sources) HMG-CoA Reductase Inhibitor Start: 02-22-2012 End: 07-27-2015 PRAVACHOL 20 MG TABS daily PRAVASTATIN SODIUM [id number] Josiane Nation predniSONE 20 mg oral tablet (2 sources) Corticosteroid Start: 02-10-2016 End: 07-19-2016 PREDNISONE 20 MG TABS PREDNISONE [id number] Yue Mendiola tiZANidine 4 mg oral tablet (2 sources) Central alpha-2 Adrenergic Agonist Start: 05-31-2012 End: 07-27-2015 take 1 tablet by mouth once daily ZANAFLEX 4 MG TABS One tablet by mouth daily TIZANIDINE HCL [id number] Erin A Malys, DO traMADol hydrochloride 50 mg oral tablet (16 sources) Opioid Agonist Start: 08-16-2019 End: 10-16-2019 take 1 tablet by mouth every eight hours as needed for pain Tramadol 50 mg tablet Discontinued 50 mg PO Q8H as needed for pain 60 August 16, 2019 12:00am October 16, 2019 3:49pm stop all other narcotics traZODone hydrochloride 50 mg oral tablet (20 sources) Serotonin Reuptake Inhibitor Start: 01-09-2020 End: 05-04-2023 take 1 tablet by mouth at bedtime as needed Trazodone 50 mg tablet Discontinued 50 mg PO AT BEDTIME as needed for insomnia 90 December 01, 2020 12:48pm May 04, 2023 9:33am triamcinolone acetonide 40 mg/ml injectable suspension (3 sources) Corticosteroid Start: 09-20-2019 End: 09-20-2019 Kenalog (triamcinolone acetonide) 40 mg/mL suspension for injection Discontinued 80 MG INTRAARTIC ONCE 2 September 20, 2019 8:41am September 20, 2019 8:55am Start: 12-25-2018 End: 12-25-2018 Kenalog (triamcinolone aceto nide) 40 mg/mL suspension for injection Discontinued 80 MG INTRAARTIC ONCE 2 December 25, 2018 8:35am December 25, 2018 9:26am Start: 12-08-2017 End: 12-08-2017 Kenalog (triamcinolone aceto nide) 10 mg/mL suspension for injection Discontinued 10 MG TENDON ONCE 1 December 08, 2017 7:54am December 08, 2017 8:18am zolpidem tartrate 5 mg oral tablet (16 sources) gamma-Aminobutyric Acid-ergic Agonist Start: 09-03-2014 End: 04-20-2017 take 1 tablet by mouth at bedtime as needed Zolpidem 5 MG tablet Discontinued 5 mg PO AT BEDTIME NEEDED as needed for Insomnia September 03, 2014 12:00am April 20, 2017 2:14pm Problems Active Problems Problem Classification Problem Date Documented Date Episodic/Chronic Acute cerebrovascular disease (20 sources) Cerebrovascular accident; Translations: [Cerebral infarction, unspecified] Onset: 09-29-2019 Chronic Comment on above: Scattered punctuate stroke of right parietal region 09/29/2019 Asthma (20 sources) Moderate persistent asthma; Translations: [Uncomplicated moderate persistent asthma] Onset: 10-24-2016 10-24-2016 Chronic Coma; stupor; and brain damage (1 source) Somnolence; Translations: [Somnolence] Onset: 03-18-2025 Episodic Diabetes mellitus with complications (20 sources) Hyperglycemia due to type 1 diabetes mellitus; Translations: [Retinopathy due to type 1 diabetes mellitus] Onset: 04-26-2024 Chronic Diabetes mellitus without complication (20 sources) Type 1 diabetes mellitus without complication; Translations: [Type 1 diabetes mellitus] Onset: 09-05-2010 04-09-2015 Chronic Disorders of lipid metabolism (20 sources) Hypercholesterolemia; Translations: [Hyperlipidemia] Onset: 09-05-2015 09-05-2015 Chronic Headache; including migraine (16 sources) Frequent headache; Translations: [Frequent headaches] 10-16-2019 Episodic Joint disorders and dislocations; trauma-related (4 sources) Chondromalacia of right patella; Translations: [Chondromalacia patellae, right knee] Onset: 08-12-2024 03-11-2024 Chronic Joint disorders and dislocations; trauma-related (1 source) Other tear of medial meniscus, current injury, right knee, initial encounter; Translations: [Other tear of medial meniscus, current injury, right knee, initial encounter] Onset: 03-18-2025 Episodic Menopausal disorders (20 sources) Menopausal syndrome; Translations: [Menopausal and female climacteric states] Chronic Comment on above: asymptomatic Menstrual disorders (11 sources) Amenorrhea; Translations: [Amenorrhea, unspecified] Chronic Nutritional deficiencies (17 sources) Vitamin D deficiency; Translations: [Vitamin D deficiency, unspecified] Chronic Osteoarthritis (12 sources) Osteoarthritis of right knee joint; Translations: [Unilateral primary osteoarthritis, right knee] Onset: 08-19-2024 07-24-2024 Chronic Osteoporosis (20 sources) Osteoporosis; Translations: [Age-related osteoporosis without current pathological fracture] Onset: 10-25-2024 05-24-2022 Chronic Comment on above: reclast first dose F ebruary 2022 Other aftercare (6 sources) Follow-up status; Translations: [Encounter for other orthopedic aftercare] 01-02-2023 Episodic Other and ill-defined cerebrovascular disease (16 sources) Cerebrovascular disease; Translations: [Cerebrovascular disease, unspecified] 10-12-2020 Chronic Other and ill-defined cerebrovascular disease (1 source) Cerebrovascular disease, unspecified; Translations: [Unspecified cerebrovascular disease] Chronic Other bone disease and musculoskeletal deformities (6 sources) Chondromalacia; Translations: [Chondromalacia, right knee] 04-21-2023 Episodic Other bone disease and musculoskeletal deformities (3 sources) Chondromalacia, right knee; Translations: [Chondromalacia of patella] 04-21-2023 Episodic Other circulatory disease (20 sources) History of cerebrovascular accident; Translations: [Personal history of transient ischemic attack (TIA), and cerebral infarction without residual deficits] 05-24-2022 Episodic Other circulatory disease (4 sources) Personal history of transient ischemic attack (TIA), and cerebral infarction without residual deficits; Translations: [Personal history of transient ischemic attack (TIA), and cerebral infarction without residual deficits] 09-14-2022 Episodic Other connective tissue disease (20 sources) Lateral epicondylitis; Translations: [Synovitis] Onset: 02-23-2012 10-20-2016 Episodic Other connective tissue disease (16 sources) Trigger thumb of right hand; Translations: [Trigger thumb, right thumb] 10-19-2020 Episodic Other connective tissue disease (3 sources) Trigger thumb of left hand; Translations: [Trigger thumb, left thumb] 11-01-2023 Episodic Other nervous system disorders (7 sources) Carpal tunnel syndrome; Translations: [Carpal tunnel syndrome, bilateral upper limbs] 11-16-2022 Chronic Other nervous system disorders (2 sources) Carpal tunnel syndrome, bilateral upper limbs; Translations: [Carpal tunnel syndrome] 11-09-2022 Chronic Other nervous system disorders (3 sources) Carpal tunnel syndrome of left wrist; Translations: [Carpal tunnel syndrome, left upper limb] 11-01-2023 Chronic Other nervous system disorders (16 sources) Acute postoperative pain; Translations: [Other acute postprocedural pain] 03-30-2021 Episodic Other non-traumatic joint disorders (9 sources) Pain in right knee; Translations: [Right knee pain] 04-21-2023 Episodic Residual codes; unclassified (16 sources) Insomnia; Translations: [Insomnia, unspecified] 10-12-2020 Episodic Residual codes; unclassified (1 source) Insomnia, unspecified; Translations: [Insomnia, unspecified] Episodic Residual codes; unclassified (20 sources) Abnormal cytology findings; Translations: [ASCUS favor benign] Episodic Comment on above: ASCUS neg HPV 2013, 2016, 2017; 2018 and 2021 nl pap and hpv Superficial injury; contusion (11 sources) Contusion of unspecified front wall of thorax, initial encounter; Translations: [Contusion of sternum] 05-24-2022 Episodic Unclassified (1 source) Unknown / UNK(Unknown) Onset: 04-18-2017 Unclassified (9 sources) Patient encounter status; Translations: [Insulin pump fitting or adjustment] Onset: 05-05-2017 05-05-2017 Unclassified (3 sources) Encounter for screening for malignant neoplasm of colon; Translations: [Z12.11 - Encounter for screening for malignant neoplasm of colon] Unclassified (2 sources) M17.11 - Unilateral primary osteoarthritis, right knee,M22.41 - Chondromalacia patellae, right knee Past or Other Problems Problem Classification Problem Date Documented Date Episodic/Chronic Diabetes mellitus without complication (20 sources) Insulin pump present; Translations: [Presence of insulin pump (external) (internal)] Onset: 10-25-2024 Episodic Genitourinary symptoms and ill-defined conditions (1 source) Proteinuria, unspecified; Translations: [Proteinuria, unspecified] Onset: 10-25-2024 Episodic Other lower respiratory disease (1 source) Chronic cough; Translations: [Cough] Onset: 07-19-2016 07-19-2016 Episodic Other non-traumatic joint disorders (3 sources) Pain in elbow; Translations: [Elbow joint pain] Onset: 02-23-2012 10-20-2016 Episodic Other screening for suspected conditions (not mental disorders or infectious disease) (8 sources) Patient encounter status; Translations: [Encounter for screening for malignant neoplasm of colon] Onset: 05-06-2024 03-25-2022 Episodic Residual codes; unclassified (13 sources) Other specified postprocedural states; Translations: [Personal history of surgery to other organs] Onset: 10-28-2019 Episodic Spondylosis; intervertebral disc disorders; other back problems (1 source) Neck pain; Translations: [Cervicalgia] Onset: 02-23-2012 02-23-2012 Episodic Unclassified (15 sources) left shoulder 11-25-2021 Unclassified (15 sources) right elbow 11-25-2021 Unclassified (15 sources) right shoulder 11-25-2021 Urinary tract infections (1 source) Recurrent urinary tract infection; Translations: [Urinary tract infection, site not specified] Onset: 07-27-2015 08-13-2015 Episodic Results Test Name Value Interpretation Reference Range Facility Bedside Glucoseon 03-06-2025 FINGERSTICK GLU 180 mg/dL High 74-106 [facility] Comment on above: Result Comment: JOSE HOLGUIN OF PATIENT CARE PER NURSING PROTOCOL Performed By: #### L 501.080 #### [facility] [address] [place], [address] MR/POSTOP.ANE 03-06-2025 MR/POSTOP.[facility] Medical Records Department [address] [place] [address] Anesthesia Postop Eval I 03/06/25 1352 MR#: [id number] Acct: [id number] Name: IVY CASTELLON PARKER Rep #: [id number] : 1970 54 From: Estiven Jean MD PCP: Dr. Erin Acuna, DO Status:[facility] Y Race: C [place] [facility] [place]esthesia: Postop Eval I Current Vital Signs Temperature: 97.4 F Pulse Rate: 98 Blood Pressure: 123/59 Respiratory Rate: 16 Pulse Ox: 97 Oxygen Delivery Method: Room Air Assessment Airway patent: Yes Spontaneous unlabored respirations: Yes Mental status: Awake and Calm nausea: No Vomiting: No Anesthesia Complication: No Fluid Hydration Crystalloid volume administer (ml): 1,000 Total IV fluid infused: 1,000 Progress Note Anesthesia document: Postop Eval 1 completed: Yes 03/06/252002 Estiven Jean MD 03/07/25 0801 Cosigner Signature: Date Harinder Alcantar CRNA CC: Signed Normal [facility] MR/XBCTTOWZ9zx 03-06-2025 MR/POSTOPAN2 [facility] Medical Records Department [address] [place] [address] Anesthesia Postop Eval II 03/06/252002 MR#: [id number] Acct: [id number] Name: IVY CASTELLON Rep #: [id number] : 1970 54 From: Estiven Jean MD PCP: Dr. Erin Acuna, DO Status:[facility] Y Race: C [place] [facility] [place]esthesia Postop Eval I Sum Postop Eval Completion status Anesthesia document: Postop Eval 1 completed: Yes Anesthesia Postop Eval I Summary Anesthesia Postop Eval I Summary: Anesthesia Postop Eval I: Assessment Summary Airway patent Yes 03/06/25 20:03 Spontaneous unlabored Yes 03/06/25 20:03 respirations Mental status Awake,Calm 03/06/25 20:03 nausea No 03/06/25 20:03 Vomiting No 03/06/25 20:03 Anesthesia Postop Eval I: Fluid Summary Crystalloid volume administer 1,000 03/06/25 20:03 (ml) Colloids volume administered ( ml) Blood Product volume administered (ml) Total IV fluid infused 1,000 03/06/25 20:03 Anesthesia Postop Eval I: Summary Notes Anesthesia Complication No 03/06/25 20:03 Anesthesia Complication Comment: Post-operative progress note Anesthesia: Postop Eval II Evaluation Mental status: Awake and Calm Pain Level: 1 nausea: No Vomiting: No Complications Anesthesia Complication: No 03/06/252003 Estiven Jean MD Cosigner Signature: Date CC: Signed Normal [facility] Operative Reporton 10-30-202 5 Operative Report [facility] Medical Records Department [address] [place] [address] Operative Report 03/06/25 1539 MR#: [id number] Acct: [id number] Name: IVY CASTELLON Rep #: [id number] : 1970 54 From: Miguel Chery DO PCP: Dr. Erin Acuna DO Status:[facility] Location: [place] [address] Operative Report (Standard) Operative Information Date of Procedure: 03/06/25 Pre-Operative Diagnosis: 1. Right knee chondromalacia Post-Operative Diagnosis: 1. Right knee chondromalacia 2. Right knee posterior horn medial meniscus tear Surgery/Procedure Performed: Right knee arthroscopic partial medial meniscectomy and chondroplasty cotton seed culler: No Type of Anesthesia: General RN Documented Start/Stop Times: Operation Date: 03/06/25 12:30 Case Time Into Pre-Op 03/06/25 10:55 Anesthesia Start 03/06/25 12:48 Into Room 03/06/25 12:48 Procedure Start 03/06/25 13:24 Procedure End 03/06/25 13:43 Anesthesia End 03/06/25 13:48 Into Recovery 03/06/25 13:48 Out of Room 03/06/25 13:48 Out of Recovery 03/06/25 14:11 Into Phase II Recovery 03/06/25 14:12 Procedure Start Time: 13:24 Procedure Stop Time: 13:43 Select all DRAINS/GRAFTS/IMPLANTS that apply: None Estimated Blood Loss: 5 cc Specimen collected: No Description of surgery: Patient identified preoperative holding area by name, correct number, and date of . The operative extremity was marked. All questions were answered to the patient satisfaction. At time of his procedure, patient brought the operative suite positioned supine on standard operating table. All bony prominences well-padded. General anesthesia was administered and LMA was placed. A well-padded pneumatic tourniquet was applied to the operative upper thigh. Circumferential arthroscopic leg dunaway was placed around the patient's operative thigh. We prepped and draped the right lower extremity in normal, sterile orthopedic fashion. We performed timeout with all parties in attendance in agreement with the side, site, operation be performed. 2 g Ancef was administered by anesthesia staff prior to tourniquet ablation. I then exsanguinated right lower extremity with Esmarch bandage. Tourniquet was inflated to 250 mmHg for approximately 15 minutes. Esmarch was removed. Standard anterolateral portal was then established 90 degrees of flexion. Blunt tipped trocar was used to enter the knee joint. Knee was filled with normal saline with epinephrine. Arthroscope was then introduced. Diagnostic arthroscopy of the patellofemoral joint demonstrated minimal grade I chondromalacia at the trochlea. Hypertrophic fat pad was noted. Medial lateral gutter was unremarkable. Valgus stress was applied the knee to anterior the medial compartment with the knee in extension. Anterior medial portal was established under direct visualization. Medial compartment was then examined. Overall cartilage looked reasonably well-maintained with borderline grade I chondromalacia diffusely. There was a chondral flap noted at the lateral margin of the medial femoral condyle chondral surface which was unstable and I could reflect it with a probe approximately 3 to 4 mm. This was resected to a stable chondral rim with a shaver. The meniscal root was closely examined and appeared to be intact without even attritional changes. There was a horizontal tear in the posterior horn measuring approximately 5 mm in medial to lateral diameter and continued back to the red-white zone. Combination of baskets and shaver were used to debride the tears and perform a partial medial meniscectomy to a stable chondral rim. Intercondylar notch was pristine with normal ACL and PCL. Lateral compartment was then entered. Varus stress was applied. Lateral compartment was examined and was pristine. The knee was thoroughly lavaged after debridement of the fat pad with the arthroscopic shaver. Portal sites were closed in interrupted eyvjam-pw-eofen fashion with 3-0 nylon suture. Bulky sterile compression system was applied. Tourniquet was deflated. Patient was safely awakened the operative suite and extubated. She was transferred to his gurney and subsequently to PACU in stable condition. Postoperative plan: Weightbearing, range of motion as tolerated operative knee Follow-up in 2 weeks for suture removal Physical therapy to start at 2 weeks Multimodal pain management with opioid, NSAID and Tylenol Aspirin 81 mg for DVT prophylaxis x 2 weeks Ice and elevation. Surgical Findings: Full-thickness chondral flap lateral portion medial femoral condyle. Horizontal tearing posterior horn medial meniscus. Complications Complications: No Admit VTE Documentation VTE Present on Admission: No VTE Mechan Device Prophylaxis: SCD's and Knee High GENESIS Hose VTE Pharm Prophylaxis ordered?: Yes 03/06/25 2330 Cosigner Signature (if applica (more content not included)... Normal [facility] MR/PATRylee 02-25-2025 MR/PAT.MARCELA [facility] Medical Records Department [address] [place] [address] PAT - Anesthesia 02/25/25 1624 MR#: [id number] Acct: [id number] Name: IVY CASTELLON Rep #: [id number] : 1970 54 From: Estiven Jean MD PCP: Dr. Erin Acuna, DO Status:PRE [facility] Y Race: C [place] [facility] [place] Pre-Assessment Diagnosis/Proposed Procedure Planned Operative Procedure(s): (R) RIGHT KNEE ARTHROSCOPIC CHONDROPLASTY, POSSIBLE MEDIAL MENISCAL ROOT REPAIR Anesthesia History Anesthesia History - senior project manager: Anesthesia History - senior project manager Hx Hospitalization No 02/25/25 13:18 Any Problems With Anesthesia No 02/25/25 13:18 Cholinesterase deficiency No 02/25/25 13:18 You/Your Family Experience No 02/25/25 13:18 fever (hyperthermia) with Relationship Recent Exposure to Contagious No 12/12/23 13:28 Disease Does patient have nerve No 02/25/25 13:18 stimulator Patient instructed to have device shut off --Does patient have Pacemaker or ICD? When Was Last Pacemaker Check QUESTION #4 FULL TEXT: You/Your Family Experience fever (hyperthermia) with Anesthesia Last Oral Intake Last Oral intake: Last Oral Intake NPO since Meds taken in AM with sips of water? Meds patient instructed to take am of surgery PONV PONV - senior project manager: PONV - senior project manager Female Yes 02/25/25 13:18 HX of Motion Sickness Yes 02/25/25 13:18 HX of N/V After Surgery Yes 02/25/25 13:18 Non-Smoker Yes 02/25/25 13:18 Duration of Surgery greater Yes 02/25/25 13:18 than 60 minutes Number of Risk Factors 5 02/25/25 13:18 PONV Score Severe Risk 02/25/25 13:18 Height Weight Height Weight: Anesthesia: Height Weight Height 5 ft 4 in 10/25/24 07:55 Respiratory Assessment Respiratory Assessment - senior project manager: Respiratory Tract Infection Hx - senior project manager Hx Respiratory Tract Infection No 02/25/25 13:18 STOP Sleep Apnea STOP Sleep Apnea - senior project manager: STOP Sleep Apnea - senior project manager Hx Hypertension No 02/25/25 13:18 Hx Sleep Apnea No: SLEEP STUDY 03/202502/25/25 13:18 CPAP No 12/12/23 15:35 BIPAP No 11/29/23 12:29 Do you snore loudly (louder Yes 02/25/25 13:18 than talking or can be heard Do you often feel tired/ No 02/25/25 13:18 fatigued/ sleepy during daytime? Has anyone observed you stop No 02/25/25 13:18 breathing during sleep? STOP Results Negative 02/25/25 13:18 QUESTION #5 FULL TEXT : Do you snore loudly (louder than talking or can be heard through closed doors)? Tobacco Use History Tobacco Use History - senior project manager: Tobacco Use History - senior project manager Tobacco Use Smoking Status Never smoker 02/25/25 13:18 Hx Tobacco Use No 02/25/25 13:18 Years Smoking Packs Smoked per Day Smoking Cessation Date was within the last 15 years Hx Smoking Cessation Date Hx Smoking Cessation Counseling Hematologic Medial History Hematologic Hx - senior project manager: Hematologic Medical Hx - heddler Hx of Blood Transfusion No 02/25/25 13:18 Hx of Transfusion in last 3 No 02/25/25 13:18 Months Date of Last Transfusion (if within last 3 months) Ever experience any problems No 02/25/25 13:18 with transfusion(s)? Specify any problems Hx of Preganancy in last 3 N/A 02/25/25 13:18 Months Nurse Filling Out Transfusion NBUCHER 02/25/25 13:18 Questions: Date: 02/25/25 02/25/25 13:18 Time: 13:19 02/25/25 13:18 Patient unable to answer at this time (ie. confused, unrespo /Reproduction History /Reproductive History - senior project manager: /Reproductive Hx- senior project manager Hx Now No 02/25/25 13:18 Gestational Age (in weeks): EDC: Hx Hx Para Hx Section SAB No 02/25/25 13:18 PFSH Medical History Heartburn Shortness of breath on exertion Vitamin D deficiency Diabetes mellitus type 1 Diabetic retinopathy associated with type 1 diabetes mellitus Post-menopausal Wears contact lenses Alcohol use Insulin dependent diabetes mellitus High cholesterol Migraine headache Stroke/cerebrovascular accident Dietary restriction Gastric reflux Non-smoker Asthma History of Holter monitoring History of echocardiogram Cardiology follow-up encounter Insomnia Cerebrovascular disease Insulin pump titration Presence of insulin pump History of stroke right shoulder right elbow left shoulder High cholesterol Diabetes Breast lump UTI (urinary tract infection) Asthma Seasonal allergies Hyperlipidemia CVA (cerebral vascular accident) (09/29/19) Abnormal ultras (more content not included)... Normal [facility] 12 Lead EKGon 02-21-2025 12 Lead E[address] [facility] Cardiovascular Services [address] [place] [address] 12 Lead EKG 02/21/25 0801 MR#: [id number] Acct: [id number] Name: IVY CASTELLON Rep #: [id number] : 1970 54 From: Carter Hernadez MD Attending Dr: Dr. Miguel Chery DO Status: PRE [facility] [place] Ordering Dr: Miguel Chery DO Date: 02/21/25 [place] [facility] [place] Sex: F C Admitted: Test Reason : PREOP Blood Pressure : */* mmHG Vent. Rate : 77 BPM Atrial Rate : 77 BPM P-R Int : 150 ms QRS Dur : 130 ms QT Int : 388 ms P-R-T Axes : 67 65 51 degrees QTcB Int : 439 ms Normal sinus rhythm Right bundle branch block Abnormal ECG Confirmed by CARTER HERNADEZ MD ([id number]), food editor AILYN NATHAN ([id number]) on 02/24/2025 6:58:10 AM Referred By: Miguel Chery Confirmed By: CARTER HERNADEZ MD 02/24/25 0658 Date Carter Hernadez MD CC: Dr. Erin Acuna DO; Dr. Miguel Chery DO Signed Normal [facility] Basic Metabolic Profile (BMP )on 02-21-2025 BUN/CRE 27.8 RATIO High 02-24 [facility] Comment on above: Performed By: #### L 500.2500, L100.0100, L501.9985 ####[facility] [address] [place], [address] Calcium [Mass/Vol] 9.5 mg/dL Normal 7.6-11.0 [facility] Comment on above: Performed By: #### L 500.2500, L100.0100, L501.9985 ####[facility] [address] [place], [address] Chloride [Moles/Vol] 104 mmol/L Normal 98-108 [facility] Comment on above: Performed By: #### L 500.2500, L100.0100, L501.9985 ####[facility] [address] [place], [address] CO2 [Moles/Vol] 27.5 mmol/L Normal 21.0-32.0 [facility] Comment on above: Performed By: #### L 500.2500, L100.0100, L501.9985 ####[facility] [address] [place], [address] Creatinine [Mass/Vol] 0.78 mg/dL Normal 0.70-1.20 [facility] Comment on above: Performed By: #### L 500.2500, L100.0100, L501.9985 ####[facility] [address] [place], [address] GAP 8 Normal 5-15 [facility] Comment on above: Performed By: #### L 500.2500, L100.0100, L501.9985 ####[facility] [address] [place], [address] GFR/1.73 sq M.predicted among non-blacks MDRD (S/P/Bld) [Vol rate/Area] 90 mL/min/{1.73_m2} Normal >60 [facility] Comment on above: Result Comment: mL/m in/1.73m2 CKD-EPI Creatinine Equation (2020) Performed By: #### L 500.2500, L100.0100, L501.9985 ####[facility] [address] [place], [address] Glucose [Mass/Vol] 142 mg/dL High 70-99 [facility] Comment on above: Performed By: #### L 500.2500, L100.0100, L501.9985 ####[facility] [address] [place], [address] Potassium [Moles/Vol] 4.7 mmol/L Normal 3.3-5.1 [facility] Comment on above: Performed By: #### L 500.2500, L100.0100, L501.9985 ####[facility] [address] [place], [address] Sodium [Moles/Vol] 140 mmol/L Normal 133-145 [facility] Comment on above: Performed By: #### L 500.2500, L100.0100, L501.9985 ####[facility] [address] [place], [address] Urea nitrogen [Mass/Vol] 22 mg/dL High 4-19 [facility] Comment on above: Performed By: #### L 500.2500, L100.0100, L501.9985 ####[facility] [address] [place], [address] CBC W/Diff, Automatedon 10-1 Absolute Lymph 0.91 X10 3/uL Normal 0.83-4.51 [facility] Comment on above: Performed By: #### L 500.2500, L100.0100, L501.9985 ####[facility] [address] [place], [address] Absolute Neut 2.2 X10 3/uL Normal 2.0-7.7 [facility] Comment on above: Performed By: #### L 500.2500, L100.0100, L501.9985 ####[facility] [address] [place], [address] Basophils/100 WBC (Bld) 1.1 % High 0-1 [facility] Comment on above: Performed By: #### L 500.2500, L100.0100, L501.9985 ####[facility] [address] [place], [address] Eosinophils/100 WBC (Bld) 3.2 % Normal 0-5 [facility] Comment on above: Performed By: #### L 500.2500, L100.0100, L501.9985 ####[facility] [address] [place], [address] Erythrocyte distribution width (RBC) [Ratio] 12.6 % Normal 11.6-14.6 [facility] Comment on above: Performed By: #### L 500.2500, L100.0100, L501.9985 ####[facility] [address] [place], [address] Hematocrit (Bld) [Volume fraction] 39.1 % Normal 37-47 [facility] Comment on above: Performed By: #### L 500.2500, L100.0100, L501.9985 ####[facility] [address] [place], [address] Hemoglobin (Bld) [Mass/Vol] 12.9 g/dL Normal 12.0-15.0 [facility] Comment on above: Performed By: #### L 500.2500, L100.0100, L501.9985 ####[facility] [address] [place], [address] IG% 0.300 Normal 0.0-0.9 [facility] Comment on above: Result Comment: IG% - Immature Granulocytes (promyelocytes, myelocytes and metamyelocytes) > 1% indicates that a LEFT SHIFT is Present. Performed By: #### L 500.2500, L100.0100, L501.9985 ####[facility] [address] [place], [address] Lymphocytes/100 WBC (Bld) 24.1 % Normal 19-41 [facility] Comment on above: Performed By: #### L 500.2500, L100.0100, L501.9985 ####[facility] [address] [place], [address] MCH (RBC) [Entitic mass] 30.5 pg Normal 27.0-32.0 [facility] Comment on above: Performed By: #### L 500.2500, L100.0100, L501.9985 ####[facility] [address] [place], [address] MCHC (RBC) [Mass/Vol] 33.0 g/dL Normal 32-36 [facility] Comment on above: Performed By: #### L 500.2500, L100.0100, L501.9985 ####[facility] [address] [place], [address] MCV (RBC) [Entitic vol] 92.4 fL Normal 81-99 [facility] Comment on above: Performed By: #### L 500.2500, L100.0100, L501.9985 ####[facility] [address] [place], [address] Monocytes/100 WBC (Bld) 12.7 % High 0-10 [facility] Comment on above: Performed By: #### L 500.2500, L100.0100, L501.9985 ####[facility] [address] [place], [address] Neutrophils/100 WBC (Bld) 58.6 % Normal 47-70 [facility] Comment on above: Performed By: #### L 500.2500, L100.0100, L501.9985 ####[facility] [address] [place], [address] Nucleated RBC (Bld) [#/Vol] 0 10*3/uL Normal 0-5 [facility] Comment on above: Performed By: #### L 500.2500, L100.0100, L501.9985 ####[facility] [address] [place], [address] Platelet mean volume (Bld) [Entitic vol] 9.6 fL Normal 6.2-12.0 [facility] Comment on above: Performed By: #### L 500.2500, L100.0100, L501.9985 ####[facility] [address] [place], [address] Platelets (Bld) [#/Vol] 246 10*3/uL Normal 150-450 [facility] Comment on above: Performed By: #### L 500.2500, L100.0100, L501.9985 ####[facility] [address] [place], [address] RBC (Bld) [#/Vol] 4.23 10*6/uL Normal 4.2-5.4 [facility] Comment on above: Performed By: #### L 500.2500, L100.0100, L501.9985 ####[facility] [address] [place], [id number] [address] SD 42.5 fl Normal 35.1-43.9 [facility] Comment on above: Performed By: #### L 500.2500, L100.0100, L501.9985 ####[facility] [address] [place], [address] WBC (Bld) [#/Vol] 3.8 10*3/uL Low 4.4-11.0 [facility] Comment on above: Performed By: #### L 500.2500, L100.0100, L501.9985 ####[facility] [address] [place], [address] Hemoglobin A1con 02-21-2025 HbA1c (Bld) [Mass fraction] 6.8 % High <=5.6 [facility] Comment on above: Result Comment: Norm al < 5.7 % Prediabetic 5.7 - 6.4 % Diabetic >or= 6.5 % Please note range changes. Performed By: #### L 500.2500, L100.0100, L501.9985 ####[facility] [address] [place], [address] Endocrinology Visit Reporton 10-25-2024 Endocrinology Visit Report [facility] [address] [place] [address] OFFICE VISIT Date of Service: 10/25/24 MR#: [id number] Acct: [id number] Name: IVY CASTELLON PARKER Rep #: [id number] : 1970 Provider: Dave Chapin Age/Sex: 54/F [place] [facility] [place]: Signed Intake Vital Signs 04/26/24 08:00 08/26/24 08:17 10/25/24 07:55 Height 5 ft 4 in 5 ft 4 in 5 ft 4 in Weight: 148 lb 6 oz BMI 25.4 BP 113/71 Blood Pressure Location Rt brachial Position Sitting Pulse 90 Pulse Source Monitor Pulse Oximetry (%) 98 Oxygen Delivery Method room air Intake Visit Reasons: 6 M FU Chief Complaint: Diabetes Is patient in pain?: No Allergies Environmental Allergies: Uncoded Allergy (Intermediate, Verified 10/25/24 07:59) Hives lisinopril Adverse Reaction (Intermediate, Verified 10/25/24 07:59) HYPOTENSION, SYMPTOMATIC fluticasone furoate (From Breo Ellipta) Adverse Reaction (Mild, Verified 10/25/24 07:59) Other - cough loses voice vilanterol (From Breo Ellipta) Adverse Reaction (Mild, Verified 10/25/24 07:59) Other - cough loses voice lovastatin Adverse Reaction (Unknown, Verified 10/25/24 07:59) Pain in joints Medications ???Medication ???Instructions ???Recorded ???Confirmed ???Type omeprazole 20 mg capsule,delayed 20 mg PO DAILY PRN stomach 0 10/25/24 History release aspirin 81 mg chewable tablet 81 mg PO DAILY@0800 ##30 09/30/19 10/25/24 Rx montelukast 10 mg tablet 10 mg PO DAILY #60 tabs 10/31/22 0 10/25/24 Rx insulin lispro 100 unit/mL 60 unit (0.6 mL) continuous 10/25/24 Rx subcutaneous solution (Humalog subcutaneous infusion DAILY #60 mL U-100 Insulin) insulin pump cart,automated,BT #30 ea 04/26/24 10/25/24 Rx zoledronic acid 5 mg/100 mL in 1 ea .Route .QYEAR #100 mL 4 10/25/24 Rx mannitol 5 %-water intravenous piggybck rosuvastatin 40 mg tablet 40 mg PO QDAY #90 tabs 10/18/24 Rx PFSH Medical History Heartburn Shortness of breath on exertion Vitamin D deficiency Diabetes mellitus type 1 Diabetic retinopathy associated with type 1 diabetes mellitus Post-menopausal Wears contact lenses Alcohol use Insulin dependent diabetes mellitus High cholesterol Migraine headache Stroke/cerebrovascular accident Dietary restriction Gastric reflux Non-smoker Asthma History of Holter monitoring History of echocardiogram Cardiology follow-up encounter Insomnia Cerebrovascular disease Insulin pump titration Presence of insulin pump History of stroke right shoulder right elbow left shoulder High cholesterol Diabetes Breast lump UTI (urinary tract infection) Asthma Seasonal allergies Hyperlipidemia CVA (cerebral vascular accident) (09/29/19) Abnormal ultrasound of breast HX: benign breast biopsy Lateral epicondylitis of elbow Insulin pump in place Microcalcifications of the breast Frequent headaches Seasonal allergies Shoulder impingement syndrome Shoulder pain Neck pain Adhesive capsulitis of shoulder Recurrent urinary tract infection Chronic cough Right elbow pain Right tennis elbow Synovitis Moderate persistent asthma, uncomplicated Surgical History History of carpal tunnel release History of hand surgery S/P trigger finger release History of loop recorder (10/28/19) History of elbow surgery Encounter for Essure implantation (10/07/10) H/O laparoscopy (1997) H/O breast biopsy H/O shoulder surgery Family History Mother Asthma Colon cancer Osteoporosis Skin cancer Hypertension History of colectomy Father Parkinson disease Other Depression Diabetes Melanoma Social History household members: spouse housing: house number of children: 2 current occupational status: employed 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 A1C is 6.8% She is using Omnipod 5 with Dexcom CGM and automated mode. Upload reveals under reporting carbs at 74 g/day. She has post meal highs. (more content not included)... Normal [facility] Orthopedic Visit Reporton Orthopedic Visit Report [facility] [address] [place] [id number] OFFICE VISIT Date of Service: 08/26/24 MR#: [id number] Acct: [id number] Name: IVY CASTELLON PARKER Rep #: [id number] : 1970 Provider: Dr. Mio simmons DO Age/Sex: 53/F Location: [facility] [place] Status: Signed Intake Vital Signs 06/14/24 09:02 08/26/24 08:17 Height 5 ft 4 in 5 ft 4 in Weight: 140 lb BMI 24.0 Intake Visit Reasons: RIGHT KNEE Chief Complaint: 3rd Euflexxa Accompanied by: Self Is patient in pain?: No Allergies Environmental Allergies: Uncoded Allergy (Intermediate, Verified 08/26/24 08:22) Hives lisinopril Adverse Reaction (Intermediate, Verified 08/26/24 08:22) HYPOTENSION, SYMPTOMATIC fluticasone furoate (From Breo Ellipta) Adverse Reaction (Mild, Verified 08/26/24 08:22) Other - cough loses voice vilanterol (From Breo Ellipta) Adverse Reaction (Mild, Verified 08/26/24 08:22) Other - cough loses voice lovastatin Adverse Reaction (Unknown, Verified 08/26/24 08:22) Pain in joints Medications ???Medication ???Instructions ???Recorded ???Confirmed ???Type omeprazole 20 mg capsule,delayed 20 mg PO DAILY PRN stomach 0 08/26/24 History release aspirin 81 mg chewable tablet 81 mg PO DAILY@0800 ##30 09/30/19 08/26/24 Rx montelukast 10 mg tablet 10 mg PO DAILY #60 tabs 10/31/22 0 08/26/24 Rx insulin lispro 100 unit/mL 60 unit (0.6 mL) continuous 08/26/24 Rx subcutaneous solution (Humalog subcutaneous infusion DAILY #60 mL U-100 Insulin) insulin pump cart,automated,BT #30 ea 04/26/24 08/26/24 Rx rosuvastatin 40 mg tablet 40 mg PO QDAY #90 tabs 04/26/24 Rx zoledronic acid 5 mg/100 mL in 1 ea .Route .QYEAR #100 mL 08/26/24 Rx mannitol 5 %-water intravenous piggybck Have you fallen in the past year?: No PFSH Medical History Heartburn Shortness of breath on exertion Vitamin D deficiency Diabetes mellitus type 1 Diabetic retinopathy associated with type 1 diabetes mellitus Post-menopausal Wears contact lenses Alcohol use Insulin dependent diabetes mellitus High cholesterol Migraine headache Stroke/cerebrovascular accident Dietary restriction Gastric reflux Non-smoker Asthma History of Holter monitoring History of echocardiogram Cardiology follow-up encounter Insomnia Cerebrovascular disease Insulin pump titration Presence of insulin pump History of stroke right shoulder right elbow left shoulder High cholesterol Diabetes Breast lump UTI (urinary tract infection) Asthma Seasonal allergies Hyperlipidemia CVA (cerebral vascular accident) (09/29/19) Abnormal ultrasound of breast HX: benign breast biopsy Lateral epicondylitis of elbow Insulin pump in place Microcalcifications of the breast Frequent headaches Seasonal allergies Shoulder impingement syndrome Shoulder pain Neck pain Adhesive capsulitis of shoulder Recurrent urinary tract infection Chronic cough Right elbow pain Right tennis elbow Synovitis Moderate persistent asthma, uncomplicated Surgical History History of carpal tunnel release History of hand surgery S/P trigger finger release History of loop recorder (10/28/19) History of elbow surgery Encounter for Essure implantation (10/07/10) H/O laparoscopy (1997) H/O breast biopsy H/O shoulder surgery Family History Mother Asthma Colon cancer Osteoporosis Skin cancer Hypertension History of colectomy Father Parkinson disease Other Depression Diabetes Melanoma Social History household members: spouse housing: house number of children: 2 current occupational status: employed 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 Mio Krishnan, DO 08/26/24 0734. Part of today???s visit was documented by Yolanda May MA, acting as scribe. IVY CASTELLON is a 53 year old F here today for right knee 3rd Euflexxa. Ortho Exam General General: Yes no acute distress (more content not included)... Normal [facility] Orthopedic Visit Reporton Orthopedic Visit Report [facility] [address] [place] [address] [place], [place] [id number] OFFICE VISIT Date of Service: 08/19/24 MR#: [id number] Acct: [id number] Name: IVY CASTELLON Rep #: [id number] : 1970 Provider: Dr. Mio simmons, DO Age/Sex: 53/F Location: [facility] [place] Status: Signed Intake Vital Signs 06/14/24 09:02 Height 5 ft 4 in Intake Visit Reasons: RIGHT KNEE Allergies Environmental Allergies: Uncoded Allergy (Intermediate, Verified 08/19/24 08:30) Hives lisinopril Adverse Reaction (Intermediate, Verified 08/19/24 08:30) HYPOTENSION, SYMPTOMATIC fluticasone furoate (From Breo Ellipta) Adverse Reaction (Mild, Verified 08/19/24 08:30) Other - cough loses voice vilanterol (From Breo Ellipta) Adverse Reaction (Mild, Verified 08/19/24 08:30) Other - cough loses voice lovastatin Adverse Reaction (Unknown, Verified 08/19/24 08:30) Pain in joints Medications ???Medication ???Instructions ???Recorded ???Confirmed ???Type omeprazole 20 mg capsule,delayed 20 mg PO DAILY PRN stomach 0 08/19/24 History release aspirin 81 mg chewable tablet 81 mg PO DAILY@0800 ##30 09/30/19 08/19/24 Rx montelukast 10 mg tablet 10 mg PO DAILY #60 tabs 10/31/22 0 08/19/24 Rx insulin lispro 100 unit/mL 60 unit (0.6 mL) continuous 08/19/24 Rx subcutaneous solution (Humalog subcutaneous infusion DAILY #60 mL U-100 Insulin) insulin pump cart,automated,BT #30 ea 04/26/24 08/19/24 Rx rosuvastatin 40 mg tablet 40 mg PO QDAY #90 tabs 04/26/24 Rx zoledronic acid 5 mg/100 mL in 1 ea .Route .QYEAR #100 mL 4 08/19/24 Rx mannitol 5 %-water intravenous piggybck PFSH Medical History Heartburn Shortness of breath on exertion Vitamin D deficiency Diabetes mellitus type 1 Diabetic retinopathy associated with type 1 diabetes mellitus Post-menopausal Wears contact lenses Alcohol use Insulin dependent diabetes mellitus High cholesterol Migraine headache Stroke/cerebrovascular accident Dietary restriction Gastric reflux Non-smoker Asthma History of Holter monitoring History of echocardiogram Cardiology follow-up encounter Insomnia Cerebrovascular disease Insulin pump titration Presence of insulin pump History of stroke right shoulder right elbow left shoulder High cholesterol Diabetes Breast lump UTI (urinary tract infection) Asthma Seasonal allergies Hyperlipidemia CVA (cerebral vascular accident) (09/29/19) Abnormal ultrasound of breast HX: benign breast biopsy Lateral epicondylitis of elbow Insulin pump in place Microcalcifications of the breast Frequent headaches Seasonal allergies Shoulder impingement syndrome Shoulder pain Neck pain Adhesive capsulitis of shoulder Recurrent urinary tract infection Chronic cough Right elbow pain Right tennis elbow Synovitis Moderate persistent asthma, uncomplicated Surgical History History of carpal tunnel release History of hand surgery S/P trigger finger release History of loop recorder (10/28/19) History of elbow surgery Encounter for Essure implantation (10/07/10) H/O laparoscopy (1997) H/O breast biopsy H/O shoulder surgery Family History Mother Asthma Colon cancer Osteoporosis Skin cancer Hypertension History of colectomy Father Parkinson disease Other Depression Diabetes Melanoma Social History household members: spouse housing: house number of children: 2 current occupational status: employed 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 Mio Krishnan, DO 08/19/24 0752. Part of today???s visit was documented by Lulu LAURA, acting as scribe. IVY CASTELLON is a 53 year old F here today for 2nd right knee Euflexxa injection. Ortho Exam General General: Yes no acute distress and Yes well groomed Neurologic: Yes alert and Yes oriented x3 Psychologic: Yes reasonable and appropriate Right Knee Skin/Wound: Yes CDI, No erythema, No ecchymosis and No swelling Homans Sign: No Knee ROM: Yes RO (more content not included)... Normal [facility] Breast imaging reportOrdered By: Phoebe Giron on 08-14-2024 Study report [facility] Imaging Services [address] [place] [address] SCRN MAMM (CAD)W/SANDRA BILAT MR#: [id number] Acct: [id number] Name: IVY CASTELLON Rep #: [id number] : 1970 F 53 From: Citlaly Giron MD PCP: Dr. Erin Acuna, Status: REG CLI Study:SCRN MAMM (CAD)W/SANDRA BILAT Date of Exa m: 08/14/24 Exam# [id number] Ordering Dr: Luz Maria Redding HOT PRESS OPERATOR HOT PRESS OPERATOR-C EXAM: SCRN MAMM (CAD)W/SANDRA BILAT 08/14/2024 CLINICAL HISTORY: F, Age 53 y/o , SCREENING FOR BREAST CANCER TECHNIQUE: Bilateral screening digital breast tomosynthesis with 2D and 3D images. Computeraided detection. COMPARISON: Prior exam(s) dated 08/02/2023, 07/29/2022. FINDINGS: TISSUE DENSITY: The breast tissue is heterogenously dense, which may obscure small masses. The mammogram demonstrates that the patient has dense breasts. Supplemental screening with whole breast ultrasound or MRI may be considered for further evaluation. Bilateral Breast Mammographic Findings: No significant masses, calcifications or other abnormalities are identified. BI/SCRN MAMM (CAD)W/SANDRA BILAT IMPRESSION: Right Breast: BIRADS 1 NEGATIVE. Left Breast: BIRADS 1 NEGATIVE. OVERALL FINAL ASSESSMENT: BIRADS 1 NEGATIVE. RECOMMENDATION: Routine annual follow-up in 1 Year A letter with findings and recommendations will be mailed to the patient. Reading Location: [facility] CC: EUGENE Redding; Dr. Erin Acuna DO ~ Solid Waste Collection Worker: Signed [facility] SCRN MAMM (CAD)W/SANDRA BILATo n 08-14-2024 SCRN MAMM (CAD)W/SANDRA BILAT [facility] Imaging Services [address] [place] [address] SCRN MAMM (CAD)W/SANDRA BILAT MR#: [id number] Acct: [id number] Name: IVY CASTELLON Rep #: [id number] : 1970 F 53 From: Phoebe Giron MD PCP: Dr. Erin Acuna DO Status: REG CLI Study: SCRN MAMM (CAD)W/SANDRA BILAT Date of Exam: 01/30 Exam# [id number] Ordering Dr: Luz Maria Redding NP HOT PRESS OPERATOR -C EXAM: SCRN MAMM (CAD)W/SANDRA BILAT 08/14/2024 CLINICAL HISTORY: F, Age 53 y/o , SCREENING FOR BREAST CANCER TECHNIQUE: Bilateral screening digital breast tomosynthesis with 2D and 3D images. Computer aided detection. COMPARISON: Prior exam(s) dated 08/02/2023, 07/29/2022. FINDINGS: TISSUE DENSITY: The breast tissue is heterogenously dense, which may obscure small masses. The mammogram demonstrates that the patient has dense breasts. Supplemental screening with whole breast ultrasound or MRI may be considered for further evaluation. Bilateral Breast Mammographic Findings: No significant masses, calcifications or other abnormalities are identified. BI/SCRN MAMM (CAD)W/SANDRA BILAT IMPRESSION: Right Breast: BIRADS 1 NEGATIVE. Left Breast: BIRADS 1 NEGATIVE. OVERALL FINAL ASSESSMENT: BIRADS 1 NEGATIVE. RECOMMENDATION: Routine annual follow-up in 1 Year A letter with findings and recommendations will be mailed to the patient. Reading Location: [id number] CC: EUGENE Redding; Dr. Erin Acuna DO Solid Waste Collection Worker: Signed Normal [facility] Orthopedic Visit Reporton Orthopedic Visit Report [facility] [place] [address] OFFICE VISIT Date of Service: 08/12/24 MR#: [id number] Acct: [id number] Name: IVY CASTELLON Rep #: [id number] : 1970 Provider: Dr. Mio Mar so, DO Age/Sex: 53/F Location: [facility] Status: Signed Intake Vital Signs 06/14/24 09:02 Height 5 ft 4 in BP 128/53 H Position Sitting Respiration 16 Pulse 81 Temp 96.0 F L Temp Source Temporal Pulse Oximetry (%) 98 Intake Visit Reasons: RIGHT KNEE Allergies Environmental Allergies: Uncoded Allergy (Intermediate, Verified 08/12/24 08:21) Hives lisinopril Adverse Reaction (Intermediate, Verified 08/12/24 08:21) HYPOTENSION, SYMPTOMATIC fluticasone furoate (From Breo Ellipta) Adverse Reaction (Mild, Verified 08/12/24 08:21) Other - cough loses voice vilanterol (From Breo Ellipta) Adverse Reaction (Mild, Verified 08/12/24 08:21) Other - cough loses voice lovastatin Adverse Reaction (Unknown, Verified 08/12/24 08:21) Pain in joints Medications ???Medication ???Instructions ???Recorded ???Confirmed ???Type omeprazole 20 mg capsule,delayed 20 mg PO DAILY PRN stomach 0 08/12/24 History release aspirin 81 mg chewable tablet 81 mg PO DAILY@0800 ##30 09/30/19 08/12/24 Rx montelukast 10 mg tablet 10 mg PO DAILY #60 tabs 10/31/22 0 08/12/24 Rx insulin lispro 100 unit/mL 60 unit (0.6 mL) continuous 08/12/24 Rx subcutaneous solution (Humalog subcutaneous infusion DAILY #60 mL U-100 Insulin) insulin pump cart,automated,BT #30 ea 04/26/24 08/12/24 Rx rosuvastatin 40 mg tablet 40 mg PO QDAY #90 tabs 04/26/24 Rx zoledronic acid 5 mg/100 mL in 1 ea .Route .QYEAR #100 mL 4 08/12/24 Rx mannitol 5 %-water intravenous piggybck [facility] Medical History Heartburn Shortness of breath on exertion Vitamin D deficiency Diabetes mellitus type 1 Diabetic retinopathy associated with type 1 diabetes mellitus Post-menopausal Wears contact lenses Alcohol use Insulin dependent diabetes mellitus High cholesterol Migraine headache Stroke/cerebrovascular accident Dietary restriction Gastric reflux Non-smoker Asthma History of Holter monitoring History of echocardiogram Cardiology follow-up encounter Insomnia Cerebrovascular disease Insulin pump titration Presence of insulin pump History of stroke right shoulder right elbow left shoulder High cholesterol Diabetes Breast lump UTI (urinary tract infection) Asthma Seasonal allergies Hyperlipidemia CVA (cerebral vascular accident) (09/29/19) Abnormal ultrasound of breast HX: benign breast biopsy Lateral epicondylitis of elbow Insulin pump in place Microcalcifications of the breast Frequent headaches Seasonal allergies Shoulder impingement syndrome Shoulder pain Neck pain Adhesive capsulitis of shoulder Recurrent urinary tract infection Chronic cough Right elbow pain Right tennis elbow Synovitis Moderate persistent asthma, uncomplicated Surgical History History of carpal tunnel release History of hand surgery S/P trigger finger release History of loop recorder (10/28/19) History of elbow surgery Encounter for Essure implantation (10/07/10) H/O laparoscopy (1997) H/O breast biopsy H/O shoulder surgery Family History Mother Asthma Colon cancer Osteoporosis Skin cancer Hypertension History of colectomy Father Parkinson disease Other Depression Diabetes Melanoma Social History household members: spouse housing: house number of children: 2 current occupational status: employed 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 Mio Krishnan, 08/12/24 0746. Part of today???s visit was documented by Lulu LAURA, acting as scribe. IVY CASTELLON is a 53 year old F here today for 1st Euflexxa right knee. Ortho Exam General General: Yes no acute distress and Yes well groomed Neurologic: Yes alert and Yes oriented x3 Psychologic: Yes reasonable and (more content not included)... Normal [facility] Orthopedic Visit Reporton Orthopedic Visit Report [facility] [place] [address] OFFICE VISIT Date of Service: 07/24/24 MR#: [id number] Acct: [id number] Name: IVY CASTELLON Rep #: [id number] : 1970 Provider: Dr. Mio simmons DO Age/Sex: 53/F Location: [facility] [place] Status: Signed Intake Vital Signs 06/14/24 09:02 Height 5 ft 4 in BP 128/53 H Position Sitting Respiration 16 Pulse 81 Temp 96.0 F L Temp Source Temporal Pulse Oximetry (%) 98 Intake Visit Reasons: RIGHT KNEE Chief Complaint: MRI Review Accompanied by: Self Is patient in pain?: No Allergies Environmental Allergies: Uncoded Allergy (Intermediate, Verified 07/24/24 08:10) Hives lisinopril Adverse Reaction (Intermediate, Verified 07/24/24 08:10) HYPOTENSION, SYMPTOMATIC fluticasone furoate (From Breo Ellipta) Adverse Reaction (Mild, Verified 07/24/24 08:10) Other - cough loses voice vilanterol (From Breo Ellipta) Adverse Reaction (Mild, Verified 07/24/24 08:10) Other - cough loses voice lovastatin Adverse Reaction (Unknown, Verified 07/24/24 08:10) Pain in joints Medications ???Medication ???Instructions ???Recorded ???Confirmed ???Type omeprazole 20 mg capsule,delayed 20 mg PO DAILY PRN stomach 0 07/24/24 History release aspirin 81 mg chewable tablet 81 mg PO DAILY@0800 ##30 09/30/19 07/24/24 Rx montelukast 10 mg tablet 10 mg PO DAILY #60 tabs 10/31/22 0 07/24/24 Rx insulin lispro 100 unit/mL 60 unit (0.6 mL) continuous 07/24/24 Rx subcutaneous solution (Humalog subcutaneous infusion DAILY #60 mL U-100 Insulin) insulin pump cart,automated,BT #30 ea 04/26/24 07/24/24 Rx rosuvastatin 40 mg tablet 40 mg PO QDAY #90 tabs 04/26/24 Rx zoledronic acid 5 mg/100 mL in 1 ea .Route .QYEAR #100 mL 4 07/24/24 Rx mannitol 5 %-water intravenous piggybck [facility] Medical History Heartburn Shortness of breath on exertion Vitamin D deficiency Diabetes mellitus type 1 Diabetic retinopathy associated with type 1 diabetes mellitus Post-menopausal Wears contact lenses Alcohol use Insulin dependent diabetes mellitus High cholesterol Migraine headache Stroke/cerebrovascular accident Dietary restriction Gastric reflux Non-smoker Asthma History of Holter monitoring History of echocardiogram Cardiology follow-up encounter Insomnia Cerebrovascular disease Insulin pump titration Presence of insulin pump History of stroke right shoulder right elbow left shoulder High cholesterol Diabetes Breast lump UTI (urinary tract infection) Asthma Seasonal allergies Hyperlipidemia CVA (cerebral vascular accident) (09/29/19) Abnormal ultrasound of breast HX: benign breast biopsy Lateral epicondylitis of elbow Insulin pump in place Microcalcifications of the breast Frequent headaches Seasonal allergies Shoulder impingement syndrome Shoulder pain Neck pain Adhesive capsulitis of shoulder Recurrent urinary tract infection Chronic cough Right elbow pain Right tennis elbow Synovitis Moderate persistent asthma, uncomplicated Surgical History History of carpal tunnel release History of hand surgery S/P trigger finger release History of loop recorder (10/28/19) History of elbow surgery Encounter for Essure implantation (10/07/10) H/O laparoscopy (1997) H/O breast biopsy H/O shoulder surgery Family History Mother Asthma Colon cancer Osteoporosis Skin cancer Hypertension History of colectomy Father Parkinson disease Other Depression Diabetes Melanoma Social History household members: spouse housing: house number of children: 2 current occupational status: employed 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 Mio Krishnan, 07/24/24 0749. Part of today???s visit was documented by Alysha Da Silva ATC, acting as scribe. IVY CASTELLON is a 53 year old F here today for 07/24/2024: right knee MRI review. Patient states the knee does not bother her unless she moves it (more content not included)... Normal [facility] Magnetic resonance imaging r eportOrdered By: Matt Hanson on 07-16-2024 Study report [facility] Imaging Services [address] [place], [place] [address] Lower Ext Joint Only (Routine) MR#: [id number] Acct: [id number] Name: IVY CASTELLON Rep #: [id number] : 1970 F 53 From: Marlo Hanson DO PCP: Dr. Erin Acuna DO Status: REG CLI Study:Lower Ext Joint Only (Routine) Date of Exam: 07/15/24 Exam# [id number] Ordering Dr: Mio Krishnan DO PROCEDURE: MRI right knee without IV contrast REASON FOR EXAM: CHRONIC KNEE PAIN TECHNIQUE: Multisequence multiplanar MR images of the right knee were obtained without the administration of intravenous contrast. COMPARISON: None. FINDINGS Medial and lateral menisci are intact. Anterior and posterior cruciate ligaments are intact. Medial collateral ligament is intact. Mild insertional semimembranosus tendinopathy. Pes tendons are intact. Lateral collateral ligamentous complex is intact. Extensor mechanism is intact. No focal chondral defects in the lateral or patellofemoral compartments. Near full-thickness chondral defect along the mid aspect of the medial tibial plateau measuring 4 x 6 mm. No sizable joint effusion. No significant synovitis. Trace fluid in the semimembranosus bursa. Small ganglia along the popliteus myotendinous junction and adjacent to the popliteal artery. MRI/Lower Ext Joint Only (Routine) IMPRESSION: 1. Intact menisci and cruciates. 2. Focal chondral defect along the medial tibial plateau. Cartilage is otherwise intact. 3. Mild insertional semimembranosus tendinopathy. Minimal fluid in the semimembranosus bursa. Reading Location: [facility] CC: Dr. Mio Krishnan DO; Dr. 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 Imaging Services [address] [place] [id number] Lower Ext Joint Only (Routine) MR#: [id number] Acct: [id number] Name: IVY CASTELLON Rep #: [id number] : 1970 F 53 From: Matt Atkins PCP: Dr. Erin Acuna DO Status: REG CLI Study: Lower Ext Joint Only (Routine) Date of Exam: 0 07/15/24 Exam# [id number] Ordering Dr: Mio Krishnan DO PROCEDURE: MRI right knee without IV contrast REASON FOR EXAM: CHRONIC KNEE PAIN TECHNIQUE: Multisequence multiplanar MR images of the right knee were obtained without the administration of intravenous contrast. COMPARISON: None. FINDINGS Medial and lateral menisci are intact. Anterior and posterior cruciate ligaments are intact. Medial collateral ligament is intact. Mild insertional semimembranosus tendinopathy. Pes tendons are intact. Lateral collateral ligamentous complex is intact. Extensor mechanism is intact. No focal chondral defects in the lateral or patellofemoral compartments. Near full-thickness chondral defect along the mid aspect of the medial tibial plateau measuring 4 x 6 mm. No sizable joint effusion. No significant synovitis. Trace fluid in the semimembranosus bursa. Small ganglia along the popliteus myotendinous junction and adjacent to the popliteal artery. MRI/Lower Ext Joint Only (Routine) IMPRESSION: 1. Intact menisci and cruciates. 2. Focal chondral defect along the medial tibial plateau. Cartilage is otherwise intact. 3. Mild insertional semimembranosus tendinopathy. Minimal fluid in the semimembranosus bursa. Reading Location: [facility] CC: Dr. Mio Krishnan DO; Dr. Erin Acuna DO Solid Waste Collection Worker: Signed [facility] Orthopedic Visit Reporton Orthopedic Visit Report [facility] [address] [place] [address] OFFICE VISIT Date of Service: 06/28/24 MR#: [id number] Acct: [id number] Name: IVY CASTELLON PARKER Rep #: [id number] : 1970 Provider: Dr. Mio simmons DO Age/Sex: 53/F Location: [facility] [place] Status: Signed Intake Vital Signs 05/06/24 09:23 06/14/24 09:02 Height 5 ft 4 in 5 ft 4 in Intake Visit Reasons: RIGHT KNEE Chief Complaint: Right Knee Pain Accompanied by: Self Is patient in pain?: No Allergies Environmental Allergies: Uncoded Allergy (Intermediate, Verified 06/28/24 07:54) Hives lisinopril Adverse Reaction (Intermediate, Verified 06/28/24 07:54) HYPOTENSION, SYMPTOMATIC fluticasone furoate (From Breo Ellipta) Adverse Reaction (Mild, Verified 06/28/24 07:54) Other - cough loses voice vilanterol (From Breo Ellipta) Adverse Reaction (Mild, Verified 06/28/24 07:54) Other - cough loses voice lovastatin Adverse Reaction (Unknown, Verified 06/28/24 07:54) Pain in joints Medications ???Medication ???Instructions ???Recorded ???Confirmed ???Type omeprazole 20 mg capsule,delayed 20 mg PO DAILY PRN stomach 0 06/28/24 History release aspirin 81 mg chewable tablet 81 mg PO DAILY@0800 ##30 09/30/19 06/28/24 Rx montelukast 10 mg tablet 10 mg PO DAILY #60 tabs 10/31/22 0 06/28/24 Rx insulin lispro 100 unit/mL 60 unit (0.6 mL) continuous 06/28/24 Rx subcutaneous solution (Humalog subcutaneous infusion DAILY #60 mL U-100 Insulin) insulin pump cart,automated,BT #30 ea 04/26/24 06/28/24 Rx rosuvastatin 40 mg tablet 40 mg PO QDAY #90 tabs 04/26/24 Rx zoledronic acid 5 mg/100 mL in 1 ea .Route .QYEAR #100 mL 4 06/28/24 Rx mannitol 5 %-water intravenous piggybck [facility] Medical History Heartburn Shortness of breath on exertion Vitamin D deficiency Diabetes mellitus type 1 Diabetic retinopathy associated with type 1 diabetes mellitus Post-menopausal Wears contact lenses Alcohol use Insulin dependent diabetes mellitus High cholesterol Migraine headache Stroke/cerebrovascular accident Dietary restriction Gastric reflux Non-smoker Asthma History of Holter monitoring History of echocardiogram Cardiology follow-up encounter Insomnia Cerebrovascular disease Insulin pump titration Presence of insulin pump History of stroke right shoulder right elbow left shoulder High cholesterol Diabetes Breast lump UTI (urinary tract infection) Asthma Seasonal allergies Hyperlipidemia CVA (cerebral vascular accident) (09/29/19) Abnormal ultrasound of breast HX: benign breast biopsy Lateral epicondylitis of elbow Insulin pump in place Microcalcifications of the breast Frequent headaches Seasonal allergies Shoulder impingement syndrome Shoulder pain Neck pain Adhesive capsulitis of shoulder Recurrent urinary tract infection Chronic cough Right elbow pain Right tennis elbow Synovitis Moderate persistent asthma, uncomplicated Surgical History History of carpal tunnel release History of hand surgery S/P trigger finger release History of loop recorder (10/28/19) History of elbow surgery Encounter for Essure implantation (10/07/10) H/O laparoscopy (1997) H/O breast biopsy H/O shoulder surgery Family History Mother Asthma Colon cancer Osteoporosis Skin cancer Hypertension History of colectomy Father Parkinson disease Other Depression Diabetes Melanoma Social History household members: spouse housing: house number of children: 2 current occupational status: employed 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 Mio Krishnan, DO 06/28/24 0730. Part of today???s visit was documented by Alysha Da Silva ATC, acting as scribe. IVY CASTELLON is a 53 year old F here today for right knee pain. Patient had a steroid injection on 03/11/2024 and she states it helped her a little bit and gave her relief. The injection gave her relief for about 2 months or so. She states she also tri (more content not included)... Normal [facility] [employer] Office Visit Reporton 05-06-2024 [employer] Office Visit Report [facility] [address], [address] [place] [address] OFFICE VISIT Date of Service: 05/06/24 MR#: [id number] Acct: [id number] Name: IVY CASTELLON PARKER Rep #: [id number] : 1970 Provider: EUGENE parsons Age/Sex: 53/F Location: [facility] [place] Status: Signed Intake Vital Signs 05/04/23 09:34 04/26/24 08:00 05/06/24 09:19 05/06/24 09:23 Height 5 ft 4 in 5 ft 4 in 5 ft 4 in 5 ft 4 in Weight: 148 lb 6 oz BMI 25.4 BP 104/62 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) Chief Complaint: Annual Foam Machine Operator Required: No Is patient in pain?: No Allergies Environmental Allergies: Uncoded Allergy (Intermediate, Verified 05/06/24 09:18) Hives lisinopril Adverse Reaction (Intermediate, Verified 05/06/24 09:18) HYPOTENSION, SYMPTOMATIC fluticasone furoate (From Breo Ellipta) Adverse Reaction (Mild, Verified 05/06/24 09:18) Other - cough loses voice vilanterol (From Breo Ellipta) Adverse Reaction (Mild, Verified 05/06/24 09:18) Other - cough loses voice lovastatin Adverse Reaction (Unknown, Verified 05/06/24 09:18) Pain in joints Medications ???Medication ???Instructions ???Recorded ???Confirmed ???Type omeprazole 20 mg capsule,delayed 20 mg PO DAILY PRN stomach 06/26/19 05/06/24 History release aspirin 81 mg chewable tablet 81 mg PO DAILY@0800 ##30 09/30/19 05/06/24 Rx montelukast 10 mg tablet 10 mg PO DAILY #60 tabs 10/31/22 05/06/24 Rx insulin lispro 100 unit/mL 60 unit (0.6 mL) continuous 02/07/24 05/06/24 Rx subcutaneous solution (Humalog subcutaneous infusion DAILY #60 mL U-100 Insulin) insulin pump cart,automated,BT #30 ea 04/26/24 05/06/24 Rx rosuvastatin 40 mg tablet 40 mg PO QDAY #90 tabs 04/26/24 05/06/24 Rx zoledronic acid 5 mg/100 mL in 1 ea .Route .QYEAR #100 mL 04/26/24 05/06/24 Rx mannitol 5 %-water intravenous piggybck Is last menstrual period known: No Post menopausal: Yes Patient : No : No PFSH Medical History Heartburn Shortness of breath on exertion Vitamin D deficiency Diabetes mellitus type 1 Diabetic retinopathy associated with type 1 diabetes mellitus Post-menopausal Wears contact lenses Alcohol use Insulin dependent diabetes mellitus High cholesterol Migraine headache Stroke/cerebrovascular accident Dietary restriction Gastric reflux Non-smoker Asthma History of Holter monitoring History of echocardiogram Cardiology follow-up encounter Insomnia Cerebrovascular disease Insulin pump titration Presence of insulin pump History of stroke right shoulder right elbow left shoulder High cholesterol Diabetes Breast lump UTI (urinary tract infection) Asthma Seasonal allergies Hyperlipidemia CVA (cerebral vascular accident) (09/29/19) Abnormal ultrasound of breast HX: benign breast biopsy Lateral epicondylitis of elbow Insulin pump in place Microcalcifications of the breast Frequent headaches Seasonal allergies Shoulder impingement syndrome Shoulder pain Neck pain Adhesive capsulitis of shoulder Recurrent urinary tract infection Chronic cough Right elbow pain Right tennis elbow Synovitis Moderate persistent asthma, uncomplicated Surgical History History of carpal tunnel release History of hand surgery S/P trigger finger release History of loop recorder (10/28/19) History of elbow surgery Encounter for Essure implantation (10/07/10) H/O laparoscopy (1997) H/O breast biopsy H/O shoulder surgery Family History Mother Asthma Colon cancer Osteoporosis Skin cancer Hypertension History of colectomy Father Parkinson disease Other Depression Diabetes Melanoma Social History household members: spouse housing: house number of children: 2 current occupational status: employed 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 [employer] history of recent travel: No sexually active: Yes Smoking Status: Never smoker alcohol intake: current alcohol intake frequency: a few times a month Alcohol type: hard liquor substance use type: does not use diet: diabetic well-balanced diet: daily or most days caffeine: Yes (1) Type: carbonated beverages frequency: 1-2 times per week seatbelt use: always do you feel safe at home: Yes additional social history: Spouse: rajat History 2 Elective abortions Hx Para 2 Spontaneous abortions Hx # Term Pregnancies 2 Ectopic pregnancies Hx # Pregnancies Multiple births # of living children 2 Past Pregnancies Del. Date Name GA/Weeks Outcome Route Bth Weight Infant Gen Labor Lgth Anesthesia Del (more content not included)... Normal [facility] Endocrinology Visit Reporton 04-26-2024 Endocrinology Visit Report [facility] [address] [place] [address]. [address] [place] [address] OFFICE VISIT Date of Service: 04/26/24 MR#: [id number] Acct: [id number] Name: IVY CASTELLON PARKER Rep #: [id number] : 1970 Provider: Dave Chapin Age/Sex: 53/F Location: [facility] Status: Signed Intake Vital Signs 10/12/23 13:13 12/12/23 13:28 04/26/24 08:00 Height 5 ft 4 in 5 ft 4 in 5 ft 4 in Weight: 148 lb 2 oz BMI 25.4 BP 110/69 Blood Pressure Location Rt brachial Position Sitting Respiration 16 Pulse 96 Pulse Source Monitor Temp 98.2 F Temp Source Temporal Pulse Oximetry (%) 95 Oxygen Delivery Method room air Intake Visit Reasons: 6 M FU Chief Complaint: Diabetes, lipids, bone Foam Machine Operator Required: No Accompanied by: Self Is patient in pain?: No Allergies Environmental Allergies: Uncoded Allergy (Intermediate, Verified 04/26/24 07:51) Hives lisinopril Adverse Reaction (Intermediate, Verified 04/26/24 07:51) HYPOTENSION, SYMPTOMATIC fluticasone furoate (From Breo Ellipta) Adverse Reaction (Mild, Verified 04/26/24 07:51) Other - cough loses voice vilanterol (From Breo Ellipta) Adverse Reaction (Mild, Verified 04/26/24 07:51) Other - cough loses voice lovastatin Adverse Reaction (Unknown, Verified 04/26/24 07:51) Pain in joints Medications ???Medication ???Instructions ???Recorded ???Confirmed ???Type omeprazole 20 mg capsule,delayed 20 mg PO DAILY PRN stomach 06/26/19 04/26/24 History release aspirin 81 mg chewable tablet 81 mg PO DAILY@0800 ##30 09/30/19 04/26/24 Rx montelukast 10 mg tablet 10 mg PO DAILY #60 tabs 10/31/22 04/26/24 Rx insulin lispro 100 unit/mL 60 unit (0.6 mL) continuous 02/07/24 04/26/24 Rx subcutaneous solution (Humalog subcutaneous infusion DAILY #60 mL U-100 Insulin) insulin pump cart,automated,BT #30 ea 04/26/24 04/26/24 Rx rosuvastatin 40 mg tablet 40 mg PO QDAY #90 tabs 04/26/24 04/26/24 Rx zoledronic acid 5 mg/100 mL in 1 ea .Route .QYEAR #100 mL 04/26/24 04/26/24 Rx mannitol 5 %-water intravenous piggybck [facility] Medical History Heartburn Shortness of breath on exertion Vitamin D deficiency Diabetes mellitus type 1 Diabetic retinopathy associated with type 1 diabetes mellitus Post-menopausal Wears contact lenses Alcohol use Insulin dependent diabetes mellitus High cholesterol Migraine headache Stroke/cerebrovascular accident Dietary restriction Gastric reflux Non-smoker Asthma History of Holter monitoring History of echocardiogram Cardiology follow-up encounter Insomnia Cerebrovascular disease Insulin pump titration Presence of insulin pump History of stroke right shoulder right elbow left shoulder High cholesterol Diabetes Breast lump UTI (urinary tract infection) Asthma Seasonal allergies Hyperlipidemia CVA (cerebral vascular accident) (09/29/19) Abnormal ultrasound of breast HX: benign breast biopsy Lateral epicondylitis of elbow Insulin pump in place Microcalcifications of the breast Frequent headaches Seasonal allergies Shoulder impingement syndrome Shoulder pain Neck pain Adhesive capsulitis of shoulder Recurrent urinary tract infection Chronic cough Right elbow pain Right tennis elbow Synovitis Moderate persistent asthma, uncomplicated Surgical History History of carpal tunnel release History of hand surgery S/P trigger finger release History of loop recorder (10/28/19) History of elbow surgery Encounter for Essure implantation (10/07/10) H/O laparoscopy (1997) H/O breast biopsy H/O shoulder surgery Family History Mother Asthma Colon cancer Osteoporosis Skin cancer Hypertension History of colectomy Father Parkinson disease Other Depression Diabetes Melanoma Social History household members: spouse housing: house number of children: 2 current occupational status: employed 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 A1C is 7.3% She states she was on st (more content not included)... Normal [facility] - Hematology and Cell countson 04-26-2024 HbA1c (Bld) [Mass fraction] 7.3 % High 4.2-6.3 [facility] 60-DU-Gkaxids DOrdered By: Elvis Gamboa on 04-22-2024 Vitamin D 25-Hydroxy 20.7 ng/mL [facility] Comment on above: Vitamin D 25(OH) Sta tus Range Deficiency <20 ng/mL (50nmol/L) Insufficiency 20 - 30 ng/mL (50 - 75 nmol/L) Sufficiency 30 - 100 ng/mL (75 - 250 nmol/L) Toxicity >100 ng/mL (>250 nmol/L) Albumin to globulin ratioOrd ered By: Joe Gamboa on 04-22-2024 Albumin/Globulin [Mass ratio] 0.9 {ratio} 0.9-2.4 [facility] Bilirubin, totalOrdered By: Joe Gamboa on 04-22-2024 Bilirubin [Mass/Vol] 0.40 mg/dL 0.20-1.00 [facility] Comment on above: For patients on eltr ombopag therapy, use of Dimension [place] TBIL is not recommended. Blood urea nitrogen (BUN)/cr eatinine ratioOrdered By: Joe Gamboa on 04-22-2024 Urea nitrogen/Creatinine [Mass ratio] 24.8 mg/mg High 02-24 [facility] Carbon dioxide measurementOr dered By: Joe Gamboa on 04-22-2024 CO2 [Moles/Vol] 28.0 mmol/L 21.0-32.0 [facility] Chloride measurementOrdered By: Joe Gamboa on 04-22-2024 Chloride [Moles/Vol] 106 mmol/L 98-107 [facility] Comprehensive Metabolic Prof ilon 04-22-2024 Albumin [Mass/Vol] 3.6 g/dL Normal 3.2-5.0 [facility] Comment on above: Performed By: #### L 500.4100, L506.1000, L501.9520, L500.4050 ####[facility] [address] [place], [address] Albumin/Globulin [Mass ratio] 0.9 {ratio} Normal 0.9-2.4 [facility] Comment on above: Performed By: #### L 500.4100, L506.1000, L501.9520, L500.4050 ####[facility] [address] [place], [address] ALK P 68 U/L Normal 45-117 [facility] Comment on above: Performed By: #### L 500.4100, L506.1000, L501.9520, L500.4050 ####[facility] [address] [place], [address] ALT [Catalytic activity/Vol] 13 U/L Normal 13-56 [facility] Comment on above: Performed By: #### L 500.4100, L506.1000, L501.9520, L500.4050 ####[facility] [address] [place], [address] AST [Catalytic activity/Vol] 17 U/L Normal 15-37 [facility] Comment on above: Performed By: #### L 500.4100, L506.1000, L501.9520, L500.4050 ####[facility] [address] [place], [address] Bilirubin [Mass/Vol] 0.40 mg/dL Normal 0.20-1.00 [facility] Comment on above: Result Comment: For patients on eltrombopag therapy, use of Dimension [place] TBIL is not recommended. Performed By: #### L 500.4100, L506.1000, L501.9520, L500.4050 ####[facility] [address] [place], [address] BUN/CRE 24.8 RATIO High 10-20 [facility] Comment on above: Performed By: #### L 500.4100, L506.1000, L501.9520, L500.4050 ####[facility] [address] [place], [address] CA,Total 9.4 mg/dL Normal 8.5-10.1 [facility] Comment on above: Performed By: #### L 500.4100, L506.1000, L501.9520, L500.4050 ####[facility] [address] [place], [address] Chloride [Moles/Vol] 106 mmol/L Normal 98-107 [facility] Comment on above: Performed By: #### L 500.4100, L506.1000, L501.9520, L500.4050 ####[facility] [address] [place], [address] CO2 [Moles/Vol] 28.0 mmol/L Normal 21.0-32.0 [facility] Comment on above: Performed By: #### L 500.4100, L506.1000, L501.9520, L500.4050 ####[facility] [address] [place], [address] Creatinine [Mass/Vol] 0.81 mg/dL Normal 0.55-1.02 [facility] Comment on above: Result Comment: The validity of the calculated GFR GFRAA in patients over 70 years has not been determined. Clinical correlation is essential. Performed By: #### L 500.4100, L506.1000, L501.9520, L500.4050 ####[facility] [address] [place], [address] EST GFR - AA 95 mL/min Normal >60 [facility] Comment on above: Result Comment: Afri can [place] GFR Calc Performed By: #### L 500.4100, L506.1000, L501.9520, L500.4050 ####[facility] [address] [place], [address] GAP 4 Low 5-15 [facility] Comment on above: Performed By: #### L 500.4100, L506.1000, L501.9520, L500.4050 ####[facility] [address] [place], [address] GFR/1.73 sq M.predicted among non-blacks MDRD (S/P/Bld) [Vol rate/Area] 79 mL/min/{1.73_m2} Normal >60 [facility] Comment on above: Result Comment: Non- GFR Calc Performed By: #### L 500.4100, L506.1000, L501.9520, L500.4050 ####[facility] [address] [place], [address] Globulin (S) [Mass/Vol] 4.1 g/dL Normal 2.2-4.2 [facility] Comment on above: Performed By: #### L 500.4100, L506.1000, L501.9520, L500.4050 ####[facility] [address] [place], [address] Glucose [Mass/Vol] 163 mg/dL High 74-106 [facility] Comment on above: Result Comment: Fast ing Glucose result greater than or equal to 126 mg/dL suggests DIABETES MELLITUS per A.D.A. criteria. Performed By: #### L 500.4100, L506.1000, L501.9520, L500.4050 ####[facility] [address] [place], [address] Potassium [Moles/Vol] 4.5 mmol/L Normal 3.5-5.1 [facility] Comment on above: Performed By: #### L 500.4100, L506.1000, L501.9520, L500.4050 ####[facility] [address] [place], [address] Sodium [Moles/Vol] 139 mmol/L Normal 136-145 [facility] Comment on above: Performed By: #### L 500.4100, L506.1000, L501.9520, L500.4050 ####[facility] [address] [place], [address] T PROT 7.7 g/dL Normal 6.4-8.2 [facility] Comment on above: Performed By: #### L 500.4100, L506.1000, L501.9520, L500.4050 ####[facility] [address] [place], [address] Urea nitrogen [Mass/Vol] 20 mg/dL High 7-18 [facility] Comment on above: Performed By: #### L 500.4100, L506.1000, L501.9520, L500.4050 ####[facility] [address] [place], [address] Estimated glomerular filtrat ion rate (GFR) AmericanOrdered By: Joe Gamboa on 04-22-2024 Estimated GFR (MDRD) Amer 95 mL/min >60 [facility] Comment on above: GFR Calc Glomerular filtration rate ( GFR) estimationOrdered By: Joe Gamboa on 04-22-2024 Estimated GFR (MDRD) Non-Af Amer 79 mL/min >60 [facility] Comment on above: Non- GFR Calc Glucose measurementOrdered B y: Joe Gamboa on 04-22-2024 Glucose [Mass/Vol] 163 mg/dL High 74-106 [facility] Comment on above: Fasting Glucose resu lt greater than or equal to 126 mg/dL suggests DIABETES MELLITUS per A.D.A. criteria. High density lipoprotein (HD L) measurementOrdered By: Joe Gamboa on 04-22-2024 Cholesterol in HDL [Mass/Vol] 98 mg/dL >40 [facility] Comment on above: The drugs N-Acetylcy steine and Metamizole may falsely depress this assay. Reference Range HDL <40 mg/dL Low HDL Cholesterol HDL >or= 60 mg/dL High HDL Cholesterol Laboratory - Chemistry and C hemistry - challengeOrdered By: Joe Gamboa on 04-22-2024 AST [Catalytic activity/Vol] 17 U/L 15-37 [facility] Lipid Profileon 04-22-2024 Cholesterol [Mass/Vol] 244 mg/dL High 200 [facility] Comment on above: Result Comment: <200 mg/dL Desirable 200-240 mg/dL Borderline >240 mg/dL High Risk Performed By: #### L 500.4100, L506.1000, L501.9520, L500.4050 ####[facility] [address] [place], [address] Cholesterol in HDL [Mass/Vol] 98 mg/dL Normal [facility] Comment on above: Result Comment: The drugs N-Acetylcysteine and Metamizole may falsely depress this assay. Reference Range HDL <40 mg/dL Low HDL Cholesterol HDL >or= 60 mg/dL High HDL Cholesterol Performed By: #### L 500.4100, L506.1000, L501.9520, L500.4050 ####[facility] [address] [place], [address] Cholesterol in LDL [Mass/Vol] 133 mg/dL High 0-130 [facility] Comment on above: Performed By: #### L 500.4100, L506.1000, L501.9520, L500.4050 ####[facility] [address] [place], [address] Cholesterol in VLDL [Mass/Vol] 13 mg/dL Normal 5-40 [facility] Comment on above: Performed By: #### L 500.4100, L506.1000, L501.9520, L500.4050 ####[facility] [address] [place], [address] Triglyceride [Mass/Vol] 64 mg/dL Normal [facility] Comment on above: Result Comment: The drugs N-Acetylcysteine and Metamizole may falsely depress this assay. Serum Triglycerides Reference Interval Normal <150 mg/dL Borderline high 150 - 199 mg/dL High 200 - 499 mg/dL Very High > or = 500 mg/dL Performed By: #### L 500.4100, L506.1000, L501.9520, L500.4050 ####[facility] [address] [place], [place], [address] Low density lipoprotein (LDL ) cholesterol measurementOrdered By: Joe Gamboa on 04-22-2024 Cholesterol in LDL [Mass/Vol] 133 mg/dL High 0-130 [facility] Potassium measurementOrdered By: Joe Gamboa on 04-22-2024 Potassium [Moles/Vol] 4.5 mmol/L 3.5-5.1 [facility] Serum anion gap measurementO rdered By: Joe Gamboa on 04-22-2024 Anion gap [Moles/Vol] 4 mmol/L Low 5-15 [facility] Serum globulin measurementOr dered By: Joe Gamboa on 04-22-2024 Globulin (S) [Mass/Vol] 4.1 g/dL 2.2-4.2 [facility] Serum or plasma alanine abdullahi otransferase (ALT) measurementOrdered By: Joe Gamboa on 04-22-2024 ALT [Catalytic activity/Vol] 13 U/L 13-56 [facility] Serum or plasma albumin sheron urement (mass/volume)Ordered By: Joe Gamboa on 04-22-2024 Albumin [Mass/Vol] 3.6 g/dL 3.2-5.0 [facility] Serum or plasma alkaline rigoberto sphatase measurementOrdered By: Joe Gamboa on 04-22-2024 ALP [Catalytic activity/Vol] 68 U/L 45-117 [facility] Serum or plasma calcium sheron urement (mass/volume)Ordered By: Joe Gamboa on 04-22-2024 Calcium [Mass/Vol] 9.4 mg/dL 8.5-10.1 [facility] Serum or plasma cholesterol measurement (mass/volume)Ordered By: Joe Gamboa on 04-22-2024 Cholesterol [Mass/Vol] 244 mg/dL High <200 [facility] Comment on above: <200 mg/dL Desirable 200-240 mg/dL Borderline >240 mg/dL High Risk Serum or plasma creatinine m easurement (mass/volume)Ordered By: Joe Gamboa on 04-22-2024 Creatinine [Mass/Vol] 0.81 mg/dL 0.55-1.02 [facility] Comment on above: The validity of the calculated GFR & GFRAA in patients over 70 years has not been determined. Clinical correlation is essential. Serum or plasma urea nitroge n measurement (mass/volume)Ordered By: Joe Gamboa on 04-22-2024 Urea nitrogen [Mass/Vol] 20 mg/dL High 7-18 [facility] Sodium levelOrdered By: Joe Gamboa on 04-22-2024 Sodium [Moles/Vol] 139 mmol/L 136-145 [facility] TSH QnOrdered By: Joe Gamboa on 04-22-2024 Thyroid Stimulating Hormone (TSH) 2.230 uIU/mL 0.358-3.740 [facility] Thyroid Stim Hormone (TSH)on 04-22-2024 TSH 2.230 uIU/mL Normal 0.358-3.740 [facility] Comment on above: Performed By: #### L 500.4100, L506.1000, L501.9520, L500.4050 ####[facility] [address] [place], [address] Total proteinOrdered By: David Gamboa on 04-22-2024 Protein [Mass/Vol] 7.7 g/dL 6.4-8.2 [facility] Triglycerides measurementOrd ered By: Joe Gamboa on 04-22-2024 Triglyceride [Mass/Vol] 64 mg/dL <199 [facility] Comment on above: The drugs N-Acetylcy steine and Metamizole may falsely depress this assay.Serum Triglycerides Reference Interval Normal <150 mg/dL Borderline high 150 - 199 mg/dL High 200 - 499 mg/dL Very High > or = 500 mg/dL Very low density lipoprotein (VLDL) cholesterol measurementOrdered By: Joe Gamboa on 04-22-2024 VLDL Cholesterol 13 mg/dL 5-40 [facility] Vitamin D,25 Hydroxyon 04-22 Vitamin D 25-OH 20.7 ng/mL Normal [facility] Comment on above: Result Comment: Colette min D 25(OH) Status Range Deficiency <20 ng/mL (50nmol/L) Insufficiency 20 - 30 ng/mL (50 - 75 nmol/L) Sufficiency 30 - 100 ng/mL (75 - 250 nmol/L) Toxicity >100 ng/mL (>250 nmol/L) Performed By: #### L 500.4100, L506.1000, L501.9520, L500.4050 ####[facility] [address] [place], [address] PT D/C Summary (1)on 024 PT D/C Summary (1) [facility] [address] [place] [address] / REHABILITATION SERVICES DISCHARGE SUMMARY MR#: [id number] Acct: [id number] Name: IVY CASTELLON Rep #: [id number] : 1970 53 From: Austin Blanco DPT, OCS, CSCS Referring Dr.: Dr. Mio Krishnan DO Status: R EG RCR Insurance: [facility] SELF PAY INSURANCE Discharge Summary D/C summary: It has been my pleasure to treat IVY CASTELLON referred by Dr. Mio Krishnan DO, with the diagnosis of R knee chondromalacia for a total of 10 visit(s). Discharge Date: 04/10/24 Please see the following information for a summary of their discharge status. Subjective Subjective: Getting better. Still some limited ROM. No pain unless bending. No problem with extension. Will notice it kneeling. Not noticing it on the steps anymore. HEP: joined gym and will continue. No f/u with Dr. Jain. Pain R knee: Pain Intensity (Out of 10): 4 Overall Improvement % Improvement: 65 Objective Objective/Function: 0-126 AROM R knee today limited by pressure at end range flexion, mild positive bounce home. Walks well, steps without pain or irritation or limitation today. Floor transfer with nly pain if kneels to low or phyllis to low and is I. Goals Goal 1:: Full R knee arom flexion without pain 140 Goal Progress: ProgressingSLOW Goal 2:: steps descending without pain Goal Progress: Goal Met Goal 3:: Pt feel pain 90% better and 1/10 at worst Goal Progress: 65% Goal 4:: LEFS 58 Goal Progress: Goal Met Plan Plan: continue gym 3x/week and stretching daily 2x and f/u with doctor if improvment does not continue. D/C Information Discharge Comments: Pt to doctor if improvement does not continue with gym/HEP d/c sentence: If there are questions or concerns regarding this patient's physical therapy, please feel free to call me at [phone]. Thank you for the referral of this patient. Sincerely, Austin Blanco, DPT, OCS, CSCS Balance/Gait/Functiona l tests Balance/Special Test Scores Lower Extremity Functional Score: 77 Improvement % Improvement: 65 04/10/24 0849 CC: Dr. Mio Krishnan, DO; Dr. Erin Acuna, DO EBG Signed Normal [facility] Basophil percentageOrdered B y: Joe Gamboa on 05-04-2023 Bilirubin [Mass/Vol] 0.40 mg/dL 0.20-1.00 [facility] Comment on above: For patients on eltr ombopag therapy, use of Dimension [place] TBIL is not recommended. Chloride [Moles/Vol] 105 mmol/L 98-107 [facility] Cholesterol [Mass/Vol] 204 mg/dL <200 [facility] Comment on above: <200 mg/dL Desirable 200-240 mg/dL Borderline >240 mg/dL High Risk Glucose [Mass/Vol] 133 mg/dL 74-106 [facility] Comment on above: Fasting Glucose resu lt greater than or equal to 126 mg/dL suggests DIABETES MELLITUS per A.D.A. criteria. Potassium [Moles/Vol] 4.1 mmol/L 3.5-5.1 [facility] Protein [Mass/Vol] 7.7 g/dL 6.4-8.2 [facility] Sodium [Moles/Vol] 140 mmol/L 136-145 [facility] Triglyceride [Mass/Vol] 68 mg/dL <199 [facility] Comment on above: The drugs N-Acetylcy steine and Metamizole may falsely depress this assay.Serum Triglycerides Reference Interval Normal <150 mg/dL Borderline high 150 - 199 mg/dL High 200 - 499 mg/dL Very High > or = 500 mg/dL Laboratory - Chemistry and C hemistry - challengeOrdered By: Joe Gamboa on 05-04-2023 ALP [Catalytic activity/Vol] 61 U/L 45-117 [facility] ALT [Catalytic activity/Vol] 18 U/L 13-56 [facility] CO2 [Moles/Vol] 30.0 mmol/L 21.0-32.0 [facility] Globulin (S) [Mass/Vol] 3.8 g/dL 2.2-4.2 [facility] Urea nitrogen/Creatinine [Mass ratio] 21.1 mg/mg 10-20 [facility] Laboratory - Hematology and Cell countson 05-04-2023 HbA1c (Bld) [Mass fraction] 7.3 % [facility] No Panel InformationOrdered By: Joe Gamboa on 05-04-2023 Estimated GFR (MDRD) Amer 90 mL/min >60 [facility] Comment on above: GFR Calc Estimated GFR (MDRD) Non-Af Amer 74 mL/min >60 [facility] Comment on above: Non- GFR Calc Thyroid Stimulating Hormone (TSH) 1.78 uIU/mL 0.358-3.74 [facility] Vitamin D 25-Hydroxy 30.0 ng/mL [facility] Comment on above: Vitamin D 25(OH) Sta tus Range Deficiency <20 ng/mL (50nmol/L) Insufficiency 20 - 30 ng/mL (50 - 75 nmol/L) Sufficiency 30 - 100 ng/mL (75 - 250 nmol/L) Toxicity >100 ng/mL (>250 nmol/L) Serum or plasma albumin sheron urement (mass/volume)Ordered By: Joe Gamboa on 05-04-2023 Albumin [Mass/Vol] 3.9 g/dL 3.2-5.0 [facility] Serum or plasma albumin/glob ulin mass ratioOrdered By: Joe Gamboa on 05-04-2023 Albumin/Globulin [Mass ratio] 1.0 {ratio} 0.9-2.4 [facility] Serum or plasma calcium sheron urement (mass/volume)Ordered By: Joe Gamboa on 05-04-2023 Calcium [Mass/Vol] 9.2 mg/dL 8.5-10.1 [facility] Serum or plasma cholesterol in HDL measurement (mass/volume)Ordered By: Joe Gamboa on 05-04-2023 Cholesterol in HDL [Mass/Vol] 94 mg/dL >40 [facility] Comment on above: The drugs N-Acetylcy steine and Metamizole may falsely depress this assay. Reference Range HDL <40 mg/dL Low HDL Cholesterol HDL >or= 60 mg/dL High HDL Cholesterol Serum or plasma cholesterol in VLDL measurement (mass/volume)Ordered By: Joe Gamboa on 05-04-2023 Cholesterol in VLDL [Mass/Vol] 14 mg/dL 5-40 [facility] Serum or plasma creatinine m easurement (mass/volume)Ordered By: Joe Gamboa on 05-04-2023 Creatinine [Mass/Vol] 0.85 mg/dL 0.55-1.02 [facility] Comment on above: The validity of the calculated GFR & GFRAA in patients over 70 years has not been determined. Clinical correlation is essential. Serum or plasma low density lipoprotein (LDL) cholesterol measurement (mass/volume)Ordered By: Joe Gamboa on 05-04-2023 Cholesterol in LDL [Mass/Vol] 96 mg/dL 0-130 [facility] Serum or plasma urea nitroge n measurement (mass/volume)Ordered By: Joe Gamboa on 05-04-2023 Urea nitrogen [Mass/Vol] 18 mg/dL 7-18 [facility] Thin prep Papanicolaou smear with manual screeningOrdered By: Joe Gamboa on 05-04-2023 Thin prep Papanicolaou smear with manual screening 12 U/L 15-37 [facility] Thin prep Papanicolaou smear with manual screening 5 5-15 [facility] Glucose Glucometer (BldC) [M ass/Vol]Ordered By: Mio Krishnan on 12-20-2022 Glucose [Mass/Vol] 168 mg/dL 74-106 [facility] Comment on above: MANAGEMENT OF PATIEN T CARE PER NURSING PROTOCOL Basophil percentageOrdered B y: Joe Gamboa on 11-01-2022 Bilirubin [Mass/Vol] 0.50 mg/dL 0.20-1.00 [facility] Comment on above: For patients on eltr ombopag therapy, use of Dimension [place] TBIL is not recommended. Chloride [Moles/Vol] 108 mmol/L 98-107 [facility] Cholesterol [Mass/Vol] 194 mg/dL <200 [facility] Comment on above: <200 mg/dL Desirable 200-240 mg/dL Borderline >240 mg/dL High Risk Glucose [Mass/Vol] 103 mg/dL 74-106 [facility] Comment on above: Fasting Glucose resu lt from 100 to 125 mg/dL suggests IMPAIRED HOMEOSTASIS per A.D.A. criteria. Potassium [Moles/Vol] 4.5 mmol/L 3.5-5.1 [facility] Protein [Mass/Vol] 7.5 g/dL 6.4-8.2 [facility] Sodium [Moles/Vol] 141 mmol/L 136-145 [facility] Triglyceride [Mass/Vol] 73 mg/dL <199 [facility] Comment on above: The drugs N-Acetylcy steine and Metamizole may falsely depress this assay.Serum Triglycerides Reference Interval Normal <150 mg/dL Borderline high 150 - 199 mg/dL High 200 - 499 mg/dL Very High > or = 500 mg/dL Laboratory - Chemistry and C hemistry - challengeOrdered By: Joe Gamboa on 11-01-2022 ALP [Catalytic activity/Vol] 54 U/L 45-117 [facility] ALT [Catalytic activity/Vol] 20 U/L 13-56 [facility] CO2 [Moles/Vol] 28.0 mmol/L 21.0-32.0 [facility] Globulin (S) [Mass/Vol] 3.8 g/dL 2.2-4.2 [facility] Urea nitrogen/Creatinine [Mass ratio] 20.9 mg/mg 10-20 [facility] Laboratory - Hematology and Cell countson 11-01-2022 HbA1c (Bld) [Mass fraction] 6.9 % 4.2-6.3 [facility] No Panel InformationOrdered By: Joe Gamboa on 11-01-2022 Estimated GFR (MDRD) Amer 89 mL/min >60 [facility] Comment on above: GFR Calc Estimated GFR (MDRD) Non-Af Amer 73 mL/min >60 [facility] Comment on above: Non- GFR Calc Thyroid Stimulating Hormone (TSH) 1.70 uIU/mL 0.358-3.74 [facility] Urine Microalbumin/Creatinine Ratio 9.7 mg/g CRE <30 [facility] Vitamin D 25-Hydroxy 36.9 ng/mL [facility] Comment on above: Vitamin D 25(OH) Sta tus Range Deficiency <20 ng/mL (50nmol/L) Insufficiency 20 - 30 ng/mL (50 - 75 nmol/L) Sufficiency 30 - 100 ng/mL (75 - 250 nmol/L) Toxicity >100 ng/mL (>250 nmol/L) Serum or plasma albumin sheron urement (mass/volume)Ordered By: Joe Gamboa on 11-01-2022 Albumin [Mass/Vol] 3.7 g/dL 3.2-5.0 [facility] Serum or plasma albumin/glob ulin mass ratioOrdered By: Joe Gamboa on 11-01-2022 Albumin/Globulin [Mass ratio] 1.0 {ratio} 0.9-2.4 [facility] Serum or plasma calcium sheron urement (mass/volume)Ordered By: Joe Gamboa on 11-01-2022 Calcium [Mass/Vol] 9.2 mg/dL 8.5-10.1 [facility] Serum or plasma cholesterol in HDL measurement (mass/volume)Ordered By: Joe Gamboa on 11-01-2022 Cholesterol in HDL [Mass/Vol] 86 mg/dL >40 [facility] Comment on above: The drugs N-Acetylcy steine and Metamizole may falsely depress this assay. Reference Range HDL <40 mg/dL Low HDL Cholesterol HDL >or= 60 mg/dL High HDL Cholesterol Serum or plasma cholesterol in VLDL measurement (mass/volume)Ordered By: Joe Gamboa on 11-01-2022 Cholesterol in VLDL [Mass/Vol] 15 mg/dL 5-40 [facility] Serum or plasma creatinine m easurement (mass/volume)Ordered By: Joe Gamboa on 11-01-2022 Creatinine [Mass/Vol] 0.86 mg/dL 0.55-1.02 [facility] Comment on above: The validity of the calculated GFR & GFRAA in patients over 70 years has not been determined. Clinical correlation is essential. Serum or plasma low density lipoprotein (LDL) cholesterol measurement (mass/volume)Ordered By: Joe Gamboa on 11-01-2022 Cholesterol in LDL [Mass/Vol] 93 mg/dL 0-130 [facility] Serum or plasma thyroperoxid ase antibody assay (units/volume)Ordered By: Joe Gamboa on 11-01-2022 TPO Ab Qn 10 [IU]/mL 0-34 [facility] Comment on above: Performed at: [address] [id number] Director: Timothy Rivera PhD, Phone: [phone] Serum or plasma urea nitroge n measurement (mass/volume)Ordered By: Joe Gamboa on 11-01-2022 Urea nitrogen [Mass/Vol] 18 mg/dL 7-18 [facility] Thin prep Papanicolaou smear with manual screeningOrdered By: Joe Gamboa on 11-01-2022 Thin prep Papanicolaou smear with manual screening 19 U/L 15-37 [facility] Thin prep Papanicolaou smear with manual screening 5 5-15 [facility] Thin prep Papanicolaou smear with manual screening 8.1 mg/L NO RANGE EST. [facility] Urine creatinine measurement (mass/volume)Ordered By: Joe Gamboa on 11-01-2022 Creatinine (U) [Mass/Vol] 84.00 mg/dL NO RANGE EST. [facility] Laboratory - Hematology and Cell countson 05-05-2022 HbA1c (Bld) [Mass fraction] 6.3 % 4.2-6.3 [facility] No Panel InformationOrdered By: Dr. Gamboa on 05-05-2022 Follicle Stimulating Hormone 127.3 mIU/mL [facility] Comment on above: NORMAL REFERENCE RAN GES FEMALE FOLLICULAR 2.3 - 12.6 mIU/mL MID-CYCLE PEAK 5.2 - 17.5 mIU/mL LUTEAL 1.7 - 12.9 mIU/mL POST-MENOPAUSAL ON MHT 5.9 - 72.8 mIU/mL NOT ON MHT 12.7 - 132.2 mlU/mL MALE 0.7 - 10.8 mIU/mL Luteinizing Hormone 67.4 mIU/mL [facility] Comment on above: NORMAL REFERENCE RAN GES FEMALE FOLLICULAR 1.9 - 26.2 mIU/mL MID-CYCLE PEAK 22.8 - 76.1 mIU/mL LUTEAL 0.6 - 16.6 mIU/mL POST-MENOPAUSAL ON MHT 1.1 - 52.4 mIU/mL NOT ON MHT 8.6 - 61.8 mIU/mL MALE 1.2 - 10.6 mIU/mL Vitamin D 25-Hydroxy 37.5 ng/mL [facility] Comment on above: Vitamin D 25(OH) Sta tus Range Deficiency <20 ng/mL (50nmol/L) Insufficiency 20 - 30 ng/mL (50 - 75 nmol/L) Sufficiency 30 - 100 ng/mL (75 - 250 nmol/L) Toxicity >100 ng/mL (>250 nmol/L) Cervical or vagninal specime n microscopic examination by cytology stain (reported asOrdered By: Luz Maria Redding on 05-03-2022 Cytology report Cyto stain Doc (Cvx/Vag) Comment . [facility] Comment on above: The Pap smear is a s creening test designed to aid in thedetection of premalignant and malignant conditions of theuterine cervix. It is not a diagnostic procedure andshould not be used as the sole means of detecting cervicalcancer. Both false-positive and false-negative reports dooccur. Detection in cervical specim en of any of human papilloma virus (HPV) 16, 18, 31, 33,Ordered By: Luz Maria Redding on 05-03-2022 HPV 16+18+31+33+35+39+45+51 +52+56+58+59+66+68 DNA Probe+sig amp Ql (Cvx) Negative Negative [facility] Comment on above: This nucleic acid am plification test detects fourteen high-risk HPV types (16,18,31,33,35,39,45,51,52,56,58,59,66,68)without differentiation. Laboratory - CytologyOrdered By: Luz Maria Redding on 05-03-2022 Scraper Operator Cyto stain Nom (Cvx/Vag) [ID] Comment . [facility] Comment on above: Vinicius Rodriguez totechnologist (ASCP) Laboratory - Miscellaneous t estsOrdered By: Luz Maria Redding on 05-03-2022 Service comment (Unsp spec) [Interp] Comment . [facility] Comment on above: This liquid based Th inPrep(R) pap test was screened withthe use of an image guided system. Service comment (Unsp spec) [Interp] . . [facility] Liquid-based cerv Pap + CT/G C by IONA w reflex to high-risk HPV for ASCUSOrdered By: Luz Maria Redding on 05-03-2022 Cytology report Cyto stain.thin prep Doc (Cvx/Vag) Comment . [facility] Comment on above: Criteria not met, HP V Genotype not performed.Performed at: [facility] [id number] Director: Bijal De La Vega MD, Phone: [phone] at: =[facility] - [facility] [id number] Director: Bijal De La Vega MD, Phone: [phone] No Panel InformationOrdered By: Luz Maria Redding on 05-03-2022 Pathology report final diagnosis Narrative Comment . [facility] Comment on above: NEGATIVE FOR INTRAEP ITHELIAL LESION OR MALIGNANCY. Alternaria alternata IgE ser umOrdered By: Dr. Antunez on 04-13-2022 A. alternata IgE Qn (S) <0.10 kU/L Class 0 [facility] Laboratory - Miscellaneous t estsOrdered By: Dr. Antunez on 04-13-2022 Service comment (Unsp spec) [Interp] Comment . [facility] Comment on above: Levels of Specific I gE Class Description of Class ----- < 0.10 0 Negative 0.10 - 0.31 0/I Equivocal/Low 0.32 - 0.55 I Low 0.56 - 1.40 II Moderate 1.41 - 3.90 III High 3.91 - 19.00 IV Very High 19.01 - 100.00 V Very High >100.00 [facility] No Panel InformationOrdered By: Dr. Antunez on 04-13-2022 Aspergillus fumigatus Allergen <0.10 kU/L Class 0 [facility] Common Ragweed (Short) Allergen <0.10 kU/L Class 0 [facility] Lao Plantain Allergen (RAST) <0.10 kU/L Class 0 [facility] Maple ([place]) Allergen IgE Ab <0.10 kU/L Class 0 [facility] Chester Tree Allergen <0.10 kU/L Class 0 [facility] Rough pigweed specific IgE a ntibody assayOrdered By: Dr. Antunez on 04-13-2022 Rough Pigweed IgE Qn (S) <0.10 kU/L Class 0 [facility] Serum Bermuda grass IgE anti body assay (units/volume)Ordered By: Dr. Antunez on 04-13-2022 Bermuda grass IgE Qn (S) <0.10 kU/L Class 0 [facility] Serum Cladosporium herbarum IgE antibody assay (units/volume)Ordered By: Dr. Antunez on 04-13-2022 C. herbarum IgE Qn (S) <0.10 kU/L Class 0 [facility] Serum Dermatophagoides farin ae specific IgE antibody assay (units/volume)Ordered By: Dr. Antunez on 04-13-2022 [place] house dust mite IgE Qn (S) 0.29 kU/L Class 0/I [facility] Serum house dust mi te IgE antibody assay (units/volume)Ordered By: Dr. Antunez on 04-13-2022 house dust mite IgE Qn (S) 0.30 kU/L Class 0/I [facility] Serum Ray grass IgE anti body assay (units/volume)Ordered By: Dr. Antunez on 04-13-2022 Ray grass IgE Qn (S) <0.10 kU/L Class 0 [facility] Serum [place] blue grass Ig E antibody assay (units/volume)Ordered By: Dr. Antunez on 04-13-2022 [place] blue grass IgE Qn (S) <0.10 kU/L Class 0 [facility] Serum Mucor racemosus IgE an tibody assay (units/volume)Ordered By: Dr. Antunez on 04-13-2022 Mucor racemosus IgE Qn (S) <0.10 kU/L Class 0 [facility] Serum Penicillium notatum Ig E antibody assay (units/volume)Ordered By: Dr. Antunez on 04-13-2022 P. notatum IgE Qn (S) <0.10 kU/L Class 0 [facility] Serum Periplaneta americana IgE antibody assay (units/volume)Ordered By: Dr. Antunez on 04-13-2022 [place] Cockroach IgE Qn (S) 0.14 kU/L Class 0/I [facility] Serum bahia grass IgE antibo dy assay (units/volume)Ordered By: Dr. Antunez on 04-13-2022 Bahia grass IgE Qn (S) <0.10 kU/L Class 0 [facility] Serum cat dander IgE antibod y assay (units/volume)Ordered By: Dr. Antunez on 04-13-2022 Cat dander IgE Qn (S) <0.10 kU/L Class 0 [facility] Serum dog epithelium IgE ant ibody assay (units/volume)Ordered By: Dr. Antunez on 04-13-2022 Dog epithelium IgE Qn (S) <0.10 kU/L Class 0 [facility] Serum hazelnut pollen IgE an tibody assay (units/volume)Ordered By: Dr. Antunez on 04-13-2022 Hazelnut Pollen IgE Qn (S) <0.10 kU/L Class 0 [facility] Serum mountain cedar specifi c IgE antibody assayOrdered By: Dr. Antunez on 04-13-2022 Mountain Juniper IgE Qn (S) <0.10 kU/L Class 0 [facility] Serum mugwort IgE antibody a ssay (units/volume)Ordered By: Dr. Antunez on 04-13-2022 Mugwort IgE Qn (S) <0.10 kU/L Class 0 [facility] Serum nettle IgE antibody as say (units/volume)Ordered By: Dr. Antunez on 04-13-2022 Nettle IgE Qn (S) <0.10 kU/L Class 0 [facility] Comment on above: Performed at: [address] [id number] Director: Karen Waters MD, Phone: [phone] Serum sheep sorrel IgE antib samanta assay (units/volume)Ordered By: Dr. Antunez on 04-13-2022 Sheep Buttonwillow IgE Qn (S) <0.10 kU/L Class 0 [facility] Serum sweet gum IgE radioall ergosorbent test (RAST) class determinationOrdered By: Dr. Antunez on 04-13-2022 Sweet gum IgE RAST class (S) <0.10 kU/L Class 0 [facility] Serum white elm IgE antibody assay (units/volume)Ordered By: Dr. Antunez on 04-13-2022 White Elm IgE Qn (S) <0.10 kU/L Class 0 [facility] Serum white hickory IgE anti body assay (units/volume)Ordered By: Dr. Antunez on 04-13-2022 [place] IgE Qn (S) <0.10 kU/L Class 0 [facility] Serum white mulberry IgE ant ibody assay (units/volume)Ordered By: Dr. Antunez on 04-13-2022 White mulberry IgE Qn (S) <0.10 kU/L Class 0 [facility] Serum white oak IgE antibody assay (units/volume)Ordered By: Dr. Antunez on 04-13-2022 [place] IgE Qn (S) <0.10 kU/L Class 0 [facility] Stemphylium herbarum IgE ser umOrdered By: Dr. Antunez on 04-13-2022 Stemphylium botryosum IgE Qn (S) <0.10 kU/L Class 0 [facility] Basophil percentageon 2021 Bilirubin [Mass/Vol] 0.40 mg/dL 0.20-1.00 [facility] Work Phone: Comment on above: For patients on eltr ombopag therapy, use of Dimension [place] TBIL is not recommended. Chloride [Moles/Vol] 105 mmol/L 98-107 [facility] Work Phone: Cholesterol [Mass/Vol] 189 mg/dL <200 [facility] Work Phone: Comment on above: <200 mg/dL Desirable 200-240 mg/dL Borderline >240 mg/dL High Risk Glucose [Mass/Vol] 128 mg/dL 74-106 [facility] Work Phone: Comment on above: Fasting Glucose resu lt greater than or equal to 126 mg/dL suggests DIABETES MELLITUS per A.D.A. criteria. Potassium [Moles/Vol] 4.1 mmol/L 3.5-5.1 [facility] Work Phone: Protein [Mass/Vol] 7.2 g/dL 6.4-8.2 [facility] Work Phone: Sodium [Moles/Vol] 143 mmol/L 136-145 [facility] Work Phone: Triglyceride [Mass/Vol] 72 mg/dL <199 [facility] Work Phone: Comment on above: The drugs N-Acetylcy steine and Metamizole may falsely depress this assay.Serum Triglycerides Reference Interval Normal <150 mg/dL Borderline high 150 - 199 mg/dL High 200 - 499 mg/dL Very High > or = 500 mg/dL Laboratory - Chemistry and C hemistry - challengeon 12-30-2021 ALP [Catalytic activity/Vol] 59 U/L 45-117 [facility] Work Phone: ALT [Catalytic activity/Vol] 22 U/L 13-56 [facility] Work Phone: CO2 [Moles/Vol] 32.0 mmol/L 21.0-32.0 [facility] Work Phone: Globulin (S) [Mass/Vol] 3.6 g/dL 2.2-4.2 [facility] Work Phone: Urea nitrogen/Creatinine [Mass ratio] 17.0 mg/mg 10-20 [facility] Work Phone: Laboratory - Hematology and Cell countson 12-30-2021 HbA1c (Bld) [Mass fraction] 7.2 % [facility] Work Phone: No Panel Informationon 12-30 Estimated GFR (MDRD) Amer 103 mL/min >60 [facility] Work Phone: Comment on above: GFR Calc Estimated GFR (MDRD) Non-Af Amer 85 mL/min >60 [facility] Work Phone: Comment on above: Non- GFR Calc Thyroid Stimulating Hormone (TSH) 0.95 uIU/mL 0.358-3.74 [facility] Work Phone: Urine Microalbumin/Creatinine Ratio 66.5 mg/g CRE <30 [facility] Work Phone: Vitamin D 25-Hydroxy 24.4 ng/mL [facility] Work Phone: Comment on above: Vitamin D 25(OH) Sta tus Range Deficiency <20 ng/mL (50nmol/L) Insufficiency 20 - 30 ng/mL (50 - 75 nmol/L) Sufficiency 30 - 100 ng/mL (75 - 250 nmol/L) Toxicity >100 ng/mL (>250 nmol/L) Serum or plasma albumin sheron urement (mass/volume)on 12-30-2021 Albumin [Mass/Vol] 3.6 g/dL 3.2-5.0 [facility] Work Phone: Serum or plasma albumin/glob ulin mass ratioon 12-30-2021 Albumin/Globulin [Mass ratio] 1.0 {ratio} 0.9-2.4 [facility] Work Phone: Serum or plasma calcium sheron urement (mass/volume)on 12-30-2021 Calcium [Mass/Vol] 9.0 mg/dL 8.5-10.1 [facility] Work Phone: Serum or plasma cholesterol in HDL measurement (mass/volume)on 12-30-2021 Cholesterol in HDL [Mass/Vol] 90 mg/dL >40 [facility] Work Phone: Comment on above: The drugs N-Acetylcy steine and Metamizole may falsely depress this assay. Reference Range HDL <40 mg/dL Low HDL Cholesterol HDL >or= 60 mg/dL High HDL Cholesterol Serum or plasma cholesterol in VLDL measurement (mass/volume)on 12-30-2021 Cholesterol in VLDL [Mass/Vol] 14 mg/dL 5-40 [facility] Work Phone: Serum or plasma creatinine m easurement (mass/volume)on 12-30-2021 Creatinine [Mass/Vol] 0.76 mg/dL 0.55-1.02 [facility] Work Phone: Comment on above: The validity of the calculated GFR & GFRAA in patients over 70 years has not been determined. Clinical correlation is essential. Serum or plasma low density lipoprotein (LDL) cholesterol measurement (mass/volume)on 12-30-2021 Cholesterol in LDL [Mass/Vol] 85 mg/dL 0-130 [facility] Work Phone: Serum or plasma urea nitroge n measurement (mass/volume)on 12-30-2021 Urea nitrogen [Mass/Vol] 13 mg/dL 7-18 [facility] Work Phone: Thin prep Papanicolaou smear with manual screeningon 12-30-2021 Thin prep Papanicolaou smear with manual screening 17 U/L 15-37 [facility] Work Phone: Thin prep Papanicolaou smear with manual screening 6 5-15 [facility] Work Phone: Thin prep Papanicolaou smear with manual screening 17.9 mg/L NO RANGE EST. [facility] Work Phone: Urine creatinine measurement (mass/volume)on 12-30-2021 Creatinine (U) [Mass/Vol] 26.90 mg/dL NO RANGE EST. [facility] Work Phone: Basophil percentageon 2020 Cholesterol [Mass/Vol] 201 mg/dL <200 [facility] Work Phone: Comment on above: <200 mg/dL Desirable 200-240 mg/dL Borderline >240 mg/dL High Risk Triglyceride [Mass/Vol] 55 mg/dL [facility] Work Phone: Comment on above: The drugs N-Acetylcy steine and Metamizole may falsely depress this assay.Serum Triglycerides Reference Interval Normal <150 mg/dL Borderline high 150 - 199 mg/dL High 200 - 499 mg/dL Very High > or = 500 mg/dL Laboratory - Hematology and Cell countson 04-28-2021 HbA1c (Bld) [Mass fraction] 7.2 % [facility] Work Phone: No Panel Informationon 04-28 Urine Microalbumin/Creatinine Ratio 15.2 mg/g CRE <30 [facility] Work Phone: Serum or plasma cholesterol in HDL measurement (mass/volume)on 04-28-2021 Cholesterol in HDL [Mass/Vol] 93 mg/dL [facility] Work Phone: Comment on above: The drugs N-Acetylcy steine and Metamizole may falsely depress this assay. Reference Range HDL <40 mg/dL Low HDL Cholesterol HDL >or= 60 mg/dL High HDL Cholesterol Serum or plasma cholesterol in VLDL measurement (mass/volume)on 04-28-2021 Cholesterol in VLDL [Mass/Vol] 11 mg/dL 5-40 [facility] Work Phone: Serum or plasma low density lipoprotein (LDL) cholesterol measurement (mass/volume)on 04-28-2021 Cholesterol in LDL [Mass/Vol] 97 mg/dL 0-130 [facility] Work Phone: Thin prep Papanicolaou smear with manual screeningon 04-28-2021 Thin prep Papanicolaou smear with manual screening 8.9 mg/L NO RANGE EST. [facility] Work Phone: Urine creatinine measurement (mass/volume)on 04-28-2021 Creatinine (U) [Mass/Vol] 58.40 mg/dL NO RANGE EST. [facility] Work Phone: COMPREHENSIVE PANELon 2019 Albumin [Mass/Vol] 4.0 g/dL Normal 3.4 - 5.0 [facility] Comment on above: Performed By: #### C MP #### [address] [address] ALP [Catalytic activity/Vol] 52 U/L Normal 33 - 110 [facility] Comment on above: Performed By: #### C MP #### [address] [address] ALT [Catalytic activity/Vol] 16 U/L Normal 7 - 45 [facility] Comment on above: Result Comment: Ale ents treated with Sulfasalazine may generate falsely decreased results for ALT. Performed By: #### C MP #### [address] [address] Anion gap [Moles/Vol] 9 mmol/L Low 10 - 20 [facility] Comment on above: Performed By: #### C MP #### [address] [address] AST [Catalytic activity/Vol] 18 U/L Normal 9 - 39 [facility] Comment on above: Performed By: #### C MP #### [address] [address] Bilirubin [Mass/Vol] 0.6 mg/dL Normal 0.0 - 1.2 [facility] Comment on above: Performed By: #### C MP #### [address] [address] Calcium [Mass/Vol] 9.1 mg/dL Normal 8.6 - 10.3 [facility] Comment on above: Performed By: #### C MP #### [address] [address] Chloride [Moles/Vol] 103 mmol/L Normal 98 - 107 [facility] Comment on above: Performed By: #### C MP #### [address] [address] Creatinine [Mass/Vol] 0.73 mg/dL Normal 0.50 - 1.05 [facility] Comment on above: Performed By: #### C MP #### [address] [address] GFR- AM. >60 Normal >60 [facility] Comment on above: Result Comment: CALC ULATIONS OF ESTIMATED GFR ARE PERFORMED USING THE MDRD STUDY EQUATION FOR THE IDMS-TRACEABLE CREATININE METHODS. CLIN CHEM 2007;53:766-72 Performed By: #### C MP #### [address] [address] GFR-NON AM. >60 Normal >60 [facility] Comment on above: Performed By: #### C MP #### [address] [address] Glucose [Mass/Vol] 151 mg/dL High 74 - 99 [facility] Comment on above: Performed By: #### C MP #### [address] [address] HCO3 (Bld) [Moles/Vol] 30 mmol/L Normal 21 - 32 [facility] Comment on above: Performed By: #### C MP #### [address] [address] Potassium [Moles/Vol] 4.2 mmol/L Normal 3.5 - 5.3 [facility] Comment on above: Performed By: #### C MP #### [address] [address] Protein [Mass/Vol] 6.7 g/dL Normal 6.4 - 8.2 [facility] Comment on above: Performed By: #### C MP #### [address] [address] Sodium [Moles/Vol] 138 mmol/L Normal 136 - 145 [facility] Comment on above: Performed By: #### C MP #### [address] [address] Urea nitrogen [Mass/Vol] 14 mg/dL Normal 6 - 23 [facility] Comment on above: Performed By: #### C MP #### [address] [address] HEMOGLOBIN A1Con 04-09-2020 HbA1c (Bld) [Mass fraction] 8.1 % Normal [facility] Comment on above: Result Comment: Diag nosis of Diabetes-Adults Non-Diabetic: < or = 5.6% Increased risk for developing diabetes: 5.7-6.4% Diagnostic of diabetes: > or = 6.5% . Monitoring of Diabetes Age (y) Therapeutic Goal (%) Adults: >18 <7.0 Pediatrics: 13-18 <7.5 7-12 <8.0 0- 6 7.5-8.5 [place] [employer]. Diabetes Care 33(S1), May 2009. Performed By: #### C MP #### [address] [address] HbA1c (Bld) [Mass fraction] 186 MG/DL Normal [facility] Comment on above: Performed By: #### C MP #### [address] [address] LIPID PANEL (CORONARY RISK 2 )on 04-09-2020 Cholesterol [Mass/Vol] 229 mg/dL High 0 - 199 [facility] Comment on above: Result Comment: . AGE DESIRABLE BORDERLINE HIGH HIGH 0-19 Y 0 - 169 170 - 199 >/= 200 20-24 Y 0 - 189 190 - 224 >/= 225 >24 Y 0 - 199 200 - 239 >/= 240 All ranges are based on fasting samples. Specific therapeutic targets will vary based on patient-specific cardiac risk. . Pediatric guidelines reference:Pediatrics 2011, 128(S5). Adult guidelines reference: NCEP ATPIII Guidelines, NICOLE 2001, 258:2486-97 . Venipuncture immediately after or during the administration of Metamizole may lead to falsely low results. Testing should be performed immediately prior to Metamizole dosing. Performed By: #### L IPID #### [address] [address] Cholesterol in HDL [Mass/Vol] 95.0 mg/dL Normal [facility] Comment on above: Result Comment: . AGE VERY LOW LOW NORMAL HIGH 0-19 Y < 35 < 40 40-45 ---- 20-24 Y ---- < 40 >45 ---- >24 Y ---- < 40 40-60 >60 . Performed By: #### L IPID #### [address] [address] Cholesterol in LDL [Mass/Vol] 123 mg/dL High 0 - 99 [facility] Comment on above: Result Comment: . NEAR BORD AGE DESIRABLE OPTIMAL HIGH HIGH VERY HIGH 0-19 Y 0 - 109 --- 110-129 >/= 130 ---- 20-24 Y 0 - 119 --- 120-159 >/= 160 ---- >24 Y 0 - 99 100-129 130-159 160-189 >/=190 . Performed By: #### L IPID #### [address] [address] Cholesterol in VLDL [Mass/Vol] 11 mg/dL Normal 0 - 40 [facility] Comment on above: Performed By: #### L IPID #### [address] [address] Cholesterol.total/[place] sterol in HDL [Mass ratio] 2.4 {ratio} Normal [facility] Comment on above: Result Comment: REF VALUES DESIRABLE < 3.4 HIGH RISK > 5.0 Performed By: #### L IPID #### [address] [address] Triglyceride [Mass/Vol] 55 mg/dL Normal 0 - 149 [facility] Comment on above: Result Comment: . AGE DESIRABLE BORDERLINE HIGH HIGH VERY HIGH 0 D-90 D 19 - 174 ---- ---- ---- 91 D- 9 Y 0 - 74 75 - 99 >/= 100 ---- 10-19 Y 0 - 89 90 - 129 >/= 130 ---- 20-24 Y 0 - 114 115 - 149 >/= 150 ---- >24 Y 0 - 149 150 - 199 200- 499 >/= 500 . Venipuncture immediately after or during the administration of Metamizole may lead to falsely low results. Testing should be performed immediately prior to Metamizole dosing. Performed By: #### L IPID #### [address] [address] THYROXINE,FREEon 04-09-2020 THYROXINE,FREE 0.98 ng/dL Normal 0.61 - 1.12 [facility] Comment on above: Result Comment: Thyr oxine Free testing is performed using different testing methodology at [facility] than at other [facility]. Direct result comparisons should only be made within the same method. . Biotin can cause falsely elevated free T4 results. Patients taking a Biotin dose of up to 10 mg/day should refrain from taking Biotin for 24 hours before sample collection. Patient taking a Biotin dose of >10 mg/day should consult with their physician or the laboratory before the blood draw. Performed By: #### T 4FRE #### [address] [address] TSHon 04-09-2020 TSH Qn 1.68 m[IU]/L Normal 0.44 - 3.98 [facility] Comment on above: Result Comment: TSH testing is performed using different testing methodology at [facility] than at other [facility]. Direct result comparisons should only be made within the same method. Performed By: #### C MP #### [address] [address] ALBUMIN, URINE SPOTon 2019 ALBUMIN,URINE 8.2 mg/L Normal Not Established [facility] Comment on above: Performed By: #### C MP #### [address] [address] ALBUMIN/CREAT RATIO 5.3 ug/mg real estate intern Normal 0.0 - 30.0 [facility] Comment on above: Performed By: #### C MP #### [address] [address] CREATININE,URINE 155.0 mg/dL Normal 20.0 - 320.0 [facility] Comment on above: Performed By: #### C MP #### [address] [address] CBC AND DIFFERENTIALon 12-05 Basophils (Bld) [#/Vol] 0.00 10*3/uL Normal 0.00 - 0.1 0 [facility] Comment on above: Performed By: #### C BCDF #### [address] [address] Basophils/100 WBC (Bld) 0.6 % Normal 0.0 - 2.0 [facility] Comment on above: Performed By: #### C BCDF #### [address] [address] Eosinophils (Bld) [#/Vol] 0.00 10*3/uL Normal 0.00 - 0.70 [facility] Comment on above: Performed By: #### C BCDF #### [address] [address] Eosinophils/100 WBC (Bld) 1.0 % Normal 0.0 - 6.0 [facility] Comment on above: Performed By: #### C BCDF #### [address] [address] Erythrocyte distribution width (RBC) [Ratio] 13.0 % Normal 11.5 - 14.5 [facility] Comment on above: Performed By: #### C BCDF #### [address] [address] Hematocrit (Bld) [Volume fraction] 40.1 % Normal 36.0 - 46.0 [facility] Comment on above: Performed By: #### C BCDF #### [address] [address] Hemoglobin (Bld) [Mass/Vol] 13.3 g/dL Normal 12.0 - 16.0 [facility] Comment on above: Performed By: #### C BCDF #### [address] [address] Lymphocytes (Bld) [#/Vol] 1.20 10*3/uL Normal 1.20 - 4.80 [facility] Comment on above: Performed By: #### C BCDF #### [address] [address] Lymphocytes/100 WBC (Bld) 29.6 % Normal 13.0 - 44.0 [facility] Comment on above: Performed By: #### C BCDF #### [address] [address] MCHC (RBC) [Mass/Vol] 33.1 g/dL Normal 32.0 - 36.0 [facility] Comment on above: Performed By: #### C BCDF #### [address] [address] MCV (RBC) [Entitic vol] 96 fL Normal 80 - 100 [facility] Comment on above: Performed By: #### C BCDF #### [address] [address] Monocytes (Bld) [#/Vol] 0.40 10*3/uL Normal 0.10 - 1.0 0 [facility] Comment on above: Performed By: #### C BCDF #### [address] [address] Monocytes/100 WBC (Bld) 10.9 % Normal 2.0 - 10.0 [facility] Comment on above: Performed By: #### C BCDF #### [address] [address] Neutrophils (Bld) [#/Vol] 2.30 10*3/uL Normal 1.20 - 7.70 [facility] Comment on above: Result Comment: Perc ent differential counts (%) should be interpreted in the context of the absolute cell counts (cells/L). Performed By: #### C BCDF #### [address] [address] Neutrophils/100 WBC (Bld) 57.9 % Normal 40.0 - 80.0 [facility] Comment on above: Performed By: #### C BCDF #### [address] [address] Nucleated RBC/100 WBC (Bld) [Ratio] 0.1 /100 WBC Normal [facility] Comment on above: Performed By: #### C BCDF #### [address] [address] Platelets (Bld) [#/Vol] 235 10*3/uL Normal 150 - 450 [facility] Comment on above: Performed By: #### C BCDF #### [address] [address] RBC (Bld) [#/Vol] 4.18 x10E12/L Normal 4.00 - 5.20 [facility] Comment on above: Performed By: #### C BCDF #### [address] [address] WBC (Bld) [#/Vol] 4.0 10*3/uL Low 4.4 - 11.3 [facility] Comment on above: Performed By: #### C BCDF #### [address] [address] COMPREHENSIVE PANELon 2019 Albumin [Mass/Vol] 3.9 g/dL Normal 3.4 - 5.0 [facility] Comment on above: Performed By: #### C MP #### [address] [address] ALP [Catalytic activity/Vol] 54 U/L Normal 33 - 110 [facility] Comment on above: Performed By: #### C MP #### [address] [address] ALT [Catalytic activity/Vol] 11 U/L Normal 7 - 45 [facility] Comment on above: Result Comment: Ale ents treated with Sulfasalazine may generate falsely decreased results for ALT. Performed By: #### C MP #### [address] [address] Anion gap [Moles/Vol] 9 mmol/L Low 10 - 20 [facility] Comment on above: Performed By: #### C MP #### [address] [address] AST [Catalytic activity/Vol] 14 U/L Normal 9 - 39 [facility] Comment on above: Performed By: #### C MP #### [address] [address] Bilirubin [Mass/Vol] 0.6 mg/dL Normal 0.0 - 1.2 [facility] Comment on above: Performed By: #### C MP #### [address] [address] Calcium [Mass/Vol] 8.9 mg/dL Normal 8.6 - 10.3 [facility] Comment on above: Performed By: #### C MP #### [address] [address] Chloride [Moles/Vol] 105 mmol/L Normal 98 - 107 [facility] Comment on above: Performed By: #### C MP #### [address] [address] Creatinine [Mass/Vol] 0.73 mg/dL Normal 0.50 - 1.05 [facility] Comment on above: Performed By: #### C MP #### [address] [address] GFR- AM. >60 Normal >60 [facility] Comment on above: Result Comment: CALC ULATIONS OF ESTIMATED GFR ARE PERFORMED USING THE MDRD STUDY EQUATION FOR THE IDMS-TRACEABLE CREATININE METHODS. CLIN CHEM 2007;53:766-72 Performed By: #### C MP #### [address] [address] GFR-NON AM. >60 Normal >60 [facility] Comment on above: Performed By: #### C MP #### [address] [address] Glucose [Mass/Vol] 106 mg/dL High 74 - 99 [facility] Comment on above: Performed By: #### C MP #### [address] [address] HCO3 (Bld) [Moles/Vol] 29 mmol/L Normal 21 - 32 [facility] Comment on above: Performed By: #### C MP #### [address] [address] Potassium [Moles/Vol] 4.2 mmol/L Normal 3.5 - 5.3 [facility] Comment on above: Performed By: #### C MP #### [address] [address] Protein [Mass/Vol] 6.8 g/dL Normal 6.4 - 8.2 [facility] Comment on above: Performed By: #### C MP #### [address] [address] Sodium [Moles/Vol] 139 mmol/L Normal 136 - 145 [facility] Comment on above: Performed By: #### C MP #### [address] [address] Urea nitrogen [Mass/Vol] 9 mg/dL Normal 6 - 23 [facility] Comment on above: Performed By: #### C MP #### [address] [address] HEMOGLOBIN A1Con 12-06-2019 HbA1c (Bld) [Mass fraction] 7.7 % Normal [facility] Comment on above: Result Comment: Diag nosis of Diabetes-Adults Non-Diabetic: < or = 5.6% Increased risk for developing diabetes: 5.7-6.4% Diagnostic of diabetes: > or = 6.5% . Monitoring of Diabetes Age (y) Therapeutic Goal (%) Adults: >18 <7.0 Pediatrics: 13-18 <7.5 7-12 <8.0 0- 6 7.5-8.5 [place] [employer]. Diabetes Care 33(S1), May 2009. Performed By: #### H BA1E #### [address] [address] HbA1c (Bld) [Mass fraction] 174 MG/DL Normal [facility] Comment on above: Performed By: #### H BA1E #### [address] [id number] LIPID PANEL (CORONARY RISK 2 )on 12-06-2019 Cholesterol [Mass/Vol] 195 mg/dL Normal 0 - 199 [facility] Comment on above: Result Comment: . AGE DESIRABLE BORDERLINE HIGH HIGH 0-19 Y 0 - 169 170 - 199 >/= 200 20-24 Y 0 - 189 190 - 224 >/= 225 >24 Y 0 - 199 200 - 239 >/= 240 All ranges are based on fasting samples. Specific therapeutic targets will vary based on patient-specific cardiac risk. . Pediatric guidelines reference:Pediatrics 2011, 128(S5). Adult guidelines reference: NCEP ATPIII Guidelines, NICOLE 2001, 258:2486-97 . Venipuncture immediately after or during the administration of Metamizole may lead to falsely low results. Testing should be performed immediately prior to Metamizole dosing. Performed By: #### L IPID #### [address] [address] Cholesterol in HDL [Mass/Vol] 83.0 mg/dL Normal [facility] Comment on above: Result Comment: . AGE VERY LOW LOW NORMAL HIGH 0-19 Y < 35 < 40 40-45 ---- 20-24 Y ---- < 40 >45 ---- >24 Y ---- < 40 40-60 >60 . Performed By: #### L IPID #### [address] [address] Cholesterol in LDL [Mass/Vol] 103 mg/dL High 0 - 99 [facility] Comment on above: Result Comment: . NEAR BORD AGE DESIRABLE OPTIMAL HIGH HIGH VERY HIGH 0-19 Y 0 - 109 --- 110-129 >/= 130 ---- 20-24 Y 0 - 119 --- 120-159 >/= 160 ---- >24 Y 0 - 99 100-129 130-159 160-189 >/=190 . Performed By: #### L IPID #### [address] [address] Cholesterol in VLDL [Mass/Vol] 9 mg/dL Normal 0 - 40 [facility] Comment on above: Performed By: #### L IPID #### [address] [address] Cholesterol.total/[place] sterol in HDL [Mass ratio] 2.3 {ratio} Normal [facility] Comment on above: Result Comment: REF VALUES DESIRABLE < 3.4 HIGH RISK > 5.0 Performed By: #### L IPID #### [address] [address] Triglyceride [Mass/Vol] 46 mg/dL Normal 0 - 149 [facility] Comment on above: Result Comment: . AGE DESIRABLE BORDERLINE HIGH HIGH VERY HIGH 0 D-90 D 19 - 174 ---- ---- ---- 91 D- 9 Y 0 - 74 75 - 99 >/= 100 ---- 10-19 Y 0 - 89 90 - 129 >/= 130 ---- 20-24 Y 0 - 114 115 - 149 >/= 150 ---- >24 Y 0 - 149 150 - 199 200- 499 >/= 500 . Venipuncture immediately after or during the administration of Metamizole may lead to falsely low results. Testing should be performed immediately prior to Metamizole dosing. Performed By: #### L IPID #### [address] [address] THYROXINE,FREEon 12-06-2019 THYROXINE,FREE 0.92 ng/dL Normal 0.61 - 1.12 [facility] Comment on above: Result Comment: Thyr oxine Free testing is performed using different testing methodology at [facility] than at other [facility]. Direct result comparisons should only be made within the same method. . Biotin can cause falsely elevated free T4 results. Patients taking a Biotin dose of up to 10 mg/day should refrain from taking Biotin for 24 hours before sample collection. Patient taking a Biotin dose of >10 mg/day should consult with their physician or the laboratory before the blood draw. Performed By: #### C MP #### [place] [address] TSHon 12-06-2019 TSH Qn 1.56 m[IU]/L Normal 0.44 - 3.98 [facility] Comment on above: Result Comment: TSH testing is performed using different testing methodology at [facility] than at other [facility]. Direct result comparisons should only be made within the same method. Performed By: #### T SH2 #### [place] [address] COMPREHENSIVE PANELon 2019 Albumin [Mass/Vol] 4.2 g/dL Normal 3.4 - 5.0 [facility] Comment on above: Performed By: #### C MP #### [place] [address] ALP [Catalytic activity/Vol] 48 U/L Normal 33 - 110 [facility] Comment on above: Performed By: #### C MP #### [place] [address] ALT [Catalytic activity/Vol] 8 U/L Normal 7 - 45 [facility] Comment on above: Result Comment: Ale ents treated with Sulfasalazine may generate falsely decreased results for ALT. Performed By: #### C MP #### [place] [address] Anion gap [Moles/Vol] 9 mmol/L Low 10 - 20 [facility] Comment on above: Performed By: #### C MP #### [place] [address] AST [Catalytic activity/Vol] 12 U/L Normal 9 - 39 [facility] Comment on above: Performed By: #### C MP #### [address] [address] Bilirubin [Mass/Vol] 0.4 mg/dL Normal 0.0 - 1.2 [facility] Comment on above: Performed By: #### C MP #### [address] [address] Calcium [Mass/Vol] 9.7 mg/dL Normal 8.6 - 10.3 [facility] Comment on above: Performed By: #### C MP #### [address] [address] Chloride [Moles/Vol] 105 mmol/L Normal 98 - 107 [facility] Comment on above: Performed By: #### C MP #### [address] [address] Creatinine [Mass/Vol] 0.76 mg/dL Normal 0.50 - 1.05 [facility] Comment on above: Performed By: #### C MP #### [address] [address] GFR- AM. >60 Normal >60 [facility] Comment on above: Result Comment: CALC ULATIONS OF ESTIMATED GFR ARE PERFORMED USING THE MDRD STUDY EQUATION FOR THE IDMS-TRACEABLE CREATININE METHODS. CLIN CHEM 2007;53:766-72 Performed By: #### C MP #### [address] [address] GFR-NON AM. >60 Normal >60 [facility] Comment on above: Performed By: #### C MP #### [address] [address] Glucose [Mass/Vol] 76 mg/dL Normal 74 - 99 [facility] Comment on above: Performed By: #### C MP #### [address] [address] HCO3 (Bld) [Moles/Vol] 30 mmol/L Normal 21 - 32 [facility] Comment on above: Performed By: #### C MP #### [address] [address] Potassium [Moles/Vol] 4.0 mmol/L Normal 3.5 - 5.3 [facility] Comment on above: Performed By: #### C MP #### [address] [address] Protein [Mass/Vol] 7.3 g/dL Normal 6.4 - 8.2 [facility] Comment on above: Performed By: #### C MP #### [address] [address] Sodium [Moles/Vol] 140 mmol/L Normal 136 - 145 [facility] Comment on above: Performed By: #### C MP #### [address] [address] Urea nitrogen [Mass/Vol] 11 mg/dL Normal 6 - 23 [facility] Comment on above: Performed By: #### C MP #### [address] [address] HEMOGLOBIN A1Con 05-31-2019 HbA1c (Bld) [Mass fraction] 163 MG/DL Normal [facility] Comment on above: Performed By: #### H BA1E #### [address] [address] HbA1c (Bld) [Mass fraction] 7.3 % Normal [facility] Comment on above: Result Comment: Diag nosis of Diabetes-Adults Non-Diabetic: < or = 5.6% Increased risk for developing diabetes: 5.7-6.4% Diagnostic of diabetes: > or = 6.5% . Monitoring of Diabetes Age (y) Therapeutic Goal (%) Adults: >18 <7.0 Pediatrics: 13-18 <7.5 7-12 <8.0 0- 6 7.5-8.5 [place] [employer]. Diabetes Care 33(S1), May 2009. Performed By: #### H BA1E #### [address] [address] LIPID PANEL (CORONARY RISK 2 )on 05-31-2019 Cholesterol [Mass/Vol] 226 mg/dL High 0 - 199 [facility] Comment on above: Result Comment: . AGE DESIRABLE BORDERLINE HIGH HIGH 0-19 Y 0 - 169 170 - 199 >/= 200 20-24 Y 0 - 189 190 - 224 >/= 225 >24 Y 0 - 199 200 - 239 >/= 240 All ranges are based on fasting samples. Specific therapeutic targets will vary based on patient-specific cardiac risk. . Pediatric guidelines reference:Pediatrics 2011, 128(S5). Adult guidelines reference: NCEP ATPIII Guidelines, NICOLE 2001, 258:2486-97 . Venipuncture immediately after or during the administration of Metamizole may lead to falsely low results. Testing should be performed immediately prior to Metamizole dosing. Performed By: #### L IPID #### [address] [address] Cholesterol in HDL [Mass/Vol] 99.0 mg/dL Normal [facility] Comment on above: Result Comment: . AGE VERY LOW LOW NORMAL HIGH 0-19 Y < 35 < 40 40-45 ---- 20-24 Y ---- < 40 >45 ---- >24 Y ---- < 40 40-60 >60 . Performed By: #### L IPID #### [address] [address] Cholesterol in LDL [Mass/Vol] 116 mg/dL High 0 - 99 [facility] Comment on above: Result Comment: . NEAR BORD AGE DESIRABLE OPTIMAL HIGH HIGH VERY HIGH 0-19 Y 0 - 109 --- 110-129 >/= 130 ---- 20-24 Y 0 - 119 --- 120-159 >/= 160 ---- >24 Y 0 - 99 100-129 130-159 160-189 >/=190 . Performed By: #### L IPID #### [address] [address] Cholesterol in VLDL [Mass/Vol] 11 mg/dL Normal 0 - 40 [facility] Comment on above: Performed By: #### L IPID #### [address] [address] Cholesterol.total/[place] sterol in HDL [Mass ratio] 2.3 {ratio} Normal [facility] Comment on above: Result Comment: REF VALUES DESIRABLE < 3.4 HIGH RISK > 5.0 Performed By: #### L IPID #### [address] [address] Triglyceride [Mass/Vol] 55 mg/dL Normal 0 - 149 [facility] Comment on above: Result Comment: . AGE DESIRABLE BORDERLINE HIGH HIGH VERY HIGH 0 D-90 D 19 - 174 ---- ---- ---- 91 D- 9 Y 0 - 74 75 - 99 >/= 100 ---- 10-19 Y 0 - 89 90 - 129 >/= 130 ---- 20-24 Y 0 - 114 115 - 149 >/= 150 ---- >24 Y 0 - 149 150 - 199 200- 499 >/= 500 . Venipuncture immediately after or during the administration of Metamizole may lead to falsely low results. Testing should be performed immediately prior to Metamizole dosing. Performed By: #### L IPID #### [address] [address] Auto Diffon 11-28-2018 Basophils (Bld) [#/Vol] 0.1 E3/mcL Normal 0.0-0.2 [facility] Comment on above: Order Comment: Order Added by Discern Expert. Performed By: #### 2 [id number] #### MILI PowellHemo [address] [place] [address] Basophils/100 WBC (Bld) 1.8 % Normal 0.0-2.0 [facility] Comment on above: Order Comment: Order Added by Discern Expert. Performed By: #### 2 [id number] #### MILI RemHemo [address] [place] [address] Eos Absolute 0.0 E3/mcL Normal 0.0-0.7 [facility] Comment on above: Order Comment: Order Added by Discern Expert. Performed By: #### 2 [id number] #### MILI PowellHemo [address] [place] [address] Eosinophils/100 WBC (Bld) 1.1 % Normal 0.0-11.0 [facility] Comment on above: Order Comment: Order Added by Discern Expert. Performed By: #### 2 [id number] #### MILI RemHemo [address] [place] [address] Lymphocytes (Bld) [#/Vol] 1.3 E3/mcL Normal 1.2-3.4 [facility] Comment on above: Order Comment: Order Added by Discern Expert. Performed By: #### 2 [id number] #### MILI RemHemo [address] [place] [address] Lymphocytes/100 WBC (Bld) 36.0 % Normal 20.0-55.0 [facility] Comment on above: Order Comment: Order Added by Discern Expert. Performed By: #### 2 [id number] #### MILI RemHemo [address] [place] [address] Benson Absolute 0.3 E3/mcL Normal 0.0-0.7 [facility] Comment on above: Order Comment: Order Added by Catrachito Expert. Performed By: #### 2 [id number] #### MILI RemHemo [address] [place] [address] Monocytes/100 WBC (Bld) 9.2 % Normal 0.0-10.0 [facility] Comment on above: Order Comment: Order Added by [place] Expert. Performed By: #### 2 [id number] #### MILI RemHemo [address] [place] [address] Neutro Absolute 1.8 E3/mcL Normal 1.4-6.5 [facility] Comment on above: Order Comment: Order Added by Catrachito Expert. Performed By: #### 2 [id number] #### MILI RemHemo [address] [place] [address] Neutro Auto 51.9 % Normal 37.0-75.0 [facility] Comment on above: Order Comment: Order Added by Catrachito Expert. Performed By: #### 2 [id number] #### MILI RemHemo [address] [place] [address] CBC w/ Auto Diffon 9 Erythrocyte distribution width (RBC) [Ratio] 12.6 % Normal 11.5-14.5 [facility] Comment on above: Performed By: #### 2 [id number] #### MILI RemHemo [address] [place] [address] Hematocrit (Bld) [Volume fraction] 38.8 % Normal 36.0-48.0 [facility] Comment on above: Performed By: #### 2 [id number] #### MILI RemHemo [address] [place] [address] Hemoglobin (Bld) [Mass/Vol] 13.1 g/dL Normal 12.0-16.0 [facility] Comment on above: Performed By: #### 2 [id number] #### MILI RemHemo [address] [place] [address] MCH (RBC) [Entitic mass] 31.7 pg High 27.0-31.0 [facility] Comment on above: Performed By: #### 2 [id number] #### MILI RemHemo [address] [place] [address] MCHC (RBC) [Mass/Vol] 33.7 g/dL Normal 33.0-37.0 [facility] Comment on above: Performed By: #### 2 [id number] #### MILI RemHemo [address] [place] [address] MCV (RBC) [Entitic vol] 94.2 fL Normal 78.0-100.0 [facility] Comment on above: Performed By: #### 2 [id number] #### MILI RemHemo [address] [place] [address] Platelet mean volume (Bld) [Entitic vol] 8.2 fL Normal 7.4-11.0 [facility] Comment on above: Performed By: #### 2 [id number] #### MILI RemHemo [address] [place] [address] Platelets (Bld) [#/Vol] 256 E3/mcL Normal 130-400 [facility] Comment on above: Performed By: #### 2 [id number] #### MILI RemHemo [address] [place] [address] RBC (Bld) [#/Vol] 4.12 E6/mcL Normal 3.90-5.40 [facility] Comment on above: Performed By: #### 2 [id number] #### MILI RemHemo [address] [place] [address] WBC (Bld) [#/Vol] 3.5 E3/mcL Low 3.6-11.0 [facility] Comment on above: Performed By: #### 2 [id number] #### MILI PowellHemo [address] [place] [address] CMPon 11-28-2018 Albumin [Mass/Vol] 4.0 g/dL Normal 3.4-5.0 [facility] Comment on above: Performed By: #### 2 [id number] #### MILI RemChem [address] [place] [address] Albumin/Globulin [Mass ratio] 1.5 {ratio} Normal 1.1-1.9 [facility] Comment on above: Performed By: #### 2 255497 #### MILI [employer] [address] [place] [address] Alk Phos 48 Int._Unit/L Normal 33-110 [facility] Comment on above: Performed By: #### 2 [id number] #### MILI [employer] [address] [place] [address] ALT [Catalytic activity/Vol] 9 Int._Unit/L Normal 7-45 [facility] Comment on above: Performed By: #### 2 [id number] #### MILI [employer] [address] [place] [address] Anion gap [Moles/Vol] 9 mmol/L Low 10-20 [facility] Comment on above: Performed By: #### 2 683253 #### MILI [employer] [address] [place] [address] AST [Catalytic activity/Vol] 13 Int._Unit/L Normal 9-39 [facility] Comment on above: Performed By: #### 2 254157 #### MILI [employer] [address] [place] [address] Bili Total 0.50 mg/dL Normal 0.00-1.20 [facility] Comment on above: Performed By: #### 2 [id number] #### MILI [employer] [address] [place] [address] Calcium [Mass/Vol] 9.2 mg/dL Normal 8.6-10.3 [facility] Comment on above: Performed By: #### 2 [id number] #### MILI [employer] [address] [place] [address] Chloride [Moles/Vol] 103 mmol/L Normal 98-107 [facility] Comment on above: Performed By: #### 2 [id number] #### MILI [employer] [address] [place] [address] CO2 [Moles/Vol] 30.0 mmol/L Normal 21.0-32.0 [facility] Comment on above: Performed By: #### 2 378341 #### MILI [employer] [address] [place] [address] Creatinine [Mass/Vol] 0.8 mg/dL Normal 0.5-1.1 [facility] Comment on above: Performed By: #### 2 [id number] #### MILI [employer] [address] [place] [address] Globulin (S) [Mass/Vol] 3.0 g/dL Normal 2.0-4.0 [facility] Comment on above: Performed By: #### 2 [id number] #### MILI [employer] [address] [place] [address] Glucose [Mass/Vol] 184 mg/dL High 70-99 [facility] Comment on above: Performed By: #### 2 298071 #### MILI [employer] [address] [place] [address] Potassium [Moles/Vol] 4.0 mmol/L Normal 3.5-5.3 [facility] Comment on above: Performed By: #### 2 632411 #### MILI [employer] [address] [place] [address] Protein [Mass/Vol] 6.7 g/dL Normal 6.4-8.2 [facility] Comment on above: Performed By: #### 2 048630 #### MILI [employer] [address] [place] [address] Sodium [Moles/Vol] 138 mmol/L Normal 136-145 [facility] Comment on above: Performed By: #### 2 [id number] #### MILI [employer] [address] [place] [address] Urea nitrogen [Mass/Vol] 11 mg/dL Normal 6-23 [facility] Comment on above: Performed By: #### 2 [id number] #### MILI [employer] [address] [place] [address] Urea nitrogen/Creatinine [Mass ratio] 13.8 ratio Normal 5.4-30.0 [facility] Comment on above: Performed By: #### 2 [id number] #### MILI [employer] [address] [place] [address] Free T4on 11-28-2018 Free T4 [Mass/Vol] 1.06 ng/dL Normal 0.58-1.64 [facility] Comment on above: Performed By: #### 1 [id number] #### MILI [employer] [address] [place] [address] [id number] 11-28-2018 HbA1c (Bld) [Mass fraction] 8.0 % High 4.0-6.3 [facility] Comment on above: Performed By: #### 1 [id number] #### MILI [employer] [address] [place] [address] Lipid Profileon 11-28-2018 Cholesterol [Mass/Vol] 182 mg/dL Normal 0-199 [facility] Comment on above: Performed By: #### 1 [id number] #### [employer]I [employer] [address] [place] [address] Cholesterol in HDL [Mass/Vol] 67 mg/dL High 40-60 [facility] Comment on above: Performed By: #### 1 [id number] #### MILI [employer] [address] [place] [address] Cholesterol in LDL [Mass/Vol] 103 mg/dL Normal 0-130 [facility] Comment on above: Performed By: #### 1 [id number] #### MILI [employer] [address] [place] [address] Cholesterol in VLDL [Mass/Vol] 12 mg/dL Normal 0-40 [facility] Comment on above: Performed By: #### 1 [id number] #### MILI [employer] [address] [place] [address] Triglyceride [Mass/Vol] 62 mg/dL Normal 0-149 [facility] Comment on above: Result Comment: AGE DESIRABLE BORDERLINE HIGH 91 D - 9 Y 0 - 74 75 - 99 > 100 10 - 19 Y 0 - 89 90 - 129 > 130 20 - 24 Y 0 - 114 115 - 149 > 150 > 25 0 - 149 150 - 199 200 - 499 Performed By: #### 1 [id number] #### MILI PowellFlexion [facility] [place] [address] Microalb/Creat Ratioon 11-28 Creatinine [Mass/Vol] 7 ug/mg Normal 0-30 [facility] Comment on above: Performed By: #### 1 [id number] #### MILI Escoto [facility] [place] [address] Creatinine [Mass/Vol] 115.0 mg/dL Normal 20.0-300.0 [facility] Comment on above: Performed By: #### 1 [id number] #### MILI PowellFlexion [address] [place] [address] Ur Microalbumin 0.8 mg/dL Normal 0.0-1.9 [facility] Comment on above: Performed By: #### 1 [id number] #### [place] [address] [place] [address] [place] [address] TSHon 11-28-2018 TSH Qn 1.69 mcIU/mL Normal 0.30-5.60 [facility] Comment on above: Performed By: #### 1 [id number] #### MILI [address] [address] eGFRon 11-28-2018 GFR/1.73 sq M predicted among non-blacks MDRD (S/P/Bld) [Vol rate/Area] mL/min/{1.73_m2} Normal [facility] Comment on above: Order Comment: Order added by Discern Expert. Performed By: #### 1 [id number] #### [facility] [address] [place] [address] [place] Mamm Diag w/CAD if perf a nd 3D RTon 07-12-2018 [place] Mamm Diag w/CAD if perf and 3D RT Exam Date/Time: 07/12/2018 09:25 EST Reason for Exam: RIGHT BREAST ABNORMAL MAMMO 07/03/18 3D/SANDRA W/RIGHT BREAST US;Abnormal mammogram Report STUDY: ; 07/12/2018 9:36 am; 07/12/2018 9:25 am ACCESSION NUMBER(S): [id number]; [id number] ORDERING CLINICIAN: Malou Antoine INDICATION: Abnormal mammogram COMPARISON: Comparison is made to recent screening mammogram dated 07/03/2018. Additional comparison is made to prior digital mammogram dated 03/30/2016 TECHNIQUE: Mammography: CC and MLO 2D digital mammograms and digital breast tomosynthesis images were obtained of the right breast. 3-D volume images were reconstructed in 2 views at an independent workstation as 1 mm slices through the right breast in both the CC and MLO projections. Ultrasound: Multiple grayscale ultrasonographic images were obtained through the right breast in the region of mammographic abnormality. FINDINGS: Mammography: There are areas of scattered fibroglandular tissue. A persistent well-defined masses seen in the 7 o'clock position of the left breast at medium depth. No additional mass or focal asymmetry is identified. No suspicious microcalcifications or foci of architectural distortion are seen. Further evaluation with ultrasound is recommended. This study was interpreted with CAD. Ultrasound: A well-defined heterogeneous ovoid mass is seen in the 7 o'clock position of the right breast, approximately 3 cm from the nipple. This corresponds in size and location with the mass seen on mammogram. IMPRESSION: Mass in the right breast, as described above. Recommendation is for follow-up examination in 6 months with right breast ultrasound. BI-RADS CATEGORY: Category: 3 - Probably Benign; Short Interval Follow-up. Recommendation: Short Interval Follow-up. Exam Date/Time: 07/12/2018 09:25 EST Report Recall Interval: 6 Months. Breast Density: Scattered Fibroglandular Density. FINAL REPORT Dictated: 07/12/2018 10:32 am Hank Ramirez MD Signed (Electronic Signature): 07/12/2018 10:32 am Signed by: Hank Ramirez MD Technologist: ABHAY Assessment: BI-RADS Category 3-Probably benign - short interval follow-up Recommendation: Follow-up at short interval Normal [facility] US Breast Unilateral Rt Nellie landers 07-12-2018 US Breast Unilateral Rt Limited Exam Date/Time: 07/12/2018 09:36 EST Reason for Exam: RIGHT BREAST ABNORMAL MAMMO 07/03/18 3D/SANDRA W/RIGHT BREAST US;Abnormal mammogram Report STUDY: ; 07/12/2018 9:36 am; 07/12/2018 9:25 am ACCESSION NUMBER(S): [id number]; [id number] ORDERING CLINICIAN: Malou Antoine INDICATION: Abnormal mammogram COMPARISON: Comparison is made to recent screening mammogram dated 07/03/2018. Additional comparison is made to prior digital mammogram dated 03/30/2016 TECHNIQUE: Mammography: CC and MLO 2D digital mammograms and digital breast tomosynthesis images were obtained of the right breast. 3-D volume images were reconstructed in 2 views at an independent workstation as 1 mm slices through the right breast in both the CC and MLO projections. Ultrasound: Multiple grayscale ultrasonographic images were obtained through the right breast in the region of mammographic abnormality. FINDINGS: Mammography: There are areas of scattered fibroglandular tissue. A persistent well-defined masses seen in the 7 o'clock position of the left breast at medium depth. No additional mass or focal asymmetry is identified. No suspicious microcalcifications or foci of architectural distortion are seen. Further evaluation with ultrasound is recommended. This study was interpreted with CAD. Ultrasound: A well-defined heterogeneous ovoid mass is seen in the 7 o'clock position of the right breast, approximately 3 cm from the nipple. This corresponds in size and location with the mass seen on mammogram. IMPRESSION: Mass in the right breast, as described above. Recommendation is for follow-up examination in 6 months with right breast ultrasound. BI-RADS CATEGORY: Category: 3 - Probably Benign; Short Interval Follow-up. Recommendation: Short Interval Follow-up. Exam Date/Time: 07/12/2018 09:36 EST Report Recall Interval: 6 Months. Breast Density: Scattered Fibroglandular Density. FINAL REPORT Dictated: 07/12/2018 10:32 am Hank Ramirez MD Signed (Electronic Signature): 07/12/2018 10:32 am Signed by: Hank Ramirez MD Technologist: RHODA Assessment: BI-RADS Category 3-Probably benign - short interval follow-up Recommendation: Follow-up at short interval Normal [facility] [place] Mamm Screen w/CAD if perf ormed bilaton 07-06-2018 [place] Mamm Screen w/CAD if performed bilat Exam Date/Time: 07/03/2018 11:46 EST Reason for Exam: SCREENING;Screening Report STUDY: Digital mammography screening; 07/03/2018 11:46 am ACCESSION NUMBER(S): [id number] ORDERING CLINICIAN: Malou Antoine INDICATION: Screening. COMPARISON: Comparison is made to prior digital mammograms dated 03/30/2016 and 12/09/2014 FINDINGS: CC and MLO 2D digital mammographic images of the bilateral breasts were obtained. There are areas of scattered fibroglandular tissue. A rounded asymmetry is seen in the lower outer quadrant of the right breast, not clearly seen on prior studies.No additional new or enlarging mass or focal asymmetry is identified. No suspicious microcalcifications or foci of architectural distortion are seen. This study was interpreted with CAD. IMPRESSION: Focal asymmetry in the right breast, as described above. Further evaluation with diagnostic mammograms and, if necessary, ultrasound is recommended. BI-RADS CATEGORY: Category: 0 - Incomplete; Need Additional Imaging Evaluation. Recommendation: Ultrasound Recommended. Recall Interval: Now. Breast Density: Scattered Fibroglandular Density. FINAL REPORT Dictated: 07/06/2018 8:44 am Hank Ramirez MD Signed (Electronic Signature): 07/06/2018 8:44 am Signed by: Hank Ramirez MD Technologist: HERI Assessment: BI-RADS Category 0-Incomplete: Need additional imaging evaluation Recommendation: Ultrasound Normal [facility] CMPon 06-04-2018 Albumin [Mass/Vol] 4.1 g/dL Normal 3.4-5.0 [facility] Comment on above: Performed By: #### 2 [id number] #### [employer] [address] [place], [place] [id number] Albumin/Globulin [Mass ratio] 1.4 {ratio} Normal 1.1-1.9 [facility] Comment on above: Performed By: #### 2 [id number] #### [employer] [address] [place], [place] [id number] Alk Phos 42 Int._Unit/L Normal 33-110 [facility] Comment on above: Performed By: #### 2 [id number] #### [employer] [address] [place] [address] 41337 ALT [Catalytic activity/Vol] 9 Int._Unit/L Normal 7-45 [facility] Comment on above: Performed By: #### 2 [id number] #### [facility] [employer] [address] [place] [address] 10774 Anion gap [Moles/Vol] 9 mmol/L Low 10-20 [facility] Comment on above: Performed By: #### 2 [id number] #### [employer] [address] [place] [address] 91314 AST [Catalytic activity/Vol] 14 Int._Unit/L Normal 9-39 [facility] Comment on above: Performed By: #### 2 [id number] #### [facility] [employer] [address] [place] [address] 80522 Bili Total 0.54 mg/dL Normal 0.00-1.20 [facility] Comment on above: Performed By: #### 2 [id number] #### [facility] [employer] [address] [place] [address] 08123 Calcium [Mass/Vol] 9.4 mg/dL Normal 8.6-10.3 [facility] Comment on above: Performed By: #### 2 [id number] #### [facility] [employer] [address] [place] [address] 91660 Chloride [Moles/Vol] 103 mmol/L Normal 98-107 [facility] Comment on above: Performed By: #### 2 [id number] #### [employer] [address] [place] [address] 79003 CO2 [Moles/Vol] 30.0 mmol/L Normal 21.0-32.0 [facility] Comment on above: Performed By: #### 2 [id number] #### [employer] [address] [place] [address] 37208 Creatinine [Mass/Vol] 0.8 mg/dL Normal 0.5-1.1 [facility] Comment on above: Performed By: #### 2 [id number] #### [employer] [address] [place] [address] 35231 Globulin (S) [Mass/Vol] 3.0 g/dL Normal 2.0-4.0 [facility] Comment on above: Performed By: #### 2 [id number] #### [facility] [employer] [facility] [place] [address] Glucose [Mass/Vol] 153 mg/dL High 70-99 [facility] Comment on above: Performed By: #### 2 [id number] #### [employer] [address] [place] [address] 20149 Potassium [Moles/Vol] 3.8 mmol/L Normal 3.5-5.3 [facility] Comment on above: Performed By: #### 2 [id number] #### [employer] [address] [place] [address] 66388 Protein [Mass/Vol] 7.1 g/dL Normal 6.4-8.2 [facility] Comment on above: Performed By: #### 2 [id number] #### [employer] [address] [place] [address] 21041 Sodium [Moles/Vol] 138 mmol/L Normal 136-145 [facility] Comment on above: Performed By: #### 2 [id number] #### [facility] [employer] [address] [place] [address] 21318 Urea nitrogen [Mass/Vol] 13 mg/dL Normal 6-23 [facility] Comment on above: Performed By: #### 2 [id number] #### [employer] [address] [place] [address] 09247 Urea nitrogen/Creatinine [Mass ratio] 16.2 ratio Normal 5.4-30.0 [facility] Comment on above: Performed By: #### 2 [id number] #### [employer] [address] [place] [address] 16669 [id number] 06-04-2018 HbA1c (Bld) [Mass fraction] 8.4 % High 4.0-6.3 [facility] Comment on above: Performed By: #### 3 [id number] #### [facility] Chemistry Manual Subsection [address] [place] [address] 89524 eGFRon 06-04-2018 GFR/1.73 sq M predicted among non-blacks MDRD (S/P/Bld) [Vol rate/Area] mL/min/{1.73_m2} Normal [facility] Comment on above: Order Comment: Order added by Discern Expert. Performed By: #### 1 [id number] #### [facility] [employer] [facility] [place] [id number] CNCOon 04-18-2017 [facility] HNO ID: [id number]: Mammography CoordinatorService: (none)Author Type: PhysicianType: LetterFiled: 04/19/2017 11:30 PMNote Text:April 18, 2017 PID: [id number] A. [address] [address], [place] [address]Rddl Ms. Castellon,We are pleased to inform you that the results of your recent breastimaging exam on 04/18/2017 are normal.Your mammogram demonstrates that you have dense breast tissue, which couldhide abnormalities. Dense breast tissue, in and of itself, is arelatively common condition. Therefore, this information is not providedto cause undue concern; rather, it is to raise your awareness and promotediscussion with your health care provider regarding the presence of densebreast tissue in addition to other risk factors. Early detection ofcancer is very important. We also understand recommendations regardingbreast cancer screening are controversial. Please discuss with yourprimary care provider which strategy is best for you and whether amammogram is right for you.Your imaging studies and report will be kept on file at [facility] part of your permanent medical record and are available for yourcontinuing care.Thank you for allowing us to help in meeting your health care needs.Sincerely,Dr. Wallpreneil RadiologistWArbour Hospital's [facility] (Normal over 40) Normal [facility] SCREENINGon 04-18-2017 [facility] SCREENING * * *Final Report* * *DATE OF EXAM: Apr 18 2017 8:25AM [facility] [id number] - [facility] SCREENING / REASON: scr * * * * Physician Interpretation * * * *RESULT: #[id number] - [facility] SCREENINGBILATERAL DIGITAL SCREENING MAMMOGRAM WITH CAD: 04/18/2017HISTORY: /Screening Mammogram - patient reports NO breast symptoms /patient signed film release to obtain prior imaging from outside facility from [facility].RESULT:TECHNIQUE: The study was acquired using full field digital technology and interpreted from soft copy.Current study was also evaluated with a Computer Aided Detection (CAD).There are no prior films available for comparison.The tissue of both breasts is heterogeneously dense. This may lower the sensitivity of mammography.There is a biopsy clip in the right breast.No significant masses, calcifications, or other findings are seen in either breast.IMPRESSION: NEGATIVEThere is no mammographic evidence of malignancy.A 1 year screening mammogram is recommended.Margaret Perea M.D./franciscarad:04/18/20 17 08:38:16Imaging Technologist: Katlyn ARGUETA)(Dave), [facility] Centerletter sent: Normal over 40Mammogram BI-RADS: [address]: PenradTranscribe Date/Time: Apr 18 2017 8:11ADictated by: MARGARET CARVALHO MDThis examination was interpreted and the report reviewed and electronically signed by: MARGARET CARVALHO MD on Apr 18 2017 8:38AM [id number] Normal [facility] Office Visit: Est.Pt. visito n 02-09-2017 Alcoholism counseling (procedure) yes Invalid Interpretation Code [facility] Phone: Documentation of current medications (procedure) Done Invalid Interpretation Code [facility] Phone: Tobacco smoking status NHIS Never Invalid Interpretation Code [facility] Phone: Tobacco use [facility] Never smoker Invalid Interpretation Code [facility] Phone: Office Visit: chronic cougho n 10-24-2016 Fall risk assessment No Invalid Interpretation Code [facility] Phone: Chart Maintenanceon 09-04-19 15 HCG ( test) Ql (U) Negative Invalid Interpretation Code [facility] Phone: Lab Report: Bedside Glucoseo n 09-03-2014 Glucose mass conc 216 mg/dL High 70-110 [facility] Phone: Lab Report: ,Urineo n 09-03-2014 HCGUQUAL Negative Invalid Interpretation Code [facility] Phone: Vital Signs Date Time Vital Sign Value Performing Clinician Facility 10-25-2024 07:55-0400 Body height 162.[address] Erin Acuna DO Work Phone: [facility] 10-25-2024 07:55-0400 Body mass index (BMI) [Ratio] 25.4 kg/m2 Dr. Erin Acuna DO Work Phone: [facility] 10-25-2024 07:55-0400 Body weight 67.[address] Erin Acuna DO Work Phone: [facility] 10-25-2024 07:55-0400 Diastolic blood pressure 71 mm[Hg] Dr. Erin Acuna DO Work Phone: [facility] 10-25-2024 07:55-0400 Heart rate 90 /min Dr. Erin Acuna DO Work Phone: [facility] 10-25-2024 07:55-0400 SaO2% (BldA) [Mass fraction] 98 % Dr. Erin Acuna DO Work Phone: [facility] 10-25-2024 07:55-0400 Systolic blood pressure 113 mm[Hg] Dr. Erin Acuna DO Work Phone: [facility] 08-26-2024 08:17-0400 Body mass index (BMI) [Ratio] 24 kg/m2 Dr. Erin Acuna DO Work Phone: [facility] 08-26-2024 08:17-0400 Body weight 63.[address] Erin Acuna DO Work Phone: [facility] 06-14-2024 10:00-0500 Diastolic blood pressure 62 mm[Hg] Dr. Erin Acuna DO Work Phone: [facility] 06-14-2024 10:00-0500 Heart rate 82 /min Dr. Erin Acuna DO Work Phone: [facility] 06-14-2024 10:00-0500 Respiratory rate 16 /min Dr. Erin Acuna DO Work Phone: [facility] 06-14-2024 10:00-0500 Systolic blood pressure 120 mm[Hg] Dr. Erin Acuna DO Work Phone: [facility] 06-14-2024 09:02-0500 Body height 162.[address] Erin Acuna DO Work Phone: [facility] 06-14-2024 09:02-0500 Body temperature 96 [degF] Dr. Erin Acuna DO Work Phone: [facility] 06-14-2024 09:02-0500 SaO2% (BldA) [Mass fraction] 98 % Dr. Erin Acuna DO Work Phone: [facility] 05-06-2024 09:19-0500 Body mass index (BMI) [Ratio] 25.4 kg/m2 Dr. Erin Acuna DO Work Phone: [facility] 05-06-2024 09:19-0500 Body weight 67.[address] Erin Acuna DO Work Phone: [facility] 05-06-2024 09:19-0500 Diastolic blood pressure 62 mm[Hg] Dr. Erin Acuna DO Work Phone: [facility] 05-06-2024 09:19-0500 Systolic blood pressure 104 mm[Hg] Dr. Erin Acuna DO Work Phone: [facility] 04-26-2024 08:00-0500 Body mass index (BMI) [Ratio] 25.4 kg/m2 Dr. Erin Acuna DO Work Phone: [facility] 04-26-2024 08:00-0500 Body temperature 98.2 [degF] Dr. Erin Acuna DO Work Phone: [facility] 04-26-2024 08:00-0500 Body weight 67.[address] Erin Acuna DO Work Phone: [facility] 04-26-2024 08:00-0500 Diastolic blood pressure 69 mm[Hg] Dr. Erin Acuna DO Work Phone: [facility] 04-26-2024 08:00-0500 Heart rate 96 /min Dr. Erin Acuna DO Work Phone: [facility] 04-26-2024 08:00-0500 Respiratory rate 16 /min Dr. Erin Acuna DO Work Phone: [facility] 04-26-2024 08:00-0500 SaO2% (BldA) [Mass fraction] 95 % Dr. Erin Acuna DO Work Phone: [facility] 04-26-2024 08:00-0500 Systolic blood pressure 110 mm[Hg] Dr. Erin Acuna DO Work Phone: [facility] 06-09-2023 10:06-0500 Body temperature 97.5 [degF] Dr. Erin Acuna Work Phone: [facility] 06-09-2023 10:06-0500 Diastolic blood pressure 69 mm[Hg] Dr. Erin Acuna Work Phone: [facility] 06-09-2023 10:06-0500 Heart rate 85 /min Dr. Erin Acuna Work Phone: [facility] 06-09-2023 10:06-0500 Respiratory rate 16 /min Dr. Erin Acuna Work Phone: [facility] 06-09-2023 10:06-0500 SaO2% (BldA) [Mass fraction] 100 % Dr. Erin Acuna Work Phone: [facility] 06-09-2023 10:06-0500 Systolic blood pressure 126 mm[Hg] Dr. Erin Acuna Work Phone: [facility] 06-09-2023 09:44-0500 Body height 162.[address] Erin Acuna Work Phone: [facility] 06-09-2023 09:44-0500 Body mass index (BMI) [Ratio] 25.4 kg/m2 Dr. Erin Acuna Work Phone: [facility] 06-09-2023 09:44-0500 Body weight 67.[address] Erin Acuna Work Phone: [facility] 05-04-2023 09:34-0500 Body height 162.[address] Erin Acuna Work Phone: [facility] 05-04-2023 09:34-0500 Body mass index (BMI) [Ratio] 25.5 kg/m2 Dr. Erin Acuna Work Phone: [facility] 05-04-2023 09:34-0500 Body weight 67.[address] Erin Acuna Work Phone: [facility] 05-04-2023 09:34-0500 Diastolic blood pressure 69 mm[Hg] Dr. Erin Acuna Work Phone: [facility] 05-04-2023 09:34-0500 Systolic blood pressure 127 mm[Hg] Dr. Erin Acuna Work Phone: [facility] 05-04-2023 08:28-0500 Body mass index (BMI) [Ratio] 25.5 kg/m2 Dr. Erin Acuna Work Phone: [facility] 05-04-2023 08:28-0500 Body temperature 98.4 [degF] Dr. Erin Acuna Work Phone: [facility] 05-04-2023 08:28-0500 Body weight 67.[address] Erin Acuna Work Phone: [facility] 05-04-2023 08:28-0500 Diastolic blood pressure 74 mm[Hg] Dr. Erin Acuna Work Phone: [facility] 05-04-2023 08:28-0500 Heart rate 83 /min Dr. Erin Acuna Work Phone: [facility] 05-04-2023 08:28-0500 Respiratory rate 14 /min Dr. Erin Acuna Work Phone: [facility] 05-04-2023 08:28-0500 SaO2% (BldA) [Mass fraction] 97 % Dr. Erin Acuna Work Phone: [facility] 05-04-2023 08:28-0500 Systolic blood pressure 111 mm[Hg] Dr. Erin Acuna Work Phone: [facility] 04-21-2023 09:23-0500 Body mass index (BMI) [Ratio] 25.7 kg/m2 Dr. Erin Acuna Work Phone: [facility] 04-21-2023 09:23-0500 Body weight 68.[address] Erin Acuna Work Phone: [facility] 02-14-2023 07:10-0400 Body weight 65.[address] Erin Acuna Work Phone: [facility] 02-14-2023 07:09-0400 Body mass index (BMI) [Ratio] 24.7 kg/m2 Dr. Erin Acuna Work Phone: [facility] 12-20-2022 08:28-0400 Body temperature 99.1 [degF] Dr. Erin Acuna Work Phone: [facility] 12-20-2022 08:28-0400 Diastolic blood pressure 69 mm[Hg] Dr. Erin Acuna Work Phone: [facility] 12-20-2022 08:28-0400 Heart rate 95 /min Dr. Erin Acuna Work Phone: [facility] 12-20-2022 08:28-0400 Respiratory rate 16 /min Dr. Erin Acuna Work Phone: [facility] 12-20-2022 08:28-0400 SaO2% (BldA) [Mass fraction] 100 % Dr. Erin Acuna Work Phone: [facility] 12-20-2022 08:28-0400 Systolic blood pressure 117 mm[Hg] Dr. Erin Acuna Work Phone: [facility] 12-20-2022 06:38-0400 Body height 162.[address] Erin Acuna Work Phone: [facility] 12-20-2022 06:38-0400 Body mass index (BMI) [Ratio] 25 kg/m2 Dr. Erin Acuna Work Phone: [facility] 12-20-2022 06:38-0400 Body weight [address] Erin Acuna Work Phone: [facility] 11-01-2022 08:13-0400 Body mass index (BMI) [Ratio] 25.3 kg/m2 Dr. Erin Acuna Work Phone: [facility] 11-01-2022 08:13-0400 Body temperature 98.2 [degF] Dr. Erin Acuna Work Phone: [facility] 11-01-2022 08:13-0400 Body weight 66.[address] Erin Acuna Work Phone: [facility] 11-01-2022 08:13-0400 Diastolic blood pressure 78 mm[Hg] Dr. Erin Acuna Work Phone: [facility] 11-01-2022 08:13-0400 Heart rate 84 /min Dr. Erin Acuna Work Phone: [facility] 11-01-2022 08:13-0400 Respiratory rate 16 /min Dr. Erin Acuna Work Phone: [facility] 11-01-2022 08:13-0400 SaO2% (BldA) [Mass fraction] 98 % Dr. Erin Acuna Work Phone: [facility] 11-01-2022 08:13-0400 Systolic blood pressure 148 mm[Hg] Dr. Erin Acuna Work Phone: [facility] 10-27-2022 07:54-0400 Body mass index (BMI) [Ratio] 24.5 kg/m2 Dr. Erin Acuna Work Phone: [facility] 10-27-2022 07:54-0400 Body temperature 98.4 [degF] Dr. Erin Acuna Work Phone: [facility] 10-27-2022 07:54-0400 Body weight 64.[address] Erin Acuna Work Phone: [facility] 10-27-2022 07:54-0400 Diastolic blood pressure 69 mm[Hg] Dr. Erin Acuna Work Phone: [facility] 10-27-2022 07:54-0400 Heart rate 92 /min Dr. Erin Acuna Work Phone: [facility] 10-27-2022 07:54-0400 Respiratory rate 18 /min Dr. Erin Acuna Work Phone: [facility] 10-27-2022 07:54-0400 SaO2% (BldA) [Mass fraction] 94 % Dr. Erin Acuna Work Phone: [facility] 10-27-2022 07:54-0400 Systolic blood pressure 115 mm[Hg] Dr. Erin Acuna Work Phone: [facility] 09-26-2022 15:41-0400 Body mass index (BMI) [Ratio] 25 kg/m2 Dr. Erin Acuna Work Phone: [facility] 09-26-2022 15:41-0400 Body weight 66.[address] Erin Acuna Work Phone: [facility] 09-26-2022 15:41-0400 Diastolic blood pressure 63 mm[Hg] Dr. Erin Acuna Work Phone: [facility] 09-26-2022 15:41-0400 Heart rate 82 /min Dr. Erin Acuna Work Phone: [facility] 09-26-2022 15:41-0400 Respiratory rate 16 /min Dr. Erin Acuna Work Phone: [facility] 09-26-2022 15:41-0400 Systolic blood pressure 109 mm[Hg] Dr. Erin Acuna Work Phone: [facility] 06-09-2022 09:31-0500 Diastolic blood pressure 66 mm[Hg] Dr. Erin Acuna Work Phone: [facility] 06-09-2022 09:31-0500 Heart rate 83 /min Dr. Erin Acuna Work Phone: [facility] 06-09-2022 09:31-0500 Respiratory rate 16 /min Dr. Erin Acuna Work Phone: [facility] 06-09-2022 09:31-0500 Systolic blood pressure 122 mm[Hg] Dr. Erin Acuna Work Phone: [facility] 06-09-2022 08:54-0500 Body height 162.[address] Erin Acuna Work Phone: [facility] 06-09-2022 08:54-0500 Body temperature 96.9 [degF] Dr. Erin Acuna Work Phone: [facility] 05-24-2022 15:31-0500 Body height 162.[address] Erin Acuna Work Phone: [facility] 05-24-2022 15:31-0500 Body mass index (BMI) [Ratio] 24.7 kg/m2 Dr. Erin Acuna Work Phone: [facility] 05-24-2022 15:31-0500 Body temperature 98.6 [degF] Dr. Erin Acuna Work Phone: [facility] 05-24-2022 15:31-0500 Body weight 65.[address] Erin Acuna Work Phone: [facility] 05-24-2022 15:31-0500 Diastolic blood pressure 71 mm[Hg] Dr. Erin Acuna Work Phone: [facility] 05-24-2022 15:31-0500 Heart rate 98 /min Dr. Erin Acuna Work Phone: [facility] 05-24-2022 15:31-0500 Respiratory rate 15 /min Dr. Erin Acuna Work Phone: [facility] 05-24-2022 15:31-0500 SaO2% (BldA) [Mass fraction] 100 % Dr. Erin Acuna Work Phone: [facility] 05-24-2022 15:31-0500 Systolic blood pressure 125 mm[Hg] Dr. Erin Acuna Work Phone: [facility] 05-05-2022 08:31-0500 Body height 162.[address] Erin Acuna Work Phone: [facility] Work Phone: 05-05-2022 08:31-0500 Body mass index (BMI) [Ratio] 25.1 kg/m2 Dr. Erin Acuna Work Phone: [facility] 05-05-2022 08:31-0500 Body temperature 96.8 [degF] Dr. Erin Acuna Work Phone: [facility] 05-05-2022 08:31-0500 Body weight 66.[address] Erin Acuna Work Phone: [facility] 05-05-2022 08:31-0500 Diastolic blood pressure 77 mm[Hg] Dr. Erin Acuna Work Phone: [facility] 05-05-2022 08:31-0500 Heart rate 74 /min Dr. Erin Acuna Work Phone: [facility] 05-05-2022 08:31-0500 Respiratory rate 18 /min Dr. Erin Acuna Work Phone: [facility] 05-05-2022 08:31-0500 SaO2% (BldA) [Mass fraction] 95 % Dr. Erin Acuna Work Phone: [facility] 05-05-2022 08:31-0500 Systolic blood pressure 118 mm[Hg] Dr. Erin Acuna Work Phone: [facility] 05-03-2022 08:54-0500 Body mass index (BMI) [Ratio] 25 kg/m2 Dr. Erin Acuna Work Phone: [facility] 05-03-2022 08:54-0500 Body weight 66.[address] Erin Acuna Work Phone: [facility] 05-03-2022 08:54-0500 Diastolic blood pressure 64 mm[Hg] Dr. Erin Acuna Work Phone: [facility] 05-03-2022 08:54-0500 Systolic blood pressure 100 mm[Hg] Dr. Erin Acuna Work Phone: [facility] 04-13-2022 10:34-0500 Body mass index (BMI) [Ratio] 25 kg/m2 Dr. Erin Acuna Work Phone: [facility] 04-13-2022 10:34-0500 Body temperature 97.1 [degF] Dr. Erin Acuna Work Phone: [facility] 04-13-2022 10:34-0500 Body weight 65.[address] Erin Acuna Work Phone: [facility] 04-13-2022 10:34-0500 Diastolic blood pressure 71 mm[Hg] Dr. Erin Acuna Work Phone: [facility] 04-13-2022 10:34-0500 Heart rate 93 /min Dr. Erin Acuna Work Phone: [facility] 04-13-2022 10:34-0500 Respiratory rate 18 /min Dr. Erin Acuna Work Phone: [facility] 04-13-2022 10:34-0500 SaO2% (BldA) [Mass fraction] 97 % Dr. Erin Acuna Work Phone: [facility] 04-13-2022 10:34-0500 Systolic blood pressure 122 mm[Hg] Dr. Erin Acuna Work Phone: [facility] 03-25-2022 15:48-0500 Body mass index (BMI) [Ratio] 24.2 kg/m2 Dr. Erin Acuna Work Phone: [facility] 03-25-2022 15:48-0500 Body weight 63.[address] Erin Acuna Work Phone: [facility] 12-30-2021 08:56-0400 Body height 162.[address] Erin Acuna Work Phone: [facility] Work Phone: 12-30-2021 08:56-0400 Body mass index (BMI) [Ratio] 24.3 kg/m2 Dr. Erin Acuna Work Phone: [facility] Work Phone: 12-30-2021 08:56-0400 Body temperature 96.6 [degF] Dr. Erin Acuna Work Phone: [facility] Work Phone: 12-30-2021 08:56-0400 Body weight 64.[address] Erin Acuna Work Phone: [facility] Work Phone: 12-30-2021 08:56-0400 Diastolic blood pressure 74 mm[Hg] Dr. Erin Acuna Work Phone: [facility] Work Phone: 12-30-2021 08:56-0400 Heart rate 84 /min Dr. Erin Acuna Work Phone: [facility] Work Phone: 12-30-2021 08:56-0400 Respiratory rate 18 /min Dr. Erin Acuna Work Phone: [facility] Work Phone: 12-30-2021 08:56-0400 SaO2% (BldA) [Mass fraction] 96 % Dr. Erin Acuna Work Phone: [facility] Work Phone: 12-30-2021 08:56-0400 Systolic blood pressure 117 mm[Hg] Dr. Erin Acuna Work Phone: [facility] Work Phone: 09-20-2021 08:04-0400 Body mass index (BMI) [Ratio] 24.3 kg/m2 Dr. Erin Acuna Work Phone: [facility] Work Phone: 09-20-2021 08:04-0400 Body temperature 98.6 [degF] Dr. Erin Acuna Work Phone: [facility] Work Phone: 09-20-2021 08:04-0400 Body weight 64.[address] Erin Acuna Work Phone: [facility] Work Phone: 09-20-2021 08:04-0400 Diastolic blood pressure 70 mm[Hg] Dr. Erin Acuna Work Phone: [facility] Work Phone: 09-20-2021 08:04-0400 Heart rate 77 /min Dr. Erin Acuna Work Phone: [facility] Work Phone: 09-20-2021 08:04-0400 Respiratory rate 16 /min Dr. Erin Acuna Work Phone: [facility] Work Phone: 09-20-2021 08:04-0400 SaO2% (BldA) [Mass fraction] 99 % Dr. Erin Acuna Work Phone: [facility] Work Phone: 09-20-2021 08:04-0400 Systolic blood pressure 120 mm[Hg] Dr. Erin Acuna Work Phone: [facility] Work Phone: 04-28-2021 14:09-0500 Body height 162.[address] Erin Acuna Work Phone: [facility] Work Phone: 04-28-2021 14:09-0500 Body mass index (BMI) [Ratio] 24.4 kg/m2 Dr. Erin Acuna Work Phone: [facility] Work Phone: 04-28-2021 14:09-0500 Body weight 64.[address] Erin Acuna Work Phone: [facility] Work Phone: 04-28-2021 14:09-0500 Diastolic blood pressure 66 mm[Hg] Dr. Erin Acuna Work Phone: [facility] Work Phone: 04-28-2021 14:09-0500 Systolic blood pressure 118 mm[Hg] [facility] [facility] Work Phone: 04-28-2021 10:36-0500 Body mass index (BMI) [Ratio] 24.3 kg/m2 Dr. Erin Acuna Work Phone: [facility] Work Phone: 04-28-2021 10:36-0500 Body temperature 97.3 [degF] Dr. Erin Acuna Work Phone: [facility] Work Phone: 04-28-2021 10:36-0500 Body weight 64.[address] Erin Acuna Work Phone: [facility] Work Phone: 04-28-2021 10:36-0500 Diastolic blood pressure 80 mm[Hg] Dr. Erin Acuna Work Phone: [facility] Work Phone: 04-28-2021 10:36-0500 Heart rate 78 /min Dr. Erin Acuna Work Phone: [facility] Work Phone: 04-28-2021 10:36-0500 Respiratory rate 16 /min Dr. Erin Acuna Work Phone: [facility] Work Phone: 04-28-2021 10:36-0500 SaO2% (BldA) [Mass fraction] 98 % Dr. Erin Acuna Work Phone: [facility] Work Phone: 04-28-2021 10:36-0500 Systolic blood pressure 128 mm[Hg] Dr. Erin Acuna Work Phone: [facility] Work Phone: 04-12-2021 07:33-0500 Body temperature 97.2 [degF] Dr. Erin Acuna Work Phone: [facility] Work Phone: 04-12-2021 07:33-0500 Diastolic blood pressure 78 mm[Hg] Dr. Erin Acuna Work Phone: [facility] Work Phone: 04-12-2021 07:33-0500 Heart rate 97 /min Dr. Erin Acuna Work Phone: [facility] Work Phone: 04-12-2021 07:33-0500 Respiratory rate 16 /min Dr. Erin Acuna Work Phone: [facility] Work Phone: 04-12-2021 07:33-0500 SaO2% (BldA) [Mass fraction] 96 % Dr. Erin Acuna Work Phone: [facility] Work Phone: 04-12-2021 07:33-0500 Systolic blood pressure 105 mm[Hg] Dr. Erin Acuna Work Phone: [facility] Work Phone: 10-12-2020 08:06-0400 Body mass index (BMI) [Ratio] 23 kg/m2 Dr. Erin Acuna Work Phone: [facility] Work Phone: 12-09-2019 08:05-0400 BMI (Body Mass Index) 23.24 kg/m2 [facility] 12-09-2019 08:05-0400 Body weight 60.42 kg [facility] 12-09-2019 08:05-0400 BP Diastolic 75 mm[Hg] [facility] 12-09-2019 08:05-0400 BP Systolic 122 mm[Hg] [facility] 12-09-2019 08:05-0400 Pulse (Heart Rate) 87 /min [facility] 10-09-2019 13:57-0400 BMI (Body Mass Index) 23.01 kg/m2 [facility] 10-09-2019 13:57-0400 Body weight 59.[address] [facility] 10-09-2019 13:57-0400 BP Diastolic 70 mm[Hg] [facility] 10-09-2019 13:57-0400 BP Systolic 111 mm[Hg] [facility] 10-09-2019 13:57-[address] [facility] 10-09-2019 13:57-0400 Pulse (Heart Rate) 90 /min [facility] 06-03-2019 08:49-0500 BMI (Body Mass Index) 23.2 kg/m2 Caden [facility] 06-03-2019 08:49-0500 Body weight 60.33 kg [facility] 06-03-2019 08:49-0500 BP Diastolic 79 mm[Hg] Caden [facility] 06-03-2019 08:49-0500 BP Systolic 143 mm[Hg] [facility] 06-03-2019 08:49-0500 Pulse (Heart Rate) 85 /min Caden [facility] 12-04-2018 08:10-0400 BMI (Body Mass Index) 22.28 kg/m2 [facility] 12-04-2018 08:10-0400 Body weight 57.[address] [facility] 12-04-2018 08:10-0400 BP Diastolic 79 mm[Hg] [facility] 12-04-2018 08:10-0400 BP Systolic 132 mm[Hg] [facility] 12-04-2018 08:10-[address] [facility] 12-04-2018 08:10-0400 Pulse (Heart Rate) 79 /min [facility] 06-06-2018 08:55-0500 BMI (Body Mass Index) 23.12 kg/m2 Olga Li [facility] 06-06-2018 08:55-0500 Body weight 60.15 kg Olga Li [facility] 06-06-2018 08:55-0500 BP Diastolic 80 mm[Hg] Olga Li [facility] 06-06-2018 08:55-0500 BP Systolic 124 mm[Hg] Olga Li [facility] 06-06-2018 08:55-0500 Height 161.3 cm Olga Li [facility] 06-06-2018 08:55-0500 Pulse (Heart Rate) 79 /min Olga Li [facility] 12-04-2017 14:39-0400 BMI (Body Mass Index) 23.54 kg/m2 Olga Li [facility] 12-04-2017 14:39-0400 BP Diastolic 62 mm[Hg] Olga Li [facility] 12-04-2017 14:39-0400 BP Systolic 110 mm[Hg] Olga Li [facility] 12-04-2017 14:39-0400 Height 161.3 cm Olga Li [facility] 12-04-2017 14:39-0400 Pulse (Heart Rate) 68 /min Olga Li [facility] 12-04-2017 14:39-0400 Weight 61.24 kg Olga Li [facility] 10-24-2016 08:12-0400 BMI (Body Mass Index) 22.83 kg/m2 [facility] [place] Work Phone: 10-24-2016 08:12-0400 Body Temperature 98.2 [degF] [facility] [place] Work Phone: 10-24-2016 08:12-0400 BP Diastolic 72 mm[Hg] [facility] [employer] [facility] [place] Work Phone: 10-24-2016 08:12-0400 BP Systolic 121 mm[Hg] [facility] [place] Work Phone: 10-24-2016 08:12-0400 Height 162.56 cm [facility] [place] Work Phone: 10-24-2016 08:12-0400 Pulse (Heart Rate) 84 /min [facility] [place] Work Phone: 10-24-2016 08:12-0400 Respiratory Rate 18 /min [facility] [place] Work Phone: 10-24-2016 08:12-0400 Weight 60.33 kg [facility] [place] Work Phone: 07-27-2015 12:48-0400 BSA (Body Surface Area) 1.63 m2 [facility] [place] Work Phone: Encounters Encounter Date Encounter Type Care Provider Facility Start: 03-20-[address] [facility] Start: 03-06-2025 End: 03-06-2025 ambulatory Erin [facility] Facility:[facility] Start: 10-25-2024 End: 10-25-[address] Joe Gamboa MD -[facility] Work Phone: Start: 10-25-2024 End: 10-25-[address] Erin Acuna DO Work Phone: [facility] Work Phone: Start: 08-26-2024 End: 08-26-[address] Mio Krishnan DO -[facility] Work Phone: Start: 08-26-2024 End: 08-26-[address] [facility] Start: 08-19-2024 End: 08-19-[address] Mio Krishnan DO -[facility] Work Phone: Start: 08-19-2024 End: 08-19-2024 ambulatory Erin Acuna Facility:[facility] Start: 08-14-2024 End: 08-14-[address] Erin Acuna DO Work Phone: [facility] Work Phone: Start: 08-14-2024 End: 08-14-2024 Patient encounter procedure Luz Maria KNIGHT -Outpatient Breast Imaging Work Phone: Start: 08-14-2024 End: 08-14-2024 ambulatory Erin Acuna Facility:[facility] Start: 08-12-2024 End: 08-12-[address] Mio Krishnan DO -[facility] Work Phone: Start: 08-12-2024 End: 08-12-2024 ambulatory Erin Kalpana Facility:[facility] Start: 07-24-2024 End: 07-24-[address] Mio Krishnan DO -[facility] Work Phone: Start: 07-24-2024 End: 07-24-2024 ambulatory Erinneno Acuna Facility:[facility] Start: 07-15-2024 End: 07-15-[address] Erin Acuna DO Work Phone: [facility] Work Phone: Start: 07-15-2024 End: 07-15-[address] Mio Krishnan DO -[facility] Work Phone: Start: 07-15-2024 End: 07-15-[address] [facility] Start: 06-28-2024 End: 06-28-[address] Mio rKishnan DO -[facility] Work Phone: Start: 06-28-2024 End: 06-28-2024 ambulatory Erin Malkarina Facility:[facility] Start: 06-14-2024 End: 06-14-[address] Joe Gamboa MD -Medical Out Work Phone: Start: 06-14-2024 End: 06-14-[address] 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 Joe Gamboa MD -[facility] Work Phone: Start: 04-26-2024 End: 04-26-2024 ambulatory Erin Malys Facility:[facility] Start: 04-22-2024 End: 04-22-[address] Joe Gamboa MD -Laboratory Work Phone: Start: 04-22-2024 End: 04-22-2024 ambulatory Joe Gamboa Facility:[facility] Start: 04-10-2024 End: 04-10-2024 ambulatory Erin Acuna Facility:[facility] Start: 04-10-2024 End: 04-10-[address] Mio Krishnan DO -Physical Therapy Work Phone: Start: 08-02-2023 End: 08-02-[address] Erin Acuna Work Phone: [facility] Work Phone: Start: 08-02-2023 End: 08-02-[address] Erin Acuna Work Phone: [facility]-Outpatient Breast Imaging Work Phone: Start: 06-09-2023 End: 06-09-[address] Erin Acuna Work Phone: [facility] Work Phone: Start: 06-09-2023 End: 06-09-[address] Erin Acuna Work Phone: [facility]-Medical Out Work Phone: Start: 05-04-2023 End: 05-04-[address] Erin Acuna Work Phone: [facility] Work Phone: Start: 05-04-2023 End: 05-04-[address] Erin Acuna Work Phone: [facility] Work Phone: Start: 04-21-2023 End: 04-21-[address] Erin Acuna Work Phone: [facility] Work Phone: Start: 02-14-2023 End: 02-14-2023 Admission to same day surgery center Dr. Erin Acuna Work Phone: [facility]-Branch Operations Coordinator/Special Procedures Work Phone: Start: 01-25-2023 Non-patient / Non-visit Dr. Melisa Acuna Work Phone: [facility] Start: 12-20-2022 Non-patient / Non-visit Dr. Melisa Aucna Work Phone: [facility] Start: 12-20-2022 End: 12-20-2022 Admission to same day surgery center Dr. Erin Acuna Work Phone: [facility]-Surgical Day Care Start: 12-20-2022 End: 12-20-[address] Erin Acuna Work Phone: [facility] Work Phone: Start: 11-16-2022 End: 11-16-[address] Erin Acuna Work Phone: [facility] Work Phone: Start: 11-09-2022 End: 11-09-[address] Erin Acuna Work Phone: [facility] Work Phone: Start: 11-01-2022 End: 11-01-[address] Erin Acuna Work Phone: [facility] Endocrinology Work Phone: Start: 10-27-2022 End: 10-27-[address] Erin Acuna Work Phone: [facility]-P[facility] Medicine [facility] Work Phone: Start: 09-26-2022 End: 09-26-[address] Erin Acuna Work Phone: [facility] Work Phone: Start: 09-14-2022 End: 09-14-[address] Erin Acuna Work Phone: [facility] Heart [facility] Work Phone: Start: 09-12-2022 End: 09-12-2022 Non-patient / Non-visit Dr. Erin Acuna Work Phone: [facility] Start: 07-29-2022 End: 07-29-[address] Erin Acuna Work Phone: [facility] Work Phone: Start: 07-29-2022 End: 07-29-[address] Erin Acuna Work Phone: [facility]-Outpatient Breast Imaging Start: 06-09-2022 End: 06-09-[address] Erin Acuna Work Phone: [facility] Work Phone: Start: 06-09-2022 End: 06-09-[address] Erin Acuna Work Phone: [facility]-Medical Out Start: 05-24-2022 End: 05-24-2022 Emergency department patient visit Dr. Erin Acuna Work Phone: [facility]-Emergency Department Start: 05-19-2022 End: 05-19-[address] Erin Acuna Work Phone: [facility] Work Phone: Start: 05-19-2022 End: 05-19-[address] Erin Acuna Work Phone: [facility]-Outpatient Bone Densitometry Start: 05-11-2022 End: 05-11-[address] Erin Acuna Work Phone: [facility] Start: 05-05-2022 End: 05-05-[address] Erin Acuna Work Phone: [facility] Endocrinology Start: 05-03-2022 End: 05-03-[address] Erin Acuna Work Phone: [facility] Work Phone: Start: 05-03-2022 End: 05-03-[address] Erin Acuna Work Phone: [facility]-Laboratory, Specimen Start: 05-03-2022 End: 05-03-[address] Erin Acuna Work Phone: [facility] Women's Care Start: 04-13-2022 End: 04-13-[address] Erin Acuna Work Phone: [facility]-Laboratory, OP Pavilion Start: 03-25-2022 Non-patient / Non-visit Dr. Melisa Acuna Work Phone: [facility] Start: 03-11-2022 Non-patient / Non-visit Dr. eMlisa Acuna Work Phone: [facility] Start: 03-10-2022 End: 03-10-[address] Erin Acuna Work Phone: [facility] Work Phone: Start: 03-10-2022 End: 03-10-[address] Erin Acuna Work Phone: [facility]-Pulmonary Services/Neurology Start: 02-02-2022 End: 02-02-[address] Erin Acuna Work Phone: [facility] Start: 01-04-2022 End: 01-04-[address] Erin Acuna Work Phone: [facility] Work Phone: Start: 01-04-2022 End: 01-04-[address] Erin Acuna Work Phone: [facility]-Radiology, [place] Start: 12-30-2021 End: 12-30-[address] Erin Acuna Work Phone: [facility] Work Phone: Start: 12-30-2021 End: 12-30-[address] Erin Acuna Work Phone: [facility] Endocrinology Start: 10-27-2021 End: 10-27-[address] Erin Acuna Work Phone: [facility] Start: 09-20-2021 End: 09-20-[address] Erin Acuna Work Phone: [facility]-Pulmonary Medicine [facility] Start: 07-28-2021 End: 07-28-[address] Erin Acuna Work Phone: [facility]-Outpatient Breast Imaging Start: 07-14-2021 End: 07-14-[address] Erin Acuna Work Phone: [facility] Start: 06-18-2021 ambulatory [facility] Ambulatory Start: 04-28-2021 End: 04-28-[address] Erin Acuna Work Phone: [facility] Women's Care Start: 04-28-2021 End: 04-28-[address] Erin Acuna Work Phone: [facility] Endocrinology Start: 04-12-2021 End: 04-12-[address] Erin Acuna Work Phone: [facility] Start: 04-12-2021 End: 04-12-[address] Erin Acuna Work Phone: [facility] Neurology Start: 04-09-2021 End: 04-09-[address] Erin Acuna Work Phone: [facility] Start: 07-14-2020 End: 07-14-2020 Orders Only Bre Marrero Work Phone: [facility] Start: 12-09-2019 End: 12-09-2019 Office outpatient visit 25 minutes Caden Edmond Work Phone: [facility] Endocrinology Comment on above: Type 1 diabetes digna itus without complication (HCC) (Primary Dx); Hypercholesterolemia Start: 10-09-2019 End: 10-09-2019 Office outpatient visit 25 minutes Mio Rowley Work Phone: [facility] Endocrinology Phys[facility] Comment on above: Type 1 diabetes digna itus with hyperglycemia (HCC) (Primary Dx) Start: 06-03-2019 End: 06-03-2019 Office outpatient visit 25 minutes Caden Edmond Work Phone: [facility] Endocrinology Comment on above: Type 1 diabetes digna itus without complication (HCC) (Primary Dx); Hypercholesterolemia Start: 12-04-2018 End: 12-04-2018 Office outpatient visit 25 minutes Mio Rowley Work Phone: [facility] Phys[facility] Comment on above: Type 1 diabetes digna itus without complication (HCC) (Primary Dx) Start: 07-12-2018 Patient encounter procedure Facility:[id number] Start: 07-03-2018 Patient encounter procedure Facility:[id number] Start: 06-15-2018 Patient encounter procedure Facility:[id number] Start: 06-06-2018 End: 06-06-2018 Office outpatient visit 15 minutes Olga Li Work Phone: [facility] Endocrinology Physicians Comment on above: Type 1 diabetes digna itus without complication (HCC) (Primary Dx); Hypercholesterolemia; Insulin pump fitting or adjustment Start: 06-04-2018 Patient encounter procedure Facility:[id number] Start: 12-04-2017 End: 12-04-2017 Office outpatient visit 15 minutes Olga Li Work Phone: [facility]inology Physicians Start: 04-18-2017 End: 04-18-2017 Ambulatory MISSAEL CONTRERAS [facility] Procedures Date Procedure Procedure Detail Performing Clinician Start: 08-14-[address] Erin Acuna DO Work Phone: Start: 07-15-2024 MRI of joint of lower extremity Dr. Erin Acuna DO Work Phone: Start: 08-02-[address] Erin Acuna Work Phone: Start: 04-21-2023 Radiologic examination of knee Dr. Erin Acuna Work Phone: Start: 12-20-2022 Decompression of median nerve Dr. Erin Acuna Work Phone: Start: 07-29-[address] Erin Acuna Work Phone: Start: 05-24-[address] Erin Acuna Work Phone: Start: 05-19-2022 Dual energy X-ray absorptiometry Dr. Erin Acuna Work Phone: Start: 01-04-2022 X-ray of both feet Dr. Erin Acuna Work Phone: Start: 07-28-[address] Erin Acuna Work Phone: Start: 12-09-2019 3 comp foot exam completed Bre Prov anzana Start: 10-28-2019 H/O: surgery History of loop recorder Dr. Erin Acuna Work Phone: Start: 10-09-2019 3 comp foot exam completed Caden dominique Start: 06-03-2019 3 comp foot exam completed Mio canales Start: 12-04-2018 3 comp foot exam completed Mio canales Start: 12-04-2017 3 comp foot exam completed Olga cedeno Start: 04-18-2017 Mammography Bre Javananzana Start: 07-19-2016 End: 10-25-2016 Follow Up Appt 3 months Dong Antunez Work Phone: Start: 07-19-2016 End: 10-25-2016 Pulmonary Function Test - complete Dong Antunez Work Phone: Start: 07-08-2014 End: 07-09-2014 Documentation of current medications Stephanie Bar Work Phone: Start: 07-08-2014 End: 07-11-2014 Smoking cessation education Stephanie Bar Work Phone: H/O: surgery S/P trigger fing er release Dr. Erin Acuna Work Phone: Plan of Treatment Date Care Activity Detail Author Start: 08-12-2024 Patient referral [facility] Work Phone: Start: 08-05-2024 MG Breast - bilateral Screening [facility] Start: 06-14-2024 Iv infusion therapy/prophylaxis /dx 1st to 1 hr [facility] Start: 05-06-2024 Patient referral [facility] Work Phone: Start: 06-09-2023 Iv infusion therapy/prophylaxis /dx 1st to 1 hr TH[facility]PROPH[facility] Start: 02-14-2023 Patient discharge [facility] Start: 12-20-2022 Catheterization of vein [facility] Start: 12-20-2022 Following clinical pathway protocol [facility] Start: 12-20-2022 Patient discharge [facility] Start: 12-20-2022 Procedure discontinued [facility] Start: 12-20-2022 Taking patient vital signs [facility] Start: 12-20-2022 Vital signs measurements [facility] Start: 12-20-2022 [facility] Start: 12-20-2022 Medication education [facility] Start: 06-09-2022 Iv infusion therapy/prophylaxis /dx 1st to 1 hr THER[facility]PROPH/[facility] Start: 05-24-2022 Radiography of sternum Sternum min 2 Views [facility] Start: 05-24-2022 XR Sternum GE 2 Views [facility] Start: 05-03-2022 Liquid based cervical cytology screening [facility] Work Phone: Start: 04-28-2021 Patient referral [facility] Work Phone: Start: 12-08-2020 Diabetic foot examination Foot Exam [facility] Start: 10-08-2020 Diabetic foot examination Foot Exam [facility] Start: 10-08-2020 HbA1c (Bld) [Mass fraction] A1C [facility] Start: 06-07-2020 HbA1c (Bld) [Mass fraction] A1C [facility] Start: 06-03-2020 Diabetic foot examination Foot Exam [facility] Start: 04-13-2020 End: 04-13-2020 Office Visit 04/13/2020 Office Visit Endocrinology Caden Edmond, SECURITY SYSTEMS MANAGER [address] [address] [phone] [facility] Start: 04-07-2020 End: 12-09-2020 Comprehensive metabolic 2000 panel Comprehensive Metabolic Panel Lab Routine Type 1 diabetes mellitus without complication (HCC) Expected: 04/07/2020, Expires: 12/09/2020 [facility] Comment on above: Expected: 04/07/2020, Expires: Start: 04-07-2020 End: 12-09-2020 Free T4 [Mass/Vol] T4, Free Lab Routine Type 1 diabetes mellitus without complication (HCC) Expected: 04/07/2020, Expires: 12/09/2020 [facility] Comment on above: Expected: 04/07/2020, Expires: 1 Start: 04-07-2020 End: 12-09-2020 HbA1c (Bld) [Mass fraction] Hemoglobin A1c Lab Routine Type 1 diabetes mellitus without complication (HCC) Expected: 04/07/2020, Expires: 12/09/2020 [facility] Comment on above: Expected: 04/07/2020, Expires: 1 Start: 04-07-2020 End: 12-09-2020 Lipid 1996 panel Lipid Panel Lab Routine Type 1 diabetes mellitus without complication (HCC) Expected: 04/07/2020, Expires: 12/09/2020 [facility] Comment on above: Expected: 04/07/2020, Expires: 1 Start: 04-07-2020 End: 12-09-2020 TSH Qn TSH Lab Routine Type 1 diabetes mellitus without complication (HCC) Expected: 04/07/2020, Expires: 12/09/2020 [facility] Comment on above: Expected: 04/07/2020, Expires: 1 Start: 01-07-2020 Influenza vaccination given [facility] Start: 12-09-2019 End: 12-09-2019 Office Visit 12/09/2019 Office Visit Endocrinology Caden Edmond, ELVA [address] [facility] [address] [place] [address] [phone] [facility] Start: 12-05-2019 Diabetic foot examination FOOT EXAM [facility] Start: 06-06-2019 End: 06-06-2019 Office Visit 06/06/2019 Office Visit Endocrinology Caden Edmond CNP [address] [place] [address] [phone] [facility] Start: 05-31-2019 HbA1c (Bld) [Mass fraction] A1C [facility] Start: 01-06-2019 Influenza vaccination given SEQUENTIAL INFLUENZA VACCINE (#1) [facility] Start: 12-04-2018 Diabetic foot examination (regime/therapy) FOOT EXAM [facility] Start: 12-04-2018 End: 12-04-2018 Office Visit 12/04/2018 Office Visit Endocrinology Torri Andrea PA-C [address] [place] [address] [phone] [facility] Start: 06-06-2018 End: 06-06-2018 Ambulatory 06/06/2018 Office Visit Endocrinology Kaylynn Flynn CNP [address] [facility] [address] [place] [address] [phone] [facility] Start: 04-18-2018 Screening mammography Mammogram [facility] Start: 01-06-2018 Influenza vaccination SEQUENTIAL INFLUENZA VACCINE (#1) [facility] Start: 01-06-2018 Influenza vaccination given SEQUENTIAL INFLUENZA VACCINE (#1) [facility] Start: 04-25-2017 End: 04-25-2017 Appointment [facility] Phone: Start: 10-24-2016 End: 10-24-2016 Follow Up Appt 6 months Follow Up Appt 6 months [facility] Phone: Start: 10-20-2016 End: 10-20-2016 Radex elbow complete minimum 3 views X-Ray, Elbow [facility] Phone: Start: 07-19-2016 End: 10-25-2016 Follow Up Appt 3 months Follow Up Appt 3 months [facility] Work Phone: Start: 07-19-2016 End: 10-25-2016 Pulmonary Function Test - complete Pulmonary Function Test - complete [facility] Phone: Start: 04-15-2014 End: 04-15-2014 *FRANCO *FRANCO [facility] Phone: Start: 04-15-2014 End: 04-15-2014 *CBC with Differential *CBC with Differential [facility] Phone: Start: 04-15-2014 End: 04-15-2014 Borrelia burgdorferi Ab [interpretation] in Serum *LYMS Lyme Screen w/Reflx [id number] [facility] Phone: Start: 04-15-2014 End: 04-15-2014 C reactive protein (hsCRP) *CRP - C-Reative Protein [facility] Phone: Start: 04-15-2014 End: 04-15-2014 Erythrocyte sedimentation rate *Sedimentation Rate (ESR) [facility] Phone: Start: 04-15-2014 End: 04-15-2014 Rheumatoid factor *RA Rheumatoid Factor - [facility] Phone: Start: 1988 Hepatitis C antibody, confirmatory test Hepatitis C Screening [facility] Start: 1986 COVID-19 Vaccine (1 of 2) COVID-19 Vaccine (1 of 2) [facility] Start: 1985 HIV screening HIV Screening [facility] Start: 1982 Adolescent depression screening assessment Depression Screening (PHQ9) [facility] Start: 1980 Albumin DL <= 20 mg/L mass conc (U) URINE MICROALBUMIN [facility] Start: 1980 Ophthalmic examination and evaluation OPHTHALMOLOGY EXAM [facility] Start: 1973 History and physical examination, annual for health maintenance Wellness Visit [facility] Start: 1970 Hemoglobin A1c/Hemoglobin.total mass fraction (Bld) HEMOGLOBIN A1C [facility] Start: 1970 Screening for malignant neoplasm of cervix PAP SMEAR [facility] Start: 1970 Screening mammography Mammogram [facility] Start: 1970 Tetanus vaccination [facility] Colonoscopy [facility] Work Phone: Colonoscopy [facility] Colonoscopy [facility] End: 06-03-2020 Complete blood count with white cell differential, manual CBC and Differential Lab Routine Type 1 diabetes mellitus without complication (HCC) 1 Occurrences starting 06/03/2019 until 06/03/2020 [facility] Comment on above: 1 Occurrences starting 06/03/2019 until 06/03/2020 End: 06-07-2019 Complete blood count with white cell differential, manual CBC and Differential Routine Type 1 diabetes mellitus without complication (HCC) 1 Occurrences starting 06/06/2018 until 06/07/2019 [facility] Comment on above: 1 Occurrences starting 06/06/2018 until 06/07/2019 End: 12-05-2018 Comprehensive metabolic 2000 panel Comprehensive Metabolic Panel Routine Type 1 diabetes mellitus without complication (HCC) 1 Occurrences starting 12/04/2017 until 12/05/2018 [facility] End: 12-05-2019 Comprehensive metabolic 2000 panel Comprehensive Metabolic Panel Lab Routine Type 1 diabetes mellitus without complication (HCC) 1 Occurrences starting 12/04/2018 until 12/05/2019 [facility] Comment on above: 1 Occurrences starting 12/04/2018 until 12/05/2019 End: 06-03-2020 Comprehensive metabolic 2000 panel Comprehensive Metabolic Panel Lab Routine Type 1 diabetes mellitus without complication (HCC) 1 Occurrences starting 06/03/2019 until 06/03/2020 [facility] Comment on above: 1 Occurrences starting 06/03/2019 until 06/03/2020 End: 06-07-2019 Comprehensive metabolic 2000 panel Comprehensive Metabolic Panel Routine Type 1 diabetes mellitus without complication (HCC) 1 Occurrences starting 06/06/2018 until 06/07/2019 [facility] Comment on above: 1 Occurrences starting 06/06/2018 until 06/07/2019 End: 06-07-2019 External Lab Microalbumin/Creatinine External Lab Microalbumin/Creatinine Routine Type 1 diabetes mellitus without complication (HCC) 1 Occurrences starting 06/06/2018 until 06/07/2019 [facility] Comment on above: 1 Occurrences starting 06/06/2018 until 06/07/2019 End: 06-03-2020 Free T4 [Mass/Vol] T4, Free Lab Routine Type 1 diabetes mellitus without complication (HCC) 1 Occurrences starting 06/03/2019 until 06/03/2020 [facility] Comment on above: 1 Occurrences starting 06/03/2019 until 06/03/2020 End: 06-07-2019 Free T4 [Mass/Vol] T4, Free Routine Type 1 diabetes mellitus without complication (HCC) 1 Occurrences starting 06/06/2018 until 06/07/2019 [facility] Comment on above: 1 Occurrences starting 06/06/2018 until 06/07/2019 End: 12-05-2019 HbA1c (Bld) [Mass fraction] Hemoglobin A1c Lab Routine Type 1 diabetes mellitus without complication (HCC) 1 Occurrences starting 12/04/2018 until 12/05/2019 [facility] Comment on above: 1 Occurrences starting 12/04/2018 until 12/05/2019 End: 06-03-2020 HbA1c (Bld) [Mass fraction] Hemoglobin A1c Lab Routine Type 1 diabetes mellitus without complication (HCC) 1 Occurrences starting 06/03/2019 until 06/03/2020 [facility] Comment on above: 1 Occurrences starting 06/03/2019 until 06/03/2020 End: 06-07-2019 HbA1c (Bld) [Mass fraction] Hemoglobin A1c Routine Type 1 diabetes mellitus without complication (HCC) 1 Occurrences starting 06/06/2018 until 06/07/2019 [facility] Comment on above: 1 Occurrences starting 06/06/2018 until 06/07/2019 End: 12-05-2018 Hemoglobin A1c/Hemoglobin.total mass fraction (Bld) Hemoglobin A1c Routine Type 1 diabetes mellitus without complication (HCC) 1 Occurrences starting 12/04/2017 until 12/05/2018 [facility] End: 12-05-2019 Lipid 1996 panel Lipid Panel Lab Routine Type 1 diabetes mellitus without complication (HCC) 1 Occurrences starting 12/04/2018 until 12/05/2019 [facility] Comment on above: 1 Occurrences starting 12/04/2018 until 12/05/2019 End: 06-03-2020 Lipid 1996 panel Lipid Panel Lab Routine Type 1 diabetes mellitus without complication (HCC) 1 Occurrences starting 06/03/2019 until 06/03/2020 [facility] Comment on above: 1 Occurrences starting 06/03/2019 until 06/03/2020 End: 06-07-2019 Lipid 1996 panel Lipid Panel Routine Hypercholesterolemia 1 Occurrences starting 06/06/2018 until 06/07/2019 [facility] Comment on above: 1 Occurrences starting 06/06/2018 until 06/07/2019 Measurement of respiratory function [facility] Work Phone: MG Breast - bilatera l Screening [facility] End: 06-03-2020 Microalbumin measurement, urine, quantitative Microalbumin/Creatinine Ratio, UR Random Lab Routine Type 1 diabetes mellitus without complication (HCC) 1 Occurrences starting 06/03/2019 until 06/03/2020 [facility] Comment on above: 1 Occurrences starting 06/03/2019 until 06/03/2020 Path report.final Dx Spec [facility] Work Phone: Patient Education [facility] Work Phone: Patient referral [facility] Work Phone: End: 06-03-2020 TSH Qn TSH Lab Routine Type 1 diabetes mellitus without complication (HCC) 1 Occurrences starting 06/03/2019 until 06/03/2020 [facility] Comment on above: 1 Occurrences starting 06/03/2019 until 06/03/2020 End: 06-07-2019 TSH Qn TSH Routine Type 1 diabetes mellitus without complication (HCC) 1 Occurrences starting 06/06/2018 until 06/07/2019 [facility] Comment on above: 1 Occurrences starting 06/06/2018 until 06/07/2019 [facility] Immunizations Immunization Date Immunization Notes Care Provider Fa sparkle 02-19-[address] Erin Acuna Work Phone: [facility] 02-12-2019 Flucelvax Quad [id number] (PF) (flu vac qs 2019(4 yr up)CD(PF)) 60 mcg ([address] Erin Acuna Work Phone: [facility] Work Phone: 03-12-2018 Flucelvax Quad [id number] (PF) (flu vac qs 2018(4 yr up)CD(PF)) 60 mcg ([address] Erin Acuna Work Phone: [facility] Work Phone: Payers Date Payer Category Payer Unknown [id number] 2024 Self-pay [id number] 2016 Unknown [id number] [address] [employer] [facility] [employer] xxxxxxxxxxxx 2016-Present [id number] [employer] [facility] [employer] [id number] 2016-Present [id number] 1970 Unknown [id number] [id number]6 1970 Unknown [id number] 2.16.840.1.728890.3.579.2.356 1970 Unknown [id number] 2.16.840.1.684437.3.579.2.356 1970 Unknown [id number] 2.16.840.1.775059.3.579.2.356 1970 Unknown [id number] 2.16.840.1.124983.3.579.2.903 Unknown [id number] Unknown [facility] PACKAGE PLAN [id number] Unknown [id number] 2.16.840.1.012481.3.579.2.462 Unknown [id number] 2.16.840.1.370173.3.579.2.462 Unknown [id number] 2.16.840.1.594008.3.579.2.462 Unknown [id number] 2.16.840.1.478553.3.579.2.462 Unknown [id number] 2.16.840.1.609186.3.579.2.462 Unknown [id number] 2.16.840.1.571582.3.579.2.462 Unknown [id number] 2.16.840.1.939553.3.579.2.462 Unknown [id number] 2.16.840.1.398532.3.579.2.462 Unknown [id number] 2.16.840.1.415709.3.579.2.462 Unknown [id number] 2.16.840.1.872717.3.579.2.462 Unknown [id number] 2.16.840.1.201842.3.579.2.462 Unknown [id number] 2.16.840.1.212374.3.579.2.462 Unknown [id number] 2.16.840.1.133980.3.579.2.462 Unknown [id number] 2.16.840.1.854549.3.579.2.462 Unknown [id number] 2.16.840.1.584943.3.579.2.462 Unknown [id number] [id number] Social History Date Type Detail Facility Start: 12-04-2017 End: 11-29-2023 Tobacco smoking status [facility] Never smoker [facility] Sex Assigned At Not on file [facility] Start: 06-03-2019 End: 04-13-2020 Alcohol intake Current drinker of alcohol (finding) [facility] Exposure to SARS-CoV-2 (event) Not sure [facility] Start: 04-13-2020 Tobacco use and exposure Never used [facility] Start: 04-28-2021 End: 05-04-2023 Tobacco smoking status NHIS Unknown if ever smoked [facility] Start: 09-29-2019 Occasional [facility] Start: 09-29-2019 None [facility] Start: 09-29-2019 With Family [facility] Start: 09-30-2019 Non-smoker [facility] Start: 1970 Sex Assigned At Female W [facility] Start: 07-25-2024 End: 08-19-2024 Sex Female (finding) [facility] Medical Equipment Procedure Code Equipment Code Equipment Origin al Text Equipment Identifier Dates by Miscellaneous route. [id number] use as directed 8 times per day [id number] Start: 08-10-2012 End: 06-06-2018 ANCHOR,MINI TACK 2.4MM FDA St art: 04-27-2018 ANCHOR,MINI TACK 2.4MM FDA St art: 04-27-2018 PEEK SUTURE CHRIS FDA Start: 04-27-2018 MEDTRONIC REVEAL LINQ FDA Sta rt: 10-28-2019 ANCHOR,MINI TACK 2.4MM FDA St art: 04-27-2018 ANCHOR,MINI TACK 2.4MM FDA St art: 04-27-2018 PEEK SUTURE CHRIS FDA Start: 04-27-2018 MEDTRONIC REVEAL LINQ FDA Sta rt: 10-28-2019 ANCHOR,MINI TACK 2.4MM FDA St art: 04-27-2018 ANCHOR,MINI TACK 2.4MM FDA St art: 04-27-2018 PEEK SUTURE CHRIS FDA Start: 04-27-2018 MEDTRONIC REVEAL LINQ FDA Sta rt: 10-28-2019 ANCHOR,MINI TACK 2.4MM FDA St art: 04-27-2018 ANCHOR,MINI TACK 2.4MM FDA St art: 04-27-2018 PEEK SUTURE CHRIS FDA Start: 04-27-2018 MEDTRONIC REVEAL LINQ FDA Sta rt: 10-28-2019 ANCHOR,MINI TACK 2.4MM FDA St art: 04-27-2018 ANCHOR,MINI TACK 2.4MM FDA St art: 04-27-2018 PEEK SUTURE CHRIS FDA Start: 04-27-2018 MEDTRONIC REVEAL LINQ FDA Sta rt: 10-28-2019 ANCHOR,MINI TACK 2.4MM FDA St art: 04-27-2018 ANCHOR,MINI TACK 2.4MM FDA St art: 04-27-2018 PEEK SUTURE CHRIS FDA Start: 04-27-2018 MEDTRONIC REVEAL LINQ FDA Sta rt: 10-28-2019 ANCHOR,MINI TACK 2.4MM FDA St art: 04-27-2018 ANCHOR,MINI TACK 2.4MM FDA St art: 04-27-2018 PEEK SUTURE CHRIS FDA Start: 04-27-2018 MEDTRONIC [employer] LINQ FDA Sta rt: 10-28-2019 ANCHOR,MINI TACK 2.4MM FDA St art: 04-27-2018 ANCHOR,MINI TACK 2.4MM FDA St art: 04-27-2018 PEEK SUTURE CHRIS FDA Start: 04-27-2018 MEDTRONIC [employer] LINQ FDA Sta rt: 10-28-2019 ANCHOR,MINI TACK 2.4MM FDA St art: 04-27-2018 ANCHOR,MINI TACK 2.4MM FDA St art: 04-27-2018 PEEK SUTURE CHRIS FDA Start: 04-27-2018 MEDTRONIC [employer] LINQ FDA Sta rt: 10-28-2019 ANCHOR,MINI TACK 2.4MM FDA St art: 04-27-2018 ANCHOR,MINI TACK 2.4MM FDA St art: 04-27-2018 PEEK SUTURE CHRIS FDA Start: 04-27-2018 MEDTRONIC [employer] LINQ FDA Sta rt: 10-28-2019 ANCHOR,MINI TACK 2.4MM FDA St art: 04-27-2018 ANCHOR,MINI TACK 2.4MM FDA St art: 04-27-2018 PEEK SUTURE CHRIS FDA Start: 04-27-2018 MEDTRONIC REVEAL LINQ FDA Sta rt: 10-28-2019 ANCHOR,MINI TACK 2.4MM FDA St art: 04-27-2018 ANCHOR,MINI TACK 2.4MM FDA St art: 04-27-2018 PEEK SUTURE CHRIS FDA Start: 04-27-2018 MEDTRONIC REVEAL LINQ FDA Sta rt: 10-28-2019 ANCHOR,MINI TACK 2.4MM FDA St art: 04-27-2018 ANCHOR,MINI TACK 2.4MM FDA St art: 04-27-2018 PEEK SUTURE CHRIS FDA Start: 04-27-2018 [employer]TRONIC [employer] LINQ FDA Sta rt: 10-28-2019 ANCHOR,MINI TACK 2.4MM FDA St art: 04-27-2018 ANCHOR,MINI TACK 2.4MM FDA St art: 04-27-2018 PEEK SUTURE CHRIS FDA Start: 04-27-2018 MEDTRONIC REVEAL LINQ FDA Sta rt: 10-28-2019 ANCHOR,MINI TACK 2.4MM FDA St art: 04-27-2018 ANCHOR,MINI TACK 2.4MM FDA St art: 04-27-2018 PEEK SUTURE CHRIS FDA Start: 04-27-2018 MEDTRONIC REVEAL LINQ FDA Sta rt: 10-28-2019 ANCHOR,MINI TACK 2.4MM FDA St art: 04-27-2018 ANCHOR,MINI TACK 2.4MM FDA St art: 04-27-2018 PEEK SUTURE CHRIS FDA Start: 04-27-2018 MEDTRONIC REVEAL LINQ FDA Sta rt: 10-28-2019 Goals Date Patient Goal Desired Activity /State Mental Status Date Assessment Result Facility 06-14-2024 Cognitive function Awake;Alert;A ppropriate;Fol lows Commands [facility] Work Phone: 06-09-2023 Cognitive function Voice/Name [facility] Work Phone: 12-20-2022 Cognitive function Voice/Name [facility] Work Phone: 06-09-2022 Cognitive function Voice/Name [facility] Work Phone: Clinical Notes 09-29-2019 to 10-25-2024 Note Date & Type Note Facility 10-25-2024 Progress note [facility] 10-25-2024 Progress note Note Date/Time October 25, 2024 8:19am [facility] [address] [place] [address] OFFICE VISIT Date of Service: 10/25/24 MR#: [id number] Acct: [id number] Name: IVY CASTELLON Rep #: [id number] : 1970 Provider: Dr. Joe Gamboa MD Age/Sex: 54/F Location: [facility] Status: Signed Intake Vital Signs 04/26/24 08:00 08/26/24 08:17 10/25/24 07:55 Height 5 ft 4 in 5 ft 4 in 5 ft 4 in Weight: 148 lb 6 oz BMI 25.4 BP 113/71 Blood Pressure Location Rt brachial Position Sitting Pulse 90 Pulse Source Monitor Pulse Oximetry (%) 98 Oxygen Delivery Method room air Intake Visit Reasons: 6 M FU Chief Complaint: Diabetes Is patient in pain?: No Allergies Environmental Allergies: Uncoded Allergy (Intermediate, Verified 10/25/24 07:59) Hives lisinopril Adverse Reaction (Intermediate, Verified 10/25/24 07:59) HYPOTENSION, SYMPTOMATIC fluticasone furoate (From Breo Ellipta) Adverse Reaction (Mild, Verified 10/25/24 07:59) Other - cough & loses voice vilanterol (From Breo Ellipta) Adverse Reaction (Mild, Verified 10/25/24 07:59) Other - cough & loses voice lovastatin Adverse Reaction (Unknown, Verified 10/25/24 07:59) Pain in joints Medications ?Medication ?Instructions ?Recorded ?Confirmed ?Type omeprazole 20 mg capsule,delayed 20 mg PO DAILY PRN st omach 06/26/19 10/25/24 History release aspirin 81 mg chewable tablet 81 mg PO DAILY@0800 ##30 09/30/19 10/25/24 Rx montelukast 10 mg tablet 10 mg PO DAILY #60 tabs 10/0710/25/24 Rx insulin lispro 100 unit/mL 60 unit (0.6 mL) continuous 02/07/24 10/25/24 Rx subcutaneous solution (Humalog subcutaneous infusion D AILY #60 mL U-100 Insulin) insulin pump cart,automated,BT #30 ea 04/26/24 5 Rx zoledronic acid 5 mg/100 mL in 1 ea .Route .QYEAR #100 mL 04/26/24 10/25/24 Rx mannitol 5 %-water intravenous piggybck rosuvastatin 40 mg tablet 40 mg PO QDAY #90 tabs 10/1810/25/24 Rx PFSH Medical History Heartburn Shortness of breath on exertion Vitamin D deficiency Diabetes mellitus type 1 Diabetic retinopathy associated with type 1 diabetes mellitus Post-menopausal Wears contact lenses Alcohol use Insulin dependent diabetes mellitus High cholesterol Migraine headache Stroke/cerebrovascular accident Dietary restriction Gastric reflux Non-smoker Asthma History of Holter monitoring History of echocardiogram Cardiology follow-up encounter Insomnia Cerebrovascular disease Insulin pump titration Presence of insulin pump History of stroke right shoulder right elbow left shoulder High cholesterol Diabetes Breast lump UTI (urinary tract infection) Asthma Seasonal allergies Hyperlipidemia CVA (cerebral vascular accident) (09/29/19) Abnormal ultrasound of breast HX: benign breast biopsy Lateral epicondylitis of elbow Insulin pump in place Microcalcifications of the breast Frequent headaches Seasonal allergies Shoulder impingement syndrome Shoulder pain Neck pain Adhesive capsulitis of shoulder Recurrent urinary tract infection Chronic cough Right elbow pain Right tennis elbow Synovitis Moderate persistent asthma, uncomplicated Surgical History History of carpal tunnel release History of hand surgery S/P trigger finger release History of loop recorder (10/28/19) History of elbow surgery Encounter for Essure implantation (10/07/10) H/O laparoscopy (1997) H/O breast biopsy H/O shoulder surgery Family History Mother Asthma Colon cancer Osteoporosis Skin cancer Hypertension History of colectomy Father Parkinson disease Other Depression Diabetes Melanoma Social History household members: spouse housing: house number of children: 2 current occupational status: employed 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 A1C is 6.8% She is using Omnipod 5 with Dexcom CGM and automated mode. Upload reveals under reporting carbs at 74 g/day. She has post meal highs. She has history of stroke. LDL is 133. She has osteoporosis and she is taking Reclast. She has had 3 infusions, most recent one was June 14, 2024. 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 ROS Const Constitutional: No fatigue, weight change or change in appetite Eyes Eyes: No change in vision ENT ENT: No dizziness/vertigo or difficulty swallowing Cardio Cardiology: No chest pain at rest, chest pain with exertion, shortness of breathor palpitations Musc Musculoskeletal: No abnormal gait, joint pain, numbness or tingling Neuro Neurology: No abnormal gait, memory loss, numbness or tingling Psych Psychiatric: No change in appetite, No memory loss and No Thoughts of harming yourself/Others Resp Respiratory: No cough, chest congestion or shortness of breath Gastro GI: No abdominal pain, constipation, diarrhea or difficulty swallowing Genitourinary-Female: No burning urination Skin Skin: No itchy eyes or wounds Endo Endocrine: No fatigue or weight change Aller/Imm Allergy/Immunologic: No itchy eyes Exam Const General: cooperative, healthy appearing, comfortable, no acute distress, well developed and not cushingoid Nutritional Appearance: well nourished Orientation: alert, awake and oriented x3 HENMT Head: normal to inspection Ears: hearing grossly normal bilaterally Nose: external nose normal Mouth: oral mucosae normal Eyes General: appearance normal, both eyes and all related structures Alignment and Position: alignment normal Periorbital: periorbital findings normal Eyelids: eyelids normal Conjunctivae: conjunctivae normal Neck Neck: normal visual inspection Neck mass: No Thyroid: thyroid normal Lymphatic: no lymphadenopathy noted Chest Chest palpation & inspection: normal inspection of the chest Resp Effort & Inspection: normal respiratory effort, able to speak in complete sentences, symmetric chest movement, no audible wheezes and no cough Auscultation: Bilateral: Clear to Auscultation Cardio Rate: regular rate Rhythm: regular rhythm Pulses: posterior tibial pulses present GI Inspection: normal to inspection Auscultation: normal bowel sounds Palpation: soft and no hepatosplenomegaly Skin General: no rashes or lesions noted Neuro General: patient alert, patient awake and patient oriented x3 Cranial Nerves: CN's II-XI intact bilaterally Cognition: normal cognition Speech: speech normal Gait: normal gait Motor: muscle tone normal throughout Extrem General: no edema Psych Appearance: grossly normal Mental Status: mental status grossly normal Mood: congruent mood Affect: normal affect Speech and Movement: speech and movement normal Attitude: cooperative Thought Process: normal Thought Content: normal Judgment: judgment good Results POC A1C POC A1C 6.8 % Last Edit by Marco Antonio Chen RN on 10/25/24 08:02 Assessment and Plan Assessment and Plan (1) Diabetes mellitus type 1: Status: Chronic Qualifiers: Diabetes mellitus complication detail: with microalbuminuria Diabetes mellitus complication status: with kidney complications Qualified Code(s): E10.29 - Type 1 diabetes mellitus with other diabetic kidney complication; R80.9- Proteinuria, unspecified Plan: Good control. (2) Osteoporosis: Status: Chronic Qualifiers: Osteoporosis type: age-related Presence of current pathological fracture: without current pathological fracture Qualified Code(s): M81.0 - Age-related osteoporosis without current pathological fracture Comment: reclast first dose June 2022 Plan: Continue for total of 5 infusions (has received 3) (3) Presence of insulin pump: Status: Chronic Plan: Insulin pump management was performed. Insulin pump settings were reviewed with the patient. Settings were adjusted to improve control and to avoid hypoglycemia. Increase carb entry. (4) Hyperlipidemia: Status: Chronic Qualifiers: Hyperlipidemia type: pure hypercholesterolemia Qualified Code(s): E78.00 - Pure hypercholesterolemia, unspecified Plan: Controlled, please continue current medications. I have spent [30] minutes today reviewing labs, records and history. Time includes coordinating care, interpretation of tests, discussion with patient's other health care providers via telephone. This also includes time I spent with the patient for exam, treatment plan and education as well as documenting clinical information. Orders: Orders POC A1C Today E10.29 - Type 1 diabetes mellitus with other diabetic kidney complication, R80.9 - Proteinuria, unspecified Coding Level of Care Code Off vis,est,level 4 Diagnoses Type 1 diabetes mellitus with microalbuminuria E10.29; R80.9 Diabetes mellitus complication detail: with microalbuminuria Diabetes mellitus complication status: with kidney complications Age-related osteoporosis without current pathological fracture M81.0 Osteoporosis type: age-related Presence of current pathological fracture: without current pathological fracture Presence of insulin pump Z96.41 Pure hypercholesterolemia E78.00 Hyperlipidemia type: pure hypercholesterolemia 10/25/24 0819 <Electronically signed by Joe Gamboa MD> Date _ Joe Gamboa MD Cosigner Signature: Date (if applicable) CC: Dr. Erin Acuna, DO ~ [facility] [place] Work Phone: 1(105) 373-484102-21-2025 Evaluation note* Diagnosis Onset Date Resolution Status Admit Date Right knee pain acute June 28, 2024 7:50am Right knee DJD acute July 7:58am Right knee DJD acute August 12, 2024 8:12am Right knee DJD acute August 8:24am Right knee DJD acute August 8:15am Diabetes mellitus type 1 chronic October 25, 2024 7:51am Hyperlipidemia chronic October 25, 2024 7:51am Osteoporosis chronic October 25, 7:51am Presence of insulin pump chronic October 25, 2024 7:51am [facility] [place] Work Phone: 1(120) 778-372512-20-2024 Evaluation note* Diagnosis Onset Date Resolution Status Admit Date Diabetes mellitus type 1 chronic April 26, 2024 7:50am Diabetic retinopathy associated with type 1 diabetes mellitus chronic April 26, 2024 7:50am Hyperlipidemia chronic April 082023 7:50am Osteoporosis chronic April 7:50am Presence of insulin pump chronic April 26, 2024 7:50am Encounter for routine gynecological examination noneactive Decemb er 2023 9:14am Right knee pain acute June 28, 2024 7:50am Right knee DJD acute July 7:58am [facility] Work Phone: 1(210) 339-228712-20-2024 Evaluation note* Diagnosis Onset Date Resolution Status Admit Date Diabetes mellitus type 1 chronic April 26, 2024 7:50am Diabetic retinopathy associated with type 1 diabetes mellitus chronic April 26, 2024 7:50am Hyperlipidemia chronic April 082023 7:50am Osteoporosis chronic April h2023 7:50am Presence of insulin pump chronic April 26, 2024 7:50am Encounter for routine gynecological examination noneactive Decemb er 2023 9:14am Right knee pain acute June 28, 2024 7:50am Right knee DJD acute July 7:58am Right knee DJD acute August 12, 2024 8:12am Right knee DJD acute August 8:24am [facility] Work Phone: 1([phone]) 444-241708-15-2023 History and physical note Author Mio Krishnan [facility] December 20, 2022 7:28am Note Date/Time December 20, 2022 7: 26am [facility] Medical Records Department [address] [place] [address] History & Physical Exam 12/20/22725 MR#: [id number] Acct: [id number] Name: TYLERIVY PEREZ PARKER Rep #:[id number] : 1970 52 From: Mio Krishnan DO PCP: Dr. Erin Acuna DO Status:[facility] Location: [place] [address] History and Physical Date of Admission: 12/20/22 [facility] [address] [place] [address] [address] [place] [address] OFFICE VISIT Date of Service: 11/16/22 MR#: [id number] Acct: [id number] Name: TYLERCYN PEREZSOFIA CANALES Rep #: [id number] : 1970 Provider: Dr. Mio Krishnan DO Age/Sex: 52/F Location: [facility] [place] Status: Signed Intake Vital Signs 11/02/2307:13 Height 5 ft 4 in Weight: 147 lb 8 oz BMI 25.3 BP 148/78 H Blood Pressure Location Rt brachial Position Sitting Respiration 16 Pulse 84 Pulse Source Monitor Temp 98.2 F Temp Source Temporal Pulse Oximetry (%) 98 Oxygen Delivery Method room air Intake Visit Reasons: RIGHT HAND Chief Complaint: right hand Accompanied by: Self Is patient in pain?: No Allergies lisinopril Adverse Reaction (Intermediate, Verified 11/01/22 08:20) HYPOTENSION, SYMPTOMATICfluticasone furoate [From Breo Ellipta] Adverse Reaction(Mild, Verified 11/01/22 08:20) Other - cough & loses voicevilanterol [From Breo Ellipta] Adverse Reaction (Mild, Verified 11/01/22 08:20) Other - cough & loses voicelovastatin Adverse Reaction (Unknown, Verified 11/01/22 08:20) Pain in jointsdust mites Allergy (Intermediate, Uncoded 11/01/22 08:20) Hives Medications omeprazole 20 mg capsule,delayed release 20 mg PO DAILY PRN stomach 06/26/19 [History Confirmed 11/16/22] fluticasone propionate 50 mcg/actuation nasal spray,suspension 2 spray intranasal PRN PRN Nasal Congestion #15.8 mL 07/24/19 [Rx Confirmed 11/16/22] aspirin 81 mg chewable tablet 81 mg PO DAILY@0800 ##30 09/30/19 [Rx Confirmed 11/16/22] trazodone 50 mg tablet 50 mg PO QHS PRN insomnia #90 tabs 12/01/20 [Rx Confirmed 11/16/22] albuterol sulfate 90 mcg/actuation aerosol inhaler 2 puff inhalation Q4H PRN Sob&/Or Wheezing #8.5 grams 09/20/21 [Rx Confirmed 11/16/22] cetirizine 10 mg capsule 10 mg PO HS #30 caps 09/20/21 [Rx Confirmed 11/16/22] Humalog U-100 Insulin 100 unit/mL subcutaneous solution (insulin lispro) 60 unit(0.6 mL) subcut DAILY #60 mL 05/05/22 [Rx Confirmed 11/16/22] atorvastatin 40 mg tablet 40 mg PO QHS #90 tabs 05/05/22 [Rx Confirmed 11/16/22] insulin pump cart,automated,BT (Omnipod 5 G6 Pods (Gen 5) subcutaneous cartridge) #30 ea 05/11/22 [Rx Confirmed 11/16/22] zoledronic acid 5 mg/100 mL in mannitol 5 %-water intravenous piggybck 1 ea .Route ONCE #100 mL 05/22/22 [Rx Confirmed 11/16/22] montelukast 10 mg tablet 10 mg PO DAILY #60 tabs 10/31/22 [Rx Confirmed 11/16/22] dapagliflozin propanediol 10 mg tablet (Farxiga) 10 mg PO DAILY #90 tabs 11/01/22 [Rx Confirmed 11/16/22] PFSH Medical History Abnormal ultrasound of breast Adhesive capsulitis of shoulder Alcohol use Amenorrhea Asthma Asthma Breast lump Cardiology follow-up encounter Cerebrovascular disease Chronic cough CVA (cerebral vascular accident) (09/29/19) Diabetes Diabetes mellitus type 1 Diabetic retinopathy associated with type 1 diabetes mellitus Dietary restriction Frequent headaches Gastric reflux High cholesterol High cholesterol History of echocardiogram History of Holter monitoring History of stroke HX: benign breast biopsy Hyperlipidemia Insomnia Insulin dependent diabetes mellitus Insulin pump in place Insulin pump titration Lateral epicondylitis of elbow left shoulder Microcalcifications of the breast Migraine headache Moderate persistent asthma, uncomplicated Neck pain Non-smoker Post-menopausal Presence of insulin pump Recurrent urinary tract infection right elbow Right elbow pain right shoulder Right tennis elbow Seasonal allergies Seasonal allergies Shoulder impingement syndrome Shoulder pain Stroke/cerebrovascular accident Synovitis UTI (urinary tract infection) Vitamin D deficiency Wears contact lenses Surgical History Encounter for Essure implantation (10/07/10) H/O breast biopsy H/O laparoscopy (1997) H/O shoulder surgery History of elbow surgery History of hand surgery History of loop recorder (10/28/19) S/P trigger finger release Family History Mother Asthma Colon cancer Osteoporosis Skin cancer Hypertension History of colectomyFather Parkinson diseaseOther Depression Diabetes Melanoma Social History household members: spouse housing: house number of children: 2 current occupational status: employed 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 history of recent travel: No sexually active: Yes Smoking Status: Never smoker alcohol intake: current alcohol intake frequency: a few times a month Alcohol type: hard liquor substance use type: does not use diet: diabetic well-balanced diet: daily or most days caffeine: Yes (1) Type: carbonated beverages frequency: 1-2 times per week seatbelt use: always do you feel safe at home: Yes additional social history: Spouse: rajat DOMINGO RIGHT HAND Details: Parts of this documentation were recorded by a scribe, this documentation accurately reflects the service provided and the decisions made by me, Dr. Mio Krishnan, 11/16/22 0803. IVY CASTELLON is a 52 year old F here today for BL hand numbness and tingling. She is here to f/u after having EMG. SHe states that she continues to have numbness and tingling into the 1st through 4th digits. Denies any numbness in the 5th digit. Symptoms similar but to a lesser degree in the left hand Ortho Exam General General: Yes no acute distress Neurologic: Yes alert and Yes oriented x3 Psychologic: Yes reasonable and appropriate Right Wrist/Hand Skin/Wound: Yes CDI, No Swelling, No Ecchymosis, Yes nail intact and Yes capillary refill normal Right Wrist: Yes ROM-Extension 0-60, ROM-Flexion 0-80, ROM-Pronation 0-80, ROM-Supination 0-90, Durken's Test and Phalen's; No Tinel's (elbow and wrist), Thenar Atrophy or Hypothenar Atrophy WRIST: 5/5 abduction decreased cervical extension, no pain with cervical ROM. negative spurlings. Left Wrist/Hand Skin/Wound: No Swelling, No Ecchymosis, Yes nail intact and Yes capillary refillnormal Left Wrist: Yes ROM-Extension 0-60, Yes ROM-Flexion 0-80, Yes Durken's Test and Yes Phalen's; No Tinel's, No Thenar Atrophy and No Hypothenar Atrophy WRIST: scar dorsum of thumb, no sign of infection, 5/5 abduction Supplemental Info 11/14/2022 EMG bilateral upper extremity: Right median mononeuropathy consistent with moderate carpal tunnel. Left median mononeuropathy consistent with mild carpal tunnel Coding Level of Care Code Off vis,est,level 3 Diagnoses Bilateral carpal tunnel syndrome G56.03 Assessment and Plan Assessment and Plan (1) Bilateral carpal tunnel syndrome: Status: Acute Plan Educated that the EMG shows Moderate carpal tunnel syndrome of the right and mild carpal tunnel of the left side. Treatment options are do nothing or continue with night bracing or carpal tunnel injection or carpal tunnel release of the right side. Reviewed the pre-operative plans with the patient. Risks and benefits of the procedure were fully explained, including but not limited to incisional hypersensitivity, pillar pain, infection, neurovascular injury, continued pain, arthritis, stiffness, need for further surgery, re-injury, DVT, PE, general risks of anesthesia, and loss of limb or life. The patient understands all the risks and does wish to proceed with written consent for right carpal tunnel release and left carpal tunnel injection during surgery. She was dispensed a left wrist brace that she will wear at night. Educated that the goal of surgery is to prevent any worsening and may not take away the numbness and tingling. Discussed restrictions post op. Follow up 2 weeks post op or sooner if pain, swelling, numbness or associated symptoms, or concerns develop. All questions answered. Patient in agreement of plan. 11/16/22 1125 <Electronically signed by Mio Krishnan DO> Date Mio Krishnan DO Cosigner Signature: Date (if applicable) CC: ~ I have examined the patient the following changes are noted: Patient began having left thumb triggering similar to her right thumb in the past also tenderness and hypertrophy to the A1 william she has not had any injections previously in this left thumb and wishes for me to add this to the procedure today while she is under anesthesia, I modified the consent and we will go aheadand proceed with this as well. 12/20/22727 <Electronically signed by Mio Krishnan DO> Cosigner Signature (if applicable): CC: Dr. Mio Krishnan DO; Dr. Erin Acuna DO~ Signed [facility] Work Phone: 1(711) 645-591408-15-2023 Procedure [facility] 05-24-[address] Sandoval [facility] May 24, 2022 4:08pm Note Date/Time May 24, 2022 3 :52pm [facility] Medical Records Department [address] [place] [address] Emergency Department Summary 05/24/22 MR#: [id number] Acct: [id number] Name: IVY CASTELLON Rep #:[id number] : 1970 51 From: Hari Sandoval MD PCP: Dr. Erin Acuna, DO Status:PRE ER Location: ED HPI History of Present Illness Chief Complaint: Chest Other Detail of Chief Complaint: Blunt chest trauma Informant: patient Onset/Context/Timing Onset: Hours Mechanism/Context: Blunt Injury (Freezer chest fell off ramp striking patient inthe chest) Quality of Pain: Dull and Aching Location: Sternum inferior left breast Current Severity: Mild Maximum Severity: Moderate Worsened by: Breathing, movement Relieved by: Remaining still Associated Symptoms Associated Symptoms: Negative for Parasthesias, Weakness, Loss of function, Inability to ambulate, Loss of consciousness or Amnesia Length of loss of consciousness: Not applicable Narrative Narrative: Patient is a 51-year-old woman with history of type 1 diabetes with insulin pump, CVA, hyperlipidemia, diabetic retinopathy and osteoporosis. Patient had recent bone density study which revealed abnormality. She is scheduled for treatment. Patient presents because of pain after blunt trauma. She denies shortness of breath. She denies head trauma. She denies visual, ocular auditory symptoms. She denies neck pain. She denies paresthesia, anesthesia medics. She denies abdominal pain. She is unaware of any bruising. She denies back pain. Tetanus Immunization: 5-10 years Prior similar symptoms: No Recent Illness/Hospitalization: No PFSH PFSH Medical History (Updated 05/24/22 @ 16:[address] Hari Sandoval MD) Abnormal ultrasound of breast Adhesive capsulitis of shoulder Alcohol use Amenorrhea Asthma Asthma Breast lump Cardiology follow-up encounter Cerebrovascular disease Chronic cough CVA (cerebral vascular accident) (09/29/19) Diabetes Diabetes mellitus type 1 Diabetic retinopathy associated with type 1 diabetes mellitus Dietary restriction Frequent headaches Gastric reflux High cholesterol High cholesterol History of echocardiogram History of Holter monitoring History of stroke HX: benign breast biopsy Hyperlipidemia Insomnia Insulin dependent diabetes mellitus Insulin pump in place Insulin pump titration Lateral epicondylitis of elbow left shoulder Microcalcifications of the breast Migraine headache Moderate persistent asthma, uncomplicated Neck pain Non-smoker Post-menopausal Presence of insulin pump Recurrent urinary tract infection right elbow Right elbow pain right shoulder Right tennis elbow Seasonal allergies Seasonal allergies Shoulder impingement syndrome Shoulder pain Stroke/cerebrovascular accident Synovitis UTI (urinary tract infection) Vitamin D deficiency Wears contact lenses Home Medications montelukast 10 mg tablet 10 mg PO DAILY #60 tabs 10/19/18 [Rx Last Taken 09/28/19 21:00] omeprazole 20 mg capsule,delayed release 20 mg PO DAILY PRN stomach 06/26/19 [History Last Taken Unknown] fluticasone propionate 50 mcg/actuation nasal spray,suspension 2 spray intranasal PRN PRN Nasal Congestion #15.8 mL 07/24/19 [Rx Last Taken Unknown] aspirin 81 mg chewable tablet 81 mg PO DAILY@0800 ##30 09/30/19 [Rx Last Taken Unknown] trazodone 50 mg tablet 50 mg PO QHS PRN insomnia #90 tabs 12/01/20 [Rx Last Taken Unknown] albuterol sulfate 90 mcg/actuation aerosol inhaler 2 puff inhalation Q4H PRN Sob&/Or Wheezing #8.5 grams 09/20/21 [Rx Last Taken Unknown] cetirizine 10 mg capsule 10 mg PO HS #30 caps 09/20/21 [Rx Last Taken Unknown] insulin pump cartridge,automated dose,BT with controller subcutaneous (Omnipod 5G6 Intro Kit (Gen 5) subcutaneous cartridge with controller) #1 ea 09/29/21 [Rx Last Taken Unknown] fluticasone furoate 200 mcg/actuation blister powder for inhalation (Arnuity Ellipta) 1 inh inhalation QDAY #3 ea 04/13/22 [Rx Last Taken Unknown] Humalog U-100 Insulin 100 unit/mL subcutaneous solution (insulin lispro) 60 unit(0.6 mL) subcut DAILY #60 mL 05/05/22 [Rx Last Taken Unknown] atorvastatin 40 mg tablet 40 mg PO QHS #90 tabs 05/05/22 [Rx Last Taken Unknown] dapagliflozin 10 mg tablet (Farxiga) 10 mg PO DAILY #90 tabs 05/05/22 [Rx Last Taken Unknown] insulin pump cart,automated,BT (Omnipod 5 G6 Pods (Gen 5) subcutaneous cartridge) #30 ea 05/11/22 [Rx Last Taken Unknown] zoledronic acid 5 mg/100 mL in mannitol 5 %-water intravenous piggybck 1 ea .Route ONCE #100 mL 05/22/22 [Rx Last Taken Unknown] Allergy/AdvReac Type Severity Reaction Status Date / Time lisinopril AdvReac Intermediate HYPOTENSION, Verified 05/24/22 15:35 SYMPTOMATIC fluticasone furoate AdvReac Mild Other - Verified 05/24/22 15:35 [From Breo Ellipta] cough & loses voice vilanterol AdvReac Mild Other - Verified 05/24/22 15:35 [From Breo Ellipta] cough & loses voice lovastatin AdvReac Unknown Pain in Verified 05/24/22 15:35 joints Family History Mother Asthma Colon cancer Osteoporosis Skin cancer Hypertension History of colectomy Father Parkinson disease Other Depression Diabetes Melanoma Surgical History Encounter for Essure implantation (10/07/10) H/O breast biopsy H/O laparoscopy (1997) H/O shoulder surgery History of elbow surgery History of hand surgery History of loop recorder (10/28/19) S/P trigger finger release Social History household members: spouse housing: house number of children: 2 current occupational status: employed 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 [employer] history of recent travel: No sexually active: Yes Smoking Status: Never smoker alcohol intake: current alcohol intake frequency: a few times a month Alcohol type: hard liquor substance use type: does not use diet: diabetic well-balanced diet: daily or most days caffeine: Yes (1) Type: carbonated beverages frequency: 1-2 times per week seatbelt use: always do you feel safe at home: Yes additional social history: Spouse: rajat MAS TG ED Constitutional Constitutional ED: Denies chills, fever(s), subjective, sweats or weight loss Eyes Eyes: Denies blurry vision or change in vision ENT ENT ED: Denies ear pain, rhinorrhea or sore throat Cardiovascular Cardiovascular: Reports chest pain; Denies palpitations, paroxysmal nocturnal dyspnea or racing heartbeat Respiratory/Chest Respiratory/Chest: Denies cough, dyspnea, dyspnea on exertion, paroxysmal nocturnal dyspnea or sputum Gastrointestinal Gastrointestinal: Denies abdominal pain, constipation, nausea or vomiting Musculoskeletal Musculoskeletal: Denies arthralgias, back pain, myalgias or neck pain Integumentary Denies Abrasions or rash Neurologic Neurologic: Denies paresthesias or weakness Psychiatric Psychiatric: Denies anxiety or depression Hematologic/Lymphatic Hematologic/Lymphatic: Denies easy bleeding or easy bruising EXAM Physical Exam Const Vital Signs: 05/24/22 15:31 05/24/22 15:52 Temperature 98.6 F Temperature Source Temporal Pulse Rate 98 Respiratory Rate 15 Respiratory Effort Normal Non-Labored Respiratory Depth Normal Respiratory Pattern Normal Blood Pressure 125/71 H Blood Pressure Mean 89 Pulse Ox 100 Oxygen Delivery Method Room Air Room Air Positive well nourished and well developed General Appearance ED: well developed and NAD HEENT HEENT Narrative: Head is normocephalic. There is no septal deviation with Leydi. Ears normal. No evidence of dental trauma. No evidence of trauma to the jaw. atraumatic Eyes PERRL and EOMs intact bilaterally General Eye ED: Yes other Other Details: There was no subconjunctival hemorrhagenoted. Neck full ROM Neck Narrative: There is full active range of motion with no pain the patient anteriorly or posteriorly. Trachea is midline. There is no crepitus. There is no inspiratory expiratory stridor. Resp normal respiratory effort and clear to auscultation bilaterally Resp Narrative: There is pain no patient in the area of the xiphoid. There is no crepitus noted. There is no subcutaneous air appreciated. Effort and Inspection: pain with movement Cardio regular rhythm, S1 normal heart sound, S2 normal heart sound and no murmurs Cardio Narrative: There is no Deja's crunch. GI normal to inspection, nondistended, normoactive bowel sounds, non-tender, non-distended and no masses GI Narrative: There is no hepatosplenomegaly. There is no pain to palpation over the left or right costal margin. There is no bruising noted. Auscultation: normoactive bowel sounds Palpation: soft Back/Spine normal to inspection and no thoracic nor lumbar tenderness General Back: Negative for CVA tenderness Extremity normal to inspection and full ROM Neuro oriented x3, CN's II-XII intact bilaterally and moves all extremities Sensorium / Orientation: alert Psych mental status grossly normal and thought process normal Skin no rashes or lesions noted, no wounds, skin turgor normal and no jaundice MDM MDM MDM Narrative Medical decision making narrative: With history of osteoporosis and confirmed using outside data. Will obtain x-ray of the sternum to evaluate for fracture. Differential diagnosis is contusion versus fracture. Since there is no pain the patient over the ribs, left costal margin or right costal margin and there are symmetric breath sounds with no hyperresonance to percussion doubt pneumothorax, fractured ribs or traumatic injury to the liver or spleen. For this reason CT of the abdomen was not obtained. Radiography Diagnostic Testin views of the sternum were obtained and independently reviewed interpreted by me at 05/13/2003 as negative for fracture. There is a loop recorder noted. The mediastinum is not widened. There is no evidence of effusion. There is no evidence of pneumothorax. Cardiac silhouette and size are unremarkable. There are no acute abnormalities noted. Discharge Plan Triage Chief Complaint: Chest Other ED Provider: Hari Sandoval Dx/Rx/DC Orders Clinical Impression: Contusion of sternum, Type 1 diabetes mellitus, Osteoporosis, History of CVA inadulthood Instructions: ED Chest Wall Contusion Prescriptions: No Action cetirizine 10 mg capsule 10 mg PO HS Qty: 30 3RF albuterol sulfate 90 mcg/actuation HFA aerosol inhaler 2 puff inhalation Q4H PRN (Reason: Sob &/Or Wheezing) Qty: 8.5 6RF Rx Instructions: administer with spacer atorvastatin 40 mg tablet 40 mg PO QHS Qty: 90 3RF Farxiga 10 mg tablet 10 mg PO DAILY Qty: 90 1RF insulin lispro [Humalog U-100 Insulin] 100 unit/mL solution 60 unit subcut DAILY Qty: 60 3RF Arnuity Ellipta 200 mcg/actuation blister with device 1 inh INHALATION QDAY Qty: 3 3RF Rx Instructions: administer at approximately the same time(s) each day omeprazole 20 MG capsule 20 mg PO DAILY PRN (Reason: stomach) aspirin 81 MG tablet,chewable 81 mg PO DAILY@0800 Qty: 30 1RF montelukast 10 mg tablet 10 mg PO DAILY Qty: 60 6RF fluticasone propionate 50 mcg/actuation spray,suspension 2 spray intranasal PRN PRN (Reason: Nasal Congestion) Qty: 15.8 3RF Rx Instructions: administer into each nostril trazodone 50 mg tablet 50 mg PO QHS PRN (Reason: insomnia) Qty: 90 1RF (DME) Omnipod 5 G6 Intro Kit (Gen 5) Cartridge See Rx Instructions .ROUTE .MEDSUPPLY Qty: 1 0RF Rx Instructions: As directed (DME) Omnipod 5 G6 Pods (Gen 5) Cartridge See Rx Instructions .ROUTE .MEDSUPPLY Qty: 30 3RF Rx Instructions: 1 pod q 3 days zoledronic myso-erovzcmo-kqjvb 5 mg/100 mL piggyback 1 ea .Route ONCE Qty: 100 0RF Rx Instructions: infuse over 20 minutes Primary Care Provider: Erin Acuna Referrals: Erin Acuna DO [Primary Care Provider] - As Needed Activity Restrictions/Additional Instructions: 1 to apply ice 6-10 times a day 2. Take Tylenol for pain. Would not recommend ibuprofen or Aleve. Disposition Disposition: Home, Self Care What to do if you have Problems For any increased pain, shortness of breath, bleeding, nausea or vomiting, chestpain, or any unexpected problems, contact your Primary Care Provider. Call [facility] ([phone]) or report to the closest Emergency Room. Call 911 if necessary. 05/24/22 1608 <Electronically signed by Hari Sandoval MD> Cosigner Signature (if applicable): CC: Dr. Erin Acuna DO ~ Signed [facility] Work Phone: 1(117) 519-695601-17-2023 Hospital Discharge instructions Additional Instructions 1 to apply ice 6-10 times a day 2. Take Tylenol for pain. Would not recommend ibuprofen or Aleve.[facility] Work Phone: 1(869) 956-996512-27-2022 NotePap Smear Specimen AdequacyDecember 2021 1:30pmComment.Satisfactory for evaluation. Endocervical and/or squamous metaplasticcells (endocervical component)are present.[facility] A#[id number] on above:Satisfactory for evaluation. Endocervical and/or squamous metaplasticcells (endocervical component)are present.05-03-2022 NotePap Smear Specimen AdequacyDecember 2021 1:30pmComment.Satisfactory for evaluation. Endocervical and/or squamous metaplasticcells (endocervical component)are present.[facility] INTER[facility]AC[facility] A#[id number] HospitalComuniversity of [facility] on above:Satisfactory for evaluation. Endocervical and/or squamous metaplasticcells (endocervical component)are present.05-03-2022 NotePap Smear Specimen AdequacyDecember 2021 1:30pmComment.Satisfactory for evaluation. Endocervical and/or squamous metaplasticcells (endocervical component)are present.[facility]ACED A#[id number] HospitalComment on above:Satisfactory for evaluation. Endocervical and/or squamous metaplasticcells (endocervical component)are present.05-03-2022 NotePap Smear Specimen AdequacyDecember 2021 2:30pmComment.Satisfactory for evaluation. Endocervical and/or squamous metaplasticcells (endocervical component)are present.[facility] A#[id number] HospitalComment on above:Satisfactory for evaluation. Endocervical and/or squamous metaplasticcells (endocervical component)are present.10-28-2019 Evaluation note* Diagnosis Onset Date Resolution Status Moderate persistent asthma, uncomplicated chronic History of loop recorder October 28, 2019 chronic Diabetic retinopathy associa genesis with type 1 diabetes mellitus acute Diabetes chronic Hyperlipidemia chronic Insulin pump titration chron ic Presence [facility]: [phone]) 126-228906-22-2020 Evaluation note* Diagnosis Onset Date Resolution Status History of loop recorder October 28, 2019 chronic History of stroke chronic CVA (cerebral vascular accident) September 29, 2019 chronic History of loop recorder October 28, 2019 chronic Asthma acute Diabetes mellitus type 1 chr onic Diabetic retinopathy associa genesis with type 1 diabetes mellitus chronic Hyperlipidemia chronic Osteoporosis chronic Presence of insulin pump chr onic Bilateral carpal tunnel syndrome noneactive Bilateral carpal tunnel syndrome acute [facility] Work Phone: [phone]) 677-937805-24-2020 Evaluation note* Diagnosis Onset Date Resolution Status CVA (cerebral vascular accident) September 29, 2019 chronic History of loop recorder October 28, 2019 chronic Cerebrovascular disease acut e Insomnia acute Hyperlipidemia chronic Diabetes chronic Hyperlipidemia chronic Insulin pump titration chron ic Presence of insulin pump chr onic Climacteric acute CVA (cerebral vascular accident) September 29, 2019 chronic History of loop recorder October 28, 2019 chronic [facility] Work Phone: [phone]) 915-672005-24-2020 Evaluation note* Diagnosis Onset Date Resolution Status CVA (cerebral vascular accident) September 29, 2019 chronic History of loop recorder October 28, 2019 chronic Diabetic retinopathy associa genesis with type 1 diabetes mellitus acute Moderate persistent asthma, uncomplicated chronic ASCUS favor benign acute Climacteric acute Encounter for routine gynecological examination noneactive Amenorrhea acute Diabetes mellitus type 1 acu te Diabetic retinopathy associa genesis with type 1 diabetes mellitus acute Vitamin D deficiency acute Hyperlipidemia chronic Insulin pump titration chron ic Presence of insulin pump chr onic [facility] Work Phone: [phone]) 381-982705-24-2020 Evaluation note* Diagnosis Onset Date Resolution Status CVA (cerebral vascular accident) September 29, 2019 chronic History of loop recorder October 28, 2019 chronic Diabetic retinopathy associa genesis with type 1 diabetes mellitus acute Moderate persistent asthma, uncomplicated chronic ASCUS favor benign acute Climacteric acute Encounter for routine gynecological examination noneactive Amenorrhea acute Diabetes mellitus type 1 acu te Diabetic retinopathy associa genesis with type 1 diabetes mellitus acute Vitamin D deficiency acute Hyperlipidemia chronic Insulin pump titration chron ic Presence of insulin pump chr onic CVA (cerebral vascular accident) September 29, 2019 chronic History of loop recorder October 28, 2019 chronic [facility] Work Phone: Discharge summary Author [facility] December 20, 2022 8:14am Note Date/Time December 20, 2022 8: 10am [facility] Medical Records Department [address] [place] [id number] Instructions for Home/Discharge Instructions 12/20/22 0810 MR#: [id number] Acct: [id number] Name: IVY CASTELLON PARKER Rep #:[id number] : 1970 52 From: Mio Krishnan DO PCP: Dr. Erin Acuna, DO Status:REG SDC Discharge Instructions Diet Discharge Diet: No restrictions Dressing / Incision Call your doctor if you observe: Shortness of breath and Chest pain Additional Dressing/Incision Instructions:: Ice and elevate operative extremity next 72 hours. Keep dressing on clean and dry for 48 hours then may remove and allow warm soapy water to rinse over incision but do not submerge until sutures are out. Then apply bandaid over incision and change daily. encourage finger range of motion. Not lift more than 1/2 pound. Minimize narcotic use only as needed and directed, may use OTC NSAID and Tylenol to supplement/substitute for pain control. Follow Up Care Please Follow Up With: Mio Krishnan DO When: 2 weeks Test Results: Test results from this visit will be discussed in further detail at your follow- up appointment, if applicable. Discharge Plan Admission Primary Reason for Your Visit: Right open carpal tunnel release Attending Provider: Mio Krishnan Primary Care Provider: Erin Acuna Discharge Orders/Prescriptions Prescriptions: New oxycodone 5 mg tablet 5 mg PO Q4H PRN (Reason: pain) 3 Days Qty: 10 0RF No Action albuterol sulfate 90 mcg/actuation HFA aerosol inhaler 2 puff inhalation Q4H PRN (Reason: Sob &/Or Wheezing) Qty: 8.5 6RF Rx Instructions: administer with spacer atorvastatin 40 mg tablet 40 mg PO QHS Qty: 90 3RF insulin lispro [Humalog U-100 Insulin] 100 unit/mL solution 60 unit subcut DAILY Qty: 60 3RF Farxiga 10 mg tablet 10 mg PO DAILY Qty: 90 1RF omeprazole 20 MG capsule 20 mg PO DAILY PRN (Reason: stomach) aspirin 81 MG tablet,chewable 81 mg PO DAILY@0800 Qty: 30 1RF fluticasone propionate 50 mcg/actuation spray,suspension 2 spray intranasal PRN PRN (Reason: Nasal Congestion) Qty: 15.8 3RF Rx Instructions: administer into each nostril trazodone 50 mg tablet 50 mg PO QHS PRN (Reason: insomnia) Qty: 90 1RF (DME) Omnipod 5 G6 Pods (Gen 5) Cartridge See Rx Instructions .ROUTE .MEDSUPPLY Qty: 30 3RF Rx Instructions: 1 pod q 3 days zoledronic zqlp-ostzivui-adefe 5 mg/100 mL piggyback 1 ea .Route ONCE Qty: 100 0RF Rx Instructions: infuse over 20 minutes montelukast 10 mg tablet 10 mg PO DAILY Qty: 60 11RF Referrals / Follow Up: Erin Acuna DO [Primary Care Provider] - Disposition Disposition (needs filled in before D/C Order can be placed): Home, Self Care 12/20/22 0814<Electronically signed by Mio Krishnan DO>Mio Krishnan DO CC: Dr. Erin Acuna DO ~ Signed [facility] Work Phone: Evaluation note* Diagnosis Onset Date Resolution Status Diabetic retinopathy associa genesis with type 1 diabetes mellitus acute Diabetes chronic Hyperlipidemia chronic Insulin pump titration chron ic Presence of insulin pump chr onic [facility] Work Phone: Evaluation note* Diagnosis Onset Date Resolution Status Diabetic retinopathy associa genesis with type 1 diabetes mellitus acute Moderate persistent asthma, uncomplicated chronic ASCUS favor benign acute Climacteric acute Encounter for routine gynecological examination noneactive Amenorrhea acute Diabetes mellitus type 1 acu te Diabetic retinopathy associa genesis with type 1 diabetes mellitus acute Vitamin D deficiency acute Hyperlipidemia chronic Insulin pump titration chron ic Presence of insulin pump chr onic CVA (cerebral vascular accident) September 29, 2019 chronic History of loop recorder October 28, 2019 chronic [facility] Work Phone: Evaluation note* Diagnosis Onset Date Resolution Status Chondromalacia, right knee a cute Diabetes mellitus type 1 chr onic Diabetic retinopathy associa genesis with type 1 diabetes mellitus chronic History of stroke chronic Hyperlipidemia chronic Osteoporosis chronic Presence of insulin pump chr onic ASCUS favor benign acute Climacteric acute Osteoporosis chronic Encounter for routine gynecological examination noneactive [facility] Work Phone: Hospital Discharge instructions Additional Instructions 1 to apply ice 6-10 times a day 2. Take Tylenol for pain. Would not recommend ibuprofen or Aleve.[facility] Work Phone: Summary Purpose Family History No Family History Records Found Relationship Condition Age at Onset Recorded Date/T wilmar Not Specified Diabetes mellitus Unknown Depression Unknown Malignant melanoma Unknown mother Asthma Unknown Malignant neoplasm of colon Unknown Osteoporosis Unknown Malignant neoplasm of skin Unknown Hypertension Unknown father Parkinson's disease Unknown Relationship Condition Age at Onset Recorded Date/T wilmar Not Specified Diabetes mellitus Unknown Depression Unknown Malignant melanoma Unknown mother Asthma Unknown Malignant neoplasm of colon Unknown Osteoporosis Unknown Malignant neoplasm of skin Unknown Hypertension Unknown History of colectomy Unknown father Parkinson's disease Unknown Advance Directives No Advanced Directives Records FoundDocuments on File Type Date Recorded 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 Expl anation Advance Directives and Living Will Advance Directive Response Recorded Date/ Time Advance Directives No October 27 7:34am Living Will No March 23 4:13pm Power of Booking Supervisor No March 23, 2021 4:13pm Advance Directive Response Recorded Date/ Time Advance Directives No October 27 6:34am Living Will No March 23 3:13pm Power of Booking Supervisor No March 23, 2021 3:13pm Advance Directive Response Recorded Date/ Time Advance Directives No October 27 6:34am Living Will No May 24 3:43pm Power of Booking Supervisor No May 24, 2022 3:43pm Advance Directive Response Recorded Date/ Time Advance Directives No October 27 7:34am Living Will No May 24 4:43pm Power of Booking Supervisor No May 24, 2022 4:43pm Advance Directive Response Recorded Date/ Time Advance Directives No October 27 7:34am Living Will No December 13, 2022 2:26pm Power of Booking Supervisor No December 13 2:26pm Advance Directive Response Recorded Date/ Time Advance Directives No February 14, 2023 6:10am Living Will No February 14 6:10am Power of Booking Supervisor No February 14, 2023 6:10am Advance Directive Response Recorded Date/ Time Advance Directives No February 14, 2023 7:10am Living Will No February 14 7:10am Power of Booking Supervisor No February 14, 2023 7:10am Advance Directive Response Recorded Date/ Time Living Will No February 14 7:10am Do you have a Healthcare Power of Booking Supervisor? No February 14, 2023 7:10am Living Will No October 12, 2023 1 :13pm Do you have a Healthcare Power of Booking Supervisor? No October 12, 2023 1:13pm Living Will No November 29, 2023 12:29pm Do you have a Healthcare Power of Booking Supervisor? No November 29, 2023 12:29pm Advance Directives No October 11 1:13pm Advance Directive Response Recorded Date/ Time Living Will No February 14 7:10am Do you have a Healthcare Power of Booking Supervisor? No February 14, 2023 7:10am Living Will No October 12, 2023 1 :13pm Do you have a Healthcare Power of Booking Supervisor? No October 12, 2023 1:13pm Advance Directives No October 11 1:13pm Advance Directive Response Recorded Date/ Time Advance Directives No October 11 1:13pm Assessments Diagnosis Type 1 diabetes mellitus wit [...] dropping after correction boluses Is patient on KRISTEN inhibitor or angiotensin II receptor eugene? no unable tolerate kristen due to low BP Review of Systems: [...] Exam: BP 132/79 Pulse 79 Ht 5' 3.48" Wt 57.9 kg (127 lb 11 oz) [...] last 12 months: no Date: 03/24. 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 Her sensitivity was also increased (less [...] Panel Electronically signed by: Mio Rowley PA-C, [facility] 12/04/18 8:42 AM documented in this encounter* Cdaen Edmond, [facility] - 06/03/2019 8:44 AM EST Patient [...] dropping after correction boluses Is patient on KRISTEN inhibitor or angiotensin II receptor eugene? no unable tolerate kristen due to low BP Review of Systems: [...] last 12 months: no Date: 03/24. Neg SUMATRA OPENER; needs to reschedule apptsoon Nephropathy: Negative Creatinine 0.8, estimated GFR >60 1/20 Mialb/creat ratio: 7 on 11/28/2018, improved from [...] No cardiac issues in the past. 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 She was admitted to [facility]. Patient states her CT scan was [...] Exam: BP 111/70 Pulse 90 Ht 5' 3.48" Wt 59.8 kg (131 lb 14.4 oz) [...] last 12 months: no Date: 03/24. 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 [...] encounter. Electronically signed by: Mio Rowley PA-C, [facility] 10/11/19 2:21 PM documented in this encounter* Caden Edmond, [facility] - 12/09/2019 8:11 AM EDT Patient [...] numbness and weakness. She was admitted to [facility]. Patient states her CT scan was [...] last 12 months: no Date: 03/24. Neg SUMATRA OPENER; needs to reschedule apptsoon Nephropathy: Negative Creatinine [...] Diagnosed with ASD. Following with cardiology in [place] Dr. Hernadez. Has had 3 day and 30 day satellite project site monitor. Was on plavix, currently off. Has a loop monitor in place for next 3 years. 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 Microischemia noted in R frontal and parietal lobes. Patient found to have ASD, not surgically closed. On plavix. Has been seeing a neurologist in [place], Dr. Gaines. Feet: Negative sores or lesions [...] 12/09/19 8:15 AM documented in this encounter* Olga Li MD - 06/06/2018 9:34 AM EST Patient [...] BG dropping during afternoon Is patient on KRISTEN inhibitor or angiotensin II receptor eugene? no unable tolerate kristen due to low BP Review of Systems: [...] Exam: BP 124/80 Pulse 79 Ht 5' 3.5" Wt 60.1 kg (132 lb 9.6 oz) [...] last 12 months: no Date: 03/24. Neg SUMATRA OPENER; needs to reschedule apptsoon Nephropathy: Negative Creat [...] No cardiac issues in the past. 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 Last foot exam: 06/06/18 Thyroid: Negative 11/28/17 TSH 1.69, FT4--1.04 , stable, no medications Other: Being worked up for asthma currently with Dr Antunez in [place]. 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) 3 mos remote ILR f/u SCREENING Reason for Visit CVA (cerebral vascul ar accident) History of loop recorder Cerebrovascular disease Insomnia Hyperlipidemia Diabetes Hyperlipidemia Insulin pump titration Presence of insulin pump Climacteric CVA (cerebral vascular accident) History of loop recorder Chief Complaint 1 Y FU 3 mos remote ILR f/u 4 M FU E-ORDER Reason for Visit Moderate persistent asthma, uncomplicated History of loop recorder Diabetic retinopathy associated with type 1 diabetes mellitus Diabetes Hyperlipidemia Insulin pump titration Presence of insulin pump Chief Complaint 4 M FU E-ORDER 3 mos remote ILR f/u PERSISTENT ASTHMA PERSISTENT ASTHMA Reason for Visit Diabetic retinopathy associated with type 1 diabetes mellitus Diabetes Hyperlipidemia Insulin pump titration Presence of insulin pump Chief Complaint 3 mos remote ILR f/u PERSISTENT ASTHMA PERSISTENT ASTHMA Amb Documentation 3 M FU 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) 4 M FU EORDERS Reason for Visit CVA (cerebral vascul ar accident) History of loop recorder Diabetic retinopathy associated with type 1 diabetes mellitus Moderate persistent asthma, uncomplicated ASCUS favor benign Climacteric Encounter for routine gynecological examination Amenorrhea Diabetes mellitus type 1 Diabetic retinopathy associated with type 1 diabetes mellitus Vitamin D deficiency Hyperlipidemia Insulin pump titration Presence of insulin pump Chief Complaint 3 mos remote ILR f/u PERSISTENT ASTHMA PERSISTENT ASTHMA Amb Documentation 3 M FU 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) 4 M FU EORDERS 3 mos remote ILR f/u MENOPAUSAL CHEST OTHER Reason for Visit CVA (cerebral vascul ar accident) History of loop recorder Diabetic retinopathy associated with type 1 diabetes mellitus Moderate persistent asthma, uncomplicated ASCUS favor benign Climacteric Encounter for routine gynecological examination Amenorrhea Diabetes mellitus type 1 Diabetic retinopathy associated with type 1 diabetes mellitus Vitamin D deficiency Hyperlipidemia Insulin pump titration Presence of insulin pump CVA (cerebral vascular accident) History of loop recorder Chief Complaint PERSISTENT ASTHMA PERSISTENT ASTHMA Amb Documentation 3 M FU 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) 4 M FU EORDERS 3 mos remote ILR f/u MENOPAUSAL CHEST OTHER RECLAST Reason for Visit Diabetic retinopathy associated with type 1 diabetes mellitus Moderate persistent asthma, uncomplicated ASCUS favor benign Climacteric Encounter for routine gynecological examination Amenorrhea Diabetes mellitus type 1 Diabetic retinopathy associated with type 1 diabetes mellitus Vitamin D deficiency Hyperlipidemia Insulin pump titration Presence of insulin pump CVA (cerebral vascular accident) History of loop recorder Chief Complaint 3 M FU 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) 4 M FU EORDERS 3 mos remote ILR f/u MENOPAUSAL CHEST OTHER RECLAST SCREENING Reason for Visit Diabetic retinopathy associated with type 1 diabetes mellitus Moderate persistent asthma, uncomplicated ASCUS favor benign Climacteric Encounter for routine gynecological examination Amenorrhea Diabetes mellitus type 1 Diabetic retinopathy associated with type 1 diabetes mellitus Vitamin D deficiency Hyperlipidemia Insulin pump titration Presence of insulin pump CVA (cerebral vascular accident) History of loop recorder Chief Complaint 3 MOS REMOTE ILR F/U 3 MOS REMOTE ILR F/U OVERDUE FOR FU LAST SEEN 6 M FU 6 M FU RIGHT HAND RIGHT HAND rt open carpal tunnel release, lt injection rt open carpal tunnel release, lt injection Reason for Visit History of loop venu rder History of stroke CVA (cerebral vascular accident) History of loop recorder Asthma Diabetes mellitus type 1 Diabetic retinopathy associated with type 1 diabetes mellitus Hyperlipidemia Osteoporosis Presence of insulin pump Bilateral carpal tunnel syndrome Bilateral carpal tunnel syndrome Chief Complaint HX LOOP RECORDER HX LOOP RECORDER RIGHT KNEE room 1 6 M FU 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) Reason for Visit Chondromalacia, righ t knee Diabetes mellitus type 1 Diabetic retinopathy associated with type 1 diabetes mellitus History of stroke Hyperlipidemia Osteoporosis Presence of insulin pump ASCUS favor benign Climacteric Osteoporosis Encounter for routine gynecological examination Chief Complaint HX LOOP RECORDER RIGHT KNEE room 1 6 M FU 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) RECLAST Reason for Visit Chondromalacia, righ t knee Diabetes mellitus type 1 Diabetic retinopathy associated with type 1 diabetes mellitus History of stroke Hyperlipidemia Osteoporosis Presence of insulin pump ASCUS favor benign Climacteric Osteoporosis Encounter for routine gynecological examination Chief Complaint RIGHT KNEE room 1 6 M FU 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) May 06, 2024 9:14am RECLAST June 14, 2024 8 :54am RIGHT KNEE June 28, 2024 7:50am CHRONIC KNEE PAIN July 15, 2024 12: 41pm RIGHT KNEE July 24, 2024 7:5 8am Reason for Visit Admit Date Diabetes mellitus type 1 April 26, 2024 7:50am Diabetic retinopathy associa genesis with type 1 diabetes mellitus April 26, 2024 7:50am Hyperlipidemia April 26, 2024 7:50am Osteoporosis April 26, 2024 7:50am Presence of insulin pump April 26, 2024 7:50am Encounter for routine gynecological exam ination May 06, 2024 9:14am Right knee pain June 28, 2024 7:50am Right knee DJD July 24, 2024 7:5 8am Chief Complaint Admit Date 6 M FU April 26, 2024 7:50am 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) May 06, 2024 9:14am RECLAST June 14, 2024 8 :54am RIGHT KNEE June 28, 2024 7:50am CHRONIC KNEE PAIN July 15, 2024 12: 41pm RIGHT KNEE July 24, 2024 7:5 8am RIGHT KNEE August 12, 2024 8:12 am SCREENING August 14, 2024 8:09 am RIGHT KNEE August 19, 2024 8:2 4am Reason for Visit Admit Date Diabetes mellitus type 1 April 26, 2024 7:50am Diabetic retinopathy associa genesis with type 1 diabetes mellitus April 26, 2024 7:50am Hyperlipidemia April 26, 2024 7:50am Osteoporosis April 26, 2024 7:50am Presence of insulin pump April 26, 2024 7:50am Encounter for routine gynecological exam ination May 06, 2024 9:14am Right knee pain June 28, 2024 7:50am Right knee DJD July 24, 2024 7:5 8am Right knee DJD August 12, 2024 8:12 am Right knee DJD August 19, 2024 8:2 4am Chief Complaint Admit Date RIGHT KNEE June 28, 2024 7:50am CHRONIC KNEE PAIN July 15, 2024 12: 41pm RIGHT KNEE July 24, 2024 7:5 8am RIGHT KNEE August 12, 2024 8:12 am SCREENING August 14, 2024 8:09 am RIGHT KNEE August 19, 2024 8:2 4am RIGHT KNEE August 26, 2024 8:1 5am 6 M FU October 25, 2024 7:51 am Reason for Visit Admit Date Right knee pain June 28, 2024 7:50am Right knee DJD July 24, 2024 7:5 8am Right knee DJD August 12, 2024 8:12 am Right knee DJD August 19, 2024 8:2 4am Right knee DJD August 26, 2024 8:1 5am Diabetes mellitus type 1 October 25, 2024 7:51am Hyperlipidemia October 25, 2024 7:51 am Osteoporosis October 25, 2024 7:51 am Presence of insulin pump October 25, 2024 7:51am Additional Source Comments INFORMATION SOURCE (unrecogn ized section and content) DATE CREATED AUTHOR 10/31/2017 [facility] DATE CREATED AUTHOR AUTHOR'S ORGANIZ ATION 07/15/2018 [facility] DATE CREATED AUTHOR AUTHOR'S ORGANIZ ATION 11/28/2018 [facility] DATE CREATED AUTHOR AUTHOR'S ORGANIZ ATION 04/11/2020 [facility] DATE CREATED AUTHOR AUTHOR'S ORGANIZ ATION 07/19/2021 [facility] DATE CREATED AUTHOR AUTHOR'S ORGANIZ ATION 03/19/2025 [facility] Reason for Visit (unrecogniz ed section and content) Reason Comments Diabetes Mellitus Goals (unrecognized section and content) Goals may be documented in a n alternate sectionGoals may be documented in an alternate sectionGoals may be documented in an alternate sectionGoals may be documented in an alternate sectionGoals may be documented in an alternate sectionGoals may be documented in an alternate sectionGoals may be documented in an alternate sectionGoals may be documented in an alternate sectionGoals may be documented in an alternate sectionGoals may be documented in an alternate sectionGoals may be documented in an alternate sectionGoals may be documented in an alternate sectionGoals may be documented in an alternate sectionGoals may be documented in an alternate sectionGoals may be documented in an alternate section Care Teams (unrecognized sec tion and content) Team Status: Active Member Role Status Dates Erin Acuna Family Provider Active Dr. Erin Acuna , DO Primary Care Provider Active Team Status: Inactive Member Role Status Dates Dr. Erin Acuna DO Primary Care Provider, Referring P rovider Active Luz Maria Redding HOT PRESS OPERATOR, HOT PRESS OPERATOR-C Attending Provider Active Team Status: Inactive Member Role Status Dates Dr. Erin Acuna DO Primary Care Provider, Referring P rovider Active Elly Evans Active Dr. Carter Hernadez MD Attending Provider Active Team Status: Inactive Member Role Status Dates Dr. Erin Acuna DO Primary Care Provider, Referring P rovider Active Dr. Joe Gamboa MD Attending Provider Active Team Status: Active Member Role Status Dates Dr. Erin Acuna DO Primary Care Provider Active Isela Fang HOT PRESS OPERATOR, HOT PRESS OPERATOR-C Referring Provider, Other Pr ovider Active Dr. Matthew Adams , DO Attending Provider Active Team Status: Inactive Member Role Status Dates Dr. Erin Acuna , DO Primary Care Provider, Referring P rovider Active Dr. Dong Antunez MD Attending Provider Active Team Status: Inactive Member Role Status Dates Dr. Erin Acuna DO Primary Care Provider, Referring P rovider Active Elly Evans Attending Provider Active Team Status: Active Member Role Status Dates Dr. Erin Acuna DO Primary Care Provider Active Karma Gamboa Attending Provider Active Team Status: Inactive Member Role Status Dates Dr. Erin Acuna DO Primary Care Provider Active Isela Fang HOT PRESS OPERATOR, HOT PRESS OPERATOR-C Attending Provider, Referrin g Provider Active Team Status: Inactive Member Role Status Dates Dr. Erin Acuna DO Primary Care Provider Active Dr. Dong Antunez MD Attending Provider, Referring Pr ovider Active Team Status: Inactive Member Role Status Dates Dr. Erin Acuna DO Primary Care Provider Active Luz Maria Redding HOT PRESS OPERATOR, HOT PRESS OPERATOR-C Attending Provider Active Team Status: Inactive Member Role Status Dates Dr. Erin Acuna DO Primary Care Provider Active Dr. Joe Gamboa MD Attending Provider Active Team Status: Active Member Role Status Dates Dr. Erin Acuna DO Primary Care Provider Active Dr. Joe Gamboa MD Attending Provider Active Team Status: Inactive Member Role Status Dates Dr. Erin Acuna DO Primary Care Provider Active Dr. Hari Sandoval MD Emergency Provider Active Team Status: Inactive Member Role Status Dates Dr. Erin Acuna DO Primary Care Provider Active Dr. Hari Sandoval MD Attending Provider, Emergency Provi aliyah Active Team Status: Inactive Member Role Status Dates Dr. Erin Acuna DO Primary Care Provider Active Dr. Joe Gamboa MD Attending Provider, Referring Provi aliyah Active Team Status: Active Member Role Status Dates Erin Acuna OLS Family Provider Active Dr. Erin Acuna DO Primary Care Provider Active Team Status: Inactive Member Role Status Dates Dr. Erin Acuna DO Primary Care Provider Active Dr. Kandy Sheridan MD Attending Provider, Referr ing Provider Active Team Status: Inactive Member Role Status Dates Dr. Erin Acuna DO Primary Care Provider, Referring P rovider Active Missael Medellin HOT PRESS OPERATOR, HOT PRESS OPERATOR-C Attending Provider Active Team Status: Inactive Member Role Status Dates Dr. Erin Acuna DO Primary Care Provider, Referring P rovider Active Isela Fagn HOT PRESS OPERATOR, HOT PRESS OPERATOR-C Attending Provider Active Team Status: Inactive Member Role Status Dates Dr. Erin Acuna DO Primary Care Provider, Referring P rovider Active Dr. Mio Krishnan DO Attending Provider Active Team Status: Active Member Role Status Dates Dr. Erin Acuna DO Primary Care Provider, Referring P rovider Active Dr. Carter Hernadez MD Attending Provider Active Team Status: Active Member Role Status Dates Dr. Erin Acuna DO Primary Care Provider Active Dr. Mio Krishnan DO Attending Provid er, Referring Provider, Other Provider Active Team Status: Inactive Member Role Status Dates Dr. Erin Acuna DO Primary Care Provider Active Dr. iMo Krishnan DO Attending Provider, Referring Provider Active Team Status: Active Member Role Status Dates Dr. Erin Acuna DO Primary Care Provider Active Dr. Carter Hernadez MD Attending Provider, Other Provide r Active Team Status: Inactive Member Role Status Dates Dr. Erin Acuna DO Primary Care Provider Active Dr. Carter Hernadez MD Attending Provider Active Team Status: Inactive Member Role Status Dates Dr. Erin Acuna DO Primary Care Provider Active Dr. Carter Hernadez MD Attending Provider, Referring Pro vider Active Team Status: Inactive Member Role Status Dates Dr. Erin Acuna DO Primary Care Provider Active Luz Maria Redding HOT PRESS OPERATOR, HOT PRESS OPERATOR-C Attending Provider, Referring Provider Active Team Status: Active Member Role Status Dates Dr. Erin Acuna DO Primary Care Provider Active Team Status: Inactive Member Role Status Dates Dr. Erin Acuna DO Primary Care Provider Active Start: April 10, 2024 End: April 10, 2024 Dr. Mio Krishnan DO Attending Provider Active Start: April 10, 2024 End: April 10, 2024 Dr. Mio Krishnan DO Referring Provider Active Start: April 10, 2024 End: April 10, 2024 Team Status: Inactive Member Role Status Dates Dr. Erin Acuna DO Primary Care Provider Active Start: April 22, 2024 End: April 22, 2024 Dr. Joe Gamboa MD Attending Provider Active Sta rt: April 22, 2024 End: April 22, 2024 Dr. Joe Gamboa MD Referring Provider Active Sta rt: April 22, 2024 End: April 22, 2024 Team Status: Inactive Member Role Status Dates Dr. Erin Acuna DO Primary Care Provider Active Start: April 26, 2024 End: April 26, 2024 Dr. Erin Acuna DO Referring Provider Active St art: April 26, 2024 End: April 26, 2024 Dr. Joe Gamboa MD Attending Provider Active Sta rt: April 26, 2024 End: April 26, 2024 Team Status: Inactive Member Role Status Dates Dr. Erin Acuna DO Primary Care Provider Active Start: May 06, 2024 End: May 06, 2024 Dr. Erin Acuna DO Referring Provider Active St art: May 06, 2024 End: May 06, 2024 Luz Maria Redding HOT PRESS OPERATOR, HOT PRESS OPERATOR-C Attending Provider Active Start: May 06, 2024 End: May 06, 2024 Team Status: Inactive Member Role Status Dates Dr. Erin Acuna DO Primary Care Provider Active Start: June 14, 2024 End: June 14, 2024 Dr. Joe Gamboa MD Attending Provider Active Sta rt: June 14, 2024 End: June 14, 2024 Dr. Joe Gamboa MD Referring Provider Active Sta rt: June 14, 2024 End: June 14, 2024 Team Status: Inactive Member Role Status Dates Dr. Erin Acuna DO Primary Care Provider Active Start: June 28, 2024 End: June 28, 2024 Dr. Erin Acuna DO Referring Provider Active St art: June 28, 2024 End: June 28, 2024 Dr. Mio Krishnan DO Attending Provider Active Start: June 28, 2024 End: June 28, 2024 Team Status: Inactive Member Role Status Dates Dr. Erin Acuna DO Primary Care Provider Active Start: July 15, 2024 End: July 15, 2024 Dr. Mio Krishnan DO Attending Provider Active Start: July 15, 2024 End: July 15, 2024 Dr. Mio Krishnan DO Referring Provider Active Start: July 15, 2024 End: July 15, 2024 Team Status: Inactive Member Role Status Dates Dr. Erin Acuna DO Primary Care Provider Active Start: July 24, 2024 End: July 24, 2024 Dr. Erin Acuna DO Referring Provider Active St art: July 24, 2024 End: July 24, 2024 Dr. Mio Krishnan DO Attending Provider Active Start: July 24, 2024 End: July 24, 2024 Team Status: Inactive Member Role Status Dates Dr. Erin Acuna DO Primary Care Provider Active Start: August 12, 2024 End: August 12, 2024 Dr. Erin Acuna DO Referring Provider Active St art: August 12, 2024 End: August 12, 2024 Dr. Mio Krishnan DO Attending Provider Active Start: August 12, 2024 End: August 12, 2024 Team Status: Inactive Member Role Status Dates Dr. Erin Acuna DO Primary Care Provider Active Start: August 14, 2024 End: August 14, 2024 Luz Maria Redding HOT PRESS OPERATOR, HOT PRESS OPERATOR-C Attending Provider Active Start: August 14, 2024 End: August 14, 2024 Luz Maria Redding HOT PRESS OPERATOR, HOT PRESS OPERATOR-C Referring Provider Active Start: August 14, 2024 End: August 14, 2024 Team Status: Inactive Member Role Status Dates Dr. Erin Acuna DO Primary Care Provider Active Start: August 19, 2024 End: August 19, 2024 Dr. Erin Acuna DO Referring Provider Active St art: August 19, 2024 End: August 19, 2024 Dr. Mio Krishnan DO Attending Provider Active Start: August 19, 2024 End: August 19, 2024 Team Status: Inactive Member Role Status Dates Dr. Erin Acuna DO Primary Care Provider Active Start: August 26, 2024 End: August 26, 2024 Dr. Erin Acuna DO Referring Provider Active St art: August 26, 2024 End: August 26, 2024 Dr. Mio Krishnan DO Attending Provider Active Start: August 26, 2024 End: August 26, 2024 Team Status: Inactive Member Role Status Dates Dr. Erin Acuna DO Primary Care Provider Active Start: October 25, 2024 End: October 25, 2024 Dr. Erin Acuna DO Referring Provider Active St art: October 25, 2024 End: October 25, 2024 Dr. Joe Gamboa MD Attending Provider Active Sta rt: October 25, 2024 End: October 25, 2024 FOR RECORDS PERTAINING TO PATIENTS WHO ARE [...] BE BASED ON THE PRIMARY CLINICAL RECORDS. [email or web address] [facility]. provides no warranty or guarantee of the accuracy or completeness of information in this document.
== END | disposition home or self-care (01) ==
LOC: SL 20:02
PROVIDERS: PCP Family Medicine; Referring Provider Nurse Practitioner Family; Visit Provider Nurse Practitioner Family
DX: G47.33 Obstructive sleep apnea (adult) (pediatric) (principal)
CPT/HCPCS: 95810